=== PATIENT | female | born 1950 | race American Indian/Alaskan Native ===

== ENCOUNTER 2016-12-03 06:35 | Day surgery (SDC) | payer MEDICARE, BC ==
[2016-11-26 07:07] VITALS: BMI 37.4
[2016-12-03] MEDS ORDERED: Propofol 10 mg/ml Inj (20 ML) ONE ×2 (08:26→08:38)
[2016-12-03] MEDS ORDERED: Midazolam 2 MG/2 ML VIAL ONE (08:26)
[2016-12-03 09:32] VITALS: O2SAT 100
[2016-12-03 09:58] VITALS: BP 125/72; PULSE 58; RESP 16; TEMP 97.7
== END 2016-12-03 10:46 | disposition home or self-care (01) ==
LOC: ENDO 06:35
PROVIDERS: ATTEND Specialist
DX: K57.30 Diverticulosis of large intestine without perforation or abscess without bleeding (principal); K64.8 Other hemorrhoids; Z12.11 Encounter for screening for malignant neoplasm of colon; E11.9 Type 2 diabetes mellitus without complications; I10 Essential (primary) hypertension; D64.9 Anemia, unspecified; M19.90 Unspecified osteoarthritis, unspecified site; E78.5 Hyperlipidemia, unspecified; Z90.710 Acquired absence of both cervix and uterus; Z88.0 Allergy status to penicillin
CPT/HCPCS: 45378; 82948; J2250; J2704

== ENCOUNTER 2017-04-14 08:49 | Day surgery (SDC) | payer MEDICARE, BC ==
[2017-04-10 09:08] VITALS: BMI 37.0
[2017-04-14 09:23] LABS: BASO # 0.03 K/mm3 (0.0-2.0); BASO % 0.4 % (0.0-3.0); EOS # 0.2 (0.0-0.7); EOS % 2.7 % (1.5-5.0); GRAN # 4.68 (1.4-6.5); GRAN % 65.7 % (50.0-68.0); HEMATOCRIT 39.8 % (36.0-48.0); LYMPH # 1.8 (1.2-3.4); LYMPH % 25.7 % (22.0-35.0); MEAN CELL VOLUME 87.1 fl (80.0-105.0); MEAN CORPUSCULAR HEMOGLOBIN 27.8 pg (25.0-35.0); MEAN CORPUSCULAR HGB CONC 31.9 g/dl (31.0-37.0); MONO # 0.4 (0.1-0.6); MONO % 5.5 % (1.0-6.0); RED CELL DISTRIBUTION WIDTH 14.2 % (11.5-14.5); WHITE BLOOD COUNT 7.1 10^3/ul (4.5-11.0)
[2017-04-14 09:34] LABS: BLOOD UREA NITROGEN 17 mg/dL (7-21); CALCIUM 9.4 mg/dL (8.4-10.5); CARBON DIOXIDE 32 mmol/L (21-33); CHLORIDE 97 mmol/L (98-107); GFR AFRICAN-AMERICAN > 60; GLUCOSE,RANDOM 135 mg/dL (70-110); INR 1.11 (0.93-1.08); PARTIAL THROMBOPLASTIN TIME 29.2 Seconds (23.7-30.8); POTASSIUM 3.9 mmol/L (3.6-5.0); SODIUM 139 mmol/L (132-148)
[2017-04-14] MEDS ORDERED: Midazolam 2 MG/2 ML VIAL ONE (11:36)
[2017-04-14] MEDS ORDERED: Lidocaine 1% Inj (20ml) ONE (12:06)
[2017-04-14] MEDS ORDERED: Oxycodone/Acetaminophen 5/325 mg Tab PO PRN (12:27)
[2017-04-14] MEDS ORDERED: Sodium Chloride 0.45% 1,000 ML IV SCH (12:30)
[2017-04-14] MEDS ORDERED: Oxycodone/Acetaminophen 5/325 mg Tab ONE (13:42)
[2017-04-14 13:48] VITALS: RESP 18; TEMP 98.4
[2017-04-14 14:14] VITALS: BP 141/76; PULSE 82; O2SAT 94
--- NOTE | 2017-04-14 15:24 | US ---
PROCEDURE: Ultrasound-guided left thyroid fine needle aspiration biopsy. CLINICAL HISTORY: Hypothyroid. 1.8 cm dominant left lower pole nodule. Evaluate for malignancy. PHYSICIAN(S): Roman Fortune M.D. TECHNIQUE: The relative risks and indications for the procedure were explained to the patient and consent obtained. The patient was placed supine on the stretcher with the neck extended and preliminary sonography of the thyroid performed. This reveal heterogeneous gland with a a poorly defined 1.8 cm nodule in the left lower pole. The neck was prepped and draped in the usual sterile fashion. Conscious sedation and monitoring were provided throughout the procedure by a nurse. 1% Xylocaine was used to anesthetize the skin and soft tissues at the access site. Three passes with a 22-gauge needle were performed under ultrasound guidance for fine needle aspiration of the 1.8 cm poorly defined nodule in the left thyroid. The slides were reviewed by pathology and deemed adequate. The patient tolerated the procedure well. IMPRESSION: 1. Ultrasound guided fine needle aspiration of a poorly defined 1.8 cm nodule in the left lower pole.
== END 2017-04-14 14:30 | disposition home or self-care (01) ==
LOC: SDS 08:49
PROVIDERS: ATTEND Radiology Vascular & Interventional Radiology
DX: E04.1 Nontoxic single thyroid nodule (principal); E03.9 Hypothyroidism, unspecified; I10 Essential (primary) hypertension
CPT/HCPCS: 10022; 36415; 80048; 85025; 85610; 85730; 88173; J2250; J2405; J3010; J7030

== ENCOUNTER 2017-07-31 16:18 | Inpatient (IN) | payer MEDICARE, BC ==
[2017-07-31 16:18] VITALS: BMI 37.0
--- NOTE | 2017-07-31 17:15 | ED PDOC ---
Arrival/HPI - General Chief Complaint: Abdominal Pain Time Seen by Provider: 07/31/17 16:27 Historian: Patient - History of Present Illness Narrative History of Present Illness (Text): 07/31/17 17:15 This 67 yo female, pmh of dm, htn/hypercholestremia/hypothyroidism,ventral hernia, arthritis, presents to this ED c/o abdominal pain, nausea, and vomiting x 2 days. Patient stated abdominal hernia is painful. Patient denies sob, cp, rectal bleeding, dizziness, fever, chills, or MOELLER. Time/Duration: Other (see hpi) Quality: Aching Context: Home Past Medical History - Provider Review Nursing Documentation Reviewed: Yes - Infectious Disease Hx of Infectious Diseases: None - Tetanus Immunization Tetanus Immunization: Unknown - Cardiac Hx Cardiac Disorders: No - Pulmonary Hx Respiratory Disorders: No - Neurological Hx Neurological Disorder: No - HEENT Hx HEENT Disorder: No - Renal Hx Renal Disorder: No - Endocrine/Metabolic Hx Endocrine Disorders: Yes (diabetes type 2) Hx Diabetes Mellitus Type 2: Yes Hx Hypothyroidism: Yes - Hematological/Oncological Hx Blood Transfusions: Yes - Integumentary Hx Dermatological Disorder: No - Musculoskeletal/Rheumatological Hx Musculoskeletal Disorders: Yes - Gastrointestinal Hx Gastrointestinal Disorders: No - Genitourinary/Gynecological Hx Reproductive Disorders: Yes (partial hyst about 20 yrs ago) - Psychiatric Hx Psychophysiologic Disorder: No Hx Substance Use: No - Past Surgical History Past Surgical History: No Previous - Anesthesia Hx Anesthesia Reactions: No Hx Malignant Hyperthermia: No - Suicidal Assessment Feels Threatened In Home Enviroment: No Family/Social History - Physician Review Nursing Documentation Reviewed: Yes Family/Social History: Other (noncontributory) Smoking Status: Never Smoked Hx Alcohol Use: No Hx Substance Use: No Hx Substance Use Treatment: No Allergies/Home Meds Allergies/Adverse Reactions: Allergies apricot Allergy (Severe, Verified 07/31/17 16:36) ANAPHYLAXIS Penicillins Allergy (Severe, Verified 07/31/17 16:36) RASH Home Medications: Home Meds Medication Instructions Recorded Confirmed Allopurinol [Zyloprim] 1 tab PO DAILY 07/31/17 07/31/17 Aspirin [Ecotrin] 1 tab PO DAILY 07/31/17 07/31/17 Ergocalciferol [Drisdol 50,000 1 cap PO Q7D 07/31/17 07/31/17 Intl Units Cap] Furosemide [Lasix] 1 tab PO DAILY 07/31/17 07/31/17 Glimepiride [amaRYL] 1 tab PO DAILY 07/31/17 07/31/17 Levothyroxine Sodium [Levoxyl] 1 tab PO DAILY 07/31/17 07/31/17 Magnesium Oxide [Magnesium] 1 tab PO DAILY 07/31/17 07/31/17 MetFORMIN [glucoPHAGE] 1 tab PO ACBD 07/31/17 07/31/17 Nebivolol [Bystolic] 1 tab PO DAILY 07/31/17 07/31/17 Omeprazole [Omeprazole] 1 cap PO DAILY 07/31/17 07/31/17 Oxycodone HCl/Acetaminophen 1 tab PO TID PRN 07/31/17 07/31/17 [Percocet 10-325 mg Tablet] Pravastatin Sodium [Pravachol] 1 tab PO QOTHERDAY 07/31/17 07/31/17 Valsartan/Hydrochlorothiazide 1 tab PO DAILY 07/31/17 07/31/17 [Valsartan-Hctz 320-25 mg Tab] cloNIDine [Catapres] 1 tab PO TID 07/31/17 07/31/17 hydrALAZINE [Apresoline] 1 tab PO QID 07/31/17 07/31/17 metFORMIN [glucOPHAGE] 1 tab PO DAILY 07/31/17 07/31/17 Review of Systems - Review of Systems Constitutional: Normal. absent: Fatigue, Weight Change, Fevers Eyes: Normal ENT: Normal Respiratory: Normal Cardiovascular: Normal Gastrointestinal: Abdominal Pain, Constipation (chronic), Nausea, Vomiting. absent: Diarrhea Genitourinary Female: Normal Musculoskeletal: Normal Skin: Normal Neurological: Normal Endocrine: Normal Hemo/Lymphatic: Normal Psychiatric: Normal Physical Exam Vital Signs Temp Pulse Resp BP Pulse Ox 07/31/17 20:02 57 L 16 134/75 100 07/31/17 16:37 98.1 F 67 16 167/98 H 100 Temperature: Afebrile Blood Pressure: Normal Pulse: Regular Respiratory Rate: Normal Appearance: Positive for: Well-Appearing, Non-Toxic, Comfortable Pain Distress: None Mental Status: Positive for: Alert and Oriented X 3 - Systems Exam Head: Present: Atraumatic, Normocephalic Pupils: Present: PERRL Extroacular Muscles: Present: EOMI Conjunctiva: Present: Normal Mouth: Present: Moist Mucous Membranes Neck: Present: Normal Range of Motion Respiratory/Chest: Present: Clear to Auscultation, Good Air Exchange. No: Respiratory Distress, Accessory Muscle Use Cardiovascular: Present: Regular Rate and Rhythm, Normal S1, S2. No: Murmurs Abdomen: Present: Normal Bowel Sounds. No: Tenderness, Distention, Peritoneal Signs Back: Present: Normal Inspection Upper Extremity: Present: Normal Inspection. No: Cyanosis, Edema Lower Extremity: Present: Normal Inspection. No: Edema Neurological: Present: GCS=15, CN II-XII Intact, Speech Normal Skin: Present: Warm, Dry, Normal Color. No: Rashes Psychiatric: Present: Alert, Oriented x 3, Normal Insight, Normal Concentration Medical Decision Making ED Course and Treatment: 07/31/17 19:[address] Santos regarding labs, CT scan, physical exam, and patient chief complain. He recommended to have patient admitted, and to have Dr. Song called for Surgery consult. He also recommended to have Dr. Resendez examine patient. 07/31/17 20:[address] Song Surgeon. He agrees with plan for admission. He also recommended to call surgical assistant, and to have resident to insert a NG tube. Re-evaluation Time: 19:59 Reassessment Condition: Re-examined, Improving,but remains with symptoms - Lab Interpretations Lab Results: 07/31/17 17:20 07/31/17 17:20 Lab Results 07/31/17 20:08: Blood Type Pending, Antibody Screen Pending, BBK History Checked Patient has bt 07/31/17 18:37: Urine Color Yellow, Urine Appearance Clear, Urine pH 6.5, Ur Specific [place] 1.015, Urine Protein Negative, Urine Glucose (UA) Negative, Urine Ketones Negative, Urine Blood Negative, Urine Nitrate Negative, Urine Bilirubin Negative, Urine Urobilinogen 0.2, Ur Leukocyte Esterase Trace H, Urine RBC 0 - 2, Urine WBC 2 - 5, Ur Epithelial Cells 4 - 5, Urine Bacteria Many 07/31/17 17:32: POC Glucose (mg/dL) 206 H 07/31/17 17:20: Sodium 136, Potassium 3.6, Chloride 94 L, Carbon Dioxide 27, Anion Gap 19, BUN 19, Creatinine 1.0, Est GFR ( Amer) > 60, Est GFR (Non- Af Amer) 55, Random Glucose 182 H, Calcium 9.6, Total Bilirubin 0.4, AST 28, ALT 46, Alkaline Phosphatase 86, Total Protein 6.5, Albumin 3.9, Globulin 2.7, Albumin/Globulin Ratio 1.5, Lipase 20 L 07/31/17 17:20: PT 13.5 H, INR 1.18 H, APTT 28.9 07/31/17 17:20: WBC 11.2 H D, RBC 4.67, Hgb 12.7, Hct 40.0, MCV 85.7, MCH 27.2, MCHC 31.8, RDW 13.9, Plt Count 384, MPV 9.1, Gran % 80.0 H, Lymph % (Auto) 13.3 L, Kings % (Auto) 6.2 H, Eos % (Auto) 0.3 L, Baso % (Auto) 0.2, Gran # 8.98 H, Lymph # (Auto) 1.5, Kings # (Auto) 0.7 H, Eos # (Auto) 0.0, Baso # (Auto) 0.02 I have reviewed the lab results: Yes Interpretation: No sign. chg./baseline - RAD Interpretation Narrative RAD Interpretations (Text): 07/31/17 20:23 IMPRESSION: 1. There is a ventral abdominal hernia containing a short segment of bowel. There is stranding of the herniated fat, with a small amount of fluid within the hernia. An air-fluid level is identified within the herniated segment of bowel, with distention/obstruction of the colon proximal to this finding. These findings are concerning for an incarcerated or strangulated hernia. Surgical consultation is recommended. 2. Colonic diverticula are identified. There is wall thickening of the splenic flexure with a small amount of adjacent fluid, suggestive of colitis or diverticulitis. 3. There is hydronephrosis of the right kidney. Hypodense renal cysts are visualized bilaterally. There is left renal pelviectasis. 4. There is a small amount of free fluid within the right side of the pelvis. 5. There is a large hiatal hernia. 6. Additional CT findings described above. Thank you for allowing us to participate in the care of your patient. Dictated and Authenticated by: Braulio Baez MD 07/31/17 21:04 Chest x-rays: NAD Radiology Orders: 07/31/17 17:25 ABD & PELVIS IV CONTRAST ONLY [CT] Stat 07/31/17 19:56 CHEST PORTABLE [RAD] Stat - EKG Interpretation Interpreted by ED Physician: Yes (Sinus Bradycardia @ [address] changes) Type: 12 lead EKG Comparison: No previous EKG avail. - Medication Orders Current Medication Orders: Sodium Chloride (Sodium Chloride 0.9%) 1,000 mls @ 100 mls/hr IV .Q10H SONNY Last Admin: 07/31/17 20:12 Dose: 100 mls/hr eMAR Start Stop Document 07/31/17 20:12 GMD (Rec: 07/31/17 20:12 GMD [facility] [id number]) Intravenous Solution Start Date 07/31/17 Start Time 20:12 Ciprofloxacin (Cipro 400mg/200ml Dsw) 400 mg in 200 mls @ 133.3 mls/hr IVPB STAT STA PRN Reason: Protocol Stop: 07/31/17 22:02 Metronidazole (Flagyl) 500 mg in 100 mls @ 100 mls/hr IVPB STAT STA PRN Reason: Protocol Stop: 07/31/17 21:32 Pantoprazole Sodium (Protonix Inj) 40 mg IVP BID SONNY Discontinued Medications Famotidine (Pepcid) 20 mg IVP STAT STA Stop: 07/31/17 17:16 Last Admin: 07/31/17 17:35 Dose: 20 mg IVP Administration Document 07/31/17 17:35 GMD (Rec: 07/31/17 17:35 GMD [facility] [id number]) Charges for Administration # of IVP Administrations 1 Hydromorphone HCl (Dilaudid) 1 mg IVP STAT STA Stop: 07/31/17 19:32 Last Admin: 07/31/17 19:45 Dose: 1 mg MAR Pain Assessment Document 07/31/17 19:45 AD (Rec: 07/31/17 19:45 AD [id number]) Pain Reassessment Is this a pain reassessment? Yes Description Intensity of Pain at present 8 Pain Behavior Facial Grimacing IVP Administration Document 07/31/17 19:45 AD (Rec: 07/31/17 19:45 AD [id number]) Charges for Administration # of IVP Administrations 1 Sodium Chloride (Sodium Chloride 0.9%) 1,000 mls @ 1,000 mls/hr IV .Q1H STA Stop: 07/31/17 18:20 Last Admin: 07/31/17 17:35 Dose: 1,000 mls/hr eMAR Start Stop Document 07/31/17 17:35 GMD (Rec: 07/31/17 17:35 GMD [facility] [id number]) Intravenous Solution Start Date 07/31/17 Start Time 17:35 End Date 07/31/17 End time 18:35 Total Infusion Time 60 Morphine Sulfate (Morphine) 4 mg IVP STAT STA Stop: 07/31/17 17:22 Last Admin: 07/31/17 17:35 Dose: 4 mg MAR Pain Assessment Document 07/31/17 17:35 GMD (Rec: 07/31/17 17:35 GMD [facility] [id number]) Pain Reassessment Is this a pain reassessment? No Sleep Is patient sleeping during reassessment? No Presence of Pain Presence of Pain Yes IVP Administration Document 07/31/17 17:35 GMD (Rec: 07/31/17 17:35 GMD [facility] [id number]) Charges for Administration # of IVP Administrations 1 Re-Assess: FRANCY Pain Assessment Document 07/31/17 18:35 GMD (Rec: 07/31/17 19:13 GMD [facility] [id number]) Pain Reassessment Is this a pain reassessment? Yes Sleep Is patient sleeping during reassessment? No Presence of Pain Presence of Pain Yes Ondansetron HCl (Zofran Inj) 4 mg IVP STAT STA Stop: 07/31/17 17:26 Last Admin: 07/31/17 17:34 Dose: 4 mg IVP Administration Document 07/31/17 17:34 GMD (Rec: 07/31/17 17:35 GMD [facility] [id number]) Charges for Administration # of IVP Administrations 1 Disposition/Present on Arrival - Present on Arrival Any Indicators Present on Arrival: No History of DVT/PE: No History of Uncontrolled Diabetes: No Urinary Catheter: No History of Decub. Ulcer: No History Surgical Site Infection Following: None - Disposition Have Diagnosis and Disposition been Completed?: Yes Diagnosis: Incarcerated hernia of abdominal cavity, Intractable abdominal pain Disposition: HOSPITALIZED Disposition Time: 20:29 Patient Plan: Admission Patient Problems: Current Active Problems Problem Status Onset Incarcerated hernia of abdominal cavity Acute Intractable abdominal pain Acute Condition: STABLE Referrals: Adonis Santos MD [Primary Care Provider] - Follow up with primary Forms: Tutum (Cypriot)
[2017-07-31] MEDS ORDERED: Morphine 4 mg/ml ISec IVP STA (17:21)
[2017-07-31] MEDS ORDERED: Sodium Chloride 0.9% 1,000 ML IV STA (17:21)
[2017-07-31 18:04] LABS: ALB/GLOB RATIO 1.5 (1.1-1.8); ALBUMIN 3.9 g/dL (3.0-4.8); ALT/SGPT 46 U/L (7-56); AST/SGOT 28 U/L (14-36); BLOOD UREA NITROGEN 19 mg/dL (7-21); CALCIUM 9.6 mg/dL (8.4-10.5); GFR AFRICAN-AMERICAN > 60; GFR NON-AFRICAN AMERICAN 55; LIPASE 20 U/L (23-300)
[2017-07-31 18:06] LABS: BASO # 0.02 K/mm3 (0.0-2.0); BASO % 0.2 % (0.0-3.0); EOS % 0.3 % (1.5-5.0); GRAN # 8.98 (1.4-6.5); HEMOGLOBIN 12.7 g/dL (12.0-16.0); LYMPH # 1.5 (1.2-3.4); LYMPH % 13.3 % (22.0-35.0); MEAN CELL VOLUME 85.7 fl (80.0-105.0); MEAN CORPUSCULAR HEMOGLOBIN 27.2 pg (25.0-35.0); MEAN CORPUSCULAR HGB CONC 31.8 g/dl (31.0-37.0); MEAN PLATELET VOLUME 9.1 fl (7.0-11.0); MONO # 0.7 (0.1-0.6); MONO % 6.2 % (1.0-6.0); RBC 4.67 10^6/uL (3.5-6.1); RED CELL DISTRIBUTION WIDTH 13.9 % (11.5-14.5); WHITE BLOOD COUNT 11.2 10^3/ul (4.5-11.0)
[2017-07-31 18:11] LABS: INR 1.18 (0.93-1.08); PARTIAL THROMBOPLASTIN TIME 28.9 Seconds (25.1-36.5); PROTHROMBIN TIME 13.5 SECONDS (9.4-12.5)
[2017-07-31] MEDS ORDERED: Iohexol 350 MG/100 ML VIAL ONE (18:41)
[2017-07-31 18:54] LABS: PH,URINE 6.5 (4.7-8.0); URINE BILIRUBIN NEGATIVE (NEGATIVE); URINE BLOOD NEGATIVE (NEGATIVE); URINE GLUCOSE (UA) NEGATIVE (NEGATIVE); URINE LEUKOCYTE ESTERASE TRACE Leu/uL (NEGATIVE); URINE NITRATE NEGATIVE (NEGATIVE); URINE PROTEIN NEGATIVE mg/dL (<30 mg/dL); URINE UROBILINOGEN 0.2 E.U./dL (<1 E.U./dL)
[2017-07-31 18:55] LABS: URINE APPEARANCE CLEAR (CLEAR); URINE COLOR YELLOW (YELLOW)
[2017-07-31 19:15] LABS: URINE BACTERIA MANY (NEG); URINE RBC 0 - 2 /hpf (0-2)
[2017-07-31] MEDS ORDERED: HYDROmorphone 0.5 mg/0.5 ml ISec IVP STA (19:31)
[2017-07-31] MEDS ORDERED: Sodium Chloride 0.9% 1,000 ML IV SCH (20:00)
--- NOTE | 2017-07-31 20:20 | CT ---
EXAM: CT Abdomen and Pelvis With Intravenous Contrast EXAM DATE/TIME: 07/31/2017 5:25 PM CLINICAL HISTORY: The patient age is 67 years old and is female; Pain; Abdominal pain; Acute; Patient HX: Hernia Facility exam id and description: Ct abdpelciv abd pelvis iv contrast only TECHNIQUE: Axial computed tomography images of the abdomen and pelvis with intravenous contrast. All CT scans at this facility use one or more dose reduction techniques, viz.: automated exposure control; ma/kV adjustment per patient size (including targeted exams where dose is matched to indication; i.e. head); or iterative reconstruction technique. Coronal and sagittal reformatted images were created and reviewed. CONTRAST: 100 mL of omni administered intravenously. COMPARISON: US - PELVIS ULTRASOUND 2016-04-07 12:36 FINDINGS: Lower thorax: There is a large hiatal hernia. Atelectatic changes are visualized at the left lung base. ABDOMEN: Liver: No mass. Gallbladder and bile ducts: No calcified stones. No ductal dilation. Pancreas: There is mild atrophy of the neck/proximal body of the pancreas. Spleen: No splenomegaly. Adrenals: No mass. Kidneys and ureters: There is hydronephrosis of the right kidney. Hypodense renal cysts are visualized bilaterally. There is left renal pelviectasis. Stomach and bowel: There is a ventral abdominal hernia containing a short segment of bowel. There is stranding of the herniated fat, with a small amount of fluid within the hernia. An air-fluid level is identified within the herniated segment of bowel, with distention/obstruction of the colon proximal to this finding. These findings are concerning for an incarcerated or strangulated hernia. Colonic diverticula are identified. There is wall thickening of the splenic flexure with a small amount of adjacent fluid, suggestive of colitis or diverticulitis. Appendix: Not visualized. PELVIS: Bladder: No mass. Reproductive: The uterus is absent. ABDOMEN and PELVIS: Intraperitoneal space: There is a small amount of free fluid within the right side of the pelvis. Bones/joints: There is a hypodense collection of fat or lipoma within the right anterior thigh measuring 6.5 x 5.9 cm. There is prominent spurring or exostosis of the adjacent femoral shaft. There is bilateral sclerotic sacroiliac arthropathy. Hypertrophic degenerative changes are noted within the spine. Soft tissues: See above. Vasculature: No abdominal aortic aneurysm. Lymph nodes: Scattered small retroperitoneal lymph nodes are identified, which are predominantly subcentimeter in size. Small inguinal lymph nodes are also visualized. IMPRESSION: 1. There is a ventral abdominal hernia containing a short segment of bowel. There is stranding of the herniated fat, with a small amount of fluid within the hernia. An air-fluid level is identified within the herniated segment of bowel, with distention/obstruction of the colon proximal to this finding. These findings are concerning for an incarcerated or strangulated hernia. Surgical consultation is recommended. 2. Colonic diverticula are identified. There is wall thickening of the splenic flexure with a small amount of adjacent fluid, suggestive of colitis or diverticulitis. 3. There is hydronephrosis of the right kidney. Hypodense renal cysts are visualized bilaterally. There is left renal pelviectasis. 4. There is a small amount of free fluid within the right side of the pelvis. 5. There is a large hiatal hernia. 6. Additional CT findings described above.
[2017-07-31] MEDS ORDERED: Ciprofloxacin 400mg/200ml D5W 400 MG/200 ML BAG IVPB STA (20:32)
[2017-07-31] MEDS ORDERED: metroNIDAZOLE IV 500 mg/100 ml 500 MG/100 ML BAG IVPB STA (20:33)
[2017-07-31] MEDS ORDERED: Morphine 5 MG/ML SYRINGE IVP PRN (21:57)
--- NOTE | 2017-07-31 22:13 | CP.PCM.CON ---
<Erum Kuhn - Last Filed: 08/01/17 01:18> History of Present Illness - History of Present Illness History of Present Illness: GENERAL SURGERY CONSULT NOTE FOR DR. SANCHEZ 67yoF with PMHx of HTN, obesity, DM, hyperlipidemia, bleeding gastric ulcer presents to the ED with abdominal pain and ventral hernia. Per the patient, she has had the ventral hernia for a few years. Sometimes it would get stuck out but eventually go back in. However, a few days ago, the hernia "stayed stuck out " for the first time. She also began having abdominal pain a few days ago. She had some nausea and vomited 5 times 2 days ago. She last passed flatus yesterdya and last BM was 2 days ago. PMHx: HTN, obesity, DM, hyperlipidemia, arthritis, bleeding gastric ulcer Surgeries: partial hysterectomy, thyroid FNA, tubal ligation, left knee arthroscopy x2 Allergies: penicillin, apricot Social history: denies tobacco, etoh, or illicit drug use Review of Systems - Review of Systems All systems: reviewed and no additional remarkable complaints except (as per HPI ) Past Patient History - Infectious Disease Hx of Infectious Diseases: None - Tetanus Immunizations Tetanus Immunization: Unknown - Past Social History Smoking Status: Never Smoked - CARDIAC Hx Cardiac Disorders: No - PULMONARY Hx Respiratory Disorders: No - NEUROLOGICAL Hx Neurological Disorder: No - HEENT Hx HEENT Problems: No - RENAL Hx Chronic Kidney Disease: No - ENDOCRINE/METABOLIC Hx Endocrine Disorders: Yes (diabetes type 2) Hx Diabetes Mellitus Type 2: Yes Hx Hypothyroidism: Yes - HEMATOLOGICAL/ONCOLOGICAL Hx Blood Transfusions: Yes - INTEGUMENTARY Hx Dermatological Problems: No - MUSCULOSKELETAL/RHEUMATOLOGICAL Hx Musculoskeletal Disorders: Yes - GASTROINTESTINAL Hx Gastrointestinal Disorders: No - GENITOURINARY/GYNECOLOGICAL Hx Reproductive Disorders: Yes (partial hyst about 20 yrs ago) - PSYCHIATRIC Hx Psychophysiologic Disorder: No Hx Substance Use: No - SURGICAL HISTORY Hx Surgeries: No - ANESTHESIA Hx Anesthesia Reactions: No Hx Malignant Hyperthermia: No Meds Allergies/Adverse Reactions: Allergies Allergy/AdvReac Type Severity Reaction Status Date / Time apricot Allergy Severe ANAPHYLAXIS Verified 07/31/17 16:36 Penicillins Allergy Severe RASH Verified 07/31/17 16:36 - Medications Medications: Current Medications Sodium Chloride (Sodium Chloride 0.9%) 1,000 mls @ 100 mls/hr IV .Q10H SONNY Last Admin: 07/31/17 20:12 Dose: 100 mls/hr Potassium Chloride/Dextrose/Sod Cl (Potassium Chl 10 Meq In D5-1/2ns) 1,000 mls @ 125 mls/hr IV .Q8H [facility] Morphine Sulfate (Morphine) 5 mg IVP Q4 PRN PRN Reason: Pain, moderate (4-7) Ondansetron HCl (Zofran Inj) 4 mg IVP Q4 PRN PRN Reason: Nausea/Vomiting Pantoprazole Sodium (Protonix Inj) 40 mg IVP BID [facility] Last Admin: 07/31/17 21:19 Dose: 40 mg Physical Exam - Constitutional Appears: Non-toxic, No Acute Distress - Head Exam Head Exam: ATRAUMATIC, NORMAL INSPECTION - Eye Exam Eye Exam: EOMI, Normal appearance - Respiratory Exam Respiratory Exam: NORMAL BREATHING PATTERN. absent: Respiratory Distress - Cardiovascular Exam Cardiovascular Exam: +S1, +S2 - GI/Abdominal Exam GI & Abdominal Exam: Hernia (non-reducible, tender ventral hernia), Soft, Tenderness (over hernia only). absent: Distended, Firm, Guarding, Rebound, Rigid - Neurological Exam Neurological exam: Alert, CN II-XII Intact, Oriented x3 - Psychiatric Exam Psychiatric exam: Normal Affect, Normal Mood - Skin Skin Exam: Dry, Normal Color, Warm Results - Vital Signs Recent Vital Signs: Last Vital Signs Temp 98.1 F 07/31/17 16:37 Pulse 57 L 07/31/17 20:02 Resp 16 07/31/17 20:02 BP 134/75 07/31/17 20:02 Pulse Ox 100 07/31/17 20:02 - Labs Result Diagrams: 07/31/17 17:20 07/31/17 17:20 Labs: Laboratory Results - last 24 hr 07/31/17 07/31/17 07/31/17 17:20 17:20 17:20 WBC 11.2 H D RBC 4.67 Hgb 12.7 Hct 40.0 MCV 85.7 MCH 27.2 MCHC 31.8 RDW 13.9 Plt Count 384 MPV 9.1 Gran % 80.0 H Lymph % (Auto) 13.3 L [place] % (Auto) 6.2 H Eos % (Auto) 0.3 L Baso % (Auto) 0.2 Gran # 8.98 H Lymph # (Auto) 1.5 [place] # (Auto) 0.7 H Eos # (Auto) 0.0 Baso # (Auto) 0.02 PT 13.5 H INR 1.18 H APTT 28.9 Sodium 136 Potassium 3.6 Chloride 94 L Carbon Dioxide 27 Anion Gap 19 BUN 19 Creatinine 1.0 Est GFR ( Amer) > 60 Est GFR (Non-Af Amer) 55 POC Glucose (mg/dL) Random Glucose 182 H Calcium 9.6 Total Bilirubin 0.4 AST 28 ALT 46 Alkaline Phosphatase 86 Total Protein 6.5 Albumin 3.9 Globulin 2.7 Albumin/Globulin Ratio 1.5 Lipase 20 L Urine Color Urine Appearance Urine pH Ur Specific [place] Urine Protein Urine Glucose (UA) Urine Ketones Urine Blood Urine Nitrate Urine Bilirubin Urine Urobilinogen Ur Leukocyte Esterase Urine RBC Urine WBC Ur Epithelial Cells Urine Bacteria Blood Type Antibody Screen BBK History Checked 07/31/17 07/31/17 07/31/17 17:32 18:37 20:08 WBC RBC Hgb Hct MCV MCH MCHC RDW Plt Count MPV Gran % Lymph % (Auto) [place] % (Auto) Eos % (Auto) Baso % (Auto) Gran # Lymph # (Auto) [place] # (Auto) Eos # (Auto) Baso # (Auto) PT INR APTT Sodium Potassium Chloride Carbon Dioxide Anion Gap BUN Creatinine Est GFR ( Amer) Est GFR (Non-Af Amer) POC Glucose (mg/dL) 206 H Random Glucose Calcium Total Bilirubin AST ALT Alkaline Phosphatase Total Protein Albumin Globulin Albumin/Globulin Ratio Lipase Urine Color Yellow Urine Appearance Clear Urine pH 6.5 Ur Specific [place] 1.015 Urine Protein Negative Urine Glucose (UA) Negative Urine Ketones Negative Urine Blood Negative Urine Nitrate Negative Urine Bilirubin Negative Urine Urobilinogen 0.2 Ur Leukocyte Esterase Trace H Urine RBC 0 - 2 Urine WBC 2 - 5 Ur Epithelial Cells 4 - 5 Urine Bacteria Many Blood Type O POSITIVE Antibody Screen Negative BBK History Checked Patient has bt Assessment & Plan - Assessment and Plan (Free Text) Assessment: 67yoF with PMHx of HTN, obesity, DM, hyperlipidemia, bleeding gastric ulcer who presents with incarcerated ventral hernia - Afebrile, VSS - CT: ventral abdominal hernia containing short segment of bowel. stranding of herniated fat w/ small amount fluid within hernia. Air fluid level identified within herniated segment of bowel w/ distention/obstruction of colon proximal to this; colitis/diverticulitis; right hydronephrosis; large hiatal hernia - Attempted to insert NG tube x3 - Ice applied to hernia area - NPO - IV fluids with potassium - Protonix - Pain medicine and Zofran PRN - IV antibiotics - Plan for OR now for ventral hernia repair - Procedure, risks, and alternatives explained to patient in detail, all questions answered, written consent was obtained - Discussed plan with Dr. Duncan Kuhn PGY-3 <Felix Sanchez - Last Filed: 08/03/17 13:58> Meds - Medications Medications: Current Medications Acetylcysteine (Acetylcysteine 20%) 4 ml IH [id number] [facility] Last Admin: 08/03/17 13:11 Dose: Not Given Heparin Sodium (Porcine) (Heparin) 5,000 units SC Q8 SONNY PRN Reason: Protocol Last Admin: 08/03/17 05:07 Dose: 5,000 units Hydromorphone HCl (Dilaudid) 0.5 mg IVP Q4H PRN PRN Reason: Pain, severe (8-10) Last Admin: 08/03/17 11:09 Dose: 0.5 mg Aztreonam 500 mg/ Sodium (Chloride) 100 mls @ 100 mls/hr IVPB Q8 SONNY PRN Reason: Protocol Stop: 08/11/17 22:01 Last Admin: 08/03/17 07:50 Dose: 100 mls/hr Metronidazole (Flagyl) 500 mg in 100 mls @ 100 mls/hr IVPB Q8 SONNY PRN Reason: Protocol Stop: 08/11/17 22:01 Last Admin: 08/03/17 05:03 Dose: 100 mls/hr Acetaminophen (Ofirmev) 1,000 mg in 100 mls @ 400 mls/hr IVPB Q6H SONNY Stop: 08/04/17 22:16 Last Admin: 08/03/17 11:08 Dose: 400 mls/hr Sodium Chloride (Sodium Chloride 0.9%) 1,000 mls @ 75 mls/hr IV .[id number] [facility] Last Admin: 08/03/17 13:24 Dose: 75 mls/hr Insulin Human Lispro (Humalog Med) 0 units SC Q6H SONNY PRN Reason: Protocol Last Admin: 08/03/17 12:19 Dose: Not Given Levalbuterol HCl (Xopenex) 0.63 mg IH [id number] [facility] Last Admin: 08/03/17 13:11 Dose: Not Given Levothyroxine Sodium (Synthroid) 25 mcg IVP DAILY [facility] Last Admin: 08/03/17 10:52 Dose: Not Given Metoprolol Tartrate (Lopressor) 5 mg IVP Q6H [facility] Last Admin: 08/03/17 13:05 Dose: 5 mg Naloxone HCl (Narcan) 0.4 mg IVP ONCE PRN PRN Reason: Opiate reversal Ondansetron HCl (Zofran Inj) 4 mg IVP Q4 PRN PRN Reason: Nausea/Vomiting Last Admin: 08/03/17 12:56 Dose: 4 mg Pantoprazole Sodium (Protonix Inj) 40 mg IVP BID [facility] Last Admin: 08/03/17 11:07 Dose: 40 mg Results - Vital Signs Recent Vital Signs: Last Vital Signs Temp 98.1 F 08/03/17 03:42 Pulse 106 H 08/03/17 13:05 Resp 27 H 08/03/17 10:00 BP 167/110 H 08/03/17 13:05 Pulse Ox 96 08/03/17 12:00 - Labs Result Diagrams: 08/03/17 05:30 08/03/17 05:30 Labs: Laboratory Results - last 24 hr 08/02/17 08/02/17 08/02/17 07:00 08:30 14:22 WBC RBC Hgb Hct MCV MCH MCHC RDW Plt Count MPV Gran % Lymph % (Auto) [place] % (Auto) Eos % (Auto) Baso % (Auto) Gran # Lymph # (Auto) [place] # (Auto) Eos # (Auto) Baso # (Auto) Neutrophils % (Manual) Lymphocytes % (Manual) Monocytes % (Manual) Platelet Evaluation Anisocytosis (manual) PT INR APTT Fibrinogen Fibrin Degrad Products D-Dimer, Quantitative pO2 VBG pH VBG pCO2 VBG HCO3 VBG Total CO2 VBG O2 Sat (Calc) VBG Base Excess VBG Potassium Glucose Lactate FiO2 Sodium Potassium Chloride Carbon Dioxide Anion Gap BUN Creatinine Est GFR ( Amer) Est GFR (Non-Af Amer) POC Glucose (mg/dL) Random Glucose Hemoglobin A1c 6.9 H Fructosamine 186 L Lactic Acid Calcium Phosphorus Magnesium Total Bilirubin Direct Bilirubin AST ALT Alkaline Phosphatase Lactate Dehydrogenase Total Creatine Kinase Troponin I C-React Prot High Sens NT-Pro-B Natriuret Pep Total Protein Albumin Globulin Albumin/Globulin Ratio Procalcitonin 100.67 H Plasma Cortisol PM Venous Blood Potassium Urine Color Urine Appearance Urine pH Ur Specific [place] Urine Protein Urine Glucose (UA) Urine Ketones Urine Blood Urine Nitrate Urine Bilirubin Urine Urobilinogen Ur Leukocyte Esterase Urine RBC Urine WBC Ur Epithelial Cells Amorphous Sediment Urine Bacteria Hyaline Casts Fine Granular Casts Coarse Granular Casts Urine Other 08/02/17 08/02/17 08/02/17 14:22 14:22 14:22 WBC 6.6 RBC 4.93 Hgb 13.6 Hct 42.3 MCV 85.8 MCH 27.6 MCHC 32.2 RDW 14.4 Plt Count 336 MPV 9.4 Gran % 85.2 H Lymph % (Auto) 9.5 L [place] % (Auto) 5.0 Eos % (Auto) 0.0 L Baso % (Auto) 0.3 Gran # 5.63 Lymph # (Auto) 0.6 L [place] # (Auto) 0.3 Eos # (Auto) 0.0 Baso # (Auto) 0.02 Neutrophils % (Manual) Lymphocytes % (Manual) Monocytes % (Manual) Platelet Evaluation Anisocytosis (manual) PT INR APTT Fibrinogen Fibrin Degrad Products D-Dimer, Quantitative pO2 VBG pH VBG pCO2 VBG HCO3 VBG Total CO2 VBG O2 Sat (Calc) VBG Base Excess VBG Potassium Glucose Lactate FiO2 Sodium 137 Potassium 4.5 Chloride 99 Carbon Dioxide 20 L Anion Gap 22 H BUN 35 H Creatinine 2.2 H Est GFR ( Amer) 27 Est GFR (Non-Af Amer) 22 POC Glucose (mg/dL) Random Glucose 205 H Hemoglobin A1c Fructosamine Lactic Acid 5.6 H* Calcium 8.9 Phosphorus Magnesium Total Bilirubin 0.7 Direct Bilirubin AST 31 ALT 31 Alkaline Phosphatase 84 Lactate Dehydrogenase Total Creatine Kinase Troponin I 0.08 D C-React Prot High Sens NT-Pro-B Natriuret Pep 12977 H Total Protein 5.8 Albumin 3.1 Globulin 2.7 Albumin/Globulin Ratio 1.2 Procalcitonin Plasma Cortisol PM Venous Blood Potassium Urine Color Urine Appearance Urine pH Ur Specific [place] Urine Protein Urine Glucose (UA) Urine Ketones Urine Blood Urine Nitrate Urine Bilirubin Urine Urobilinogen Ur Leukocyte Esterase Urine RBC Urine WBC Ur Epithelial Cells Amorphous Sediment Urine Bacteria Hyaline Casts Fine Granular Casts Coarse Granular Casts Urine Other 08/02/17 08/02/17 08/02/17 14:22 14:30 14:30 WBC RBC Hgb Hct MCV MCH MCHC RDW Plt Count MPV Gran % Lymph % (Auto) [place] % (Auto) Eos % (Auto) Baso % (Auto) Gran # Lymph # (Auto) [place] # (Auto) Eos # (Auto) Baso # (Auto) Neutrophils % (Manual) Lymphocytes % (Manual) Monocytes % (Manual) Platelet Evaluation Anisocytosis (manual) PT 22.8 H INR 1.97 H APTT 38.2 H Fibrinogen Fibrin Degrad Products D-Dimer, Quantitative 3431 H pO2 VBG pH VBG pCO2 VBG HCO3 VBG Total CO2 VBG O2 Sat (Calc) VBG Base Excess VBG Potassium Glucose Lactate FiO2 Sodium Potassium Chloride Carbon Dioxide Anion Gap BUN Creatinine Est GFR ( Amer) Est GFR (Non-Af Amer) POC Glucose (mg/dL) Random Glucose Hemoglobin A1c Fructosamine Lactic Acid Calcium Phosphorus Magnesium Total Bilirubin Direct Bilirubin AST ALT Alkaline Phosphatase Lactate Dehydrogenase Total Creatine Kinase Troponin I C-React Prot High Sens > 15.00 H NT-Pro-B Natriuret Pep Total Protein Albumin Globulin Albumin/Globulin Ratio Procalcitonin Plasma Cortisol PM Venous Blood Potassium Urine Color Urine Appearance Urine pH Ur Specific [place] Urine Protein Urine Glucose (UA) Urine Ketones Urine Blood Urine Nitrate Urine Bilirubin Urine Urobilinogen Ur Leukocyte Esterase Urine RBC Urine WBC Ur Epithelial Cells Amorphous Sediment Urine Bacteria Hyaline Casts Fine Granular Casts Coarse Granular Casts Urine Other 08/02/17 08/02/17 08/02/17 18:15 18:15 18:15 WBC RBC Hgb Hct MCV MCH MCHC RDW Plt Count MPV Gran % Lymph % (Auto) [place] % (Auto) Eos % (Auto) Baso % (Auto) Gran # Lymph # (Auto) [place] # (Auto) Eos # (Auto) Baso # (Auto) Neutrophils % (Manual) Lymphocytes % (Manual) Monocytes % (Manual) Platelet Evaluation Anisocytosis (manual) PT INR APTT Fibrinogen Fibrin Degrad Products D-Dimer, Quantitative pO2 30 VBG pH 7.34 VBG pCO2 43.0 VBG HCO3 23.2 VBG Total CO2 24.5 VBG O2 Sat (Calc) 60.9 VBG Base Excess -2.6 L VBG Potassium 4.5 Glucose 181 H Lactate 5.2 H* FiO2 21.0 Sodium 134.0 Potassium Chloride 99.0 Carbon Dioxide Anion Gap BUN Creatinine Est GFR ( Amer) Est GFR (Non-Af Amer) POC Glucose (mg/dL) Random Glucose Hemoglobin A1c Fructosamine Lactic Acid Calcium Phosphorus 4.7 H Magnesium 2.6 H Total Bilirubin Direct Bilirubin AST ALT Alkaline Phosphatase Lactate Dehydrogenase 461 Total Creatine Kinase 43 Troponin I 0.08 C-React Prot High Sens NT-Pro-B Natriuret Pep Total Protein Albumin Globulin Albumin/Globulin Ratio Procalcitonin Plasma Cortisol PM 51.2 H Venous Blood Potassium 4.5 Urine Color Urine Appearance Urine pH Ur Specific [place] Urine Protein Urine Glucose (UA) Urine Ketones Urine Blood Urine Nitrate Urine Bilirubin Urine Urobilinogen Ur Leukocyte Esterase Urine RBC Urine WBC Ur Epithelial Cells Amorphous Sediment Urine Bacteria Hyaline Casts Fine Granular Casts Coarse Granular Casts Urine Other 08/02/17 08/02/17 08/02/17 18:44 18:50 21:45 WBC RBC Hgb Hct MCV MCH MCHC RDW Plt Count MPV Gran % Lymph % (Auto) [place] % (Auto) Eos % (Auto) Baso % (Auto) Gran # Lymph # (Auto) [place] # (Auto) Eos # (Auto) Baso # (Auto) Neutrophils % (Manual) Lymphocytes % (Manual) Monocytes % (Manual) Platelet Evaluation Anisocytosis (manual) PT INR APTT Fibrinogen Fibrin Degrad Products D-Dimer, Quantitative pO2 43 VBG pH 7.41 VBG pCO2 36.0 L VBG HCO3 22.8 VBG Total CO2 23.9 VBG O2 Sat (Calc) 82.9 H VBG Base Excess -1.4 L VBG Potassium 4.2 Glucose 165 H Lactate 3.5 H FiO2 21.0 Sodium 133.0 Potassium Chloride 101.0 Carbon Dioxide Anion Gap BUN Creatinine Est GFR ( Amer) Est GFR (Non-Af Amer) POC Glucose (mg/dL) 165 H Random Glucose Hemoglobin A1c Fructosamine Lactic Acid Calcium Phosphorus Magnesium Total Bilirubin Direct Bilirubin AST ALT Alkaline Phosphatase Lactate Dehydrogenase Total Creatine Kinase Troponin I C-React Prot High Sens NT-Pro-B Natriuret Pep Total Protein Albumin Globulin Albumin/Globulin Ratio Procalcitonin Plasma Cortisol PM Venous Blood Potassium 4.2 Urine Color Dark yellow Urine Appearance Sl cloudy Urine pH 5.0 Ur Specific [place] >= 1.030 Urine Protein 100 H Urine Glucose (UA) Negative Urine Ketones Trace H Urine Blood Trace-intact H Urine Nitrate Positive H Urine Bilirubin Moderate H Urine Urobilinogen 1.0 H Ur Leukocyte Esterase Trace H Urine RBC 5 - 10 Urine WBC 2 - 5 Ur Epithelial Cells 4 - 5 Amorphous Sediment Small Urine Bacteria Large Hyaline Casts 0 - 2 Fine Granular Casts 0 - 2 Coarse Granular Casts Small H Urine Other Uyeast 08/03/17 08/03/17 08/03/17 00:30 01:44 05:30 WBC 7.0 RBC 4.45 Hgb 12.2 Hct 37.5 MCV 84.3 MCH 27.4 MCHC 32.5 RDW 14.2 Plt Count 288 MPV 10.0 Gran % 90.3 H Lymph % (Auto) 5.1 L [place] % (Auto) 4.3 Eos % (Auto) 0.0 L Baso % (Auto) 0.3 Gran # 6.33 Lymph # (Auto) 0.4 L [place] # (Auto) 0.3 Eos # (Auto) 0.0 Baso # (Auto) 0.02 Neutrophils % (Manual) 90 H Lymphocytes % (Manual) 6 L Monocytes % (Manual) 4 Platelet Evaluation Normal Anisocytosis (manual) Slight PT INR APTT Fibrinogen Fibrin Degrad Products D-Dimer, Quantitative pO2 VBG pH VBG pCO2 VBG HCO3 VBG Total CO2 VBG O2 Sat (Calc) VBG Base Excess VBG Potassium Glucose Lactate FiO2 Sodium Potassium Chloride Carbon Dioxide Anion Gap BUN Creatinine Est GFR ( Amer) Est GFR (Non-Af Amer) POC Glucose (mg/dL) 153 H Random Glucose Hemoglobin A1c Fructosamine Lactic Acid Calcium Phosphorus Magnesium Total Bilirubin Direct Bilirubin AST ALT Alkaline Phosphatase Lactate Dehydrogenase 421 Total Creatine Kinase 43 Troponin I 0.06 D C-React Prot High Sens NT-Pro-B Natriuret Pep Total Protein Albumin Globulin Albumin/Globulin Ratio Procalcitonin Plasma Cortisol PM Venous Blood Potassium Urine Color Urine Appearance Urine pH Ur Specific [place] Urine Protein Urine Glucose (UA) Urine Ketones Urine Blood Urine Nitrate Urine Bilirubin Urine Urobilinogen Ur Leukocyte Esterase Urine RBC Urine WBC Ur Epithelial Cells Amorphous Sediment Urine Bacteria Hyaline Casts Fine Granular Casts Coarse Granular Casts Urine Other 08/03/17 08/03/17 08/03/17 05:30 05:30 05:30 WBC RBC Hgb Hct MCV MCH MCHC RDW Plt Count MPV Gran % Lymph % (Auto) [place] % (Auto) Eos % (Auto) Baso % (Auto) Gran # Lymph # (Auto) [place] # (Auto) Eos # (Auto) Baso # (Auto) Neutrophils % (Manual) Lymphocytes % (Manual) Monocytes % (Manual) Platelet Evaluation Anisocytosis (manual) PT 21.4 H INR 1.84 H APTT 32.9 Fibrinogen Fibrin Degrad Products D-Dimer, Quantitative pO2 VBG pH VBG pCO2 VBG HCO3 VBG Total CO2 VBG O2 Sat (Calc) VBG Base Excess VBG Potassium Glucose Lactate FiO2 Sodium 136 Potassium 4.0 Chloride 100 Carbon Dioxide 22 Anion Gap 18 BUN 43 H Creatinine 1.9 H Est GFR ( Amer) 32 Est GFR (Non-Af Amer) 26 POC Glucose (mg/dL) Random Glucose 149 H Hemoglobin A1c Fructosamine Lactic Acid 3.2 H Calcium 8.6 Phosphorus 5.2 H Magnesium 2.8 H Total Bilirubin 0.5 Direct Bilirubin 0.5 H AST 24 ALT 34 Alkaline Phosphatase 91 Lactate Dehydrogenase Total Creatine Kinase 43 Troponin I 0.05 C-React Prot High Sens NT-Pro-B Natriuret Pep 9450 H Total Protein 5.5 L Albumin 2.8 L Globulin 2.7 Albumin/Globulin Ratio 1.0 L Procalcitonin Plasma Cortisol PM Venous Blood Potassium Urine Color Urine Appearance Urine pH Ur Specific [place] Urine Protein Urine Glucose (UA) Urine Ketones Urine Blood Urine Nitrate Urine Bilirubin Urine Urobilinogen Ur Leukocyte Esterase Urine RBC Urine WBC Ur Epithelial Cells Amorphous Sediment Urine Bacteria Hyaline Casts Fine Granular Casts Coarse Granular Casts Urine Other 08/03/17 08/03/17 08/03/17 08:10 08:30 08:30 WBC RBC Hgb Hct MCV MCH MCHC RDW Plt Count MPV Gran % Lymph % (Auto) [place] % (Auto) Eos % (Auto) Baso % (Auto) Gran # Lymph # (Auto) [place] # (Auto) Eos # (Auto) Baso # (Auto) Neutrophils % (Manual) Lymphocytes % (Manual) Monocytes % (Manual) Platelet Evaluation Anisocytosis (manual) PT INR APTT Fibrinogen 1128 H Fibrin Degrad Products >10 <40 ug/ml D-Dimer, Quantitative pO2 VBG pH VBG pCO2 VBG HCO3 VBG Total CO2 VBG O2 Sat (Calc) VBG Base Excess VBG Potassium Glucose Lactate FiO2 Sodium Potassium Chloride Carbon Dioxide Anion Gap BUN Creatinine Est GFR ( Amer) Est GFR (Non-Af Amer) POC Glucose (mg/dL) 146 H Random Glucose Hemoglobin A1c Fructosamine Lactic Acid Calcium Phosphorus Magnesium Total Bilirubin Direct Bilirubin AST ALT Alkaline Phosphatase Lactate Dehydrogenase Total Creatine Kinase Troponin I C-React Prot High Sens NT-Pro-B Natriuret Pep Total Protein Albumin Globulin Albumin/Globulin Ratio Procalcitonin Plasma Cortisol PM Venous Blood Potassium Urine Color Urine Appearance Urine pH Ur Specific [place] Urine Protein Urine Glucose (UA) Urine Ketones Urine Blood Urine Nitrate Urine Bilirubin Urine Urobilinogen Ur Leukocyte Esterase Urine RBC Urine WBC Ur Epithelial Cells Amorphous Sediment Urine Bacteria Hyaline Casts Fine Granular Casts Coarse Granular Casts Urine Other 08/03/17 11:32 WBC RBC Hgb Hct MCV MCH MCHC RDW Plt Count MPV Gran % Lymph % (Auto) [place] % (Auto) Eos % (Auto) Baso % (Auto) Gran # Lymph # (Auto) [place] # (Auto) Eos # (Auto) Baso # (Auto) Neutrophils % (Manual) Lymphocytes % (Manual) Monocytes % (Manual) Platelet Evaluation Anisocytosis (manual) PT INR APTT Fibrinogen Fibrin Degrad Products D-Dimer, Quantitative pO2 VBG pH VBG pCO2 VBG HCO3 VBG Total CO2 VBG O2 Sat (Calc) VBG Base Excess VBG Potassium Glucose Lactate FiO2 Sodium Potassium Chloride Carbon Dioxide Anion Gap BUN Creatinine Est GFR ( Amer) Est GFR (Non-Af Amer) POC Glucose (mg/dL) 129 H Random Glucose Hemoglobin A1c Fructosamine Lactic Acid Calcium Phosphorus Magnesium Total Bilirubin Direct Bilirubin AST ALT Alkaline Phosphatase Lactate Dehydrogenase Total Creatine Kinase Troponin I C-React Prot High Sens NT-Pro-B Natriuret Pep Total Protein Albumin Globulin Albumin/Globulin Ratio Procalcitonin Plasma Cortisol PM Venous Blood Potassium Urine Color Urine Appearance Urine pH Ur Specific [place] Urine Protein Urine Glucose (UA) Urine Ketones Urine Blood Urine Nitrate Urine Bilirubin Urine Urobilinogen Ur Leukocyte Esterase Urine RBC Urine WBC Ur Epithelial Cells Amorphous Sediment Urine Bacteria Hyaline Casts Fine Granular Casts Coarse Granular Casts Urine Other Assessment & Plan - Assessment and Plan (Free Text) Assessment: Dx Incarcerated Ventral Hernia(Bowel Obstruction) HT DM Hypothyriudism Obesity Old VT Guido correct hydration/IV PPI-Ab/NG Decompression Dr Santos calls at 10:30 PM and strebnuiusly encourages Urgent Surgery Now NOT am Scheduled 11:30pm OR This consultation done under my direct supervision Paco Puga MD FACS
[2017-07-31] MEDS: Potassium Chl 10 mEq in D5-1/2 1,000 ML IV SCH (22:33)
[2017-07-31] MEDS ORDERED: Propofol 10 mg/ml Inj (20 ML) ONE (23:30)
[2017-07-31] MEDS ORDERED: Midazolam 2 MG/2 ML VIAL ONE (23:31)
[2017-07-31] MEDS ORDERED: Rocuronium 10 mg/ml (5 ml) ONE (23:31)
[2017-07-31] MEDS ORDERED: Lidocaine 1% Inj (20ml) ONE (23:31)
[2017-07-31] MEDS ORDERED: Glycopyrrolate 0.2 mg/ml (2ml vial) ONE (23:31)
[2017-07-31] MEDS ORDERED: Succinylcholine 200 mg/10 ml Inj IV ONE (23:31)
[2017-07-31] MEDS ORDERED: Neostigmine Methylsulfate 3mg/3ml Syringe IV ONE (23:32)
[2017-07-31] MEDS ORDERED: Bupivacaine 0.5% Inj(30mL) ONE (23:56)
[2017-08-01] MEDS ORDERED: Neostigmine Methylsulfate 3mg/3ml Syringe IV ONE (00:47)
[2017-08-01] MEDS ORDERED: Propofol 10 mg/ml Inj (20 ML) ONE (01:08)
--- NOTE | 2017-08-01 01:21 | PCM.SURG1 ---
Surgeon's Initial Post Op Note - Surgeon's Notes Surgeon: Dr. Song Handy Man: Dr. Kuhn PGY-3 Type of Anesthesia: General Endo, Local Anesthesia Administered By: Dr. Hutton Pre-Operative Diagnosis: Incarcerated ventral hernia Operative Findings: Incarcerated ventral hernia, bowel viable Post-Operative Diagnosis: Incarcerated ventral hernia Operation Performed: Ventral hernia repair with mesh Specimen/Specimens Removed: hernia sac Estimated Blood Loss: EBL {In ML}: 35 Blood Products Given: N/A Drains Used: No Drains (NG tube, [place]o) Post-Op Condition: Fair Date of Surgery/Procedure: 08/01/17 Time of Surgery/Procedure: 01:23
[2017-08-01] MEDS ORDERED: HYDROmorphone 0.5 mg/0.5 ml ISec IVP PRN (01:36)
[2017-08-01] MEDS ORDERED: Lactated Ringer's 1,000 ML IV SCH (01:45)
[2017-08-01] MEDS ORDERED: HYDROmorphone 0.5 mg/0.5 ml ISec ONE (01:56)
[2017-08-01] MEDS ORDERED: HYDROmorphone 0.5 mg/0.5 ml ISec IVP ONE (02:00)
[2017-08-01] MEDS ORDERED: Morphine 5 MG/ML SYRINGE IVP STA (04:11)
[2017-08-01] MEDS ORDERED: Morphine 5 MG/ML SYRINGE IVP PRN (04:12)
[2017-08-01] MEDS: metroNIDAZOLE IV 500 mg/100 ml 500 MG/100 ML BAG IVPB SCH ×3 (05:23→21:46)
[2017-08-01] MEDS: Potassium Chl 10 mEq in D5-1/2 1,000 ML IV SCH (05:27)
--- NOTE | 2017-08-01 08:49 | RAD ---
HISTORY: admission COMPARISON: 12/03/2011 FINDINGS: LUNGS: No active pulmonary disease. PLEURA: No significant pleural effusion identified, no pneumothorax apparent. CARDIOVASCULAR: Normal. OSSEOUS STRUCTURES: No significant abnormalities. VISUALIZED UPPER ABDOMEN: Normal. OTHER FINDINGS: None. IMPRESSION: No active disease.
[2017-08-01] MEDS: Morphine 5 MG/ML SYRINGE IVP PRN ×4 (08:58→21:46)
[2017-08-01] MEDS: Insulin Lispro (humaLOG) MEDIUM Coverage SC SCH ×3 (08:58→18:23)
[2017-08-01 09:20] LABS: GRAN # 1.66 (1.4-6.5); GRAN % 64.3 % (50.0-68.0); HEMOGLOBIN 14.6 g/dL (12.0-16.0); LYMPH # 0.4 (1.2-3.4); LYMPH % 15.9 % (22.0-35.0); MEAN CELL VOLUME 86.9 fl (80.0-105.0); MEAN CORPUSCULAR HEMOGLOBIN 27.8 pg (25.0-35.0); MEAN CORPUSCULAR HGB CONC 31.9 g/dl (31.0-37.0); MEAN PLATELET VOLUME 9.1 fl (7.0-11.0); MONO # 0.5 (0.1-0.6); MONO % 19.8 % (1.0-6.0); RBC 5.26 10^6/uL (3.5-6.1); RED CELL DISTRIBUTION WIDTH 14.2 % (11.5-14.5)
[2017-08-01 09:25] LABS: WHITE BLOOD COUNT 2.6 10^3/ul (4.5-11.0)
[2017-08-01] MEDS: Ciprofloxacin 400mg/200ml D5W 400 MG/200 ML BAG IVPB SCH ×2 (09:58→21:46)
[2017-08-01 12:09] LABS: ALB/GLOB RATIO 1.3 (1.1-1.8); ALBUMIN 3.3 g/dL (3.0-4.8); ALT/SGPT 53 U/L (7-56); AST/SGOT 55 U/L (14-36); BLOOD UREA NITROGEN 19 mg/dL (7-21); GFR AFRICAN-AMERICAN > 60; GFR NON-AFRICAN AMERICAN 55
[2017-08-01] MEDS: Lactated Ringer's 1,000 ML IV SCH ×2 (14:22→20:55)
--- NOTE | 2017-08-01 14:41 | CARD ---
APPROVED REPORT EKG Measurement Heart [id number] <Conclusion> Sinus bradycardia Low voltage QRS Septal infarct, age undetermined Abnormal ECG
[2017-08-01] MEDS: Levothyroxine 100 mcg (0.1 mg) Inj IVP SCH (18:12)
[2017-08-01] MEDS ORDERED: Metoprolol 1 mg/ml Inj IVP ONE (18:50)
[2017-08-01] MEDS ORDERED: Sodium Chloride 0.9% 250 ML IV STA (18:51)
[2017-08-02] MEDS: Lactated Ringer's 1,000 ML IV SCH ×3 (00:52→10:15)
[2017-08-02] MEDS: Morphine 5 MG/ML SYRINGE IVP PRN ×3 (00:52→09:20)
--- NOTE | 2017-08-02 00:53 | PN ---
DATE: 08/01/2017 LOCATION: Patient is now seen in room 368, bed 2. SUBJECTIVE: Patient is lying in the bed. Patient has NG tube connected, draining significant amount of drainage. Patient still complains of abdominal pain. Patient underwent hernia surgery overnight. Patient complained of abdominal pain. Patient rested comfortably overnight. PHYSICAL EXAMINATION: VITAL SIGNS: T-max 98.5; heart rate 61, 67, 60, 77 to 69; blood pressure in the last 24 hours are 134/78, 178/93, 170/89, 148/94, 146/97; respiration 18; O2 sat 95% to 98%. Intake and output not documented. HEENT: Head examination, normocephalic and atraumatic. HEENT examination shows pink conjunctivae. Dry oral mucosa. No neck rigidity. No jugular venous distention. CHEST: Kyphosis. LUNGS: Examination shows occasional rhonchi in upper lung field, positive NG tube noted. Positive drainage noted. CARDIOVASCULAR: Shows S1, S2, regular rhythm. Questionable soft systolic murmur left sternal border, right second intercostal space. ABDOMEN: Abdomen is protuberant. Positive midline surgical dressing. Positive diffuse voluntary guarding. Positive rebound tenderness, inaudible bowel sounds noted. GENITALIA: Female. RECTAL: Examination is deferred. EXTREMITIES: Show no pitting edema, no calf tenderness, no Homans' sign. Positive SCDs. Trace swelling noted. MUSCULOSKELETAL: Shows a body mass index of 38. Cranial nerves II through XII limited. Gait examination is not tested. DIAGNOSTICS: On 08/01, WBC count has gone to 2.6 from 11.2, hemoglobin and hematocrit 14.6 and 45.7, platelet 345. Granulocytes 64. Sodium 136, potassium 3.9, chloride 100, CO2 20, anion gap 20, BUN 19, creatinine 1.0, GFR greater than 60, glucose 237, lactic acid 1.8, AST 55, rest of the LFTs are normal. Fingerstick blood sugar 237, 232, 254, 199. Blood type O positive. Chest x-ray was negative. EKG shows sinus bradycardia. Patient underwent surgery yesterday overnight. IMPRESSION AND PLAN: 1. Strangulated, incarcerated ventral hernia, severely symptomatic with severe symptoms of abdominal pain and nausea and vomiting. 2. Constipation. 3. Status post ventral hernia repair. 4. Status post incarcerated, strangulated ventral hernia repair with mesh. 5. Leukopenia. 6. Hypertension. 7. Granulocytosis. 8. Uac-zdxgniq-rooygcuzk diabetes mellitus with hyperglycemia. 9. Elevated AST. 10. Pyuria and bacteriuria. 11. O positive blood type. 12. Pancreatic body and neck atrophy. 13. Right hydronephrosis. 14. Bilateral renal cyst. 15. Left renal pelviectasis. 16. Incarcerated or strangulated ventral hernia containing short segment of bowel and stranding of the herniated fat with with fluid within the hernia and air-fluid level within the herniated segment of bowel. 17. Colonic diverticulosis. 18. Splenic flexure colonic wall thickening with small amount of adjacent fluid suggestive of colitis versus diverticulitis. 19. Hysterectomy. 20. Right pelvic free fluid. 21. Right anterior thigh hypodense collection of fat or lipoma. 22. Femoral shaft prominent spurring or exostosis. 23. Bilateral sclerotic sacroiliac arthropathy. 24. Lumbar spine hypertrophic degenerative joint disease. 25. Nonspecific retroperitoneal adenopathy and inguinal adenopathy. 26. Morbid obesity with elevated body mass index of 38. 27. Sinus bradycardia. 28. Gait dysfunction. 29. Deconditioning. 30. Hyperlipidemia. 31. Hypothyroidism. 32. History of gastritis. 33. History of dyslipidemia, hyperuricemia, hypovitaminosis D. 34. Pyuria, bacteriuria. 35. Leukopenia. Plan at this time, patient has been ordered repeat labs for the morning. Repeat CBC ordered. Urine cultures pending. CURRENT CONSULTATION: Surgically, patient's case referred for TCU. Procalcitonin level ordered. CURRENT MEDICATIONS: 1. Patient was started on hydralazine 10 mg IV q. 6 p.r.n. 2. Ciprofloxacin 400 mg IV q. 12. 3. Patient is on Flagyl 500 IV q. 8. 4. Heparin 5000 subcu q. 8. 5. Humalog medium dose sliding scale coverage q. 6. 6. Ringer's lactate 150 mL an hour. 7. Patient is on morphine 4 mg IV q. 3 p.r.n. 8. Protonix 40 mg IV twice a day. 9. Patient is started on Synthroid 50 mcg IV daily. 10. Patient is on Zofran 4 mg IV q. 4 hours p.r.n. Patient has been ordered incentive spirometry, oxygen. Patient has been ordered out of bed, SCDs, ASHELY stockings, physical therapy, occupational therapy. Sequential compression devices ordered, in addition. I have requested Gastroenterology evaluation with Dr. Markie Munguia for management of patient's GI issues. Patient will be continued on the above therapeutic intervention. Patient has been encouraged on incentive spirometry. Patient has been ordered out of bed to chair. Patient has been advised to cooperate with physical therapy. Dictated and electronically signed, not read. Adonis Santos MD
[2017-08-02] MEDS: Insulin Lispro (humaLOG) MEDIUM Coverage SC SCH ×4 (01:15→19:34)
[2017-08-02] MEDS: metroNIDAZOLE IV 500 mg/100 ml 500 MG/100 ML BAG IVPB SCH ×3 (05:32→21:56)
[2017-08-02 07:47] LABS: GRAN # 4.68 (1.4-6.5); GRAN % 84.1 % (50.0-68.0); HEMOGLOBIN 14.1 g/dL (12.0-16.0); LYMPH # 0.6 (1.2-3.4); LYMPH % 11.1 % (22.0-35.0); MEAN CELL VOLUME 85.6 fl (80.0-105.0); MEAN CORPUSCULAR HEMOGLOBIN 27.8 pg (25.0-35.0); MEAN CORPUSCULAR HGB CONC 32.4 g/dl (31.0-37.0); MEAN PLATELET VOLUME 9.1 fl (7.0-11.0); MONO # 0.3 (0.1-0.6); MONO % 4.8 % (1.0-6.0); RBC 5.08 10^6/uL (3.5-6.1); RED CELL DISTRIBUTION WIDTH 14.2 % (11.5-14.5); WHITE BLOOD COUNT 5.6 10^3/ul (4.5-11.0)
[2017-08-02 08:05] LABS: ALB/GLOB RATIO 1.1 (1.1-1.8); ALBUMIN 2.9 g/dL (3.0-4.8); ALT/SGPT 39 U/L (7-56); AST/SGOT 22 U/L (14-36); BILIRUBIN,DIRECT 0.7 mg/dL (0.0-0.4); BLOOD UREA NITROGEN 32 mg/dL (7-21); CALCIUM 8.8 mg/dL (8.4-10.5); GFR AFRICAN-AMERICAN 36; GFR NON-AFRICAN AMERICAN 30; HDL CHOLESTEROL 32 mg/dL (29-60); MAGNESIUM 2.5 mg/dL (1.7-2.2)
[2017-08-02 08:18] LABS: FREE T4 2.52 ng/dL (0.78-2.19); T4 9.1 ug/dL (5.5-11.0)
[2017-08-02 08:33] LABS: LDL CHOLESTEROL < 30 mg/dL (0-129)
[2017-08-02] MEDS ORDERED: Lactated Ringer's 1,000 ML IV SCH ×3 (09:15→16:00)
--- NOTE | 2017-08-02 09:18 | CP.PCM.PN ---
Subjective - Date & Time of Evaluation Date of Evaluation: 08/02/17 Time of Evaluation: 07:10 - Subjective Subjective: Patient seen and examined at bedside. Patient reports persistent abdominal pain , nausea, but denies vomiting. Patient has not passed gas or had BM. Tolerating sips/chips. Has not gotten out of bed. Low urine output and tachycardia. Objective - Vital Signs/Intake and Output Vital Signs (last 24 hours): Temp Pulse Resp BP Pulse Ox 97.3 F L 110 H 19 120/78 99 08/02/17 06:53 08/02/17 06:53 08/02/17 06:53 08/02/17 06:53 08/02/17 06:53 Intake and Output: 08/02/17 08/02/17 06:59 18:59 Intake Total 2800 Output Total 100 Balance 2700 - Medications Medications: Current Medications Clonidine HCl (Catapres Tts1 0.1 Mg/24 Hr) 1 patch TD Q7D@1000 [facility] Last Admin: 08/01/17 20:30 Dose: 1 patch Heparin Sodium (Porcine) (Heparin) 5,000 units SC Q8 SONNY PRN Reason: Protocol Last Admin: 08/02/17 05:32 Dose: 5,000 units Ciprofloxacin (Cipro 400mg/200ml Dsw) 400 mg in 200 mls @ 133.3 mls/hr IVPB Q12 SONNY PRN Reason: Protocol Last Admin: 08/01/17 21:46 Dose: 133.3 mls/hr Metronidazole (Flagyl) 500 mg in 100 mls @ 100 mls/hr IVPB Q8 SONNY PRN Reason: Protocol Last Admin: 08/02/17 05:32 Dose: 100 mls/hr Lactated Ringer's (Lactated Ringer's) 1,000 mls @ 150 mls/hr IV .Q6H40M [facility] Last Admin: 08/02/17 03:39 Dose: Not Given Lactated Ringer's (Lactated Ringer's) 1,000 mls @ 1,000 mls/hr IV .Q1H [facility] Insulin Human Lispro (Humalog Med) 0 units SC Q6H SONNY PRN Reason: Protocol Last Admin: 08/02/17 08:11 Dose: Not Given Levothyroxine Sodium (Synthroid) 50 mcg IVP DAILY [facility] Last Admin: 08/01/17 18:12 Dose: 50 mcg Morphine Sulfate (Morphine) 4 mg IVP Q3H PRN PRN Reason: Pain, moderate (4-7) Last Admin: 08/02/17 06:09 Dose: 4 mg Ondansetron HCl (Zofran Inj) 4 mg IVP Q4 PRN PRN Reason: Nausea/Vomiting Last Admin: 08/01/17 11:54 Dose: 4 mg Pantoprazole Sodium (Protonix Inj) 40 mg IVP BID SONNY Last Admin: 08/01/17 18:22 Dose: 40 mg - Labs Labs: 08/02/17 07:00 08/02/17 07:00 PT 13.5 SECONDS (9.4-12.5) H 07/31/17 17:20 INR 1.18 (0.93-1.08) H 07/31/17 17:20 APTT 28.9 Seconds (25.1-36.5) 07/31/17 17:20 - Constitutional Appears: Non-toxic, No Acute Distress - Head Exam Head Exam: ATRAUMATIC, NORMOCEPHALIC - Eye Exam Eye Exam: Normal appearance. absent: Conjunctival injection, Scleral icterus - ENT Exam ENT Exam: Mucous Membranes Moist, Normal Oropharynx - Respiratory Exam Respiratory Exam: NORMAL BREATHING PATTERN. absent: Accessory Muscle Use, Decreased Breath Sounds - Cardiovascular Exam Cardiovascular Exam: Tachycardia, REGULAR RHYTHM - GI/Abdominal Exam GI & Abdominal Exam: Distended, Soft, Tenderness (diffuse moderate/severe tenderness to palpation). absent: Guarding, Rebound Additional comments: Dressing C/D/I - Extremities Exam Extremities Exam: absent: Calf Tenderness, Pedal Edema - Neurological Exam Neurological Exam: Alert, Awake, Oriented x3 - Psychiatric Exam Psychiatric exam: Normal Affect, Normal Mood - Skin Skin Exam: Dry, Normal Color, Warm Assessment and Plan - Assessment and Plan (Free Text) Plan: 67F with incarcerated ventral hernia POD#1 s/p ventral hernia repair with mesh -inadequate urine output -tachycardia, normotensive -WBC and H/H wnl, increase in creatinine Plan: -encourage ambulation -Continue rinaldi for accurate urine monitoring -pain and nausea medication PRN -encourage incentive spirometer use -Strict I/O's -PT -AM labs 2/5 -NPO with ice chips until passing gas -1L bolus of LR Discussed with Dr. Duncan Craven, PGY2
[2017-08-02] MEDS: Ciprofloxacin 400mg/200ml D5W 400 MG/200 ML BAG IVPB SCH (09:19)
[2017-08-02] MEDS: Levothyroxine 100 mcg (0.1 mg) Inj IVP SCH (09:20)
[2017-08-02] MEDS ORDERED: HYDROmorphone 0.5 mg/0.5 ml ISec IVP PRN (11:36)
[2017-08-02] MEDS ORDERED: Acetylcysteine 20% Inhal Soln (4ml) IH STA (13:45)
[2017-08-02] MEDS ORDERED: Albuterol-Ipratrop 3 mg / 0.5 (3 ml) UD IH STA (13:47)
[2017-08-02 14:47] LABS: BASO # 0.02 K/mm3 (0.0-2.0); BASO % 0.3 % (0.0-3.0); GRAN # 5.63 (1.4-6.5); GRAN % 85.2 % (50.0-68.0); HEMOGLOBIN 13.6 g/dL (12.0-16.0); LYMPH # 0.6 (1.2-3.4); LYMPH % 9.5 % (22.0-35.0); MEAN CELL VOLUME 85.8 fl (80.0-105.0); MEAN CORPUSCULAR HEMOGLOBIN 27.6 pg (25.0-35.0); MEAN CORPUSCULAR HGB CONC 32.2 g/dl (31.0-37.0); MEAN PLATELET VOLUME 9.4 fl (7.0-11.0); MONO # 0.3 (0.1-0.6); RBC 4.93 10^6/uL (3.5-6.1); RED CELL DISTRIBUTION WIDTH 14.4 % (11.5-14.5); WHITE BLOOD COUNT 6.6 10^3/ul (4.5-11.0)
[2017-08-02 14:52] LABS: ALB/GLOB RATIO 1.2 (1.1-1.8); ALBUMIN 3.1 g/dL (3.0-4.8); CALCIUM 8.9 mg/dL (8.4-10.5)
[2017-08-02 15:02] LABS: TROPONIN I 0.08 ng/mL
--- NOTE | 2017-08-02 15:13 | RAD ---
HISTORY: SOB COMPARISON: 07/31/2017 FINDINGS: LUNGS: No active pulmonary disease. PLEURA: No significant pleural effusion identified, no pneumothorax apparent. CARDIOVASCULAR: Moderate cardiomegaly. Mild vascular congestion OSSEOUS STRUCTURES: No significant abnormalities. VISUALIZED UPPER ABDOMEN: Normal. OTHER FINDINGS: None. IMPRESSION: Moderate cardiomegaly and mild vascular congestion
[2017-08-02] MEDS ORDERED: Meropenem 1 GM in Sodium Chloride 0.9% 100 ML IVPB ONE (17:30)
[2017-08-02 17:43] LABS: INR 1.97 (0.93-1.08); PROTHROMBIN TIME 22.8 SECONDS (9.4-12.5)
[2017-08-02 17:44] LABS: PARTIAL THROMBOPLASTIN TIME 38.2 Seconds (25.1-36.5)
[2017-08-02] MEDS: Sodium Chloride 0.9% 1,000 ML IV SCH (18:00)
--- NOTE | 2017-08-02 18:06 | CP.PCM.PN ---
Subjective - Date & Time of Evaluation Date of Evaluation: 08/02/17 Time of Evaluation: 17:45 - Subjective Subjective: Patient seen and examined in the ICU. Patient had low UOP with dark urine and developed tachycardia of hanane 120-130's and diaphoresis. Remained afebrile. UOP remained low despite 2 boluses of LR. Patient satting >95% on RA and denies SOB. Patient complained of intermittent mild nausea without vomiting. Abdominal pain unchanged and well controlled on current regimen. Still not passing gas. Surgical and primary attending were notified and came to examine the patient. Repeat CBC showed no leukocytosis but slight left shift, H/H wnl. BMP showed increase BUN/CR to 35/2.2 up from 32/1.7 this AM and 19/1.0 yesterday. Patient' s Lactic acid was 5.6, troponin 0.08, and BNP 42059. EKG showed sinus tachycardia without T wave abnormalities. CXR showed increased vascular congestion. Abdominal XR showed moderate ileus with fluid-air levels. NGT deferred at this time due to aberrent nasal anatomy and difficulty inserting NGT previously, in addition to patient not having vomiting at this time. Patient underwent BL LE US which was negative for DVT's and a VQ scan was ordered by primary, as well as cardiology consult, nephrology consult, and ID consult. Patient was evaluated by ICU attending and transferred to the ICU for further monitoring. Objective - Vital Signs/Intake and Output Vital Signs (last 24 hours): Temp Pulse Resp BP Pulse Ox 97.8 F 119 H 18 125/83 92 L 08/02/17 17:08 08/02/17 17:08 08/02/17 17:08 08/02/17 17:08 08/02/17 17:08 Intake and Output: 08/02/17 08/02/17 06:59 18:59 Intake Total 2800 Output Total 100 Balance 2700 - Medications Medications: Current Medications Acetaminophen (Tylenol 325mg Tab) 650 mg PO Q6H SONNY Last Admin: 08/02/17 12:17 Dose: 650 mg Acetylcysteine (Acetylcysteine 20%) 4 ml IH [id number] SONNY Albuterol/Ipratropium (Duoneb 3 Mg/0.5 Mg (3 Ml) Ud) 3 ml IH [id number] SONNY Heparin Sodium (Porcine) (Heparin) 5,000 units SC Q8 SONNY PRN Reason: Protocol Last Admin: 08/02/17 14:56 Dose: 5,000 units Hydromorphone HCl (Dilaudid) 0.25 mg IVP Q3H PRN PRN Reason: Pain, moderate (4-7) Last Admin: 08/02/17 13:21 Dose: 0.25 mg Metronidazole (Flagyl) 500 mg in 100 mls @ 100 mls/hr IVPB Q8 SONNY PRN Reason: Protocol Last Admin: 08/02/17 14:55 Dose: 100 mls/hr Lactated Ringer's (Lactated Ringer's) 1,000 mls @ 999 mls/hr IV .Q1H1M SONNY Aztreonam 500 mg/ Sodium (Chloride) 100 mls @ 100 mls/hr IVPB Q8 SONNY PRN Reason: Protocol Stop: 08/02/17 22:59 Meropenem 1 gm/ Sodium (Chloride) 100 mls @ 100 mls/hr IVPB ONCE ONE PRN Reason: Protocol Stop: 08/02/17 18:29 Sodium Chloride (Sodium Chloride 0.9%) 1,000 mls @ 150 mls/hr IV .Q6H40M [facility] Insulin Human Lispro (Humalog Med) 0 units SC Q6H SONNY PRN Reason: Protocol Last Admin: 08/02/17 14:55 Dose: 1 units Levothyroxine Sodium (Synthroid) 25 mcg IVP DAILY [facility] Ondansetron HCl (Zofran Inj) 4 mg IVP Q4 PRN PRN Reason: Nausea/Vomiting Last Admin: 08/02/17 10:12 Dose: 4 mg Pantoprazole Sodium (Protonix Inj) 40 mg IVP BID [facility] Last Admin: 08/02/17 09:20 Dose: 40 mg - Labs Labs: 08/02/17 14:22 08/02/17 14:22 PT 22.8 SECONDS (9.4-12.5) H 08/02/17 14:30 INR 1.97 (0.93-1.08) H 08/02/17 14:30 APTT 38.2 Seconds (25.1-36.5) H 08/02/17 14:30 - Constitutional Appears: No Acute Distress - Head Exam Head Exam: ATRAUMATIC, NORMOCEPHALIC - Eye Exam Eye Exam: Normal appearance. absent: Scleral icterus - ENT Exam ENT Exam: Mucous Membranes Moist, Normal Oropharynx - Respiratory Exam Respiratory Exam: Wheezes, NORMAL BREATHING PATTERN. absent: Accessory Muscle Use, Respiratory Distress - Cardiovascular Exam Cardiovascular Exam: Tachycardia, REGULAR RHYTHM - GI/Abdominal Exam GI & Abdominal Exam: Distended, Soft, Tenderness Additional comments: dressing's C/D/I. no rebound tenderness or gaurding - Extremities Exam Extremities Exam: absent: Calf Tenderness, Pedal Edema, Tenderness - Neurological Exam Neurological Exam: Alert, Awake, Oriented x3 - Psychiatric Exam Psychiatric exam: Normal Affect, Normal Mood - Skin Skin Exam: Diaphoretic, Intact (except abdominal incision), Normal Color Assessment and Plan - Assessment and Plan (Free Text) Assessment: 67F with incarcerated ventral hernia POD#1 s/p ventral hernia repair with mesh with KESHAWN and lactic acidosis and tachycardia Moderate risk of Pulmonary Embolism on the WELLS criteria Plan: Transfer to ICU F/U cardiology, nephrology, and ID consults F/U VQ scan--CTA contraindicated with KESHAWN serial abdominal exams serial troponins NS@150cc/h Strict I/O's monitor for bowel function NPO except ice chips Abdominal binder as needed for comfort PRN pain and nausea medication--switched to dilaudid from morphine in light of KESHAWN Seen and examined with Dr. Duncan Craven, PGY2 [id number]
[2017-08-02 18:30] LABS: VENOUS BLOOD GAS BASE EXCESS -2.6 mmol/L (0.0-2.0); VENOUS BLOOD GAS PO2 30 mm/Hg (30-55); VENOUS BLOOD PH 7.34 (7.32-7.43)
[2017-08-02 18:43] LABS: MAGNESIUM 2.6 mg/dL (1.7-2.2)
--- NOTE | 2017-08-02 18:46 | US ---
HISTORY: Leg pain and swelling. Evaluate for DVT PHYSICIAN(S): Roman Fortune MD. TECHNIQUE: Duplex sonography and color-flow Doppler with graded compression were used to evaluate the deep venous systems of both lower extremities. The exam is limited by body habitus and edema. FINDINGS: The visualized deep venous systems of both lower extremities are sonographically normal and compressible. Normal wave forms and augmentation are seen. There is no sonographic evidence for deep venous thrombosis in the visualized segments of both lower extremities. IMPRESSION: No sonographic evidence for deep venous thrombosis in the visualized segments of both lower extremities.
[2017-08-02 18:51] LABS: TROPONIN I 0.08 ng/mL
[2017-08-02 19:06] LABS: URINE BILIRUBIN MODERATE (NEGATIVE); URINE BLOOD TRACE-INTACT (NEGATIVE); URINE GLUCOSE (UA) NEGATIVE (NEGATIVE); URINE LEUKOCYTE ESTERASE TRACE Leu/uL (NEGATIVE); URINE NITRATE POSITIVE (NEGATIVE); URINE PROTEIN 100 mg/dL (<30 mg/dL)
[2017-08-02] MEDS ORDERED: Lidocaine 2% Jelly (Uro-Jet) TOP ONE (19:13)
[2017-08-02 19:15] LABS: URINE APPEARANCE SL CLOUDY (CLEAR); URINE COLOR DARK YELLOW (YELLOW)
[2017-08-02 19:26] LABS: URINE BACTERIA LARGE (NEG); URINE HYALINE CAST 0 - 2 /hpf
[2017-08-02 19:27] LABS: URINE COARSE GRANULAR CAST SMALL /hpf (0-2); URINE FINE GRANULAR CAST 0 - 2 /hpf (0-2)
[2017-08-02 19:28] LABS: URINE AMORPHOUS SEDIMENT SMALL
[2017-08-02] MEDS ORDERED: Vancomycin 1gm in NS 250ml 1 GM/250 ML BAG IVPB STA ×2 (20:41→22:33)
--- NOTE | 2017-08-02 21:17 | PN ---
DATE: 08/02/2017 LOCATION: The patient was seen in room 369, bed 1. SUBJECTIVE: In the last few hours, the patient has became very tachycardic. The patient had a fever of 100.7. The patient was found to be hypotensive, tachycardic, required two IV fluid boluses. The patient was seen in room 369, bed one. The patient is in the process of getting a chest x-ray done. The patient is lying in the bed. Appears to be in pain. The patient was found to be tachycardic and hypotensive. The patient's urine outputs were less than 250 mL. The patient had EKG and chest x-ray in process. The patient was seen lying in the stretcher. PHYSICAL EXAMINATION: VITAL SIGNS: T-max is 100.7; heart rate 118, 110, 112, 120, 119. Blood pressure is 120/78, 102/75, 117/85, 118/85. According to the nurses' notes, the patient's blood pressure was also down to 90/59, heart rate 120-130s. The patient's O2 sat is 99%. HEENT: The patient's head examination normocephalic, atraumatic. HEENT examination shows pink conjunctivae. Dry oral mucosa. No oropharyngeal lesion. CHEST: Symmetrical. LUNGS: Shows no rales, crackles or wheezing. CARDIOVASCULAR: S1, S2. The patient had tachycardic rhythm. Questionable soft systolic murmur left sternal border, right second intercostal space. ABDOMEN: Protuberant. Positive abdominal dressing. Positive voluntary guarding. Positive tenderness. Positive rebound tenderness. Inaudible bowel sound. GENITALIA: Female. Positive Aguayo catheter. EXTREMITIES: Show trace swelling of the lower extremity. MUSCULOSKELETAL: Shows a body mass index of 38. NEUROLOGIC: The patient is alert, awake, responsive. Cranial nerves II through XII limited. Gait examination is not tested. DIAGNOSTICS: On 08/02/2017, WBC 6.6; hemoglobin and hematocrit 13.6, 42.3; platelet 336. Granulocytes 85% segs. D-dimer is greater than 3431. Sodium 137, potassium 4.5, chloride 99, CO2 of 20, anion gap 22, BUN now 35, creatinine 2.2. In the morning, BUN was 32, creatinine 1.7, GFR 27. Glucose 170, 142, 205. Lactic acid is 5.6, calcium 8.9. BNP is 20,800. Musculoskeletal examination shows an elevated body mass index. Gait examination not tested. Blood type O+. Microbiology: Urine cultures negative. Chest x-ray was done on 08/02/2017. Chest x-ray was done which does not show any obvious infiltrate or effusion. EKG shows sinus tachycardia, heart rate 120s, low voltage, T-wave inversion in III, aVF. Previous EKG for 07/31/2016 shows sinus bradycardia. IMPRESSION AND PLAN: 1. Postoperative hypotension and tachycardia and fever. 2. Acute kidney injury. 3. Increased anion gap metabolic acidosis. 4. Granulocytosis. 5. Elevated D-dimer of greater than 3400. 6. Increased anion gap metabolic acidosis. 7. Lactic acidosis. 8. Noninsulin-requiring diabetes mellitus. 9. Elevated BNP secondary to history of possible diastolic congestive heart failure with history of tricuspid regurgitation and pulmonary hypertension. 10. History of hypothyroidism. 11. Hyperprocalcitoninemia with calcitonin level of almost 50 12. Protein malnutrition. 13. Hypoalbuminemia. 14. History of morbid obesity. 15. Status post ventral hernia repair. 16. Acute strangulated, incarcerated ventral hernia and status post incarcerated, strangulated ventral hernia repair with mesh. 17. Systemic inflammatory response syndrome versus sepsis. 18. Leukopenia. 19. Elevated D-dimer, etiology undetermined. 20. Possible acute tubular necrosis. PLAN: At this time, the patient will be transferred to ICU. The patient's management discussed at length with the surgical attending, Dr. Song. Serial labs ordered. Repeat blood cultures, urine cultures ordered. Chest x-ray, abdominal x-rays are just done. We will review the results. CONSULTATION: 1. Gastroenterology. 2. Surgery. 3. Infectious Disease. 4. Nephrology. The patient has been ordered procalcitonin level, but the patient's previous procalcitonin level has already been elevated with greater than 49. The patient's current medications: 1. The patient is on Mucomyst nebulizer every 6 hours. 2. The patient is on ciprofloxacin 400 mg IV q. 12. 3. Dilaudid 2.5 mg IV q. 3 hours p.r.n. 4. DuoNeb nebulizer every 6 hours. 5. Flagyl 500 IV q. 8. 6. The patient is on heparin 5000 subcu q. 8. 7. Humalog medium-dose sliding scale coverage q. 6. 8. The patient has been given Ringer's lactated bolus x2 already started. 9. The patient is on Protonix 40 IV twice a day. 10. The patient was given IV fluid bolus x2. 11. The patient is on Tylenol p.r.n. 12. Zofran 4 IV q. 4 p.r.n. The patient has been ordered V/Q scan. The patient has been ordered venous Doppler. The patient is on n.p.o. diet. The patient has been ordered SCDs, ASHELY stockings. At present, the patient will be evaluated by the surgical attending for an Intensive Care Unit attending for transfer to ICU. Time spent in the entire management more than 35 minutes. Dictated and electronically signed, not read. Signing off, Adonis Santos MD
[2017-08-02] MEDS: Albuterol-Ipratrop 3 mg / 0.5 (3 ml) UD IH SCH (21:50)
[2017-08-02] MEDS: Acetylcysteine 20% Inhal Soln (4ml) IH SCH (21:50)
[2017-08-02 22:11] LABS: VENOUS BLOOD GAS BASE EXCESS -1.4 mmol/L (0.0-2.0); VENOUS BLOOD GAS PO2 43 mm/Hg (30-55); VENOUS BLOOD PH 7.41 (7.32-7.43)
[2017-08-02] MEDS ORDERED: Naloxone 0.4 mg/ml Inj (Adult) IVP PRN (22:13)
--- NOTE | 2017-08-02 23:08 | CON ---
DATE: 08/02/2017 GASTROENTEROLOGY CONSULTATION REQUESTING PHYSICIAN: Dr. Santos. REASON FOR CONSULTATION: I have been asked to see this 67-year-old female with a history of diabetes mellitus, hypothyroidism, ventral hernia, who comes to the hospital with pain at the hernia site associated with 2 days of nausea and vomiting. She denies any fevers or chills. Patient had a colonoscopy in November 2016, which revealed diverticulosis and a redundant colon with internal hemorrhoids. CT scan of the abdomen and pelvis performed in the emergency room revealed a large ventral hernia with stranding around the incarcerated loop of bowel and dilated loops of bowel proximal to the incarcerated hernia consistent with bowel obstruction. Patient was taken to the OR yesterday with repair of ventral hernia and placement of a mesh. There was no evidence of bowel ischemia in the hernia sac. She is currently lying in bed comfortable with some expected postop pain. She denies any fevers or chills. PAST MEDICAL HISTORY: Notable for above. Again, she has a history of type 2 diabetes mellitus, hypothyroidism, hypercholesterolemia, diverticulosis, degenerative joint disease. PAST SURGICAL HISTORY: None. SOCIAL HISTORY: She denies cigarette smoking or alcohol use. FAMILY HISTORY: Noncontributory. REVIEW OF SYSTEMS: 14-point review of systems is notable for abdominal pain, nausea and vomiting. MEDICATIONS AT HOME: Include allopurinol 1 tablet daily, Ecotrin 1 tablet daily, ergocalciferol one cap every 7 days, Lasix 1 tablet daily, Amaryl 1 tablet daily, Levoxyl 1 tablet daily, magnesium oxide one daily, metformin one tablet twice a day, Bystolic 1 tablet daily, omeprazole 1 tablet daily, Percocet 10/ 325 one tablet three times a day as needed for pain, valsartan hydrochlorothiazide 320/25 one daily, clonidine 1 tablet three times a day, hydralazine 1 tablet four times a day and metformin 1 tablet daily PHYSICAL EXAMINATION: GENERAL: Middle-aged female, lying in bed, in mild distress from postop abdominal pain. VITAL SIGNS: Reveal temperature of 97.3, blood pressure 120/78, heart rate of 110. HEENT: Reveal sclerae to be white. Conjunctivae pink. NECK: Supple. CHEST: Lungs are clear. HEART: Reveals regular rate and rhythm. ABDOMEN: Soft. There is a dressing midline without any drainage. Patient has an abdominal binder over her incision site. EXTREMITIES: Show no edema. LABORATORY DATA: Reveal white blood cell count 5.6, hemoglobin 14.1. Chemistries reveal BUN 32, creatinine 1.7. AST, ALT, alk phos were all normal. IMPRESSION: 1. A 67-year-old female with incarcerated ventral hernia status post ventral hernia repair with placement of mesh without any evidence of bowel ischemia in the incarcerated segment of bowel. She is experiencing some expected postop pain. 2. Diabetes mellitus. 3. Prerenal azotemia. RECOMMENDATIONS: 1. Continue postop care including IV fluid replacement. 2. Follow BUN and creatinine. 3. I have recommended to the patient that she uses the incentive spirometer every 2 hours to prevent atelectasis and pneumonia. Markie Munguia MD
[2017-08-03 01:00] LABS: TROPONIN I 0.06 ng/mL
[2017-08-03] MEDS: Albuterol-Ipratrop 3 mg / 0.5 (3 ml) UD IH SCH (01:30)
[2017-08-03] MEDS: Acetylcysteine 20% Inhal Soln (4ml) IH SCH ×4 (01:30→20:18)
[2017-08-03] MEDS: Insulin Lispro (humaLOG) MEDIUM Coverage SC SCH ×4 (01:56→20:24)
--- NOTE | 2017-08-03 04:01 | CON ---
DATE: REQUESTING PHYSICIAN: Adonis Santos MD. CHIEF COMPLAINT: The patient is post surgery for abdominal hernia and developed ileus with congestive heart failure and renal insufficiency. HISTORY OF PRESENT ILLNESS: Ms. Li is a 67-year-old female, who presented to the emergency room initially with abdominal pain from her abdominal hernia. The patient was evaluated by Surgery and taken to surgery for a surgical repair of the hernia. She has a past medical history of diabetes, hypertension, hypercholesterolemia, hypothyroidism and arthritis. The patient had the ventral hernia for quite some time prior to coming to the emergency room. She was evaluated on the medical floor and note that surgery for her hernia was approximately 2 days ago. The patient has complaints of continued abdominal pain. It is shown that she has a postsurgical ileus and patient has no NG tube at this time. She is tachycardic with lactic acidosis and increased troponins as well as BNP noting pulmonary edema. Note that the patient also has an increased D-dimer. Lower extremity Dopplers are negative, but V/Q scan is pending. She is hemodynamically stable, but tachycardic and O2 saturation on 2 liters of nasal cannula is 98%. No nausea or vomiting and no diarrhea. PAST MEDICAL HISTORY: As above. ALLERGIES: SHE HAS ALLERGIES TO APRICOTS AND PENICILLIN. MEDICATIONS: Can be evaluated as per the nurse's intake form. SOCIAL HISTORY: Patient has no history of small of smoking, EtOH abuse or drug abuse. FAMILY HISTORY: Noncontributory. REVIEW OF SYSTEMS CONSTITUTIONAL: All negative. HEENT: All negative. RESPIRATORY: All negative. CARDIOVASCULAR: The patient was having some tachycardia, but no chest pain. GASTROINTESTINAL: The patient has abdominal pain. GENITOURINARY: All negative. MUSCULOSKELETAL: All negative. NEUROLOGIC: All negative. PSYCHIATRIC: All negative. HEMATOLOGIC: All negative. IMMUNOLOGIC: All negative. INTEGRITY: All negative. NEUROPSYCHIATRIC: All negative. PHYSICAL EXAMINATION: VITAL SIGNS: Note that her temperature is 98.6, her pulse is 112, respirations are 18 and BP is 117/85, O2 saturation is 98% on 2 liters of nasal cannula. HEENT: Head is atraumatic, normocephalic. Eyes reactive to light. Ear, nose and throat seem to be within normal limits. NECK: Supple. No JVD. No thyroid enlargement, no lymph nodes. HEART: Has regular rate and rhythm. Normal S1, S2, but tachycardic. LUNGS: Reveal decreased breath sounds at the bases but no significant rhonchi. ABDOMEN: Slightly distended, tender to palpation, little to no bowel sounds. GENITALIA AND RECTAL: Deferred. MUSCULOSKELETAL: No joint deformities. EXTREMITIES: Reveal trace lower extremity edema. NEUROLOGIC: She seemed to be grossly intact. LABORATORY DATA: As far as her laboratories are concern, her white count is 6.6, hemoglobin is 13.6, hematocrit 42.3 with platelets of 336,000. Her PT is 22.8, INR is 1.97 and her PTT is 38.2. Sodium is 137, potassium 4.5, chloride 99, CO2 of 20 with a anion gap of 22, BUN of 35, creatinine of 2.2 and a glucose of 205. Note that her lactic acid is 5.6 and her BNP is 20,800. As far as her chest x-ray, it reveals cardiomegaly and vascular congestion. Lower extremity Dopplers are negative and V/Q scan is pending. IMPRESSION: This patient has moderate ileus and is noted to have renal insufficiency. She has possible sepsis with metabolic acidosis, but note that there is no fever and no increase in white count. The patient has congestive heart failure and cardiomyopathy as well as increased D-dimer. So we want to rule out pulmonary embolus. She has an increased troponin, so we are ruling out myocardial infarction and the patient is anticoagulated with an increased INR. She is post abdominal hernia repair and other past medical history are diabetes, hypertension, hypercholesterolemia, hypothyroidism and arthritis. PLAN: We will continue with IV fluids. We will monitor her chemistries closely and correct as needed. The patient is scheduled for repeat troponins and is also scheduled for V/Q scan. We will continue O2 via nasal cannula and monitor her O2 saturations closely. Patient is on Dilaudid for pain. She is on bronchodilators of DuoNeb and getting metronidazole as well as a dose of meropenem. The patient is scheduled to get Tylenol for fever and is getting Protonix and IV Ringer's lactate. We have called consult for Cardiology, GI, ID, renal, and we will follow closely and treat aggressively with the other consultants and the primary care doctor. Sony Loco MD [facility] # [id number]
[2017-08-03] MEDS: Sodium Chloride 0.9% 1,000 ML IV SCH (04:49)
[2017-08-03] MEDS: metroNIDAZOLE IV 500 mg/100 ml 500 MG/100 ML BAG IVPB SCH ×2 (05:03→17:51)
[2017-08-03 06:26] LABS: BASO # 0.02 K/mm3 (0.0-2.0); BASO % 0.3 % (0.0-3.0); GRAN # 6.33 (1.4-6.5); GRAN % 90.3 % (50.0-68.0); HEMOGLOBIN 12.2 g/dL (12.0-16.0); LYMPH # 0.4 (1.2-3.4); LYMPH % 5.1 % (22.0-35.0); MEAN CELL VOLUME 84.3 fl (80.0-105.0); MEAN CORPUSCULAR HEMOGLOBIN 27.4 pg (25.0-35.0); MEAN CORPUSCULAR HGB CONC 32.5 g/dl (31.0-37.0); MONO # 0.3 (0.1-0.6); MONO % 4.3 % (1.0-6.0); PLATELET COUNT 288 10^3/uL (120.0-450.0); RBC 4.45 10^6/uL (3.5-6.1); RED CELL DISTRIBUTION WIDTH 14.2 % (11.5-14.5)
[2017-08-03 06:47] LABS: INR 1.84 (0.93-1.08); PARTIAL THROMBOPLASTIN TIME 32.9 Seconds (25.1-36.5); PROTHROMBIN TIME 21.4 SECONDS (9.4-12.5)
[2017-08-03 06:51] LABS: TROPONIN I 0.05 ng/mL
[2017-08-03 06:56] LABS: ALBUMIN 2.8 g/dL (3.0-4.8); BILIRUBIN,DIRECT 0.5 mg/dL (0.0-0.4); CALCIUM 8.6 mg/dL (8.4-10.5); MAGNESIUM 2.8 mg/dL (1.7-2.2)
[2017-08-03] MEDS: Levalbuterol 0.63 MG/3 ML Inhal Soln UD IH SCH ×3 (07:39→20:17)
--- NOTE | 2017-08-03 07:43 | CP.CCUPN ---
<Norma Juan - Last Filed: 08/03/17 12:30> CCU Subjective - Physician Review Subjective (Free Text): 08/03/17 11:00 Patient seen and examined at bedside. No acute events overnight as per nursing. Patient has NGT in place output with bilious output ~300cc. Patient complaining of nausea but denies abdominal pain. On ROS denied fever, headaches, chest pain , SOB, cough, bowel/bladder complaints, pain/swelling in legs b/l. Patient's rinaldi in place - dark output ~300cc. Surgical niyah clean/dry/intact. Critical Care Time Spent (in minutes): 45 CCU Objective - Vital Signs / Intake & Output Intake and Output (Last 8hrs): Intake & Output 08/02/17 08/03/17 08/03/17 22:59 06:59 14:59 Intake Total 3600 Output Total 150 Balance 3450 Intake: IV 3600 Right Antecubital 3600 Output: Urine 150 Urethral (Rinaldi) 150 - Physical Exam Head: Positive for: Atraumatic, Normocephalic Pupils: Positive for: PERRL Extroacular Muscles: Positive for: EOMI Conjunctiva: Positive for: Normal Mouth: Positive for: Moist Mucous Membranes Neck: Positive for: Normal Range of Motion Respiratory/Chest: Positive for: Clear to Auscultation, Good Air Exchange. Negative for: Respiratory Distress, Accessory Muscle Use Cardiovascular: Positive for: Regular Rate and Rhythm, Normal S1, S2. Negative for: Murmurs Abdomen: Positive for: Normal Bowel Sounds, Other (niyah c/d/i). Negative for : Tenderness, Distention, Peritoneal Signs Back: Positive for: Normal Inspection Upper Extremity: Positive for: Normal Inspection. Negative for: Cyanosis, Edema Lower Extremity: Positive for: Normal Inspection. Negative for: Edema Neurological: Positive for: GCS=15, CN II-XII Intact Skin: Positive for: Warm, Dry, Normal Color. Negative for: Rashes Psychiatric: Positive for: Alert, Oriented x 3, Normal Insight, Normal Concentration - Medications Active Medications: Active Medications Generic Name Dose Route Start Last Admin Trade Name Freq PRN Reason Stop Dose Admin Acetylcysteine 4 ml 08/03/17 08:00 Acetylcysteine 20% IH [id number] SONNY Heparin Sodium (Porcine) 5,000 units 08/01/17 14:00 08/03/17 05:07 Heparin SC 5,000 units Q8 [facility] Administration Protocol Hydromorphone HCl 0.5 mg 08/03/17 03:42 08/03/17 04:46 Dilaudid IVP 0.5 mg Q4H PRN Administration Pain, severe (8-10) Sodium Chloride 1,000 mls @ 150 mls/hr 08/02/17 17:15 08/03/17 04:49 Sodium Chloride 0.9% IV 150 mls/hr .[id number] SONNY Administration Aztreonam 500 mg/ Sodium 100 mls @ 100 mls/hr 08/02/17 22:00 08/02/17 22:36 Chloride IVPB 08/11/17 22:01 Not Given Q8 [facility] Protocol Metronidazole 500 mg in 100 mls @ 100 mls/hr 08/02/17 22:00 08/03/17 05:03 Flagyl IVPB 08/11/17 22:01 100 mls/hr Q8 [facility] Administration Protocol Acetaminophen 1,000 mg in 100 mls @ 400 mls/hr 08/02/17 22:15 08/03/17 04:57 Ofirmev IVPB 08/04/17 22:16 400 mls/hr Q6H SONNY Administration Insulin Human Lispro 0 units 08/01/17 07:15 08/03/17 01:56 Humalog Med SC Not Given Q6H [facility] Protocol Levalbuterol HCl 0.63 mg 08/03/17 08:00 Xopenex IH [id number] [facility] Levothyroxine Sodium 25 mcg 08/03/17 08:00 Synthroid IVP DAILY [facility] Metoprolol Tartrate 5 mg 08/03/17 07:15 Lopressor IVP Q6H [facility] Naloxone HCl 0.4 mg 08/02/17 22:13 Narcan IVP ONCE PRN Opiate reversal Ondansetron HCl 4 mg 07/31/17 21:56 08/03/17 04:52 Zofran Inj IVP 4 mg Q4 PRN Administration Nausea/Vomiting Pantoprazole Sodium 40 mg 07/31/17 21:00 08/02/17 18:39 Protonix Inj IVP 40 mg BID [facility] Administration - Patient Studies Lab Studies: Microbiology Studies 07/31/17 21:53 Urine Culture - Final Urine,Clean Catch No Growth (<1,000 CFU/ML) Lab Studies 08/03/17 08/03/17 08/03/17 Range/Units 05:30 05:30 05:30 WBC (4.5-11.0) 10^3/ul RBC (3.5-6.1) 10^6/uL Hgb (12.0-16.0) g/dL Hct (36.0-48.0) % MCV (80.0-105.0) fl MCH (25.0-35.0) pg MCHC (31.0-37.0) g/dl RDW (11.5-14.5) % Plt Count (120.0-450.0) 10^3/uL MPV (7.0-11.0) fl Gran % (50.0-68.0) % Lymph % (Auto) (22.0-35.0) % Terry % (Auto) (1.0-6.0) % Eos % (Auto) (1.5-5.0) % Baso % (Auto) (0.0-3.0) % Gran # (1.4-6.5) Lymph # (Auto) (1.2-3.4) Terry # (Auto) (0.1-0.6) Eos # (Auto) (0.0-0.7) Baso # (Auto) (0.0-2.0) K/mm3 PT 21.4 H (9.4-12.5) SECONDS INR 1.84 H (0.93-1.08) APTT 32.9 (25.1-36.5) Seconds D-Dimer, Quantitative (0-243) ng/mL pO2 (30-55) mm/Hg VBG pH (7.32-7.43) VBG pCO2 (40-60) VBG HCO3 (21-28) mmol/l VBG Total CO2 (22-28) mmol.L VBG O2 Sat (Calc) (40-65) % VBG Base Excess (0.0-2.0) mmol/L VBG Potassium (3.6-5.2) mmol/L Glucose (65-105) mg/dl Lactate (0.7-2.1) mmol/L FiO2 % Sodium 136 (132-148) mmol/L Potassium 4.0 (3.6-5.0) mmol/L Chloride 100 (98-107) mmol/L Carbon Dioxide 22 (21-33) mmol/L Anion Gap 18 (10-20) BUN 43 H (7-21) mg/dL Creatinine 1.9 H (0.7-1.2) mg/dl Est GFR ( Amer) 32 Est GFR (Non-Af Amer) 26 POC Glucose (mg/dL) (65-110) mg/dL Random Glucose 149 H (70-110) mg/dL Fructosamine (190-270) umol/L Lactic Acid 3.2 H (0.7-2.1) mmol/L Calcium 8.6 (8.4-10.5) mg/dL Phosphorus 5.2 H (2.5-4.5) mg/dL Magnesium 2.8 H (1.7-2.2) mg/dL Total Bilirubin 0.5 (0.2-1.3) mg/dL Direct Bilirubin 0.5 H (0.0-0.4) mg/dL AST 24 (14-36) U/L ALT 34 (7-56) U/L Alkaline Phosphatase 91 (38-126) U/L Lactate Dehydrogenase (333-699) U/L Total Creatine Kinase 43 (35-230) U/L Troponin I 0.05 ng/mL C-React Prot High Sens (1.00-3.00) mg/L NT-Pro-B Natriuret Pep 9450 H (0-450) pg/mL Total Protein 5.5 L (5.8-8.3) g/dL Albumin 2.8 L (3.0-4.8) g/dL Globulin 2.7 gm/dL Albumin/Globulin Ratio 1.0 L (1.1-1.8) Triglycerides (35-160) mg/dL Cholesterol (130-200) mg/dL LDL Cholesterol Direct (0-129) mg/dL HDL Cholesterol (29-60) mg/dL Procalcitonin (0.19-0.49) NG/ML Free T4 (0.78-2.19) ng/dL Thyroxine (T4) (5.5-11.0) ug/dL TSH 3rd Generation (0.46-4.68) mIU/mL Plasma Cortisol PM (1.7-14.1) ug/dL Venous Blood Potassium (3.6-5.2) mmol/L Urine Color (YELLOW) Urine Appearance (CLEAR) Urine pH (4.7-8.0) Ur Specific [place] (1.005-1.035) Urine Protein (<30 mg/dL) mg/dL Urine Glucose (UA) (NEGATIVE) mg/dL Urine Ketones (NEGATIVE) mg/dL Urine Blood (NEGATIVE) Urine Nitrate (NEGATIVE) Urine Bilirubin (NEGATIVE) Urine Urobilinogen (<1 E.U./dL) E.U./dL Ur Leukocyte Esterase (NEGATIVE) Tom/uL Urine RBC (0-2) /hpf Urine WBC (0-6) /hpf Ur Epithelial Cells (0-5) /hpf Amorphous Sediment Urine Bacteria (NEG) Hyaline Casts /hpf Fine Granular Casts (0-2) /hpf Coarse Granular Casts (0-2) /hpf Urine Other 08/03/17 08/03/17 08/03/17 Range/Units 05:30 01:44 00:30 WBC 7.0 (4.5-11.0) 10^3/ul RBC 4.45 (3.5-6.1) 10^6/uL Hgb 12.2 (12.0-16.0) g/dL Hct 37.5 (36.0-48.0) % MCV 84.3 (80.0-105.0) fl MCH 27.4 (25.0-35.0) pg MCHC 32.5 (31.0-37.0) g/dl RDW 14.2 (11.5-14.5) % Plt Count 288 (120.0-450.0) 10^3/uL MPV 10.0 (7.0-11.0) fl Gran % 90.3 H (50.0-68.0) % Lymph % (Auto) 5.1 L (22.0-35.0) % Terry % (Auto) 4.3 (1.0-6.0) % Eos % (Auto) 0.0 L (1.5-5.0) % Baso % (Auto) 0.3 (0.0-3.0) % Gran # 6.33 (1.4-6.5) Lymph # (Auto) 0.4 L (1.2-3.4) Terry # (Auto) 0.3 (0.1-0.6) Eos # (Auto) 0.0 (0.0-0.7) Baso # (Auto) 0.02 (0.0-2.0) K/mm3 PT (9.4-12.5) SECONDS INR (0.93-1.08) APTT (25.1-36.5) Seconds D-Dimer, Quantitative (0-243) ng/mL pO2 (30-55) mm/Hg VBG pH (7.32-7.43) VBG pCO2 (40-60) VBG HCO3 (21-28) mmol/l VBG Total CO2 (22-28) mmol.L VBG O2 Sat (Calc) (40-65) % VBG Base Excess (0.0-2.0) mmol/L VBG Potassium (3.6-5.2) mmol/L Glucose (65-105) mg/dl Lactate (0.7-2.1) mmol/L FiO2 % Sodium (132-148) mmol/L Potassium (3.6-5.0) mmol/L Chloride (98-107) mmol/L Carbon Dioxide (21-33) mmol/L Anion Gap (10-20) BUN (7-21) mg/dL Creatinine (0.7-1.2) mg/dl Est GFR ( Amer) Est GFR (Non-Af Amer) POC Glucose (mg/dL) 153 H (65-110) mg/dL Random Glucose (70-110) mg/dL Fructosamine (190-270) umol/L Lactic Acid (0.7-2.1) mmol/L Calcium (8.4-10.5) mg/dL Phosphorus (2.5-4.5) mg/dL Magnesium (1.7-2.2) mg/dL Total Bilirubin (0.2-1.3) mg/dL Direct Bilirubin (0.0-0.4) mg/dL AST (14-36) U/L ALT (7-56) U/L Alkaline Phosphatase (38-126) U/L Lactate Dehydrogenase 421 (333-699) U/L Total Creatine Kinase 43 (35-230) U/L Troponin I 0.06 D ng/mL C-React Prot High Sens (1.00-3.00) mg/L NT-Pro-B Natriuret Pep (0-450) pg/mL Total Protein (5.8-8.3) g/dL Albumin (3.0-4.8) g/dL Globulin gm/dL Albumin/Globulin Ratio (1.1-1.8) Triglycerides (35-160) mg/dL Cholesterol (130-200) mg/dL LDL Cholesterol Direct (0-129) mg/dL HDL Cholesterol (29-60) mg/dL Procalcitonin (0.19-0.49) NG/ML Free T4 (0.78-2.19) ng/dL Thyroxine (T4) (5.5-11.0) ug/dL TSH 3rd Generation (0.46-4.68) mIU/mL Plasma Cortisol PM (1.7-14.1) ug/dL Venous Blood Potassium (3.6-5.2) mmol/L Urine Color (YELLOW) Urine Appearance (CLEAR) Urine pH (4.7-8.0) Ur Specific [place] (1.005-1.035) Urine Protein (<30 mg/dL) mg/dL Urine Glucose (UA) (NEGATIVE) mg/dL Urine Ketones (NEGATIVE) mg/dL Urine Blood (NEGATIVE) Urine Nitrate (NEGATIVE) Urine Bilirubin (NEGATIVE) Urine Urobilinogen (<1 E.U./dL) E.U./dL Ur Leukocyte Esterase (NEGATIVE) Tom/uL Urine RBC (0-2) /hpf Urine WBC (0-6) /hpf Ur Epithelial Cells (0-5) /hpf Amorphous Sediment Urine Bacteria (NEG) Hyaline Casts /hpf Fine Granular Casts (0-2) /hpf Coarse Granular Casts (0-2) /hpf Urine Other 08/02/17 08/02/17 08/02/17 Range/Units 21:45 18:50 18:44 WBC (4.5-11.0) 10^3/ul RBC (3.5-6.1) 10^6/uL Hgb (12.0-16.0) g/dL Hct (36.0-48.0) % MCV (80.0-105.0) fl MCH (25.0-35.0) pg MCHC (31.0-37.0) g/dl RDW (11.5-14.5) % Plt Count (120.0-450.0) 10^3/uL MPV (7.0-11.0) fl Gran % (50.0-68.0) % Lymph % (Auto) (22.0-35.0) % Terry % (Auto) (1.0-6.0) % Eos % (Auto) (1.5-5.0) % Baso % (Auto) (0.0-3.0) % Gran # (1.4-6.5) Lymph # (Auto) (1.2-3.4) Terry # (Auto) (0.1-0.6) Eos # (Auto) (0.0-0.7) Baso # (Auto) (0.0-2.0) K/mm3 PT (9.4-12.5) SECONDS INR (0.93-1.08) APTT (25.1-36.5) Seconds D-Dimer, Quantitative (0-243) ng/mL pO2 43 (30-55) mm/Hg VBG pH 7.41 (7.32-7.43) VBG pCO2 36.0 L (40-60) VBG HCO3 22.8 (21-28) mmol/l VBG Total CO2 23.9 (22-28) mmol.L VBG O2 Sat (Calc) 82.9 H (40-65) % VBG Base Excess -1.4 L (0.0-2.0) mmol/L VBG Potassium 4.2 (3.6-5.2) mmol/L Glucose 165 H (65-105) mg/dl Lactate 3.5 H (0.7-2.1) mmol/L FiO2 21.0 % Sodium 133.0 (132-148) mmol/L Potassium (3.6-5.0) mmol/L Chloride 101.0 (98-107) mmol/L Carbon Dioxide (21-33) mmol/L Anion Gap (10-20) BUN (7-21) mg/dL Creatinine (0.7-1.2) mg/dl Est GFR ( Amer) Est GFR (Non-Af Amer) POC Glucose (mg/dL) 165 H (65-110) mg/dL Random Glucose (70-110) mg/dL Fructosamine (190-270) umol/L Lactic Acid (0.7-2.1) mmol/L Calcium (8.4-10.5) mg/dL Phosphorus (2.5-4.5) mg/dL Magnesium (1.7-2.2) mg/dL Total Bilirubin (0.2-1.3) mg/dL Direct Bilirubin (0.0-0.4) mg/dL AST (14-36) U/L ALT (7-56) U/L Alkaline Phosphatase (38-126) U/L Lactate Dehydrogenase (333-699) U/L Total Creatine Kinase (35-230) U/L Troponin I ng/mL C-React Prot High Sens (1.00-3.00) mg/L NT-Pro-B Natriuret Pep (0-450) pg/mL Total Protein (5.8-8.3) g/dL Albumin (3.0-4.8) g/dL Globulin gm/dL Albumin/Globulin Ratio (1.1-1.8) Triglycerides (35-160) mg/dL Cholesterol (130-200) mg/dL LDL Cholesterol Direct (0-129) mg/dL HDL Cholesterol (29-60) mg/dL Procalcitonin (0.19-0.49) NG/ML Free T4 (0.78-2.19) ng/dL Thyroxine (T4) (5.5-11.0) ug/dL TSH 3rd Generation (0.46-4.68) mIU/mL Plasma Cortisol PM (1.7-14.1) ug/dL Venous Blood Potassium 4.2 (3.6-5.2) mmol/L Urine Color Dark yellow (YELLOW) Urine Appearance Sl cloudy (CLEAR) Urine pH 5.0 (4.7-8.0) Ur Specific [place] >= 1.030 (1.005-1.035) Urine Protein 100 H (<30 mg/dL) mg/dL Urine Glucose (UA) Negative (NEGATIVE) mg/dL Urine Ketones Trace H (NEGATIVE) mg/dL Urine Blood Trace-intact H (NEGATIVE) Urine Nitrate Positive H (NEGATIVE) Urine Bilirubin Moderate H (NEGATIVE) Urine Urobilinogen 1.0 H (<1 E.U./dL) E.U./dL Ur Leukocyte Esterase Trace H (NEGATIVE) Tom/uL Urine RBC 5 - 10 (0-2) /hpf Urine WBC 2 - 5 (0-6) /hpf Ur Epithelial Cells 4 - 5 (0-5) /hpf Amorphous Sediment Small Urine Bacteria Large (NEG) Hyaline Casts 0 - 2 /hpf Fine Granular Casts 0 - 2 (0-2) /hpf Coarse Granular Casts Small H (0-2) /hpf Urine Other [place] 08/02/17 08/02/17 08/02/17 Range/Units 18:15 18:15 18:15 WBC (4.5-11.0) 10^3/ul RBC (3.5-6.1) 10^6/uL Hgb (12.0-16.0) g/dL Hct (36.0-48.0) % MCV (80.0-105.0) fl MCH (25.0-35.0) pg MCHC (31.0-37.0) g/dl RDW (11.5-14.5) % Plt Count (120.0-450.0) 10^3/uL MPV (7.0-11.0) fl Gran % (50.0-68.0) % Lymph % (Auto) (22.0-35.0) % Terry % (Auto) (1.0-6.0) % Eos % (Auto) (1.5-5.0) % Baso % (Auto) (0.0-3.0) % Gran # (1.4-6.5) Lymph # (Auto) (1.2-3.4) Terry # (Auto) (0.1-0.6) Eos # (Auto) (0.0-0.7) Baso # (Auto) (0.0-2.0) K/mm3 PT (9.4-12.5) SECONDS INR (0.93-1.08) APTT (25.1-36.5) Seconds D-Dimer, Quantitative (0-243) ng/mL pO2 30 (30-55) mm/Hg VBG pH 7.34 (7.32-7.43) VBG pCO2 43.0 (40-60) VBG HCO3 23.2 (21-28) mmol/l VBG Total CO2 24.5 (22-28) mmol.L VBG O2 Sat (Calc) 60.9 (40-65) % VBG Base Excess -2.6 L (0.0-2.0) mmol/L VBG Potassium 4.5 (3.6-5.2) mmol/L Glucose 181 H (65-105) mg/dl Lactate 5.2 H* (0.7-2.1) mmol/L FiO2 21.0 % Sodium 134.0 (132-148) mmol/L Potassium (3.6-5.0) mmol/L Chloride 99.0 (98-107) mmol/L Carbon Dioxide (21-33) mmol/L Anion Gap (10-20) BUN (7-21) mg/dL Creatinine (0.7-1.2) mg/dl Est GFR ( Amer) Est GFR (Non-Af Amer) POC Glucose (mg/dL) (65-110) mg/dL Random Glucose (70-110) mg/dL Fructosamine (190-270) umol/L Lactic Acid (0.7-2.1) mmol/L Calcium (8.4-10.5) mg/dL Phosphorus 4.7 H (2.5-4.5) mg/dL Magnesium 2.6 H (1.7-2.2) mg/dL Total Bilirubin (0.2-1.3) mg/dL Direct Bilirubin (0.0-0.4) mg/dL AST (14-36) U/L ALT (7-56) U/L Alkaline Phosphatase (38-126) U/L Lactate Dehydrogenase 461 (333-699) U/L Total Creatine Kinase 43 (35-230) U/L Troponin I 0.08 ng/mL C-React Prot High Sens (1.00-3.00) mg/L NT-Pro-B Natriuret Pep (0-450) pg/mL Total Protein (5.8-8.3) g/dL Albumin (3.0-4.8) g/dL Globulin gm/dL Albumin/Globulin Ratio (1.1-1.8) Triglycerides (35-160) mg/dL Cholesterol (130-200) mg/dL LDL Cholesterol Direct (0-129) mg/dL HDL Cholesterol (29-60) mg/dL Procalcitonin (0.19-0.49) NG/ML Free T4 (0.78-2.19) ng/dL Thyroxine (T4) (5.5-11.0) ug/dL TSH 3rd Generation (0.46-4.68) mIU/mL Plasma Cortisol PM 51.2 H (1.7-14.1) ug/dL Venous Blood Potassium 4.5 (3.6-5.2) mmol/L Urine Color (YELLOW) Urine Appearance (CLEAR) Urine pH (4.7-8.0) Ur Specific [place] (1.005-1.035) Urine Protein (<30 mg/dL) mg/dL Urine Glucose (UA) (NEGATIVE) mg/dL Urine Ketones (NEGATIVE) mg/dL Urine Blood (NEGATIVE) Urine Nitrate (NEGATIVE) Urine Bilirubin (NEGATIVE) Urine Urobilinogen (<1 E.U./dL) E.U./dL Ur Leukocyte Esterase (NEGATIVE) Tom/uL Urine RBC (0-2) /hpf Urine WBC (0-6) /hpf Ur Epithelial Cells (0-5) /hpf Amorphous Sediment Urine Bacteria (NEG) Hyaline Casts /hpf Fine Granular Casts (0-2) /hpf Coarse Granular Casts (0-2) /hpf Urine Other 08/02/17 08/02/17 08/02/17 Range/Units 14:30 14:30 14:22 WBC (4.5-11.0) 10^3/ul RBC (3.5-6.1) 10^6/uL Hgb (12.0-16.0) g/dL Hct (36.0-48.0) % MCV (80.0-105.0) fl MCH (25.0-35.0) pg MCHC (31.0-37.0) g/dl RDW (11.5-14.5) % Plt Count (120.0-450.0) 10^3/uL MPV (7.0-11.0) fl Gran % (50.0-68.0) % Lymph % (Auto) (22.0-35.0) % Terry % (Auto) (1.0-6.0) % Eos % (Auto) (1.5-5.0) % Baso % (Auto) (0.0-3.0) % Gran # (1.4-6.5) Lymph # (Auto) (1.2-3.4) Terry # (Auto) (0.1-0.6) Eos # (Auto) (0.0-0.7) Baso # (Auto) (0.0-2.0) K/mm3 PT 22.8 H (9.4-12.5) SECONDS INR 1.97 H (0.93-1.08) APTT 38.2 H (25.1-36.5) Seconds D-Dimer, Quantitative 3431 H (0-243) ng/mL pO2 (30-55) mm/Hg VBG pH (7.32-7.43) VBG pCO2 (40-60) VBG HCO3 (21-28) mmol/l VBG Total CO2 (22-28) mmol.L VBG O2 Sat (Calc) (40-65) % VBG Base Excess (0.0-2.0) mmol/L VBG Potassium (3.6-5.2) mmol/L Glucose (65-105) mg/dl Lactate (0.7-2.1) mmol/L FiO2 % Sodium (132-148) mmol/L Potassium (3.6-5.0) mmol/L Chloride (98-107) mmol/L Carbon Dioxide (21-33) mmol/L Anion Gap (10-20) BUN (7-21) mg/dL Creatinine (0.7-1.2) mg/dl Est GFR ( Amer) Est GFR (Non-Af Amer) POC Glucose (mg/dL) (65-110) mg/dL Random Glucose (70-110) mg/dL Fructosamine (190-270) umol/L Lactic Acid (0.7-2.1) mmol/L Calcium (8.4-10.5) mg/dL Phosphorus (2.5-4.5) mg/dL Magnesium (1.7-2.2) mg/dL Total Bilirubin (0.2-1.3) mg/dL Direct Bilirubin (0.0-0.4) mg/dL AST (14-36) U/L ALT (7-56) U/L Alkaline Phosphatase (38-126) U/L Lactate Dehydrogenase (333-699) U/L Total Creatine Kinase (35-230) U/L Troponin I ng/mL C-React Prot High Sens > 15.00 H (1.00-3.00) mg/L NT-Pro-B Natriuret Pep (0-450) pg/mL Total Protein (5.8-8.3) g/dL Albumin (3.0-4.8) g/dL Globulin gm/dL Albumin/Globulin Ratio (1.1-1.8) Triglycerides (35-160) mg/dL Cholesterol (130-200) mg/dL LDL Cholesterol Direct (0-129) mg/dL HDL Cholesterol (29-60) mg/dL Procalcitonin (0.19-0.49) NG/ML Free T4 (0.78-2.19) ng/dL Thyroxine (T4) (5.5-11.0) ug/dL TSH 3rd Generation (0.46-4.68) mIU/mL Plasma Cortisol PM (1.7-14.1) ug/dL Venous Blood Potassium (3.6-5.2) mmol/L Urine Color (YELLOW) Urine Appearance (CLEAR) Urine pH (4.7-8.0) Ur Specific [place] (1.005-1.035) Urine Protein (<30 mg/dL) mg/dL Urine Glucose (UA) (NEGATIVE) mg/dL Urine Ketones (NEGATIVE) mg/dL Urine Blood (NEGATIVE) Urine Nitrate (NEGATIVE) Urine Bilirubin (NEGATIVE) Urine Urobilinogen (<1 E.U./dL) E.U./dL Ur Leukocyte Esterase (NEGATIVE) Tom/uL Urine RBC (0-2) /hpf Urine WBC (0-6) /hpf Ur Epithelial Cells (0-5) /hpf Amorphous Sediment Urine Bacteria (NEG) Hyaline Casts /hpf Fine Granular Casts (0-2) /hpf Coarse Granular Casts (0-2) /hpf Urine Other 08/02/17 08/02/17 08/02/17 Range/Units 14:22 14:22 14:22 WBC 6.6 (4.5-11.0) 10^3/ul RBC 4.93 (3.5-6.1) 10^6/uL Hgb 13.6 (12.0-16.0) g/dL Hct 42.3 (36.0-48.0) % MCV 85.8 (80.0-105.0) fl MCH 27.6 (25.0-35.0) pg MCHC 32.2 (31.0-37.0) g/dl RDW 14.4 (11.5-14.5) % Plt Count 336 (120.0-450.0) 10^3/uL MPV 9.4 (7.0-11.0) fl Gran % 85.2 H (50.0-68.0) % Lymph % (Auto) 9.5 L (22.0-35.0) % Terry % (Auto) 5.0 (1.0-6.0) % Eos % (Auto) 0.0 L (1.5-5.0) % Baso % (Auto) 0.3 (0.0-3.0) % Gran # 5.63 (1.4-6.5) Lymph # (Auto) 0.6 L (1.2-3.4) Terry # (Auto) 0.3 (0.1-0.6) Eos # (Auto) 0.0 (0.0-0.7) Baso # (Auto) 0.02 (0.0-2.0) K/mm3 PT (9.4-12.5) SECONDS INR (0.93-1.08) APTT (25.1-36.5) Seconds D-Dimer, Quantitative (0-243) ng/mL pO2 (30-55) mm/Hg VBG pH (7.32-7.43) VBG pCO2 (40-60) VBG HCO3 (21-28) mmol/l VBG Total CO2 (22-28) mmol.L VBG O2 Sat (Calc) (40-65) % VBG Base Excess (0.0-2.0) mmol/L VBG Potassium (3.6-5.2) mmol/L Glucose (65-105) mg/dl Lactate (0.7-2.1) mmol/L FiO2 % Sodium 137 (132-148) mmol/L Potassium 4.5 (3.6-5.0) mmol/L Chloride 99 (98-107) mmol/L Carbon Dioxide 20 L (21-33) mmol/L Anion Gap 22 H (10-20) BUN 35 H (7-21) mg/dL Creatinine 2.2 H (0.7-1.2) mg/dl Est GFR ( Amer) 27 Est GFR (Non-Af Amer) 22 POC Glucose (mg/dL) (65-110) mg/dL Random Glucose 205 H (70-110) mg/dL Fructosamine (190-270) umol/L Lactic Acid 5.6 H* (0.7-2.1) mmol/L Calcium 8.9 (8.4-10.5) mg/dL Phosphorus (2.5-4.5) mg/dL Magnesium (1.7-2.2) mg/dL Total Bilirubin 0.7 (0.2-1.3) mg/dL Direct Bilirubin (0.0-0.4) mg/dL AST 31 (14-36) U/L ALT 31 (7-56) U/L Alkaline Phosphatase 84 (38-126) U/L Lactate Dehydrogenase (333-699) U/L Total Creatine Kinase (35-230) U/L Troponin I 0.08 D ng/mL C-React Prot High Sens (1.00-3.00) mg/L NT-Pro-B Natriuret Pep 55717 H (0-450) pg/mL Total Protein 5.8 (5.8-8.3) g/dL Albumin 3.1 (3.0-4.8) g/dL Globulin 2.7 gm/dL Albumin/Globulin Ratio 1.2 (1.1-1.8) Triglycerides (35-160) mg/dL Cholesterol (130-200) mg/dL LDL Cholesterol Direct (0-129) mg/dL HDL Cholesterol (29-60) mg/dL Procalcitonin (0.19-0.49) NG/ML Free T4 (0.78-2.19) ng/dL Thyroxine (T4) (5.5-11.0) ug/dL TSH 3rd Generation (0.46-4.68) mIU/mL Plasma Cortisol PM (1.7-14.1) ug/dL Venous Blood Potassium (3.6-5.2) mmol/L Urine Color (YELLOW) Urine Appearance (CLEAR) Urine pH (4.7-8.0) Ur Specific [place] (1.005-1.035) Urine Protein (<30 mg/dL) mg/dL Urine Glucose (UA) (NEGATIVE) mg/dL Urine Ketones (NEGATIVE) mg/dL Urine Blood (NEGATIVE) Urine Nitrate (NEGATIVE) Urine Bilirubin (NEGATIVE) Urine Urobilinogen (<1 E.U./dL) E.U./dL Ur Leukocyte Esterase (NEGATIVE) Tom/uL Urine RBC (0-2) /hpf Urine WBC (0-6) /hpf Ur Epithelial Cells (0-5) /hpf Amorphous Sediment Urine Bacteria (NEG) Hyaline Casts /hpf Fine Granular Casts (0-2) /hpf Coarse Granular Casts (0-2) /hpf Urine Other 08/02/17 08/02/17 08/02/17 Range/Units 14:22 11:32 08:30 WBC (4.5-11.0) 10^3/ul RBC (3.5-6.1) 10^6/uL Hgb (12.0-16.0) g/dL Hct (36.0-48.0) % MCV (80.0-105.0) fl MCH (25.0-35.0) pg MCHC (31.0-37.0) g/dl RDW (11.5-14.5) % Plt Count (120.0-450.0) 10^3/uL MPV (7.0-11.0) fl Gran % (50.0-68.0) % Lymph % (Auto) (22.0-35.0) % Terry % (Auto) (1.0-6.0) % Eos % (Auto) (1.5-5.0) % Baso % (Auto) (0.0-3.0) % Gran # (1.4-6.5) Lymph # (Auto) (1.2-3.4) Terry # (Auto) (0.1-0.6) Eos # (Auto) (0.0-0.7) Baso # (Auto) (0.0-2.0) K/mm3 PT (9.4-12.5) SECONDS INR (0.93-1.08) APTT (25.1-36.5) Seconds D-Dimer, Quantitative (0-243) ng/mL pO2 (30-55) mm/Hg VBG pH (7.32-7.43) VBG pCO2 (40-60) VBG HCO3 (21-28) mmol/l VBG Total CO2 (22-28) mmol.L VBG O2 Sat (Calc) (40-65) % VBG Base Excess (0.0-2.0) mmol/L VBG Potassium (3.6-5.2) mmol/L Glucose (65-105) mg/dl Lactate (0.7-2.1) mmol/L FiO2 % Sodium (132-148) mmol/L Potassium (3.6-5.0) mmol/L Chloride (98-107) mmol/L Carbon Dioxide (21-33) mmol/L Anion Gap (10-20) BUN (7-21) mg/dL Creatinine (0.7-1.2) mg/dl Est GFR ( Amer) Est GFR (Non-Af Amer) POC Glucose (mg/dL) 170 H (65-110) mg/dL Random Glucose (70-110) mg/dL Fructosamine 186 L (190-270) umol/L Lactic Acid (0.7-2.1) mmol/L Calcium (8.4-10.5) mg/dL Phosphorus (2.5-4.5) mg/dL Magnesium (1.7-2.2) mg/dL Total Bilirubin (0.2-1.3) mg/dL Direct Bilirubin (0.0-0.4) mg/dL AST (14-36) U/L ALT (7-56) U/L Alkaline Phosphatase (38-126) U/L Lactate Dehydrogenase (333-699) U/L Total Creatine Kinase (35-230) U/L Troponin I ng/mL C-React Prot High Sens (1.00-3.00) mg/L NT-Pro-B Natriuret Pep (0-450) pg/mL Total Protein (5.8-8.3) g/dL Albumin (3.0-4.8) g/dL Globulin gm/dL Albumin/Globulin Ratio (1.1-1.8) Triglycerides (35-160) mg/dL Cholesterol (130-200) mg/dL LDL Cholesterol Direct (0-129) mg/dL HDL Cholesterol (29-60) mg/dL Procalcitonin 100.67 H (0.19-0.49) NG/ML Free T4 (0.78-2.19) ng/dL Thyroxine (T4) (5.5-11.0) ug/dL TSH 3rd Generation (0.46-4.68) mIU/mL Plasma Cortisol PM (1.7-14.1) ug/dL Venous Blood Potassium (3.6-5.2) mmol/L Urine Color (YELLOW) Urine Appearance (CLEAR) Urine pH (4.7-8.0) Ur Specific [place] (1.005-1.035) Urine Protein (<30 mg/dL) mg/dL Urine Glucose (UA) (NEGATIVE) mg/dL Urine Ketones (NEGATIVE) mg/dL Urine Blood (NEGATIVE) Urine Nitrate (NEGATIVE) Urine Bilirubin (NEGATIVE) Urine Urobilinogen (<1 E.U./dL) E.U./dL Ur Leukocyte Esterase (NEGATIVE) Tom/uL Urine RBC (0-2) /hpf Urine WBC (0-6) /hpf Ur Epithelial Cells (0-5) /hpf Amorphous Sediment Urine Bacteria (NEG) Hyaline Casts /hpf Fine Granular Casts (0-2) /hpf Coarse Granular Casts (0-2) /hpf Urine Other 08/02/17 08/02/17 08/02/17 Range/Units 08:00 07:00 07:00 WBC (4.5-11.0) 10^3/ul RBC (3.5-6.1) 10^6/uL Hgb (12.0-16.0) g/dL Hct (36.0-48.0) % MCV (80.0-105.0) fl MCH (25.0-35.0) pg MCHC (31.0-37.0) g/dl RDW (11.5-14.5) % Plt Count (120.0-450.0) 10^3/uL MPV (7.0-11.0) fl Gran % (50.0-68.0) % Lymph % (Auto) (22.0-35.0) % Terry % (Auto) (1.0-6.0) % Eos % (Auto) (1.5-5.0) % Baso % (Auto) (0.0-3.0) % Gran # (1.4-6.5) Lymph # (Auto) (1.2-3.4) Terry # (Auto) (0.1-0.6) Eos # (Auto) (0.0-0.7) Baso # (Auto) (0.0-2.0) K/mm3 PT (9.4-12.5) SECONDS INR (0.93-1.08) APTT (25.1-36.5) Seconds D-Dimer, Quantitative (0-243) ng/mL pO2 (30-55) mm/Hg VBG pH (7.32-7.43) VBG pCO2 (40-60) VBG HCO3 (21-28) mmol/l VBG Total CO2 (22-28) mmol.L VBG O2 Sat (Calc) (40-65) % VBG Base Excess (0.0-2.0) mmol/L VBG Potassium (3.6-5.2) mmol/L Glucose (65-105) mg/dl Lactate (0.7-2.1) mmol/L FiO2 % Sodium 135 (132-148) mmol/L Potassium 4.5 (3.6-5.0) mmol/L Chloride 101 (98-107) mmol/L Carbon Dioxide 22 (21-33) mmol/L Anion Gap 18 (10-20) BUN 32 H (7-21) mg/dL Creatinine 1.7 H (0.7-1.2) mg/dl Est GFR ( Amer) 36 Est GFR (Non-Af Amer) 30 POC Glucose (mg/dL) 142 H (65-110) mg/dL Random Glucose 148 H (70-110) mg/dL Fructosamine (190-270) umol/L Lactic Acid (0.7-2.1) mmol/L Calcium 8.8 (8.4-10.5) mg/dL Phosphorus 4.7 H (2.5-4.5) mg/dL Magnesium 2.5 H (1.7-2.2) mg/dL Total Bilirubin 0.8 (0.2-1.3) mg/dL Direct Bilirubin 0.7 H (0.0-0.4) mg/dL AST 22 (14-36) U/L ALT 39 (7-56) U/L Alkaline Phosphatase 75 (38-126) U/L Lactate Dehydrogenase (333-699) U/L Total Creatine Kinase (35-230) U/L Troponin I ng/mL C-React Prot High Sens (1.00-3.00) mg/L NT-Pro-B Natriuret Pep (0-450) pg/mL Total Protein 5.5 L (5.8-8.3) g/dL Albumin 2.9 L (3.0-4.8) g/dL Globulin 2.6 gm/dL Albumin/Globulin Ratio 1.1 (1.1-1.8) Triglycerides 87 (35-160) mg/dL Cholesterol 54 L (130-200) mg/dL LDL Cholesterol Direct < 30 (0-129) mg/dL HDL Cholesterol 32 (29-60) mg/dL Procalcitonin (0.19-0.49) NG/ML Free T4 2.52 H (0.78-2.19) ng/dL Thyroxine (T4) 9.1 (5.5-11.0) ug/dL TSH 3rd Generation 0.74 (0.46-4.68) mIU/mL Plasma Cortisol PM (1.7-14.1) ug/dL Venous Blood Potassium (3.6-5.2) mmol/L Urine Color (YELLOW) Urine Appearance (CLEAR) Urine pH (4.7-8.0) Ur Specific [place] (1.005-1.035) Urine Protein (<30 mg/dL) mg/dL Urine Glucose (UA) (NEGATIVE) mg/dL Urine Ketones (NEGATIVE) mg/dL Urine Blood (NEGATIVE) Urine Nitrate (NEGATIVE) Urine Bilirubin (NEGATIVE) Urine Urobilinogen (<1 E.U./dL) E.U./dL Ur Leukocyte Esterase (NEGATIVE) Tom/uL Urine RBC (0-2) /hpf Urine WBC (0-6) /hpf Ur Epithelial Cells (0-5) /hpf Amorphous Sediment Urine Bacteria (NEG) Hyaline Casts /hpf Fine Granular Casts (0-2) /hpf Coarse Granular Casts (0-2) /hpf Urine Other 08/02/17 Range/Units 07:00 WBC 5.6 D (4.5-11.0) 10^3/ul RBC 5.08 (3.5-6.1) 10^6/uL Hgb 14.1 (12.0-16.0) g/dL Hct 43.5 (36.0-48.0) % MCV 85.6 (80.0-105.0) fl MCH 27.8 (25.0-35.0) pg MCHC 32.4 (31.0-37.0) g/dl RDW 14.2 (11.5-14.5) % Plt Count 280 (120.0-450.0) 10^3/uL MPV 9.1 (7.0-11.0) fl Gran % 84.1 H (50.0-68.0) % Lymph % (Auto) 11.1 L (22.0-35.0) % Terry % (Auto) 4.8 (1.0-6.0) % Eos % (Auto) 0.0 L (1.5-5.0) % Baso % (Auto) 0.0 (0.0-3.0) % Gran # 4.68 (1.4-6.5) Lymph # (Auto) 0.6 L (1.2-3.4) Terry # (Auto) 0.3 (0.1-0.6) Eos # (Auto) 0.0 (0.0-0.7) Baso # (Auto) 0.00 (0.0-2.0) K/mm3 PT (9.4-12.5) SECONDS INR (0.93-1.08) APTT (25.1-36.5) Seconds D-Dimer, Quantitative (0-243) ng/mL pO2 (30-55) mm/Hg VBG pH (7.32-7.43) VBG pCO2 (40-60) VBG HCO3 (21-28) mmol/l VBG Total CO2 (22-28) mmol.L VBG O2 Sat (Calc) (40-65) % VBG Base Excess (0.0-2.0) mmol/L VBG Potassium (3.6-5.2) mmol/L Glucose (65-105) mg/dl Lactate (0.7-2.1) mmol/L FiO2 % Sodium (132-148) mmol/L Potassium (3.6-5.0) mmol/L Chloride (98-107) mmol/L Carbon Dioxide (21-33) mmol/L Anion Gap (10-20) BUN (7-21) mg/dL Creatinine (0.7-1.2) mg/dl Est GFR ( Amer) Est GFR (Non-Af Amer) POC Glucose (mg/dL) (65-110) mg/dL Random Glucose (70-110) mg/dL Fructosamine (190-270) umol/L Lactic Acid (0.7-2.1) mmol/L Calcium (8.4-10.5) mg/dL Phosphorus (2.5-4.5) mg/dL Magnesium (1.7-2.2) mg/dL Total Bilirubin (0.2-1.3) mg/dL Direct Bilirubin (0.0-0.4) mg/dL AST (14-36) U/L ALT (7-56) U/L Alkaline Phosphatase (38-126) U/L Lactate Dehydrogenase (333-699) U/L Total Creatine Kinase (35-230) U/L Troponin I ng/mL C-React Prot High Sens (1.00-3.00) mg/L NT-Pro-B Natriuret Pep (0-450) pg/mL Total Protein (5.8-8.3) g/dL Albumin (3.0-4.8) g/dL Globulin gm/dL Albumin/Globulin Ratio (1.1-1.8) Triglycerides (35-160) mg/dL Cholesterol (130-200) mg/dL LDL Cholesterol Direct (0-129) mg/dL HDL Cholesterol (29-60) mg/dL Procalcitonin (0.19-0.49) NG/ML Free T4 (0.78-2.19) ng/dL Thyroxine (T4) (5.5-11.0) ug/dL TSH 3rd Generation (0.46-4.68) mIU/mL Plasma Cortisol PM (1.7-14.1) ug/dL Venous Blood Potassium (3.6-5.2) mmol/L Urine Color (YELLOW) Urine Appearance (CLEAR) Urine pH (4.7-8.0) Ur Specific [place] (1.005-1.035) Urine Protein (<30 mg/dL) mg/dL Urine Glucose (UA) (NEGATIVE) mg/dL Urine Ketones (NEGATIVE) mg/dL Urine Blood (NEGATIVE) Urine Nitrate (NEGATIVE) Urine Bilirubin (NEGATIVE) Urine Urobilinogen (<1 E.U./dL) E.U./dL Ur Leukocyte Esterase (NEGATIVE) Tom/uL Urine RBC (0-2) /hpf Urine WBC (0-6) /hpf Ur Epithelial Cells (0-5) /hpf Amorphous Sediment Urine Bacteria (NEG) Hyaline Casts /hpf Fine Granular Casts (0-2) /hpf Coarse Granular Casts (0-2) /hpf Urine Other Laboratory Results - last 24 hr 08/02/17 08/02/17 08/02/17 07:00 07:00 07:00 WBC 5.6 D RBC 5.08 Hgb 14.1 Hct 43.5 MCV 85.6 MCH 27.8 MCHC 32.4 RDW 14.2 Plt Count 280 MPV 9.1 Gran % 84.1 H Lymph % (Auto) 11.1 L Terry % (Auto) 4.8 Eos % (Auto) 0.0 L Baso % (Auto) 0.0 Gran # 4.68 Lymph # (Auto) 0.6 L Terry # (Auto) 0.3 Eos # (Auto) 0.0 Baso # (Auto) 0.00 PT INR APTT D-Dimer, Quantitative pO2 VBG pH VBG pCO2 VBG HCO3 VBG Total CO2 VBG O2 Sat (Calc) VBG Base Excess VBG Potassium Glucose Lactate FiO2 Sodium 135 Potassium 4.5 Chloride 101 Carbon Dioxide 22 Anion Gap 18 BUN 32 H Creatinine 1.7 H Est GFR ( Amer) 36 Est GFR (Non-Af Amer) 30 POC Glucose (mg/dL) Random Glucose 148 H Fructosamine Lactic Acid Calcium 8.8 Phosphorus 4.7 H Magnesium 2.5 H Total Bilirubin 0.8 Direct Bilirubin 0.7 H AST 22 ALT 39 Alkaline Phosphatase 75 Lactate Dehydrogenase Total Creatine Kinase Troponin I C-React Prot High Sens NT-Pro-B Natriuret Pep Total Protein 5.5 L Albumin 2.9 L Globulin 2.6 Albumin/Globulin Ratio 1.1 Triglycerides 87 Cholesterol 54 L LDL Cholesterol Direct < 30 HDL Cholesterol 32 Procalcitonin Free T4 2.52 H Thyroxine (T4) 9.1 TSH 3rd Generation 0.74 Plasma Cortisol PM Venous Blood Potassium Urine Color Urine Appearance Urine pH Ur Specific [place] Urine Protein Urine Glucose (UA) Urine Ketones Urine Blood Urine Nitrate Urine Bilirubin Urine Urobilinogen Ur Leukocyte Esterase Urine RBC Urine WBC Ur Epithelial Cells Amorphous Sediment Urine Bacteria Hyaline Casts Fine Granular Casts Coarse Granular Casts Urine Other 08/02/17 08/02/17 08/02/17 08:00 08:30 11:32 WBC RBC Hgb Hct MCV MCH MCHC RDW Plt Count MPV Gran % Lymph % (Auto) Terry % (Auto) Eos % (Auto) Baso % (Auto) Gran # Lymph # (Auto) Terry # (Auto) Eos # (Auto) Baso # (Auto) PT INR APTT D-Dimer, Quantitative pO2 VBG pH VBG pCO2 VBG HCO3 VBG Total CO2 VBG O2 Sat (Calc) VBG Base Excess VBG Potassium Glucose Lactate FiO2 Sodium Potassium Chloride Carbon Dioxide Anion Gap BUN Creatinine Est GFR ( Amer) Est GFR (Non-Af Amer) POC Glucose (mg/dL) 142 H 170 H Random Glucose Fructosamine 186 L Lactic Acid Calcium Phosphorus Magnesium Total Bilirubin Direct Bilirubin AST ALT Alkaline Phosphatase Lactate Dehydrogenase Total Creatine Kinase Troponin I C-React Prot High Sens NT-Pro-B Natriuret Pep Total Protein Albumin Globulin Albumin/Globulin Ratio Triglycerides Cholesterol LDL Cholesterol Direct HDL Cholesterol Procalcitonin Free T4 Thyroxine (T4) TSH 3rd Generation Plasma Cortisol PM Venous Blood Potassium Urine Color Urine Appearance Urine pH Ur Specific [place] Urine Protein Urine Glucose (UA) Urine Ketones Urine Blood Urine Nitrate Urine Bilirubin Urine Urobilinogen Ur Leukocyte Esterase Urine RBC Urine WBC Ur Epithelial Cells Amorphous Sediment Urine Bacteria Hyaline Casts Fine Granular Casts Coarse Granular Casts Urine Other 08/02/17 08/02/17 08/02/17 14:22 14:22 14:22 WBC 6.6 RBC 4.93 Hgb 13.6 Hct 42.3 MCV 85.8 MCH 27.6 MCHC 32.2 RDW 14.4 Plt Count 336 MPV 9.4 Gran % 85.2 H Lymph % (Auto) 9.5 L Terry % (Auto) 5.0 Eos % (Auto) 0.0 L Baso % (Auto) 0.3 Gran # 5.63 Lymph # (Auto) 0.6 L Terry # (Auto) 0.3 Eos # (Auto) 0.0 Baso # (Auto) 0.02 PT INR APTT D-Dimer, Quantitative pO2 VBG pH VBG pCO2 VBG HCO3 VBG Total CO2 VBG O2 Sat (Calc) VBG Base Excess VBG Potassium Glucose Lactate FiO2 Sodium 137 Potassium 4.5 Chloride 99 Carbon Dioxide 20 L Anion Gap 22 H BUN 35 H Creatinine 2.2 H Est GFR ( Amer) 27 Est GFR (Non-Af Amer) 22 POC Glucose (mg/dL) Random Glucose 205 H Fructosamine Lactic Acid Calcium 8.9 Phosphorus Magnesium Total Bilirubin 0.7 Direct Bilirubin AST 31 ALT 31 Alkaline Phosphatase 84 Lactate Dehydrogenase Total Creatine Kinase Troponin I 0.08 D C-React Prot High Sens NT-Pro-B Natriuret Pep 29367 H Total Protein 5.8 Albumin 3.1 Globulin 2.7 Albumin/Globulin Ratio 1.2 Triglycerides Cholesterol LDL Cholesterol Direct HDL Cholesterol Procalcitonin 100.67 H Free T4 Thyroxine (T4) TSH 3rd Generation Plasma Cortisol PM Venous Blood Potassium Urine Color Urine Appearance Urine pH Ur Specific [place] Urine Protein Urine Glucose (UA) Urine Ketones Urine Blood Urine Nitrate Urine Bilirubin Urine Urobilinogen Ur Leukocyte Esterase Urine RBC Urine WBC Ur Epithelial Cells Amorphous Sediment Urine Bacteria Hyaline Casts Fine Granular Casts Coarse Granular Casts Urine Other 08/02/17 08/02/17 08/02/17 14:22 14:22 14:30 WBC RBC Hgb Hct MCV MCH MCHC RDW Plt Count MPV Gran % Lymph % (Auto) Terry % (Auto) Eos % (Auto) Baso % (Auto) Gran # Lymph # (Auto) Terry # (Auto) Eos # (Auto) Baso # (Auto) PT INR APTT D-Dimer, Quantitative 3431 H pO2 VBG pH VBG pCO2 VBG HCO3 VBG Total CO2 VBG O2 Sat (Calc) VBG Base Excess VBG Potassium Glucose Lactate FiO2 Sodium Potassium Chloride Carbon Dioxide Anion Gap BUN Creatinine Est GFR ( Amer) Est GFR (Non-Af Amer) POC Glucose (mg/dL) Random Glucose Fructosamine Lactic Acid 5.6 H* Calcium Phosphorus Magnesium Total Bilirubin Direct Bilirubin AST ALT Alkaline Phosphatase Lactate Dehydrogenase Total Creatine Kinase Troponin I C-React Prot High Sens > 15.00 H NT-Pro-B Natriuret Pep Total Protein Albumin Globulin Albumin/Globulin Ratio Triglycerides Cholesterol LDL Cholesterol Direct HDL Cholesterol Procalcitonin Free T4 Thyroxine (T4) TSH 3rd Generation Plasma Cortisol PM Venous Blood Potassium Urine Color Urine Appearance Urine pH Ur Specific [place] Urine Protein Urine Glucose (UA) Urine Ketones Urine Blood Urine Nitrate Urine Bilirubin Urine Urobilinogen Ur Leukocyte Esterase Urine RBC Urine WBC Ur Epithelial Cells Amorphous Sediment Urine Bacteria Hyaline Casts Fine Granular Casts Coarse Granular Casts Urine Other 08/02/17 08/02/17 08/02/17 14:30 18:15 18:15 WBC RBC Hgb Hct MCV MCH MCHC RDW Plt Count MPV Gran % Lymph % (Auto) Terry % (Auto) Eos % (Auto) Baso % (Auto) Gran # Lymph # (Auto) Terry # (Auto) Eos # (Auto) Baso # (Auto) PT 22.8 H INR 1.97 H APTT 38.2 H D-Dimer, Quantitative pO2 VBG pH VBG pCO2 VBG HCO3 VBG Total CO2 VBG O2 Sat (Calc) VBG Base Excess VBG Potassium Glucose Lactate FiO2 Sodium Potassium Chloride Carbon Dioxide Anion Gap BUN Creatinine Est GFR ( Amer) Est GFR (Non-Af Amer) POC Glucose (mg/dL) Random Glucose Fructosamine Lactic Acid Calcium Phosphorus 4.7 H Magnesium 2.6 H Total Bilirubin Direct Bilirubin AST ALT Alkaline Phosphatase Lactate Dehydrogenase 461 Total Creatine Kinase 43 Troponin I 0.08 C-React Prot High Sens NT-Pro-B Natriuret Pep Total Protein Albumin Globulin Albumin/Globulin Ratio Triglycerides Cholesterol LDL Cholesterol Direct HDL Cholesterol Procalcitonin Free T4 Thyroxine (T4) TSH 3rd Generation Plasma Cortisol PM 51.2 H Venous Blood Potassium Urine Color Urine Appearance Urine pH Ur Specific [place] Urine Protein Urine Glucose (UA) Urine Ketones Urine Blood Urine Nitrate Urine Bilirubin Urine Urobilinogen Ur Leukocyte Esterase Urine RBC Urine WBC Ur Epithelial Cells Amorphous Sediment Urine Bacteria Hyaline Casts Fine Granular Casts Coarse Granular Casts Urine Other 08/02/17 08/02/17 08/02/17 18:15 18:44 18:50 WBC RBC Hgb Hct MCV MCH MCHC RDW Plt Count MPV Gran % Lymph % (Auto) Terry % (Auto) Eos % (Auto) Baso % (Auto) Gran # Lymph # (Auto) Terry # (Auto) Eos # (Auto) Baso # (Auto) PT INR APTT D-Dimer, Quantitative pO2 30 VBG pH 7.34 VBG pCO2 43.0 VBG HCO3 23.2 VBG Total CO2 24.5 VBG O2 Sat (Calc) 60.9 VBG Base Excess -2.6 L VBG Potassium 4.5 Glucose 181 H Lactate 5.2 H* FiO2 21.0 Sodium 134.0 Potassium Chloride 99.0 Carbon Dioxide Anion Gap BUN Creatinine Est GFR ( Amer) Est GFR (Non-Af Amer) POC Glucose (mg/dL) 165 H Random Glucose Fructosamine Lactic Acid Calcium Phosphorus Magnesium Total Bilirubin Direct Bilirubin AST ALT Alkaline Phosphatase Lactate Dehydrogenase Total Creatine Kinase Troponin I C-React Prot High Sens NT-Pro-B Natriuret Pep Total Protein Albumin Globulin Albumin/Globulin Ratio Triglycerides Cholesterol LDL Cholesterol Direct HDL Cholesterol Procalcitonin Free T4 Thyroxine (T4) TSH 3rd Generation Plasma Cortisol PM Venous Blood Potassium 4.5 Urine Color Dark yellow Urine Appearance Sl cloudy Urine pH 5.0 Ur Specific [place] >= 1.030 Urine Protein 100 H Urine Glucose (UA) Negative Urine Ketones Trace H Urine Blood Trace-intact H Urine Nitrate Positive H Urine Bilirubin Moderate H Urine Urobilinogen 1.0 H Ur Leukocyte Esterase Trace H Urine RBC 5 - 10 Urine WBC 2 - 5 Ur Epithelial Cells 4 - 5 Amorphous Sediment Small Urine Bacteria Large Hyaline Casts 0 - 2 Fine Granular Casts 0 - 2 Coarse Granular Casts Small H Urine Other Uyeast 08/02/17 08/03/17 08/03/17 21:45 00:30 01:44 WBC RBC Hgb Hct MCV MCH MCHC RDW Plt Count MPV Gran % Lymph % (Auto) Terry % (Auto) Eos % (Auto) Baso % (Auto) Gran # Lymph # (Auto) Terry # (Auto) Eos # (Auto) Baso # (Auto) PT INR APTT D-Dimer, Quantitative pO2 43 VBG pH 7.41 VBG pCO2 36.0 L VBG HCO3 22.8 VBG Total CO2 23.9 VBG O2 Sat (Calc) 82.9 H VBG Base Excess -1.4 L VBG Potassium 4.2 Glucose 165 H Lactate 3.5 H FiO2 21.0 Sodium 133.0 Potassium Chloride 101.0 Carbon Dioxide Anion Gap BUN Creatinine Est GFR ( Amer) Est GFR (Non-Af Amer) POC Glucose (mg/dL) 153 H Random Glucose Fructosamine Lactic Acid Calcium Phosphorus Magnesium Total Bilirubin Direct Bilirubin AST ALT Alkaline Phosphatase Lactate Dehydrogenase 421 Total Creatine Kinase 43 Troponin I 0.06 D C-React Prot High Sens NT-Pro-B Natriuret Pep Total Protein Albumin Globulin Albumin/Globulin Ratio Triglycerides Cholesterol LDL Cholesterol Direct HDL Cholesterol Procalcitonin Free T4 Thyroxine (T4) TSH 3rd Generation Plasma Cortisol PM Venous Blood Potassium 4.2 Urine Color Urine Appearance Urine pH Ur Specific [place] Urine Protein Urine Glucose (UA) Urine Ketones Urine Blood Urine Nitrate Urine Bilirubin Urine Urobilinogen Ur Leukocyte Esterase Urine RBC Urine WBC Ur Epithelial Cells Amorphous Sediment Urine Bacteria Hyaline Casts Fine Granular Casts Coarse Granular Casts Urine Other 08/03/17 08/03/17 08/03/17 05:30 05:30 05:30 WBC 7.0 RBC 4.45 Hgb 12.2 Hct 37.5 MCV 84.3 MCH 27.4 MCHC 32.5 RDW 14.2 Plt Count 288 MPV 10.0 Gran % 90.3 H Lymph % (Auto) 5.1 L Terry % (Auto) 4.3 Eos % (Auto) 0.0 L Baso % (Auto) 0.3 Gran # 6.33 Lymph # (Auto) 0.4 L Terry # (Auto) 0.3 Eos # (Auto) 0.0 Baso # (Auto) 0.02 PT INR APTT D-Dimer, Quantitative pO2 VBG pH VBG pCO2 VBG HCO3 VBG Total CO2 VBG O2 Sat (Calc) VBG Base Excess VBG Potassium Glucose Lactate FiO2 Sodium 136 Potassium 4.0 Chloride 100 Carbon Dioxide 22 Anion Gap 18 BUN 43 H Creatinine 1.9 H Est GFR ( Amer) 32 Est GFR (Non-Af Amer) 26 POC Glucose (mg/dL) Random Glucose 149 H Fructosamine Lactic Acid 3.2 H Calcium 8.6 Phosphorus 5.2 H Magnesium 2.8 H Total Bilirubin 0.5 Direct Bilirubin 0.5 H AST 24 ALT 34 Alkaline Phosphatase 91 Lactate Dehydrogenase Total Creatine Kinase 43 Troponin I 0.05 C-React Prot High Sens NT-Pro-B Natriuret Pep 9450 H Total Protein 5.5 L Albumin 2.8 L Globulin 2.7 Albumin/Globulin Ratio 1.0 L Triglycerides Cholesterol LDL Cholesterol Direct HDL Cholesterol Procalcitonin Free T4 Thyroxine (T4) TSH 3rd Generation Plasma Cortisol PM Venous Blood Potassium Urine Color Urine Appearance Urine pH Ur Specific [place] Urine Protein Urine Glucose (UA) Urine Ketones Urine Blood Urine Nitrate Urine Bilirubin Urine Urobilinogen Ur Leukocyte Esterase Urine RBC Urine WBC Ur Epithelial Cells Amorphous Sediment Urine Bacteria Hyaline Casts Fine Granular Casts Coarse Granular Casts Urine Other 08/03/17 05:30 WBC RBC Hgb Hct MCV MCH MCHC RDW Plt Count MPV Gran % Lymph % (Auto) Terry % (Auto) Eos % (Auto) Baso % (Auto) Gran # Lymph # (Auto) Terry # (Auto) Eos # (Auto) Baso # (Auto) PT 21.4 H INR 1.84 H APTT 32.9 D-Dimer, Quantitative pO2 VBG pH VBG pCO2 VBG HCO3 VBG Total CO2 VBG O2 Sat (Calc) VBG Base Excess VBG Potassium Glucose Lactate FiO2 Sodium Potassium Chloride Carbon Dioxide Anion Gap BUN Creatinine Est GFR ( Amer) Est GFR (Non-Af Amer) POC Glucose (mg/dL) Random Glucose Fructosamine Lactic Acid Calcium Phosphorus Magnesium Total Bilirubin Direct Bilirubin AST ALT Alkaline Phosphatase Lactate Dehydrogenase Total Creatine Kinase Troponin I C-React Prot High Sens NT-Pro-B Natriuret Pep Total Protein Albumin Globulin Albumin/Globulin Ratio Triglycerides Cholesterol LDL Cholesterol Direct HDL Cholesterol Procalcitonin Free T4 Thyroxine (T4) TSH 3rd Generation Plasma Cortisol PM Venous Blood Potassium Urine Color Urine Appearance Urine pH Ur Specific [place] Urine Protein Urine Glucose (UA) Urine Ketones Urine Blood Urine Nitrate Urine Bilirubin Urine Urobilinogen Ur Leukocyte Esterase Urine RBC Urine WBC Ur Epithelial Cells Amorphous Sediment Urine Bacteria Hyaline Casts Fine Granular Casts Coarse Granular Casts Urine Other EKG/Cardiology Studies: Cardiology / EKG Studies 08/02/17 14:16 EKG [ELECTROCARDIOGRAM] Stat Comment: Reason For Exam: r/o hypovolemia Fingerstick Blood Sugar Results: 153 Review of Systems - Constitutional Constitutional: absent: Fever, Chills - EENT Ears: As Per HPI. absent: Dizziness Nose/Mouth/Throat: As Per HPI. absent: Sore Throat - Cardiovascular Cardiovascular: As Per HPI. absent: Chest Pain, Dyspnea - Respiratory Respiratory: As Per HPI. absent: Cough, Dyspnea - Gastrointestinal Gastrointestinal: As Per HPI, Abdominal Pain (mild ), Nausea. absent: Constipation, Diarrhea - Genitourinary Genitourinary: As Per HPI. absent: Dysuria - Musculoskeletal Musculoskeletal: As Par HPI. absent: Numbness, Tingling - Integumentary Integumentary: As Per HPI. absent: Rash - Neurological Neurological: As Per HPI. absent: Dizziness - Psychiatric Psychiatric: As Per HPI. absent: Anxiety, Depression Critical Care Progress Note - Nutrition Nutrition: Nutrition Category Date Time Status NPO Diet [DIET] Diets 07/31/17 Dinner Ordered Assessment/Plan - Assessment and Plan (Free Text) Assessment: 67yo female PMHx with incarcerated ventral hernia POD#2 s/p ventral hernia repair with mesh with KESHAWN and lactic acidosis and tachycardia Plan: Neuro - no acute issues - AO x 3 - maintain normothermia Cardio - no acute issues - tachycardia likely secondary to pain - Lopressor - keep MAP > 65 - hx of HTN and HLD Pulm - NC at 2L and comfortable on room air - Acetylcysteine and Xopenex GI - NGT in place draining ~200cc bilious output - POD#2 ventral hernia repair with mesh - Protonix 40mg ivp qd - Zofran for nausea - Narcan for opiate reversal - Flagyl and Aztreonam - f/u repeat CT abd/pelvis - pain control - Surgery on board Nephro - KESHAWN likely secondary to dehydration vs third spacing - NS @ 150cc/hr - Strict Is and Os Endo - maintain euglycemia - RISS - Accucheck - home Synthroid Heme/Onc - 2U FFP to be transfused - DVT ppx - H&H stable - elevated D-dimer - LE dopplers negative for DVT - VQ scan pending ID - Afebrile overnight and no leukocytosis - Ofirmev ivpb q6 - lactic acid down 3.2 from 5.6 - hemodynamically stable - Flagyl and Aztreonam Diet: NPO except ice meds GI ppx: Protonix 40mg ivp qd DVT ppx: Heparin 5000u sc q8, SCDs Dispo: likely transfer to floors in AM Discussed with Dr. Reynold Juan PGY2 <Williams Flaherty - Last Filed: 08/03/17 14:21> CCU Objective - Vital Signs / Intake & Output Vital Signs (Last 4 hours): Vital Signs Pulse BP Pulse Ox 08/03/17 13:05 106 H 167/110 H 08/03/17 12:00 98 H 168/111 H 96 08/03/17 11:30 118 H 166/111 H 96 08/03/17 11:00 111 H 163/104 H 99 08/03/17 10:36 103 H 157/104 H 98 08/03/17 10:35 85 97 Intake and Output (Last 8hrs): Intake & Output 08/02/17 08/03/17 08/03/17 22:59 06:59 14:59 Intake Total 3600 1800 Output Total 150 300 Balance 3450 1500 Intake: IV 3600 1800 Right Antecubital 3600 1800 Output: Urine 150 300 Urethral (Rinaldi) 150 300 - Medications Active Medications: Active Medications Generic Name Dose Route Start Last Admin Trade Name Freq PRN Reason Stop Dose Admin Acetylcysteine 4 ml 08/03/17 08:00 08/03/17 13:11 Acetylcysteine 20% IH Not Given [id number] SONNY Heparin Sodium (Porcine) 5,000 units 08/01/17 14:00 08/03/17 05:07 Heparin SC 5,000 units Q8 SONNY Administration Protocol Hydromorphone HCl 0.5 mg 08/03/17 03:42 08/03/17 11:09 Dilaudid IVP 0.5 mg Q4H PRN Administration Pain, severe (8-10) Aztreonam 500 mg/ Sodium 100 mls @ 100 mls/hr 08/02/17 22:00 08/03/17 07:50 Chloride IVPB 08/11/17 22:01 100 mls/hr Q8 SONNY Administration Protocol Metronidazole 500 mg in 100 mls @ 100 mls/hr 08/02/17 22:00 08/03/17 05:03 Flagyl IVPB 08/11/17 22:01 100 mls/hr Q8 SONNY Administration Protocol Acetaminophen 1,000 mg in 100 mls @ 400 mls/hr 08/02/17 22:15 08/03/17 11:08 Ofirmev IVPB 08/04/17 22:16 400 mls/hr Q6H SONNY Administration Sodium Chloride 1,000 mls @ 75 mls/hr 08/03/17 13:10 08/03/17 13:24 Sodium Chloride 0.9% IV 75 mls/hr .[id number] SONNY Administration Insulin Human Lispro 0 units 08/01/17 07:15 08/03/17 12:19 Humalog Med SC Not Given Q6H [facility] Protocol Levalbuterol HCl 0.63 mg 08/03/17 08:00 08/03/17 13:11 Xopenex IH Not Given [id number] [facility] Levothyroxine Sodium 25 mcg 08/03/17 08:00 08/03/17 10:52 Synthroid IVP Not Given DAILY [facility] Metoprolol Tartrate 5 mg 08/03/17 07:15 08/03/17 13:05 Lopressor IVP 5 mg Q6H SONNY Administration Naloxone HCl 0.4 mg 08/02/17 22:13 Narcan IVP ONCE PRN Opiate reversal Ondansetron HCl 4 mg 07/31/17 21:56 08/03/17 12:56 Zofran Inj IVP 4 mg Q4 PRN Administration Nausea/Vomiting Pantoprazole Sodium 40 mg 07/31/17 21:00 08/03/17 11:07 Protonix Inj IVP 40 mg BID SONNY Administration - Patient Studies Lab Studies: Microbiology Studies 07/31/17 21:53 Urine Culture - Final Urine,Clean Catch No Growth (<1,000 CFU/ML) Lab Studies 08/03/17 08/03/17 08/03/17 Range/Units 11:32 08:30 08:30 WBC (4.5-11.0) 10^3/ul RBC (3.5-6.1) 10^6/uL Hgb (12.0-16.0) g/dL Hct (36.0-48.0) % MCV (80.0-105.0) fl MCH (25.0-35.0) pg MCHC (31.0-37.0) g/dl RDW (11.5-14.5) % Plt Count (120.0-450.0) 10^3/uL MPV (7.0-11.0) fl Gran % (50.0-68.0) % Lymph % (Auto) (22.0-35.0) % Terry % (Auto) (1.0-6.0) % Eos % (Auto) (1.5-5.0) % Baso % (Auto) (0.0-3.0) % Gran # (1.4-6.5) Lymph # (Auto) (1.2-3.4) Terry # (Auto) (0.1-0.6) Eos # (Auto) (0.0-0.7) Baso # (Auto) (0.0-2.0) K/mm3 Neutrophils % (Manual) (50.0-70.0) % Lymphocytes % (Manual) (22.0-35.0) % Monocytes % (Manual) (1.0-6.0) % Platelet Evaluation (NORMAL) Anisocytosis (manual) PT (9.4-12.5) SECONDS INR (0.93-1.08) APTT (25.1-36.5) Seconds Fibrinogen 1128 H (200-393) mg/dl Fibrin Degrad Products >10 <40 ug/ml (< 10 ug/mL) D-Dimer, Quantitative (0-243) ng/mL pO2 (30-55) mm/Hg VBG pH (7.32-7.43) VBG pCO2 (40-60) VBG HCO3 (21-28) mmol/l VBG Total CO2 (22-28) mmol.L VBG O2 Sat (Calc) (40-65) % VBG Base Excess (0.0-2.0) mmol/L VBG Potassium (3.6-5.2) mmol/L Glucose (65-105) mg/dl Lactate (0.7-2.1) mmol/L FiO2 % Sodium (132-148) mmol/L Potassium (3.6-5.0) mmol/L Chloride (98-107) mmol/L Carbon Dioxide (21-33) mmol/L Anion Gap (10-20) BUN (7-21) mg/dL Creatinine (0.7-1.2) mg/dl Est GFR ( Amer) Est GFR (Non-Af Amer) POC Glucose (mg/dL) 129 H (65-110) mg/dL Random Glucose (70-110) mg/dL Hemoglobin A1c (4.2-6.5) % Fructosamine (190-270) umol/L Lactic Acid (0.7-2.1) mmol/L Calcium (8.4-10.5) mg/dL Phosphorus (2.5-4.5) mg/dL Magnesium (1.7-2.2) mg/dL Total Bilirubin (0.2-1.3) mg/dL Direct Bilirubin (0.0-0.4) mg/dL AST (14-36) U/L ALT (7-56) U/L Alkaline Phosphatase (38-126) U/L Lactate Dehydrogenase (333-699) U/L Total Creatine Kinase (35-230) U/L Troponin I ng/mL C-React Prot High Sens (1.00-3.00) mg/L NT-Pro-B Natriuret Pep (0-450) pg/mL Total Protein (5.8-8.3) g/dL Albumin (3.0-4.8) g/dL Globulin gm/dL Albumin/Globulin Ratio (1.1-1.8) Procalcitonin (0.19-0.49) NG/ML Plasma Cortisol PM (1.7-14.1) ug/dL Venous Blood Potassium (3.6-5.2) mmol/L Urine Color (YELLOW) Urine Appearance (CLEAR) Urine pH (4.7-8.0) Ur Specific [place] (1.005-1.035) Urine Protein (<30 mg/dL) mg/dL Urine Glucose (UA) (NEGATIVE) mg/dL Urine Ketones (NEGATIVE) mg/dL Urine Blood (NEGATIVE) Urine Nitrate (NEGATIVE) Urine Bilirubin (NEGATIVE) Urine Urobilinogen (<1 E.U./dL) E.U./dL Ur Leukocyte Esterase (NEGATIVE) Tom/uL Urine RBC (0-2) /hpf Urine WBC (0-6) /hpf Ur Epithelial Cells (0-5) /hpf Amorphous Sediment Urine Bacteria (NEG) Hyaline Casts /hpf Fine Granular Casts (0-2) /hpf Coarse Granular Casts (0-2) /hpf Urine Other 08/03/17 08/03/17 08/03/17 Range/Units 08:10 05:30 05:30 WBC (4.5-11.0) 10^3/ul RBC (3.5-6.1) 10^6/uL Hgb (12.0-16.0) g/dL Hct (36.0-48.0) % MCV (80.0-105.0) fl MCH (25.0-35.0) pg MCHC (31.0-37.0) g/dl RDW (11.5-14.5) % Plt Count (120.0-450.0) 10^3/uL MPV (7.0-11.0) fl Gran % (50.0-68.0) % Lymph % (Auto) (22.0-35.0) % Terry % (Auto) (1.0-6.0) % Eos % (Auto) (1.5-5.0) % Baso % (Auto) (0.0-3.0) % Gran # (1.4-6.5) Lymph # (Auto) (1.2-3.4) Terry # (Auto) (0.1-0.6) Eos # (Auto) (0.0-0.7) Baso # (Auto) (0.0-2.0) K/mm3 Neutrophils % (Manual) (50.0-70.0) % Lymphocytes % (Manual) (22.0-35.0) % Monocytes % (Manual) (1.0-6.0) % Platelet Evaluation (NORMAL) Anisocytosis (manual) PT 21.4 H (9.4-12.5) SECONDS INR 1.84 H (0.93-1.08) APTT 32.9 (25.1-36.5) Seconds Fibrinogen (200-393) mg/dl Fibrin Degrad Products (< 10 ug/mL) D-Dimer, Quantitative (0-243) ng/mL pO2 (30-55) mm/Hg VBG pH (7.32-7.43) VBG pCO2 (40-60) VBG HCO3 (21-28) mmol/l VBG Total CO2 (22-28) mmol.L VBG O2 Sat (Calc) (40-65) % VBG Base Excess (0.0-2.0) mmol/L VBG Potassium (3.6-5.2) mmol/L Glucose (65-105) mg/dl Lactate (0.7-2.1) mmol/L FiO2 % Sodium (132-148) mmol/L Potassium (3.6-5.0) mmol/L Chloride (98-107) mmol/L Carbon Dioxide (21-33) mmol/L Anion Gap (10-20) BUN (7-21) mg/dL Creatinine (0.7-1.2) mg/dl Est GFR ( Amer) Est GFR (Non-Af Amer) POC Glucose (mg/dL) 146 H (65-110) mg/dL Random Glucose (70-110) mg/dL Hemoglobin A1c (4.2-6.5) % Fructosamine (190-270) umol/L Lactic Acid 3.2 H (0.7-2.1) mmol/L Calcium (8.4-10.5) mg/dL Phosphorus (2.5-4.5) mg/dL Magnesium (1.7-2.2) mg/dL Total Bilirubin (0.2-1.3) mg/dL Direct Bilirubin (0.0-0.4) mg/dL AST (14-36) U/L ALT (7-56) U/L Alkaline Phosphatase (38-126) U/L Lactate Dehydrogenase (333-699) U/L Total Creatine Kinase (35-230) U/L Troponin I ng/mL C-React Prot High Sens (1.00-3.00) mg/L NT-Pro-B Natriuret Pep (0-450) pg/mL Total Protein (5.8-8.3) g/dL Albumin (3.0-4.8) g/dL Globulin gm/dL Albumin/Globulin Ratio (1.1-1.8) Procalcitonin (0.19-0.49) NG/ML Plasma Cortisol PM (1.7-14.1) ug/dL Venous Blood Potassium (3.6-5.2) mmol/L Urine Color (YELLOW) Urine Appearance (CLEAR) Urine pH (4.7-8.0) Ur Specific [place] (1.005-1.035) Urine Protein (<30 mg/dL) mg/dL Urine Glucose (UA) (NEGATIVE) mg/dL Urine Ketones (NEGATIVE) mg/dL Urine Blood (NEGATIVE) Urine Nitrate (NEGATIVE) Urine Bilirubin (NEGATIVE) Urine Urobilinogen (<1 E.U./dL) E.U./dL Ur Leukocyte Esterase (NEGATIVE) Tom/uL Urine RBC (0-2) /hpf Urine WBC (0-6) /hpf Ur Epithelial Cells (0-5) /hpf Amorphous Sediment Urine Bacteria (NEG) Hyaline Casts /hpf Fine Granular Casts (0-2) /hpf Coarse Granular Casts (0-2) /hpf Urine Other 08/03/17 08/03/17 08/03/17 Range/Units 05:30 05:30 01:44 WBC 7.0 (4.5-11.0) 10^3/ul RBC 4.45 (3.5-6.1) 10^6/uL Hgb 12.2 (12.0-16.0) g/dL Hct 37.5 (36.0-48.0) % MCV 84.3 (80.0-105.0) fl MCH 27.4 (25.0-35.0) pg MCHC 32.5 (31.0-37.0) g/dl RDW 14.2 (11.5-14.5) % Plt Count 288 (120.0-450.0) 10^3/uL MPV 10.0 (7.0-11.0) fl Gran % 90.3 H (50.0-68.0) % Lymph % (Auto) 5.1 L (22.0-35.0) % Terry % (Auto) 4.3 (1.0-6.0) % Eos % (Auto) 0.0 L (1.5-5.0) % Baso % (Auto) 0.3 (0.0-3.0) % Gran # 6.33 (1.4-6.5) Lymph # (Auto) 0.4 L (1.2-3.4) Terry # (Auto) 0.3 (0.1-0.6) Eos # (Auto) 0.0 (0.0-0.7) Baso # (Auto) 0.02 (0.0-2.0) K/mm3 Neutrophils % (Manual) 90 H (50.0-70.0) % Lymphocytes % (Manual) 6 L (22.0-35.0) % Monocytes % (Manual) 4 (1.0-6.0) % Platelet Evaluation Normal (NORMAL) Anisocytosis (manual) Slight PT (9.4-12.5) SECONDS INR (0.93-1.08) APTT (25.1-36.5) Seconds Fibrinogen (200-393) mg/dl Fibrin Degrad Products (< 10 ug/mL) D-Dimer, Quantitative (0-243) ng/mL pO2 (30-55) mm/Hg VBG pH (7.32-7.43) VBG pCO2 (40-60) VBG HCO3 (21-28) mmol/l VBG Total CO2 (22-28) mmol.L VBG O2 Sat (Calc) (40-65) % VBG Base Excess (0.0-2.0) mmol/L VBG Potassium (3.6-5.2) mmol/L Glucose (65-105) mg/dl Lactate (0.7-2.1) mmol/L FiO2 % Sodium 136 (132-148) mmol/L Potassium 4.0 (3.6-5.0) mmol/L Chloride 100 (98-107) mmol/L Carbon Dioxide 22 (21-33) mmol/L Anion Gap 18 (10-20) BUN 43 H (7-21) mg/dL Creatinine 1.9 H (0.7-1.2) mg/dl Est GFR ( Amer) 32 Est GFR (Non-Af Amer) 26 POC Glucose (mg/dL) 153 H (65-110) mg/dL Random Glucose 149 H (70-110) mg/dL Hemoglobin A1c (4.2-6.5) % Fructosamine (190-270) umol/L Lactic Acid (0.7-2.1) mmol/L Calcium 8.6 (8.4-10.5) mg/dL Phosphorus 5.2 H (2.5-4.5) mg/dL Magnesium 2.8 H (1.7-2.2) mg/dL Total Bilirubin 0.5 (0.2-1.3) mg/dL Direct Bilirubin 0.5 H (0.0-0.4) mg/dL AST 24 (14-36) U/L ALT 34 (7-56) U/L Alkaline Phosphatase 91 (38-126) U/L Lactate Dehydrogenase (333-699) U/L Total Creatine Kinase 43 (35-230) U/L Troponin I 0.05 ng/mL C-React Prot High Sens (1.00-3.00) mg/L NT-Pro-B Natriuret Pep 9450 H (0-450) pg/mL Total Protein 5.5 L (5.8-8.3) g/dL Albumin 2.8 L (3.0-4.8) g/dL Globulin 2.7 gm/dL Albumin/Globulin Ratio 1.0 L (1.1-1.8) Procalcitonin (0.19-0.49) NG/ML Plasma Cortisol PM (1.7-14.1) ug/dL Venous Blood Potassium (3.6-5.2) mmol/L Urine Color (YELLOW) Urine Appearance (CLEAR) Urine pH (4.7-8.0) Ur Specific [place] (1.005-1.035) Urine Protein (<30 mg/dL) mg/dL Urine Glucose (UA) (NEGATIVE) mg/dL Urine Ketones (NEGATIVE) mg/dL Urine Blood (NEGATIVE) Urine Nitrate (NEGATIVE) Urine Bilirubin (NEGATIVE) Urine Urobilinogen (<1 E.U./dL) E.U./dL Ur Leukocyte Esterase (NEGATIVE) Tom/uL Urine RBC (0-2) /hpf Urine WBC (0-6) /hpf Ur Epithelial Cells (0-5) /hpf Amorphous Sediment Urine Bacteria (NEG) Hyaline Casts /hpf Fine Granular Casts (0-2) /hpf Coarse Granular Casts (0-2) /hpf Urine Other 08/03/17 08/02/17 08/02/17 Range/Units 00:30 21:45 18:50 WBC (4.5-11.0) 10^3/ul RBC (3.5-6.1) 10^6/uL Hgb (12.0-16.0) g/dL Hct (36.0-48.0) % MCV (80.0-105.0) fl MCH (25.0-35.0) pg MCHC (31.0-37.0) g/dl RDW (11.5-14.5) % Plt Count (120.0-450.0) 10^3/uL MPV (7.0-11.0) fl Gran % (50.0-68.0) % Lymph % (Auto) (22.0-35.0) % Terry % (Auto) (1.0-6.0) % Eos % (Auto) (1.5-5.0) % Baso % (Auto) (0.0-3.0) % Gran # (1.4-6.5) Lymph # (Auto) (1.2-3.4) Terry # (Auto) (0.1-0.6) Eos # (Auto) (0.0-0.7) Baso # (Auto) (0.0-2.0) K/mm3 Neutrophils % (Manual) (50.0-70.0) % Lymphocytes % (Manual) (22.0-35.0) % Monocytes % (Manual) (1.0-6.0) % Platelet Evaluation (NORMAL) Anisocytosis (manual) PT (9.4-12.5) SECONDS INR (0.93-1.08) APTT (25.1-36.5) Seconds Fibrinogen (200-393) mg/dl Fibrin Degrad Products (< 10 ug/mL) D-Dimer, Quantitative (0-243) ng/mL pO2 43 (30-55) mm/Hg VBG pH 7.41 (7.32-7.43) VBG pCO2 36.0 L (40-60) VBG HCO3 22.8 (21-28) mmol/l VBG Total CO2 23.9 (22-28) mmol.L VBG O2 Sat (Calc) 82.9 H (40-65) % VBG Base Excess -1.4 L (0.0-2.0) mmol/L VBG Potassium 4.2 (3.6-5.2) mmol/L Glucose 165 H (65-105) mg/dl Lactate 3.5 H (0.7-2.1) mmol/L FiO2 21.0 % Sodium 133.0 (132-148) mmol/L Potassium (3.6-5.0) mmol/L Chloride 101.0 (98-107) mmol/L Carbon Dioxide (21-33) mmol/L Anion Gap (10-20) BUN (7-21) mg/dL Creatinine (0.7-1.2) mg/dl Est GFR ( Amer) Est GFR (Non-Af Amer) POC Glucose (mg/dL) (65-110) mg/dL Random Glucose (70-110) mg/dL Hemoglobin A1c (4.2-6.5) % Fructosamine (190-270) umol/L Lactic Acid (0.7-2.1) mmol/L Calcium (8.4-10.5) mg/dL Phosphorus (2.5-4.5) mg/dL Magnesium (1.7-2.2) mg/dL Total Bilirubin (0.2-1.3) mg/dL Direct Bilirubin (0.0-0.4) mg/dL AST (14-36) U/L ALT (7-56) U/L Alkaline Phosphatase (38-126) U/L Lactate Dehydrogenase 421 (333-699) U/L Total Creatine Kinase 43 (35-230) U/L Troponin I 0.06 D ng/mL C-React Prot High Sens (1.00-3.00) mg/L NT-Pro-B Natriuret Pep (0-450) pg/mL Total Protein (5.8-8.3) g/dL Albumin (3.0-4.8) g/dL Globulin gm/dL Albumin/Globulin Ratio (1.1-1.8) Procalcitonin (0.19-0.49) NG/ML Plasma Cortisol PM (1.7-14.1) ug/dL Venous Blood Potassium 4.2 (3.6-5.2) mmol/L Urine Color Dark yellow (YELLOW) Urine Appearance Sl cloudy (CLEAR) Urine pH 5.0 (4.7-8.0) Ur Specific [place] >= 1.030 (1.005-1.035) Urine Protein 100 H (<30 mg/dL) mg/dL Urine Glucose (UA) Negative (NEGATIVE) mg/dL Urine Ketones Trace H (NEGATIVE) mg/dL Urine Blood Trace-intact H (NEGATIVE) Urine Nitrate Positive H (NEGATIVE) Urine Bilirubin Moderate H (NEGATIVE) Urine Urobilinogen 1.0 H (<1 E.U./dL) E.U./dL Ur Leukocyte Esterase Trace H (NEGATIVE) Tom/uL Urine RBC 5 - 10 (0-2) /hpf Urine WBC 2 - 5 (0-6) /hpf Ur Epithelial Cells 4 - 5 (0-5) /hpf Amorphous Sediment Small Urine Bacteria Large (NEG) Hyaline Casts 0 - 2 /hpf Fine Granular Casts 0 - 2 (0-2) /hpf Coarse Granular Casts Small H (0-2) /hpf Urine Other [place] 08/02/17 08/02/17 08/02/17 Range/Units 18:44 18:15 18:15 WBC (4.5-11.0) 10^3/ul RBC (3.5-6.1) 10^6/uL Hgb (12.0-16.0) g/dL Hct (36.0-48.0) % MCV (80.0-105.0) fl MCH (25.0-35.0) pg MCHC (31.0-37.0) g/dl RDW (11.5-14.5) % Plt Count (120.0-450.0) 10^3/uL MPV (7.0-11.0) fl Gran % (50.0-68.0) % Lymph % (Auto) (22.0-35.0) % Terry % (Auto) (1.0-6.0) % Eos % (Auto) (1.5-5.0) % Baso % (Auto) (0.0-3.0) % Gran # (1.4-6.5) Lymph # (Auto) (1.2-3.4) Terry # (Auto) (0.1-0.6) Eos # (Auto) (0.0-0.7) Baso # (Auto) (0.0-2.0) K/mm3 Neutrophils % (Manual) (50.0-70.0) % Lymphocytes % (Manual) (22.0-35.0) % Monocytes % (Manual) (1.0-6.0) % Platelet Evaluation (NORMAL) Anisocytosis (manual) PT (9.4-12.5) SECONDS INR (0.93-1.08) APTT (25.1-36.5) Seconds Fibrinogen (200-393) mg/dl Fibrin Degrad Products (< 10 ug/mL) D-Dimer, Quantitative (0-243) ng/mL pO2 30 (30-55) mm/Hg VBG pH 7.34 (7.32-7.43) VBG pCO2 43.0 (40-60) VBG HCO3 23.2 (21-28) mmol/l VBG Total CO2 24.5 (22-28) mmol.L VBG O2 Sat (Calc) 60.9 (40-65) % VBG Base Excess -2.6 L (0.0-2.0) mmol/L VBG Potassium 4.5 (3.6-5.2) mmol/L Glucose 181 H (65-105) mg/dl Lactate 5.2 H* (0.7-2.1) mmol/L FiO2 21.0 % Sodium 134.0 (132-148) mmol/L Potassium (3.6-5.0) mmol/L Chloride 99.0 (98-107) mmol/L Carbon Dioxide (21-33) mmol/L Anion Gap (10-20) BUN (7-21) mg/dL Creatinine (0.7-1.2) mg/dl Est GFR ( Amer) Est GFR (Non-Af Amer) POC Glucose (mg/dL) 165 H (65-110) mg/dL Random Glucose (70-110) mg/dL Hemoglobin A1c (4.2-6.5) % Fructosamine (190-270) umol/L Lactic Acid (0.7-2.1) mmol/L Calcium (8.4-10.5) mg/dL Phosphorus (2.5-4.5) mg/dL Magnesium (1.7-2.2) mg/dL Total Bilirubin (0.2-1.3) mg/dL Direct Bilirubin (0.0-0.4) mg/dL AST (14-36) U/L ALT (7-56) U/L Alkaline Phosphatase (38-126) U/L Lactate Dehydrogenase (333-699) U/L Total Creatine Kinase (35-230) U/L Troponin I ng/mL C-React Prot High Sens (1.00-3.00) mg/L NT-Pro-B Natriuret Pep (0-450) pg/mL Total Protein (5.8-8.3) g/dL Albumin (3.0-4.8) g/dL Globulin gm/dL Albumin/Globulin Ratio (1.1-1.8) Procalcitonin (0.19-0.49) NG/ML Plasma Cortisol PM 51.2 H (1.7-14.1) ug/dL Venous Blood Potassium 4.5 (3.6-5.2) mmol/L Urine Color (YELLOW) Urine Appearance (CLEAR) Urine pH (4.7-8.0) Ur Specific [place] (1.005-1.035) Urine Protein (<30 mg/dL) mg/dL Urine Glucose (UA) (NEGATIVE) mg/dL Urine Ketones (NEGATIVE) mg/dL Urine Blood (NEGATIVE) Urine Nitrate (NEGATIVE) Urine Bilirubin (NEGATIVE) Urine Urobilinogen (<1 E.U./dL) E.U./dL Ur Leukocyte Esterase (NEGATIVE) Tom/uL Urine RBC (0-2) /hpf Urine WBC (0-6) /hpf Ur Epithelial Cells (0-5) /hpf Amorphous Sediment Urine Bacteria (NEG) Hyaline Casts /hpf Fine Granular Casts (0-2) /hpf Coarse Granular Casts (0-2) /hpf Urine Other 08/02/17 08/02/17 08/02/17 Range/Units 18:15 14:30 14:30 WBC (4.5-11.0) 10^3/ul RBC (3.5-6.1) 10^6/uL Hgb (12.0-16.0) g/dL Hct (36.0-48.0) % MCV (80.0-105.0) fl MCH (25.0-35.0) pg MCHC (31.0-37.0) g/dl RDW (11.5-14.5) % Plt Count (120.0-450.0) 10^3/uL MPV (7.0-11.0) fl Gran % (50.0-68.0) % Lymph % (Auto) (22.0-35.0) % Terry % (Auto) (1.0-6.0) % Eos % (Auto) (1.5-5.0) % Baso % (Auto) (0.0-3.0) % Gran # (1.4-6.5) Lymph # (Auto) (1.2-3.4) Terry # (Auto) (0.1-0.6) Eos # (Auto) (0.0-0.7) Baso # (Auto) (0.0-2.0) K/mm3 Neutrophils % (Manual) (50.0-70.0) % Lymphocytes % (Manual) (22.0-35.0) % Monocytes % (Manual) (1.0-6.0) % Platelet Evaluation (NORMAL) Anisocytosis (manual) PT 22.8 H (9.4-12.5) SECONDS INR 1.97 H (0.93-1.08) APTT 38.2 H (25.1-36.5) Seconds Fibrinogen (200-393) mg/dl Fibrin Degrad Products (< 10 ug/mL) D-Dimer, Quantitative (0-243) ng/mL pO2 (30-55) mm/Hg VBG pH (7.32-7.43) VBG pCO2 (40-60) VBG HCO3 (21-28) mmol/l VBG Total CO2 (22-28) mmol.L VBG O2 Sat (Calc) (40-65) % VBG Base Excess (0.0-2.0) mmol/L VBG Potassium (3.6-5.2) mmol/L Glucose (65-105) mg/dl Lactate (0.7-2.1) mmol/L FiO2 % Sodium (132-148) mmol/L Potassium (3.6-5.0) mmol/L Chloride (98-107) mmol/L Carbon Dioxide (21-33) mmol/L Anion Gap (10-20) BUN (7-21) mg/dL Creatinine (0.7-1.2) mg/dl Est GFR ( Amer) Est GFR (Non-Af Amer) POC Glucose (mg/dL) (65-110) mg/dL Random Glucose (70-110) mg/dL Hemoglobin A1c (4.2-6.5) % Fructosamine (190-270) umol/L Lactic Acid (0.7-2.1) mmol/L Calcium (8.4-10.5) mg/dL Phosphorus 4.7 H (2.5-4.5) mg/dL Magnesium 2.6 H (1.7-2.2) mg/dL Total Bilirubin (0.2-1.3) mg/dL Direct Bilirubin (0.0-0.4) mg/dL AST (14-36) U/L ALT (7-56) U/L Alkaline Phosphatase (38-126) U/L Lactate Dehydrogenase 461 (333-699) U/L Total Creatine Kinase 43 (35-230) U/L Troponin I 0.08 ng/mL C-React Prot High Sens > 15.00 H (1.00-3.00) mg/L NT-Pro-B Natriuret Pep (0-450) pg/mL Total Protein (5.8-8.3) g/dL Albumin (3.0-4.8) g/dL Globulin gm/dL Albumin/Globulin Ratio (1.1-1.8) Procalcitonin (0.19-0.49) NG/ML Plasma Cortisol PM (1.7-14.1) ug/dL Venous Blood Potassium (3.6-5.2) mmol/L Urine Color (YELLOW) Urine Appearance (CLEAR) Urine pH (4.7-8.0) Ur Specific [place] (1.005-1.035) Urine Protein (<30 mg/dL) mg/dL Urine Glucose (UA) (NEGATIVE) mg/dL Urine Ketones (NEGATIVE) mg/dL Urine Blood (NEGATIVE) Urine Nitrate (NEGATIVE) Urine Bilirubin (NEGATIVE) Urine Urobilinogen (<1 E.U./dL) E.U./dL Ur Leukocyte Esterase (NEGATIVE) Tom/uL Urine RBC (0-2) /hpf Urine WBC (0-6) /hpf Ur Epithelial Cells (0-5) /hpf Amorphous Sediment Urine Bacteria (NEG) Hyaline Casts /hpf Fine Granular Casts (0-2) /hpf Coarse Granular Casts (0-2) /hpf Urine Other 08/02/17 08/02/17 08/02/17 Range/Units 14:22 14:22 14:22 WBC (4.5-11.0) 10^3/ul RBC (3.5-6.1) 10^6/uL Hgb (12.0-16.0) g/dL Hct (36.0-48.0) % MCV (80.0-105.0) fl MCH (25.0-35.0) pg MCHC (31.0-37.0) g/dl RDW (11.5-14.5) % Plt Count (120.0-450.0) 10^3/uL MPV (7.0-11.0) fl Gran % (50.0-68.0) % Lymph % (Auto) (22.0-35.0) % Terry % (Auto) (1.0-6.0) % Eos % (Auto) (1.5-5.0) % Baso % (Auto) (0.0-3.0) % Gran # (1.4-6.5) Lymph # (Auto) (1.2-3.4) Terry # (Auto) (0.1-0.6) Eos # (Auto) (0.0-0.7) Baso # (Auto) (0.0-2.0) K/mm3 Neutrophils % (Manual) (50.0-70.0) % Lymphocytes % (Manual) (22.0-35.0) % Monocytes % (Manual) (1.0-6.0) % Platelet Evaluation (NORMAL) Anisocytosis (manual) PT (9.4-12.5) SECONDS INR (0.93-1.08) APTT (25.1-36.5) Seconds Fibrinogen (200-393) mg/dl Fibrin Degrad Products (< 10 ug/mL) D-Dimer, Quantitative 3431 H (0-243) ng/mL pO2 (30-55) mm/Hg VBG pH (7.32-7.43) VBG pCO2 (40-60) VBG HCO3 (21-28) mmol/l VBG Total CO2 (22-28) mmol.L VBG O2 Sat (Calc) (40-65) % VBG Base Excess (0.0-2.0) mmol/L VBG Potassium (3.6-5.2) mmol/L Glucose (65-105) mg/dl Lactate (0.7-2.1) mmol/L FiO2 % Sodium 137 (132-148) mmol/L Potassium 4.5 (3.6-5.0) mmol/L Chloride 99 (98-107) mmol/L Carbon Dioxide 20 L (21-33) mmol/L Anion Gap 22 H (10-20) BUN 35 H (7-21) mg/dL Creatinine 2.2 H (0.7-1.2) mg/dl Est GFR ( Amer) 27 Est GFR (Non-Af Amer) 22 POC Glucose (mg/dL) (65-110) mg/dL Random Glucose 205 H (70-110) mg/dL Hemoglobin A1c (4.2-6.5) % Fructosamine (190-270) umol/L Lactic Acid 5.6 H* (0.7-2.1) mmol/L Calcium 8.9 (8.4-10.5) mg/dL Phosphorus (2.5-4.5) mg/dL Magnesium (1.7-2.2) mg/dL Total Bilirubin 0.7 (0.2-1.3) mg/dL Direct Bilirubin (0.0-0.4) mg/dL AST 31 (14-36) U/L ALT 31 (7-56) U/L Alkaline Phosphatase 84 (38-126) U/L Lactate Dehydrogenase (333-699) U/L Total Creatine Kinase (35-230) U/L Troponin I 0.08 D ng/mL C-React Prot High Sens (1.00-3.00) mg/L NT-Pro-B Natriuret Pep 61224 H (0-450) pg/mL Total Protein 5.8 (5.8-8.3) g/dL Albumin 3.1 (3.0-4.8) g/dL Globulin 2.7 gm/dL Albumin/Globulin Ratio 1.2 (1.1-1.8) Procalcitonin (0.19-0.49) NG/ML Plasma Cortisol PM (1.7-14.1) ug/dL Venous Blood Potassium (3.6-5.2) mmol/L Urine Color (YELLOW) Urine Appearance (CLEAR) Urine pH (4.7-8.0) Ur Specific [place] (1.005-1.035) Urine Protein (<30 mg/dL) mg/dL Urine Glucose (UA) (NEGATIVE) mg/dL Urine Ketones (NEGATIVE) mg/dL Urine Blood (NEGATIVE) Urine Nitrate (NEGATIVE) Urine Bilirubin (NEGATIVE) Urine Urobilinogen (<1 E.U./dL) E.U./dL Ur Leukocyte Esterase (NEGATIVE) Tom/uL Urine RBC (0-2) /hpf Urine WBC (0-6) /hpf Ur Epithelial Cells (0-5) /hpf Amorphous Sediment Urine Bacteria (NEG) Hyaline Casts /hpf Fine Granular Casts (0-2) /hpf Coarse Granular Casts (0-2) /hpf Urine Other 08/02/17 08/02/17 08/02/17 Range/Units 14:22 14:22 08:30 WBC 6.6 (4.5-11.0) 10^3/ul RBC 4.93 (3.5-6.1) 10^6/uL Hgb 13.6 (12.0-16.0) g/dL Hct 42.3 (36.0-48.0) % MCV 85.8 (80.0-105.0) fl MCH 27.6 (25.0-35.0) pg MCHC 32.2 (31.0-37.0) g/dl RDW 14.4 (11.5-14.5) % Plt Count 336 (120.0-450.0) 10^3/uL MPV 9.4 (7.0-11.0) fl Gran % 85.2 H (50.0-68.0) % Lymph % (Auto) 9.5 L (22.0-35.0) % Terry % (Auto) 5.0 (1.0-6.0) % Eos % (Auto) 0.0 L (1.5-5.0) % Baso % (Auto) 0.3 (0.0-3.0) % Gran # 5.63 (1.4-6.5) Lymph # (Auto) 0.6 L (1.2-3.4) Terry # (Auto) 0.3 (0.1-0.6) Eos # (Auto) 0.0 (0.0-0.7) Baso # (Auto) 0.02 (0.0-2.0) K/mm3 Neutrophils % (Manual) (50.0-70.0) % Lymphocytes % (Manual) (22.0-35.0) % Monocytes % (Manual) (1.0-6.0) % Platelet Evaluation (NORMAL) Anisocytosis (manual) PT (9.4-12.5) SECONDS INR (0.93-1.08) APTT (25.1-36.5) Seconds Fibrinogen (200-393) mg/dl Fibrin Degrad Products (< 10 ug/mL) D-Dimer, Quantitative (0-243) ng/mL pO2 (30-55) mm/Hg VBG pH (7.32-7.43) VBG pCO2 (40-60) VBG HCO3 (21-28) mmol/l VBG Total CO2 (22-28) mmol.L VBG O2 Sat (Calc) (40-65) % VBG Base Excess (0.0-2.0) mmol/L VBG Potassium (3.6-5.2) mmol/L Glucose (65-105) mg/dl Lactate (0.7-2.1) mmol/L FiO2 % Sodium (132-148) mmol/L Potassium (3.6-5.0) mmol/L Chloride (98-107) mmol/L Carbon Dioxide (21-33) mmol/L Anion Gap (10-20) BUN (7-21) mg/dL Creatinine (0.7-1.2) mg/dl Est GFR ( Amer) Est GFR (Non-Af Amer) POC Glucose (mg/dL) (65-110) mg/dL Random Glucose (70-110) mg/dL Hemoglobin A1c (4.2-6.5) % Fructosamine 186 L (190-270) umol/L Lactic Acid (0.7-2.1) mmol/L Calcium (8.4-10.5) mg/dL Phosphorus (2.5-4.5) mg/dL Magnesium (1.7-2.2) mg/dL Total Bilirubin (0.2-1.3) mg/dL Direct Bilirubin (0.0-0.4) mg/dL AST (14-36) U/L ALT (7-56) U/L Alkaline Phosphatase (38-126) U/L Lactate Dehydrogenase (333-699) U/L Total Creatine Kinase (35-230) U/L Troponin I ng/mL C-React Prot High Sens (1.00-3.00) mg/L NT-Pro-B Natriuret Pep (0-450) pg/mL Total Protein (5.8-8.3) g/dL Albumin (3.0-4.8) g/dL Globulin gm/dL Albumin/Globulin Ratio (1.1-1.8) Procalcitonin 100.67 H (0.19-0.49) NG/ML Plasma Cortisol PM (1.7-14.1) ug/dL Venous Blood Potassium (3.6-5.2) mmol/L Urine Color (YELLOW) Urine Appearance (CLEAR) Urine pH (4.7-8.0) Ur Specific [place] (1.005-1.035) Urine Protein (<30 mg/dL) mg/dL Urine Glucose (UA) (NEGATIVE) mg/dL Urine Ketones (NEGATIVE) mg/dL Urine Blood (NEGATIVE) Urine Nitrate (NEGATIVE) Urine Bilirubin (NEGATIVE) Urine Urobilinogen (<1 E.U./dL) E.U./dL Ur Leukocyte Esterase (NEGATIVE) Tom/uL Urine RBC (0-2) /hpf Urine WBC (0-6) /hpf Ur Epithelial Cells (0-5) /hpf Amorphous Sediment Urine Bacteria (NEG) Hyaline Casts /hpf Fine Granular Casts (0-2) /hpf Coarse Granular Casts (0-2) /hpf Urine Other 08/02/17 Range/Units 07:00 WBC (4.5-11.0) 10^3/ul RBC (3.5-6.1) 10^6/uL Hgb (12.0-16.0) g/dL Hct (36.0-48.0) % MCV (80.0-105.0) fl MCH (25.0-35.0) pg MCHC (31.0-37.0) g/dl RDW (11.5-14.5) % Plt Count (120.0-450.0) 10^3/uL MPV (7.0-11.0) fl Gran % (50.0-68.0) % Lymph % (Auto) (22.0-35.0) % Terry % (Auto) (1.0-6.0) % Eos % (Auto) (1.5-5.0) % Baso % (Auto) (0.0-3.0) % Gran # (1.4-6.5) Lymph # (Auto) (1.2-3.4) Terry # (Auto) (0.1-0.6) Eos # (Auto) (0.0-0.7) Baso # (Auto) (0.0-2.0) K/mm3 Neutrophils % (Manual) (50.0-70.0) % Lymphocytes % (Manual) (22.0-35.0) % Monocytes % (Manual) (1.0-6.0) % Platelet Evaluation (NORMAL) Anisocytosis (manual) PT (9.4-12.5) SECONDS INR (0.93-1.08) APTT (25.1-36.5) Seconds Fibrinogen (200-393) mg/dl Fibrin Degrad Products (< 10 ug/mL) D-Dimer, Quantitative (0-243) ng/mL pO2 (30-55) mm/Hg VBG pH (7.32-7.43) VBG pCO2 (40-60) VBG HCO3 (21-28) mmol/l VBG Total CO2 (22-28) mmol.L VBG O2 Sat (Calc) (40-65) % VBG Base Excess (0.0-2.0) mmol/L VBG Potassium (3.6-5.2) mmol/L Glucose (65-105) mg/dl Lactate (0.7-2.1) mmol/L FiO2 % Sodium (132-148) mmol/L Potassium (3.6-5.0) mmol/L Chloride (98-107) mmol/L Carbon Dioxide (21-33) mmol/L Anion Gap (10-20) BUN (7-21) mg/dL Creatinine (0.7-1.2) mg/dl Est GFR ( Amer) Est GFR (Non-Af Amer) POC Glucose (mg/dL) (65-110) mg/dL Random Glucose (70-110) mg/dL Hemoglobin A1c 6.9 H (4.2-6.5) % Fructosamine (190-270) umol/L Lactic Acid (0.7-2.1) mmol/L Calcium (8.4-10.5) mg/dL Phosphorus (2.5-4.5) mg/dL Magnesium (1.7-2.2) mg/dL Total Bilirubin (0.2-1.3) mg/dL Direct Bilirubin (0.0-0.4) mg/dL AST (14-36) U/L ALT (7-56) U/L Alkaline Phosphatase (38-126) U/L Lactate Dehydrogenase (333-699) U/L Total Creatine Kinase (35-230) U/L Troponin I ng/mL C-React Prot High Sens (1.00-3.00) mg/L NT-Pro-B Natriuret Pep (0-450) pg/mL Total Protein (5.8-8.3) g/dL Albumin (3.0-4.8) g/dL Globulin gm/dL Albumin/Globulin Ratio (1.1-1.8) Procalcitonin (0.19-0.49) NG/ML Plasma Cortisol PM (1.7-14.1) ug/dL Venous Blood Potassium (3.6-5.2) mmol/L Urine Color (YELLOW) Urine Appearance (CLEAR) Urine pH (4.7-8.0) Ur Specific [place] (1.005-1.035) Urine Protein (<30 mg/dL) mg/dL Urine Glucose (UA) (NEGATIVE) mg/dL Urine Ketones (NEGATIVE) mg/dL Urine Blood (NEGATIVE) Urine Nitrate (NEGATIVE) Urine Bilirubin (NEGATIVE) Urine Urobilinogen (<1 E.U./dL) E.U./dL Ur Leukocyte Esterase (NEGATIVE) Tom/uL Urine RBC (0-2) /hpf Urine WBC (0-6) /hpf Ur Epithelial Cells (0-5) /hpf Amorphous Sediment Urine Bacteria (NEG) Hyaline Casts /hpf Fine Granular Casts (0-2) /hpf Coarse Granular Casts (0-2) /hpf Urine Other Laboratory Results - last 24 hr 08/02/17 08/02/17 08/02/17 07:00 08:30 14:22 WBC RBC Hgb Hct MCV MCH MCHC RDW Plt Count MPV Gran % Lymph % (Auto) Terry % (Auto) Eos % (Auto) Baso % (Auto) Gran # Lymph # (Auto) Terry # (Auto) Eos # (Auto) Baso # (Auto) Neutrophils % (Manual) Lymphocytes % (Manual) Monocytes % (Manual) Platelet Evaluation Anisocytosis (manual) PT INR APTT Fibrinogen Fibrin Degrad Products D-Dimer, Quantitative pO2 VBG pH VBG pCO2 VBG HCO3 VBG Total CO2 VBG O2 Sat (Calc) VBG Base Excess VBG Potassium Glucose Lactate FiO2 Sodium Potassium Chloride Carbon Dioxide Anion Gap BUN Creatinine Est GFR ( Amer) Est GFR (Non-Af Amer) POC Glucose (mg/dL) Random Glucose Hemoglobin A1c 6.9 H Fructosamine 186 L Lactic Acid Calcium Phosphorus Magnesium Total Bilirubin Direct Bilirubin AST ALT Alkaline Phosphatase Lactate Dehydrogenase Total Creatine Kinase Troponin I C-React Prot High Sens NT-Pro-B Natriuret Pep Total Protein Albumin Globulin Albumin/Globulin Ratio Procalcitonin 100.67 H Plasma Cortisol PM Venous Blood Potassium Urine Color Urine Appearance Urine pH Ur Specific [place] Urine Protein Urine Glucose (UA) Urine Ketones Urine Blood Urine Nitrate Urine Bilirubin Urine Urobilinogen Ur Leukocyte Esterase Urine RBC Urine WBC Ur Epithelial Cells Amorphous Sediment Urine Bacteria Hyaline Casts Fine Granular Casts Coarse Granular Casts Urine Other 08/02/17 08/02/17 08/02/17 14:22 14:22 14:22 WBC 6.6 RBC 4.93 Hgb 13.6 Hct 42.3 MCV 85.8 MCH 27.6 MCHC 32.2 RDW 14.4 Plt Count 336 MPV 9.4 Gran % 85.2 H Lymph % (Auto) 9.5 L Terry % (Auto) 5.0 Eos % (Auto) 0.0 L Baso % (Auto) 0.3 Gran # 5.63 Lymph # (Auto) 0.6 L Terry # (Auto) 0.3 Eos # (Auto) 0.0 Baso # (Auto) 0.02 Neutrophils % (Manual) Lymphocytes % (Manual) Monocytes % (Manual) Platelet Evaluation Anisocytosis (manual) PT INR APTT Fibrinogen Fibrin Degrad Products D-Dimer, Quantitative pO2 VBG pH VBG pCO2 VBG HCO3 VBG Total CO2 VBG O2 Sat (Calc) VBG Base Excess VBG Potassium Glucose Lactate FiO2 Sodium 137 Potassium 4.5 Chloride 99 Carbon Dioxide 20 L Anion Gap 22 H BUN 35 H Creatinine 2.2 H Est GFR ( Amer) 27 Est GFR (Non-Af Amer) 22 POC Glucose (mg/dL) Random Glucose 205 H Hemoglobin A1c Fructosamine Lactic Acid 5.6 H* Calcium 8.9 Phosphorus Magnesium Total Bilirubin 0.7 Direct Bilirubin AST 31 ALT 31 Alkaline Phosphatase 84 Lactate Dehydrogenase Total Creatine Kinase Troponin I 0.08 D C-React Prot High Sens NT-Pro-B Natriuret Pep 48589 H Total Protein 5.8 Albumin 3.1 Globulin 2.7 Albumin/Globulin Ratio 1.2 Procalcitonin Plasma Cortisol PM Venous Blood Potassium Urine Color Urine Appearance Urine pH Ur Specific [place] Urine Protein Urine Glucose (UA) Urine Ketones Urine Blood Urine Nitrate Urine Bilirubin Urine Urobilinogen Ur Leukocyte Esterase Urine RBC Urine WBC Ur Epithelial Cells Amorphous Sediment Urine Bacteria Hyaline Casts Fine Granular Casts Coarse Granular Casts Urine Other 08/02/17 08/02/17 08/02/17 14:22 14:30 14:30 WBC RBC Hgb Hct MCV MCH MCHC RDW Plt Count MPV Gran % Lymph % (Auto) Terry % (Auto) Eos % (Auto) Baso % (Auto) Gran # Lymph # (Auto) Terry # (Auto) Eos # (Auto) Baso # (Auto) Neutrophils % (Manual) Lymphocytes % (Manual) Monocytes % (Manual) Platelet Evaluation Anisocytosis (manual) PT 22.8 H INR 1.97 H APTT 38.2 H Fibrinogen Fibrin Degrad Products D-Dimer, Quantitative 3431 H pO2 VBG pH VBG pCO2 VBG HCO3 VBG Total CO2 VBG O2 Sat (Calc) VBG Base Excess VBG Potassium Glucose Lactate FiO2 Sodium Potassium Chloride Carbon Dioxide Anion Gap BUN Creatinine Est GFR ( Amer) Est GFR (Non-Af Amer) POC Glucose (mg/dL) Random Glucose Hemoglobin A1c Fructosamine Lactic Acid Calcium Phosphorus Magnesium Total Bilirubin Direct Bilirubin AST ALT Alkaline Phosphatase Lactate Dehydrogenase Total Creatine Kinase Troponin I C-React Prot High Sens > 15.00 H NT-Pro-B Natriuret Pep Total Protein Albumin Globulin Albumin/Globulin Ratio Procalcitonin Plasma Cortisol PM Venous Blood Potassium Urine Color Urine Appearance Urine pH Ur Specific [place] Urine Protein Urine Glucose (UA) Urine Ketones Urine Blood Urine Nitrate Urine Bilirubin Urine Urobilinogen Ur Leukocyte Esterase Urine RBC Urine WBC Ur Epithelial Cells Amorphous Sediment Urine Bacteria Hyaline Casts Fine Granular Casts Coarse Granular Casts Urine Other 08/02/17 08/02/17 08/02/17 18:15 18:15 18:15 WBC RBC Hgb Hct MCV MCH MCHC RDW Plt Count MPV Gran % Lymph % (Auto) Terry % (Auto) Eos % (Auto) Baso % (Auto) Gran # Lymph # (Auto) Terry # (Auto) Eos # (Auto) Baso # (Auto) Neutrophils % (Manual) Lymphocytes % (Manual) Monocytes % (Manual) Platelet Evaluation Anisocytosis (manual) PT INR APTT Fibrinogen Fibrin Degrad Products D-Dimer, Quantitative pO2 30 VBG pH 7.34 VBG pCO2 43.0 VBG HCO3 23.2 VBG Total CO2 24.5 VBG O2 Sat (Calc) 60.9 VBG Base Excess -2.6 L VBG Potassium 4.5 Glucose 181 H Lactate 5.2 H* FiO2 21.0 Sodium 134.0 Potassium Chloride 99.0 Carbon Dioxide Anion Gap BUN Creatinine Est GFR ( Amer) Est GFR (Non-Af Amer) POC Glucose (mg/dL) Random Glucose Hemoglobin A1c Fructosamine Lactic Acid Calcium Phosphorus 4.7 H Magnesium 2.6 H Total Bilirubin Direct Bilirubin AST ALT Alkaline Phosphatase Lactate Dehydrogenase 461 Total Creatine Kinase 43 Troponin I 0.08 C-React Prot High Sens NT-Pro-B Natriuret Pep Total Protein Albumin Globulin Albumin/Globulin Ratio Procalcitonin Plasma Cortisol PM 51.2 H Venous Blood Potassium 4.5 Urine Color Urine Appearance Urine pH Ur Specific [place] Urine Protein Urine Glucose (UA) Urine Ketones Urine Blood Urine Nitrate Urine Bilirubin Urine Urobilinogen Ur Leukocyte Esterase Urine RBC Urine WBC Ur Epithelial Cells Amorphous Sediment Urine Bacteria Hyaline Casts Fine Granular Casts Coarse Granular Casts Urine Other 08/02/17 08/02/17 08/02/17 18:44 18:50 21:45 WBC RBC Hgb Hct MCV MCH MCHC RDW Plt Count MPV Gran % Lymph % (Auto) Terry % (Auto) Eos % (Auto) Baso % (Auto) Gran # Lymph # (Auto) Terry # (Auto) Eos # (Auto) Baso # (Auto) Neutrophils % (Manual) Lymphocytes % (Manual) Monocytes % (Manual) Platelet Evaluation Anisocytosis (manual) PT INR APTT Fibrinogen Fibrin Degrad Products D-Dimer, Quantitative pO2 43 VBG pH 7.41 VBG pCO2 36.0 L VBG HCO3 22.8 VBG Total CO2 23.9 VBG O2 Sat (Calc) 82.9 H VBG Base Excess -1.4 L VBG Potassium 4.2 Glucose 165 H Lactate 3.5 H FiO2 21.0 Sodium 133.0 Potassium Chloride 101.0 Carbon Dioxide Anion Gap BUN Creatinine Est GFR ( Amer) Est GFR (Non-Af Amer) POC Glucose (mg/dL) 165 H Random Glucose Hemoglobin A1c Fructosamine Lactic Acid Calcium Phosphorus Magnesium Total Bilirubin Direct Bilirubin AST ALT Alkaline Phosphatase Lactate Dehydrogenase Total Creatine Kinase Troponin I C-React Prot High Sens NT-Pro-B Natriuret Pep Total Protein Albumin Globulin Albumin/Globulin Ratio Procalcitonin Plasma Cortisol PM Venous Blood Potassium 4.2 Urine Color Dark yellow Urine Appearance Sl cloudy Urine pH 5.0 Ur Specific [place] >= 1.030 Urine Protein 100 H Urine Glucose (UA) Negative Urine Ketones Trace H Urine Blood Trace-intact H Urine Nitrate Positive H Urine Bilirubin Moderate H Urine Urobilinogen 1.0 H Ur Leukocyte Esterase Trace H Urine RBC 5 - 10 Urine WBC 2 - 5 Ur Epithelial Cells 4 - 5 Amorphous Sediment Small Urine Bacteria Large Hyaline Casts 0 - 2 Fine Granular Casts 0 - 2 Coarse Granular Casts Small H Urine Other Uyeast 08/03/17 08/03/17 08/03/17 00:30 01:44 05:30 WBC 7.0 RBC 4.45 Hgb 12.2 Hct 37.5 MCV 84.3 MCH 27.4 MCHC 32.5 RDW 14.2 Plt Count 288 MPV 10.0 Gran % 90.3 H Lymph % (Auto) 5.1 L Terry % (Auto) 4.3 Eos % (Auto) 0.0 L Baso % (Auto) 0.3 Gran # 6.33 Lymph # (Auto) 0.4 L Terry # (Auto) 0.3 Eos # (Auto) 0.0 Baso # (Auto) 0.02 Neutrophils % (Manual) 90 H Lymphocytes % (Manual) 6 L Monocytes % (Manual) 4 Platelet Evaluation Normal Anisocytosis (manual) Slight PT INR APTT Fibrinogen Fibrin Degrad Products D-Dimer, Quantitative pO2 VBG pH VBG pCO2 VBG HCO3 VBG Total CO2 VBG O2 Sat (Calc) VBG Base Excess VBG Potassium Glucose Lactate FiO2 Sodium Potassium Chloride Carbon Dioxide Anion Gap BUN Creatinine Est GFR ( Amer) Est GFR (Non-Af Amer) POC Glucose (mg/dL) 153 H Random Glucose Hemoglobin A1c Fructosamine Lactic Acid Calcium Phosphorus Magnesium Total Bilirubin Direct Bilirubin AST ALT Alkaline Phosphatase Lactate Dehydrogenase 421 Total Creatine Kinase 43 Troponin I 0.06 D C-React Prot High Sens NT-Pro-B Natriuret Pep Total Protein Albumin Globulin Albumin/Globulin Ratio Procalcitonin Plasma Cortisol PM Venous Blood Potassium Urine Color Urine Appearance Urine pH Ur Specific [place] Urine Protein Urine Glucose (UA) Urine Ketones Urine Blood Urine Nitrate Urine Bilirubin Urine Urobilinogen Ur Leukocyte Esterase Urine RBC Urine WBC Ur Epithelial Cells Amorphous Sediment Urine Bacteria Hyaline Casts Fine Granular Casts Coarse Granular Casts Urine Other 08/03/17 08/03/17 08/03/17 05:30 05:30 05:30 WBC RBC Hgb Hct MCV MCH MCHC RDW Plt Count MPV Gran % Lymph % (Auto) Terry % (Auto) Eos % (Auto) Baso % (Auto) Gran # Lymph # (Auto) Terry # (Auto) Eos # (Auto) Baso # (Auto) Neutrophils % (Manual) Lymphocytes % (Manual) Monocytes % (Manual) Platelet Evaluation Anisocytosis (manual) PT 21.4 H INR 1.84 H APTT 32.9 Fibrinogen Fibrin Degrad Products D-Dimer, Quantitative pO2 VBG pH VBG pCO2 VBG HCO3 VBG Total CO2 VBG O2 Sat (Calc) VBG Base Excess VBG Potassium Glucose Lactate FiO2 Sodium 136 Potassium 4.0 Chloride 100 Carbon Dioxide 22 Anion Gap 18 BUN 43 H Creatinine 1.9 H Est GFR ( Amer) 32 Est GFR (Non-Af Amer) 26 POC Glucose (mg/dL) Random Glucose 149 H Hemoglobin A1c Fructosamine Lactic Acid 3.2 H Calcium 8.6 Phosphorus 5.2 H Magnesium 2.8 H Total Bilirubin 0.5 Direct Bilirubin 0.5 H AST 24 ALT 34 Alkaline Phosphatase 91 Lactate Dehydrogenase Total Creatine Kinase 43 Troponin I 0.05 C-React Prot High Sens NT-Pro-B Natriuret Pep 9450 H Total Protein 5.5 L Albumin 2.8 L Globulin 2.7 Albumin/Globulin Ratio 1.0 L Procalcitonin Plasma Cortisol PM Venous Blood Potassium Urine Color Urine Appearance Urine pH Ur Specific [place] Urine Protein Urine Glucose (UA) Urine Ketones Urine Blood Urine Nitrate Urine Bilirubin Urine Urobilinogen Ur Leukocyte Esterase Urine RBC Urine WBC Ur Epithelial Cells Amorphous Sediment Urine Bacteria Hyaline Casts Fine Granular Casts Coarse Granular Casts Urine Other 08/03/17 08/03/17 08/03/17 08:10 08:30 08:30 WBC RBC Hgb Hct MCV MCH MCHC RDW Plt Count MPV Gran % Lymph % (Auto) Terry % (Auto) Eos % (Auto) Baso % (Auto) Gran # Lymph # (Auto) Terry # (Auto) Eos # (Auto) Baso # (Auto) Neutrophils % (Manual) Lymphocytes % (Manual) Monocytes % (Manual) Platelet Evaluation Anisocytosis (manual) PT INR APTT Fibrinogen 1128 H Fibrin Degrad Products >10 <40 ug/ml D-Dimer, Quantitative pO2 VBG pH VBG pCO2 VBG HCO3 VBG Total CO2 VBG O2 Sat (Calc) VBG Base Excess VBG Potassium Glucose Lactate FiO2 Sodium Potassium Chloride Carbon Dioxide Anion Gap BUN Creatinine Est GFR ( Amer) Est GFR (Non-Af Amer) POC Glucose (mg/dL) 146 H Random Glucose Hemoglobin A1c Fructosamine Lactic Acid Calcium Phosphorus Magnesium Total Bilirubin Direct Bilirubin AST ALT Alkaline Phosphatase Lactate Dehydrogenase Total Creatine Kinase Troponin I C-React Prot High Sens NT-Pro-B Natriuret Pep Total Protein Albumin Globulin Albumin/Globulin Ratio Procalcitonin Plasma Cortisol PM Venous Blood Potassium Urine Color Urine Appearance Urine pH Ur Specific [place] Urine Protein Urine Glucose (UA) Urine Ketones Urine Blood Urine Nitrate Urine Bilirubin Urine Urobilinogen Ur Leukocyte Esterase Urine RBC Urine WBC Ur Epithelial Cells Amorphous Sediment Urine Bacteria Hyaline Casts Fine Granular Casts Coarse Granular Casts Urine Other 08/03/17 11:32 WBC RBC Hgb Hct MCV MCH MCHC RDW Plt Count MPV Gran % Lymph % (Auto) Terry % (Auto) Eos % (Auto) Baso % (Auto) Gran # Lymph # (Auto) Terry # (Auto) Eos # (Auto) Baso # (Auto) Neutrophils % (Manual) Lymphocytes % (Manual) Monocytes % (Manual) Platelet Evaluation Anisocytosis (manual) PT INR APTT Fibrinogen Fibrin Degrad Products D-Dimer, Quantitative pO2 VBG pH VBG pCO2 VBG HCO3 VBG Total CO2 VBG O2 Sat (Calc) VBG Base Excess VBG Potassium Glucose Lactate FiO2 Sodium Potassium Chloride Carbon Dioxide Anion Gap BUN Creatinine Est GFR ( Amer) Est GFR (Non-Af Amer) POC Glucose (mg/dL) 129 H Random Glucose Hemoglobin A1c Fructosamine Lactic Acid Calcium Phosphorus Magnesium Total Bilirubin Direct Bilirubin AST ALT Alkaline Phosphatase Lactate Dehydrogenase Total Creatine Kinase Troponin I C-React Prot High Sens NT-Pro-B Natriuret Pep Total Protein Albumin Globulin Albumin/Globulin Ratio Procalcitonin Plasma Cortisol PM Venous Blood Potassium Urine Color Urine Appearance Urine pH Ur Specific [place] Urine Protein Urine Glucose (UA) Urine Ketones Urine Blood Urine Nitrate Urine Bilirubin Urine Urobilinogen Ur Leukocyte Esterase Urine RBC Urine WBC Ur Epithelial Cells Amorphous Sediment Urine Bacteria Hyaline Casts Fine Granular Casts Coarse Granular Casts Urine Other EKG/Cardiology Studies: Cardiology / EKG Studies 08/02/17 14:16 EKG [ELECTROCARDIOGRAM] Stat Comment: Reason For Exam: r/o hypovolemia Critical Care Progress Note - Nutrition Nutrition: Nutrition Category Date Time Status NPO Diet [DIET] Diets 07/31/17 Dinner Ordered Assessment/Plan - Assessment and Plan (Free Text) Plan: Patient seen and examined, with resident, agree with note with following additions/exceptions: 67yo female a/w s/p hernia repair. Currently afebrile, HD stable, comfortable in NAD, CT A/P with small amount of post operative blood, patient to receive FFP. VQ scan pending, Duplex negative. Cont with supp o2 as needed, follow up cultures, cont with Azactam, Flagyl, transfuse 2u FFP, follow up surgery, follow up VQ scan, GI ppx, DVT ppx.
--- NOTE | 2017-08-03 07:57 | CP.PCM.PN ---
Subjective - Date & Time of Evaluation Date of Evaluation: 08/03/17 Time of Evaluation: 07:25 - Subjective Subjective: General Surgery Progress Note for Dr. Song Patient seen and examined at bedside. In the past 24 hours UOP has been 150 ml, urine remains dark colored. Patient was limited in her ability to speak but did not offer any complaints. Patient is pending for V/Q scan. Nurse reports no events overnight. Objective - Vital Signs/Intake and Output Vital Signs (last 24 hours): Temp Pulse Resp BP Pulse Ox 99.4 F 123 H 24 137/90 94 L 08/02/17 20:32 08/03/17 00:20 08/03/17 00:20 08/03/17 00:00 08/03/17 00:20 - Medications Medications: Current Medications Acetylcysteine (Acetylcysteine 20%) 4 ml IH [id number] [facility] Last Admin: 08/03/17 07:49 Dose: Not Given Heparin Sodium (Porcine) (Heparin) 5,000 units SC Q8 SONNY PRN Reason: Protocol Last Admin: 08/03/17 05:07 Dose: 5,000 units Hydromorphone HCl (Dilaudid) 0.5 mg IVP Q4H PRN PRN Reason: Pain, severe (8-10) Last Admin: 08/03/17 04:46 Dose: 0.5 mg Sodium Chloride (Sodium Chloride 0.9%) 1,000 mls @ 150 mls/hr IV .[id number] SONNY Last Admin: 08/03/17 04:49 Dose: 150 mls/hr Aztreonam 500 mg/ Sodium (Chloride) 100 mls @ 100 mls/hr IVPB Q8 SONNY PRN Reason: Protocol Stop: 08/11/17 22:01 Last Admin: 08/03/17 07:50 Dose: 100 mls/hr Metronidazole (Flagyl) 500 mg in 100 mls @ 100 mls/hr IVPB Q8 SONNY PRN Reason: Protocol Stop: 08/11/17 22:01 Last Admin: 08/03/17 05:03 Dose: 100 mls/hr Acetaminophen (Ofirmev) 1,000 mg in 100 mls @ 400 mls/hr IVPB Q6H SONNY Stop: 08/04/17 22:16 Last Admin: 08/03/17 04:57 Dose: 400 mls/hr Insulin Human Lispro (Humalog Med) 0 units SC Q6H [facility] PRN Reason: Protocol Last Admin: 08/03/17 01:56 Dose: Not Given Levalbuterol HCl (Xopenex) 0.63 mg IH [id number] [facility] Last Admin: 08/03/17 07:39 Dose: Not Given Levothyroxine Sodium (Synthroid) 25 mcg IVP DAILY [facility] Metoprolol Tartrate (Lopressor) 5 mg IVP Q6H [facility] Naloxone HCl (Narcan) 0.4 mg IVP ONCE PRN PRN Reason: Opiate reversal Ondansetron HCl (Zofran Inj) 4 mg IVP Q4 PRN PRN Reason: Nausea/Vomiting Last Admin: 08/03/17 04:52 Dose: 4 mg Pantoprazole Sodium (Protonix Inj) 40 mg IVP BID [facility] Last Admin: 08/02/17 18:39 Dose: 40 mg - Labs Labs: 08/03/17 05:30 08/03/17 05:30 PT 21.4 SECONDS (9.4-12.5) H 08/03/17 05:30 INR 1.84 (0.93-1.08) H 08/03/17 05:30 APTT 32.9 Seconds (25.1-36.5) 08/03/17 05:30 - Constitutional Appears: Non-toxic, No Acute Distress - Head Exam Head Exam: ATRAUMATIC, NORMOCEPHALIC - Eye Exam Eye Exam: EOMI, Normal appearance - Neck Exam Additional comments: No JVD - Respiratory Exam Additional comments: tachypneic - Cardiovascular Exam Cardiovascular Exam: Tachycardia - GI/Abdominal Exam GI & Abdominal Exam: Tenderness (around incision site, incision site appears healthy without erythema or swelling). absent: Guarding, Rigid, Rebound - Extremities Exam Extremities Exam: Normal Inspection. absent: Normal Capillary Refill, Pedal Edema - Neurological Exam Neurological Exam: Alert, Awake - Psychiatric Exam Psychiatric exam: Normal Affect, Normal Mood - Skin Skin Exam: Dry, Intact, Normal Color, Warm Assessment and Plan - Assessment and Plan (Free Text) Assessment: 67 F with incarcerated ventral hernia POD#2 s/p ventral hernia repair with mesh with KESHAWN, lactic acidosis and tachycardia. NGT tube placed. Patient did have right hydronephrosis pre-operatively. Moderate risk of Pulmonary Embolism on the WELLS criteria. Plan: Transfer to ICU F/U cardiology, nephrology, and ID consults Continue with Aztreonam and Metronidazole F/U VQ scan--CTA contraindicated with KESHAWN Cr 1.9 serial abdominal exams serial troponins NS@150cc/h Strict I/O's monitor for bowel function Abdominal binder as needed for comfort PRN pain and nausea medication--switched to dilaudid from morphine in light of KESHAWN Any further recommendations to come from attending physician, Dr. Song.
[2017-08-03] MEDS: Levothyroxine 100 mcg (0.1 mg) Inj IVP SCH ×2 (08:14→10:52)
[2017-08-03] MEDS: Metoprolol 1 mg/ml Inj IVP SCH ×3 (08:14→20:06)
--- NOTE | 2017-08-03 09:39 | HP ---
HISTORY OF PRESENT ILLNESS: The patient is a 67-year-old morbidly obese female presented to the emergency room complaining of lower abdominal pain for last 2 days associated with vomiting. The patient's pain scale was described 9/10. The patient reported these complaints to the triage nurse. According to the ER physician evaluation, the patient complained of abdominal pain, nausea, vomiting for 2 days and the patient noted a bulge in the abdomen which was painful. The patient has been advised on multiple previous office visits about the patient's ventral hernia and was advised to seek surgical opinion but did not seek so far. REVIEW OF SYSTEMS: The patient's 13 system review was positive for abdominal pain, history of abdominal bulging, history of nausea, vomiting for the last 2 days. The patient also reports constipation for the last 2 days. CODE STATUS: Full code. LIVING WILL ADVANCE DIRECTIVE: None. HEIGHT: 5 feet 4 inches. WEIGHT: 220 pounds as per the EMcube summary. BMI: 38. ALLERGIES: APRICOTS AND PENICILLIN. HOME MEDICATIONS: 1. Metformin 500 mg with lunch, metformin 1000 mg with breakfast and dinner. 2. Synthroid 137 mcg daily. 3. Magnesium 400 mg. 4. Diovan HCTZ 320/25 daily. 5. Percocet 10/325 t.i.d. p.r.n. 6. Amaryl 2 mg once or twice a day. 7. Prilosec 40 mg. 8. Bystolic 5 mg daily. 9. Lasix 40 mg p.r.n. 10. Pravachol 40 mg daily. 11. Allopurinol 100 mg daily. 12. Drisdol 50,000 units weekly. 13. Hydralazine 25 mg q.i.d. 14. Pravachol 40 mg every other day. 15. Clonidine 0.3 mg three times a day. 16. Aspirin 81 mg daily. SOCIAL HISTORY: The patient denies substance abuse. Denies alcohol use. Denies smoking. Denies drug use. Denies communicable or transmissible disease. FAMILY HISTORY: Positive for diabetes. Positive for hypertension. PAST MEDICAL HISTORY AND PAST SURGICAL HISTORY: History of non-insulin requiring diabetes mellitus, history of morbid obesity, history of degenerative joint disease of the knees and spine, history of narcotic dependent chronic pain syndrome, hypothyroidism, pzp-igfsopq-pjuesjxds diabetes mellitus, gastroesophageal reflux, bilateral lower extremity venous stasis, hypercholesteremia, hyperuricemia, hypovitaminosis D, history of iron-deficiency anemia, history of morbid obesity. Past medical history is also significant for type 2 diabetes, hypothyroidism, history of degenerative joint disease of the knees and the lumbar spine, history of partial hysterectomy, history of intravenous iron treatment. The patient's past medical history is significant for anemia, history of severe anemia in 2012, history of packed red blood cell transfusion, history of hypercholesteremia, history of hypothyroidism, history of gastrointestinal bleeding. The patient's past medical history is significant for history of fine-needle aspiration of the thyroid nodule biopsy, history of morbid obesity, history of left lobe thyroid dominant nodule 1.4 cm, history of multinodular thyroid, history of poor compliance, history of morbid obesity, history of degenerative joint disease of the spine, history of hysterectomy, history of multilevel lumbar spine degenerative disc disease, history of osteoarthritis of the knees with medial meniscus and anterior cruciate ligament tear, history of moderate to severe osteoarthritis of the knees, history of morbid obesity, history of degenerative joint disease of the thoracic and lumbar spine, history of thoracic and lumbar spine degenerative disc disease and degenerative joint disease, history of gastrointestinal bleeding, history of a large hiatal hernia, history of colonoscopy, endoscopy in 2011, history of left thyroid nodule biopsy suggestive of follicular nodule [place] II, history of colonoscopy with hyperplastic sigmoid polyp, history of EGD showing gastritis, history of hypertensive cardiovascular disease with ejection fraction of greater than 60%, history of pulmonary arterial hypertension, with elevated right ventricular systolic pressure of 41 mmHg, history of concentric left ventricular hypertrophy, history of grade 3 reversible, restrictive diastolic dysfunction, history of moderately dilated left atrium, history of thickened aortic valve, history of calcified mitral valve, history of moderately thickened mitral valve, history of mild mitral annular calcification, history of moderate mitral regurgitation, history of moderate tricuspid regurgitation, history of diastolic dysfunction, history of morbid obesity, history of severe symptomatic anemia, acute blood loss anemia secondary to gastrointestinal bleeding, history of multiple superficial ulceration, history of right large hiatal hernia, history of nonsteroidal anti-inflammatory and Naprosyn use, history of gastrointestinal bleeding, history of non-insulin requiring diabetes mellitus, history of large hiatal hernia, history of hypertriglyceridemia, history of obesity, history of partial hysterectomy, history of left knee arthroscopic surgery, history of severe symptomatic anemia secondary to gastrointestinal bleed and acute blood loss anemia, history of colonoscopy done in November 2016, history of sigmoid and descending colon diverticulosis, history of internal hemorrhoids, the patient was recommended repeat colonoscopy in 3 years. PHYSICAL EXAMINATION: GENERAL: The patient is seen lying in the stretcher. The patient is in significant amount of pain. VITAL SIGNS: T-max 98.1. Heart rate 67-57 beats per minute, blood pressure 167/98 and 134/75, respiration is 16-18, O2 sat is 100%-98%. HEENT: Head examination normocephalic, atraumatic. HEENT examination shows pink conjunctivae. Dry oral mucosa. No facial asymmetry. NECK: No neck rigidity. Soft carotid bruit. CHEST: Examination, has kyphosis. LUNG: Examination shows no rales, crackles or wheezing. CARDIOVASCULAR: Examination shows S1, S2, regular rhythm. Questionable systolic murmur left second intercostal space, right second intercostal space. ABDOMEN: Is protuberant, distended. Positive midline ventral hernia which is very tender to touch and not reducible by the attempts of the ER staff and the surgical manager. Despite use of ice pack, the patient has voluntary guarding with diffuse abdominal wall tenderness. Positive rebound tenderness. GENITALIA: Female. RECTAL: Examination is deferred. EXTREMITY: Shows trace swelling of the lower extremity. MUSCULOSKELETAL: Examination shows a body mass index of 38. NEUROLOGICALLY: The patient is alert, awake, oriented x3. Cranial nerves II through XII intact. Gait examination tested. VASCULAR: Examination, palpable pulses. PSYCHIATRIC EXAMINATION: Negative for anxiety, depression, or suicidal or homicidal ideation. DIAGNOSTICS: WBC 11.2, hemoglobin/hematocrit is 12.7 and 40.0, platelet 384, granulocytes 80% segs. PT/PTT 13.5/ 28.9. Sodium 136, potassium 3.6, chloride 94, CO2 of 27, anion gap 19, BUN 19, creatinine 1.0, GFR greater than 60, glucose 182, calcium 9.6. LFTs are normal. Lipase 20. Urine pH 6.5, specific gravity 1.015, trace leukocyte, many bacteria. Blood type A+. IMAGING: The patient had a CAT scan of the abdomen and pelvis done. CAT scan of the abdomen and pelvis was done which shows large hiatal hernia, basilar atelectasis, pancreatic body and neck atrophy noted, right hydronephrosis, bilateral renal cysts noted, with left renal pelviectasis noted, ventral abdominal hernia containing a segment of bowel with stranding of the herniated fat with small amount of fluid within the hernia, with air-fluid level, within the herniated segment of the bowel with distention and obstruction of the colon, proximal to this finding concerning for strangulated, incarcerated hernia, colonic diverticulosis noted. Positive fluid noted in the right side of the pelvis. The patient's chest x-ray was done, which was negative for any active disease. EKG done, results were reviewed. The patient was seen and evaluated in the emergency room by the ER physician and the PA. The patient was seen by the surgical manager. Attempts to reduce the hernia were not successful. IMPRESSION AND PLAN: 1. Incarcerated, strangulated ventral hernia containing short segment of bowel with stranding of the herniated fat and fluid within the hernia with air-fluid level within the herniated segment of the bowel with distention and obstruction of the colon proximal to this finding. 2. Colonic diverticulosis. 3. Splenic flexure thickening suggestive of colitis or diverticulitis. 4. Right hydronephrosis. 5. Bilateral renal cyst. 6. Left renal pelviectasis. 7. Right-sided pelvic free fluid. 8. Large hiatal hernia. 9. Morbid obesity. 10. History of dietary noncompliance. 11. Left lower lobe atelectasis. 12. Pancreatic body and neck atrophy. 13. Right anterior thigh lipoma. 14. Bilateral sclerotic sacroiliac arthropathy. 15. Hypertrophic degenerative joint disease of the spine. 16. Hypertension. 17. Morbid obesity. 18. Leukocytosis with granulocytosis. 19. Hyperglycemia. 20. O positive blood type. 21. Asymptomatic sinus bradycardia. 22. Abdominal pain secondary to strangulated, incarcerated ventral hernia, at the present, the patient has been seen by the surgical manager. I have discussed the patient's case with the surgery attending, Dr. Song. The patient will be taken for the OR tonight to prevent and eliminate the risk of bowel ischemia secondary to strangulation and incarcerated hernia with severe symptomatic pain. 23. Stf-dxrtzfl-iuzxnbqhf diabetes mellitus. 24. History of hypothyroidism. 25. History of hypomagnesemia. 26. Hypertension. 27. Narcotic dependent pain syndrome. 28. History of dyslipidemia. 29. History of hypovitaminosis D. 30. History of hypertension. PLAN: At this time, the patient was seen and admitted. The patient has been ordered repeat labs. The patient had consultation with Dr. Song from Surgery. Next procalcitonin level ordered. The patient is started in the emergency room with Cipro 400 IV q.12. The patient was given Dilaudid 1 mg IV stat, Flagyl 500 IV q.8, heparin 5000 SubQ q.8, the patient started on insulin sliding scale coverage. The patient is on morphine 4 mg IV q.3 h. p.r.n. The patient is on Protonix 40 mg IV twice a day. The patient was given Toradol 30 mg IV and the patient was given IV fluid bolus 1000 mL. The patient is on Zofran 4 mg IV q.4. The patient will be kept n.p.o. The patient will be given DVT, GI prophylaxis. At present, the patient was seen in the emergency room. The patient was seen and will be admitted to the Med-Surg floor. The patient is most likely going to the operating room today and tonight. The patient understands the risks and consequences of her medical condition, need for surgical intervention. It was explained to the patient at length and all questions concerned answered, which she acknowledged understanding. Dictated and electronically signed, not read. Adonis Santos MD
[2017-08-03 09:44] LABS: LYMPHOCYTE 6 % (22.0-35.0); NEUTROPHIL 90 % (50.0-70.0)
--- NOTE | 2017-08-03 09:44 | RAD ---
HISTORY: NGT insertion COMPARISON: No prior. FINDINGS: LUNGS: No active pulmonary disease. PLEURA: No significant pleural effusion identified, no pneumothorax apparent. CARDIOVASCULAR: Normal. OSSEOUS STRUCTURES: No significant abnormalities. VISUALIZED UPPER ABDOMEN: The nasogastric tube is folded distally and the tip is directed upward in the distal esophagus. Advancing the tube several cm will probably correct this position OTHER FINDINGS: None. IMPRESSION: The nasogastric tube is folded distally and the tip is directed upward in the distal esophagus. Advancing the tube several cm will probably correct this position
[2017-08-03 09:45] LABS: ANISOCYTOSIS SLIGHT; MONOCYTE 4 % (1.0-6.0); PLATELET ESTIMATE NORMAL (NORMAL)
--- NOTE | 2017-08-03 09:48 | RAD ---
PROCEDURE: Portable chest HISTORY: NGT COMPARISON: TECHNIQUE: Multiple images were obtained for tube placement FINDINGS: Initial images show the nasogastric tube folded in the distal esophagus. Subsequent films show the tube advanced into the hiatal hernia. The tube does not extend below the diaphragm. IMPRESSION: As above
--- NOTE | 2017-08-03 11:13 | CT ---
PROCEDURE: CT Abdomen and Pelvis without intravenous contrast HISTORY: s/p VENTRAL HERNIA SX/ NO PO NO IV CONTRAST COMPARISON: 07/31/2017 CT TECHNIQUE: Without contrast. Contrast Dose: Radiation dose: Total exam DLP = 1033 mGy-cm. This CT exam was performed using one or more of the following dose reduction techniques: Automated exposure control, adjustment of the mA and/or kV according to patient size, and/or use of iterative reconstruction technique. FINDINGS: LOWER THORAX: A nasogastric tube is coiled in the hiatal hernia above the diaphragm LIVER: Unremarkable. No gross lesion or ductal dilatation. GALLBLADDER AND BILE DUCTS: Unremarkable. PANCREAS: Unremarkable. No gross lesion or ductal dilatation. SPLEEN: Unremarkable. ADRENALS: Unremarkable. No mass. KIDNEYS AND URETERS: Unremarkable. No hydronephrosis. No solid mass. VASCULATURE: Unremarkable. No aortic aneurysm. BOWEL: Unremarkable. No obstruction. No gross mural thickening. APPENDIX: Unremarkable. Normal appendix. PERITONEUM: The previous study showed a large ventral hernia with obstruction of the colon. Previously the hernia measured 4.6 x 8.1 by 7.5 cm in size. The patient has since undergone surgery. Clips are seen in this area. There is a small residual fluid collection measuring 1.2 x 5.1 cm. The colon is no longer distended. There is a small amount of free air. There is a small amount of intraperitoneal blood gathered in the pelvis. LYMPH NODES: Unremarkable. No enlarged lymph nodes. BLADDER: Unremarkable. REPRODUCTIVE: Unremarkable. BONES: No acute fracture. OTHER FINDINGS: None. IMPRESSION: Small amount of postoperative blood in the pelvis. Small residual fluid and air collection at the site of recent surgery. No evidence of obstruction. No evidence of bowel ischemia
--- NOTE | 2017-08-03 12:01 | CP.PCM.CON ---
History of Present Illness - History of Present Illness History of Present Illness: renal consult note please call us at [phone] if any qs or concerns 67yoF with PMHx of HTN, obesity, DM, hyperlipidemia, bleeding gastric ulcer presents to the ED with abdominal pain and ventral hernia. Per the patient, she has had the ventral herniafor some years, now post op from incarcerated ventral hernia repair. we are being consulted for KESHAWN post op. no nsaid use no prior hx of ckd Review of Systems - Review of Systems All systems: reviewed and no additional remarkable complaints except Past Patient History - Infectious Disease Hx of Infectious Diseases: None - Tetanus Immunizations Tetanus Immunization: Unknown - Past Social History Smoking Status: Never Smoked - CARDIAC Hx Cardiac Disorders: No - PULMONARY Hx Respiratory Disorders: No - NEUROLOGICAL Hx Neurological Disorder: No - HEENT Hx HEENT Problems: No - RENAL Hx Chronic Kidney Disease: No - ENDOCRINE/METABOLIC Hx Diabetes Mellitus Type 2: Yes Hx Hypothyroidism: Yes - HEMATOLOGICAL/ONCOLOGICAL Hx Blood Transfusions: Yes - INTEGUMENTARY Hx Dermatological Problems: No - MUSCULOSKELETAL/RHEUMATOLOGICAL Hx Falls: No - GASTROINTESTINAL Hx Gastrointestinal Disorders: No - GENITOURINARY/GYNECOLOGICAL Hx Reproductive Disorders: Yes (partial hyst about 20 yrs ago) - PSYCHIATRIC Hx Psychophysiologic Disorder: No - SURGICAL HISTORY Hx Surgeries: No - ANESTHESIA Hx Anesthesia Reactions: No Hx Malignant Hyperthermia: No Meds Allergies/Adverse Reactions: Allergies Allergy/AdvReac Type Severity Reaction Status Date / Time apricot Allergy Severe ANAPHYLAXIS Verified 07/31/17 16:36 Penicillins Allergy Severe RASH Verified 07/31/17 16:36 - Medications Medications: Current Medications Acetylcysteine (Acetylcysteine 20%) 4 ml IH [id number] [facility] Last Admin: 08/03/17 07:49 Dose: Not Given Heparin Sodium (Porcine) (Heparin) 5,000 units SC Q8 SONNY PRN Reason: Protocol Last Admin: 08/03/17 05:07 Dose: 5,000 units Hydromorphone HCl (Dilaudid) 0.5 mg IVP Q4H PRN PRN Reason: Pain, severe (8-10) Last Admin: 08/03/17 11:09 Dose: 0.5 mg Sodium Chloride (Sodium Chloride 0.9%) 1,000 mls @ 150 mls/hr IV .Q6H40M [facility] Last Admin: 08/03/17 04:49 Dose: 150 mls/hr Aztreonam 500 mg/ Sodium (Chloride) 100 mls @ 100 mls/hr IVPB Q8 [facility] PRN Reason: Protocol Stop: 08/11/17 22:01 Last Admin: 08/03/17 07:50 Dose: 100 mls/hr Metronidazole (Flagyl) 500 mg in 100 mls @ 100 mls/hr IVPB Q8 SONNY PRN Reason: Protocol Stop: 08/11/17 22:01 Last Admin: 08/03/17 05:03 Dose: 100 mls/hr Acetaminophen (Ofirmev) 1,000 mg in 100 mls @ 400 mls/hr IVPB Q6H [facility] Stop: 08/04/17 22:16 Last Admin: 08/03/17 11:08 Dose: 400 mls/hr Insulin Human Lispro (Humalog Med) 0 units SC Q6H [facility] PRN Reason: Protocol Last Admin: 08/03/17 09:09 Dose: Not Given Levalbuterol HCl (Xopenex) 0.63 mg IH [id number] Last Admin: 08/03/17 07:39 Dose: Not Given Levothyroxine Sodium (Synthroid) 25 mcg IVP DAILY [facility] Last Admin: 08/03/17 10:52 Dose: Not Given Metoprolol Tartrate (Lopressor) 5 mg IVP Q6H [facility] Last Admin: 08/03/17 08:14 Dose: 5 mg Naloxone HCl (Narcan) 0.4 mg IVP ONCE PRN PRN Reason: Opiate reversal Ondansetron HCl (Zofran Inj) 4 mg IVP Q4 PRN PRN Reason: Nausea/Vomiting Last Admin: 08/03/17 07:59 Dose: 4 mg Pantoprazole Sodium (Protonix Inj) 40 mg IVP BID [facility] Last Admin: 08/03/17 11:07 Dose: 40 mg Physical Exam - Constitutional Appears: Non-toxic Additional comments: obese, NG tube +, mild distress sec to pain - Head Exam Head Exam: NORMAL INSPECTION - Eye Exam Eye Exam: Normal appearance - Respiratory Exam Respiratory Exam: NORMAL BREATHING PATTERN - Cardiovascular Exam Cardiovascular Exam: Tachycardia, +S1, +S2 - GI/Abdominal Exam GI & Abdominal Exam: Diminished Bowel Sounds, Distended, Soft - Neurological Exam Neurological exam: Alert, Oriented x3 - Psychiatric Exam Psychiatric exam: Normal Affect - Skin Skin Exam: Dry, Intact Results - Vital Signs Recent Vital Signs: Last Vital Signs Temp 98.1 F 08/03/17 03:42 Pulse 100 H 08/03/17 09:30 Resp 27 H 08/03/17 09:30 BP 163/95 H 08/03/17 09:10 Pulse Ox 97 08/03/17 09:30 - Labs Result Diagrams: 08/03/17 05:30 08/03/17 05:30 Labs: Laboratory Results - last 24 hr 08/02/17 08/02/17 08/02/17 07:00 08:30 14:22 WBC RBC Hgb Hct MCV MCH MCHC RDW Plt Count MPV Gran % Lymph % (Auto) Woods % (Auto) Eos % (Auto) Baso % (Auto) Gran # Lymph # (Auto) Woods # (Auto) Eos # (Auto) Baso # (Auto) Neutrophils % (Manual) Lymphocytes % (Manual) Monocytes % (Manual) Platelet Evaluation Anisocytosis (manual) PT INR APTT Fibrinogen Fibrin Degrad Products D-Dimer, Quantitative pO2 VBG pH VBG pCO2 VBG HCO3 VBG Total CO2 VBG O2 Sat (Calc) VBG Base Excess VBG Potassium Glucose Lactate FiO2 Sodium Potassium Chloride Carbon Dioxide Anion Gap BUN Creatinine Est GFR ( Amer) Est GFR (Non-Af Amer) POC Glucose (mg/dL) Random Glucose Hemoglobin A1c 6.9 H Fructosamine 186 L Lactic Acid Calcium Phosphorus Magnesium Total Bilirubin Direct Bilirubin AST ALT Alkaline Phosphatase Lactate Dehydrogenase Total Creatine Kinase Troponin I C-React Prot High Sens NT-Pro-B Natriuret Pep Total Protein Albumin Globulin Albumin/Globulin Ratio Procalcitonin 100.67 H Plasma Cortisol PM Venous Blood Potassium Urine Color Urine Appearance Urine pH Ur Specific [place] Urine Protein Urine Glucose (UA) Urine Ketones Urine Blood Urine Nitrate Urine Bilirubin Urine Urobilinogen Ur Leukocyte Esterase Urine RBC Urine WBC Ur Epithelial Cells Amorphous Sediment Urine Bacteria Hyaline Casts Fine Granular Casts Coarse Granular Casts Urine Other 08/02/17 08/02/17 08/02/17 14:22 14:22 14:22 WBC 6.6 RBC 4.93 Hgb 13.6 Hct 42.3 MCV 85.8 MCH 27.6 MCHC 32.2 RDW 14.4 Plt Count 336 MPV 9.4 Gran % 85.2 H Lymph % (Auto) 9.5 L Woods % (Auto) 5.0 Eos % (Auto) 0.0 L Baso % (Auto) 0.3 Gran # 5.63 Lymph # (Auto) 0.6 L Woods # (Auto) 0.3 Eos # (Auto) 0.0 Baso # (Auto) 0.02 Neutrophils % (Manual) Lymphocytes % (Manual) Monocytes % (Manual) Platelet Evaluation Anisocytosis (manual) PT INR APTT Fibrinogen Fibrin Degrad Products D-Dimer, Quantitative pO2 VBG pH VBG pCO2 VBG HCO3 VBG Total CO2 VBG O2 Sat (Calc) VBG Base Excess VBG Potassium Glucose Lactate FiO2 Sodium 137 Potassium 4.5 Chloride 99 Carbon Dioxide 20 L Anion Gap 22 H BUN 35 H Creatinine 2.2 H Est GFR ( Amer) 27 Est GFR (Non-Af Amer) 22 POC Glucose (mg/dL) Random Glucose 205 H Hemoglobin A1c Fructosamine Lactic Acid 5.6 H* Calcium 8.9 Phosphorus Magnesium Total Bilirubin 0.7 Direct Bilirubin AST 31 ALT 31 Alkaline Phosphatase 84 Lactate Dehydrogenase Total Creatine Kinase Troponin I 0.08 D C-React Prot High Sens NT-Pro-B Natriuret Pep 86562 H Total Protein 5.8 Albumin 3.1 Globulin 2.7 Albumin/Globulin Ratio 1.2 Procalcitonin Plasma Cortisol PM Venous Blood Potassium Urine Color Urine Appearance Urine pH Ur Specific [place] Urine Protein Urine Glucose (UA) Urine Ketones Urine Blood Urine Nitrate Urine Bilirubin Urine Urobilinogen Ur Leukocyte Esterase Urine RBC Urine WBC Ur Epithelial Cells Amorphous Sediment Urine Bacteria Hyaline Casts Fine Granular Casts Coarse Granular Casts Urine Other 08/02/17 08/02/17 08/02/17 14:22 14:30 14:30 WBC RBC Hgb Hct MCV MCH MCHC RDW Plt Count MPV Gran % Lymph % (Auto) Woods % (Auto) Eos % (Auto) Baso % (Auto) Gran # Lymph # (Auto) [place] # (Auto) Eos # (Auto) Baso # (Auto) Neutrophils % (Manual) Lymphocytes % (Manual) Monocytes % (Manual) Platelet Evaluation Anisocytosis (manual) PT 22.8 H INR 1.97 H APTT 38.2 H Fibrinogen Fibrin Degrad Products D-Dimer, Quantitative 3431 H pO2 VBG pH VBG pCO2 VBG HCO3 VBG Total CO2 VBG O2 Sat (Calc) VBG Base Excess VBG Potassium Glucose Lactate FiO2 Sodium Potassium Chloride Carbon Dioxide Anion Gap BUN Creatinine Est GFR ( Amer) Est GFR (Non-Af Amer) POC Glucose (mg/dL) Random Glucose Hemoglobin A1c Fructosamine Lactic Acid Calcium Phosphorus Magnesium Total Bilirubin Direct Bilirubin AST ALT Alkaline Phosphatase Lactate Dehydrogenase Total Creatine Kinase Troponin I C-React Prot High Sens > 15.00 H NT-Pro-B Natriuret Pep Total Protein Albumin Globulin Albumin/Globulin Ratio Procalcitonin Plasma Cortisol PM Venous Blood Potassium Urine Color Urine Appearance Urine pH Ur Specific [place] Urine Protein Urine Glucose (UA) Urine Ketones Urine Blood Urine Nitrate Urine Bilirubin Urine Urobilinogen Ur Leukocyte Esterase Urine RBC Urine WBC Ur Epithelial Cells Amorphous Sediment Urine Bacteria Hyaline Casts Fine Granular Casts Coarse Granular Casts Urine Other 08/02/17 08/02/17 08/02/17 18:15 18:15 18:15 WBC RBC Hgb Hct MCV MCH MCHC RDW Plt Count MPV Gran % Lymph % (Auto) Woods % (Auto) Eos % (Auto) Baso % (Auto) Gran # Lymph # (Auto) Woods # (Auto) Eos # (Auto) Baso # (Auto) Neutrophils % (Manual) Lymphocytes % (Manual) Monocytes % (Manual) Platelet Evaluation Anisocytosis (manual) PT INR APTT Fibrinogen Fibrin Degrad Products D-Dimer, Quantitative pO2 30 VBG pH 7.34 VBG pCO2 43.0 VBG HCO3 23.2 VBG Total CO2 24.5 VBG O2 Sat (Calc) 60.9 VBG Base Excess -2.6 L VBG Potassium 4.5 Glucose 181 H Lactate 5.2 H* FiO2 21.0 Sodium 134.0 Potassium Chloride 99.0 Carbon Dioxide Anion Gap BUN Creatinine Est GFR ( Amer) Est GFR (Non-Af Amer) POC Glucose (mg/dL) Random Glucose Hemoglobin A1c Fructosamine Lactic Acid Calcium Phosphorus 4.7 H Magnesium 2.6 H Total Bilirubin Direct Bilirubin AST ALT Alkaline Phosphatase Lactate Dehydrogenase 461 Total Creatine Kinase 43 Troponin I 0.08 C-React Prot High Sens NT-Pro-B Natriuret Pep Total Protein Albumin Globulin Albumin/Globulin Ratio Procalcitonin Plasma Cortisol PM 51.2 H Venous Blood Potassium 4.5 Urine Color Urine Appearance Urine pH Ur Specific [place] Urine Protein Urine Glucose (UA) Urine Ketones Urine Blood Urine Nitrate Urine Bilirubin Urine Urobilinogen Ur Leukocyte Esterase Urine RBC Urine WBC Ur Epithelial Cells Amorphous Sediment Urine Bacteria Hyaline Casts Fine Granular Casts Coarse Granular Casts Urine Other 08/02/17 08/02/17 08/02/17 18:44 18:50 21:45 WBC RBC Hgb Hct MCV MCH MCHC RDW Plt Count MPV Gran % Lymph % (Auto) Woods % (Auto) Eos % (Auto) Baso % (Auto) Gran # Lymph # (Auto) Woods # (Auto) Eos # (Auto) Baso # (Auto) Neutrophils % (Manual) Lymphocytes % (Manual) Monocytes % (Manual) Platelet Evaluation Anisocytosis (manual) PT INR APTT Fibrinogen Fibrin Degrad Products D-Dimer, Quantitative pO2 43 VBG pH 7.41 VBG pCO2 36.0 L VBG HCO3 22.8 VBG Total CO2 23.9 VBG O2 Sat (Calc) 82.9 H VBG Base Excess -1.4 L VBG Potassium 4.2 Glucose 165 H Lactate 3.5 H FiO2 21.0 Sodium 133.0 Potassium Chloride 101.0 Carbon Dioxide Anion Gap BUN Creatinine Est GFR ( Amer) Est GFR (Non-Af Amer) POC Glucose (mg/dL) 165 H Random Glucose Hemoglobin A1c Fructosamine Lactic Acid Calcium Phosphorus Magnesium Total Bilirubin Direct Bilirubin AST ALT Alkaline Phosphatase Lactate Dehydrogenase Total Creatine Kinase Troponin I C-React Prot High Sens NT-Pro-B Natriuret Pep Total Protein Albumin Globulin Albumin/Globulin Ratio Procalcitonin Plasma Cortisol PM Venous Blood Potassium 4.2 Urine Color Dark yellow Urine Appearance Sl cloudy Urine pH 5.0 Ur Specific [place] >= 1.030 Urine Protein 100 H Urine Glucose (UA) Negative Urine Ketones Trace H Urine Blood Trace-intact H Urine Nitrate Positive H Urine Bilirubin Moderate H Urine Urobilinogen 1.0 H Ur Leukocyte Esterase Trace H Urine RBC 5 - 10 Urine WBC 2 - 5 Ur Epithelial Cells 4 - 5 Amorphous Sediment Small Urine Bacteria Large Hyaline Casts 0 - 2 Fine Granular Casts 0 - 2 Coarse Granular Casts Small H Urine Other Uyeast 08/03/17 08/03/17 08/03/17 00:30 01:44 05:30 WBC 7.0 RBC 4.45 Hgb 12.2 Hct 37.5 MCV 84.3 MCH 27.4 MCHC 32.5 RDW 14.2 Plt Count 288 MPV 10.0 Gran % 90.3 H Lymph % (Auto) 5.1 L Woods % (Auto) 4.3 Eos % (Auto) 0.0 L Baso % (Auto) 0.3 Gran # 6.33 Lymph # (Auto) 0.4 L Woods # (Auto) 0.3 Eos # (Auto) 0.0 Baso # (Auto) 0.02 Neutrophils % (Manual) 90 H Lymphocytes % (Manual) 6 L Monocytes % (Manual) 4 Platelet Evaluation Normal Anisocytosis (manual) Slight PT INR APTT Fibrinogen Fibrin Degrad Products D-Dimer, Quantitative pO2 VBG pH VBG pCO2 VBG HCO3 VBG Total CO2 VBG O2 Sat (Calc) VBG Base Excess VBG Potassium Glucose Lactate FiO2 Sodium Potassium Chloride Carbon Dioxide Anion Gap BUN Creatinine Est GFR ( Amer) Est GFR (Non-Af Amer) POC Glucose (mg/dL) 153 H Random Glucose Hemoglobin A1c Fructosamine Lactic Acid Calcium Phosphorus Magnesium Total Bilirubin Direct Bilirubin AST ALT Alkaline Phosphatase Lactate Dehydrogenase 421 Total Creatine Kinase 43 Troponin I 0.06 D C-React Prot High Sens NT-Pro-B Natriuret Pep Total Protein Albumin Globulin Albumin/Globulin Ratio Procalcitonin Plasma Cortisol PM Venous Blood Potassium Urine Color Urine Appearance Urine pH Ur Specific [place] Urine Protein Urine Glucose (UA) Urine Ketones Urine Blood Urine Nitrate Urine Bilirubin Urine Urobilinogen Ur Leukocyte Esterase Urine RBC Urine WBC Ur Epithelial Cells Amorphous Sediment Urine Bacteria Hyaline Casts Fine Granular Casts Coarse Granular Casts Urine Other 08/03/17 08/03/17 08/03/17 05:30 05:30 05:30 WBC RBC Hgb Hct MCV MCH MCHC RDW Plt Count MPV Gran % Lymph % (Auto) Woods % (Auto) Eos % (Auto) Baso % (Auto) Gran # Lymph # (Auto) [place] # (Auto) Eos # (Auto) Baso # (Auto) Neutrophils % (Manual) Lymphocytes % (Manual) Monocytes % (Manual) Platelet Evaluation Anisocytosis (manual) PT 21.4 H INR 1.84 H APTT 32.9 Fibrinogen Fibrin Degrad Products D-Dimer, Quantitative pO2 VBG pH VBG pCO2 VBG HCO3 VBG Total CO2 VBG O2 Sat (Calc) VBG Base Excess VBG Potassium Glucose Lactate FiO2 Sodium 136 Potassium 4.0 Chloride 100 Carbon Dioxide 22 Anion Gap 18 BUN 43 H Creatinine 1.9 H Est GFR ( Amer) 32 Est GFR (Non-Af Amer) 26 POC Glucose (mg/dL) Random Glucose 149 H Hemoglobin A1c Fructosamine Lactic Acid 3.2 H Calcium 8.6 Phosphorus 5.2 H Magnesium 2.8 H Total Bilirubin 0.5 Direct Bilirubin 0.5 H AST 24 ALT 34 Alkaline Phosphatase 91 Lactate Dehydrogenase Total Creatine Kinase 43 Troponin I 0.05 C-React Prot High Sens NT-Pro-B Natriuret Pep 9450 H Total Protein 5.5 L Albumin 2.8 L Globulin 2.7 Albumin/Globulin Ratio 1.0 L Procalcitonin Plasma Cortisol PM Venous Blood Potassium Urine Color Urine Appearance Urine pH Ur Specific [place] Urine Protein Urine Glucose (UA) Urine Ketones Urine Blood Urine Nitrate Urine Bilirubin Urine Urobilinogen Ur Leukocyte Esterase Urine RBC Urine WBC Ur Epithelial Cells Amorphous Sediment Urine Bacteria Hyaline Casts Fine Granular Casts Coarse Granular Casts Urine Other 08/03/17 08/03/17 08/03/17 08:10 08:30 08:30 WBC RBC Hgb Hct MCV MCH MCHC RDW Plt Count MPV Gran % Lymph % (Auto) Woods % (Auto) Eos % (Auto) Baso % (Auto) Gran # Lymph # (Auto) [place] # (Auto) Eos # (Auto) Baso # (Auto) Neutrophils % (Manual) Lymphocytes % (Manual) Monocytes % (Manual) Platelet Evaluation Anisocytosis (manual) PT INR APTT Fibrinogen 1128 H Fibrin Degrad Products >10 <40 ug/ml D-Dimer, Quantitative pO2 VBG pH VBG pCO2 VBG HCO3 VBG Total CO2 VBG O2 Sat (Calc) VBG Base Excess VBG Potassium Glucose Lactate FiO2 Sodium Potassium Chloride Carbon Dioxide Anion Gap BUN Creatinine Est GFR ( Amer) Est GFR (Non-Af Amer) POC Glucose (mg/dL) 146 H Random Glucose Hemoglobin A1c Fructosamine Lactic Acid Calcium Phosphorus Magnesium Total Bilirubin Direct Bilirubin AST ALT Alkaline Phosphatase Lactate Dehydrogenase Total Creatine Kinase Troponin I C-React Prot High Sens NT-Pro-B Natriuret Pep Total Protein Albumin Globulin Albumin/Globulin Ratio Procalcitonin Plasma Cortisol PM Venous Blood Potassium Urine Color Urine Appearance Urine pH Ur Specific [place] Urine Protein Urine Glucose (UA) Urine Ketones Urine Blood Urine Nitrate Urine Bilirubin Urine Urobilinogen Ur Leukocyte Esterase Urine RBC Urine WBC Ur Epithelial Cells Amorphous Sediment Urine Bacteria Hyaline Casts Fine Granular Casts Coarse Granular Casts Urine Other 08/03/17 11:32 WBC RBC Hgb Hct MCV MCH MCHC RDW Plt Count MPV Gran % Lymph % (Auto) Woods % (Auto) Eos % (Auto) Baso % (Auto) Gran # Lymph # (Auto) [place] # (Auto) Eos # (Auto) Baso # (Auto) Neutrophils % (Manual) Lymphocytes % (Manual) Monocytes % (Manual) Platelet Evaluation Anisocytosis (manual) PT INR APTT Fibrinogen Fibrin Degrad Products D-Dimer, Quantitative pO2 VBG pH VBG pCO2 VBG HCO3 VBG Total CO2 VBG O2 Sat (Calc) VBG Base Excess VBG Potassium Glucose Lactate FiO2 Sodium Potassium Chloride Carbon Dioxide Anion Gap BUN Creatinine Est GFR ( Amer) Est GFR (Non-Af Amer) POC Glucose (mg/dL) 129 H Random Glucose Hemoglobin A1c Fructosamine Lactic Acid Calcium Phosphorus Magnesium Total Bilirubin Direct Bilirubin AST ALT Alkaline Phosphatase Lactate Dehydrogenase Total Creatine Kinase Troponin I C-React Prot High Sens NT-Pro-B Natriuret Pep Total Protein Albumin Globulin Albumin/Globulin Ratio Procalcitonin Plasma Cortisol PM Venous Blood Potassium Urine Color Urine Appearance Urine pH Ur Specific [place] Urine Protein Urine Glucose (UA) Urine Ketones Urine Blood Urine Nitrate Urine Bilirubin Urine Urobilinogen Ur Leukocyte Esterase Urine RBC Urine WBC Ur Epithelial Cells Amorphous Sediment Urine Bacteria Hyaline Casts Fine Granular Casts Coarse Granular Casts Urine Other Assessment & Plan - Assessment and Plan (Free Text) Plan: keshawn/atn/ventral hernia/htn/obesity keshawn sec to atn from volume depletion/post op normotensive ischemic atn, oliguric monitor I&Os lytes reviewed can decrease fluids as she is >3 L positive fluid balance. recommend renall usg and bladder USG continue bp meds, titrate as needed d/w primary team
--- NOTE | 2017-08-03 12:14 | CP.PCM.CON ---
History of Present Illness - History of Present Illness History of Present Illness: 67 year old with PMH of DM, HTN, dyslipidemia, history of gastric ulcer, obesity with BMI 38 [place] [facility] [place] of pain in the abdomen. Patient is noted to have a ventral hernia which usually reduces easily. However, it was not getting reduced and the abdominal pain continued. She then underwent surgery with mesh repair of the hernia 2 days ago. She continues to have nausea nad abdominal pain and still feels weak. She also developed fever yesterday and Infectious Diseases consult is requested to further evaluate and manage. She does not have vomiting, no chills currently, no headache, no diarrhea, no dysuria, no rhinorrhea, no sore throat. Review of Systems - Review of Systems All systems: reviewed and no additional remarkable complaints except (as per HPI ) Past Patient History - Infectious Disease Hx of Infectious Diseases: None - Tetanus Immunizations Tetanus Immunization: Unknown - Past Social History Smoking Status: Never Smoked - CARDIAC Hx Cardiac Disorders: No - PULMONARY Hx Respiratory Disorders: No - NEUROLOGICAL Hx Neurological Disorder: No - HEENT Hx HEENT Problems: No - RENAL Hx Chronic Kidney Disease: No - ENDOCRINE/METABOLIC Hx Diabetes Mellitus Type 2: Yes Hx Hypothyroidism: Yes - HEMATOLOGICAL/ONCOLOGICAL Hx Blood Transfusions: Yes - INTEGUMENTARY Hx Dermatological Problems: No - MUSCULOSKELETAL/RHEUMATOLOGICAL Hx Falls: No - GASTROINTESTINAL Hx Gastrointestinal Disorders: No - GENITOURINARY/GYNECOLOGICAL Hx Reproductive Disorders: Yes (partial hyst about 20 yrs ago) - PSYCHIATRIC Hx Psychophysiologic Disorder: No - SURGICAL HISTORY Hx Surgeries: No - ANESTHESIA Hx Anesthesia Reactions: No Hx Malignant Hyperthermia: No Meds Allergies/Adverse Reactions: Allergies Allergy/AdvReac Type Severity Reaction Status Date / Time apricot Allergy Severe ANAPHYLAXIS Verified 07/31/17 16:36 Penicillins Allergy Severe RASH Verified 07/31/17 16:36 - Medications Medications: Current Medications Acetylcysteine (Acetylcysteine 20%) 4 ml IH [id number] [facility] Last Admin: 08/03/17 01:30 Dose: 4 ml Albuterol/Ipratropium (Duoneb 3 Mg/0.5 Mg (3 Ml) Ud) 3 ml IH [id number] [facility] Last Admin: 08/03/17 01:30 Dose: 3 ml Heparin Sodium (Porcine) (Heparin) 5,000 units SC Q8 [facility] PRN Reason: Protocol Last Admin: 08/03/17 05:07 Dose: 5,000 units Hydromorphone HCl (Dilaudid) 0.5 mg IVP Q4H PRN PRN Reason: Pain, severe (8-10) Last Admin: 08/03/17 04:46 Dose: 0.5 mg Sodium Chloride (Sodium Chloride 0.9%) 1,000 mls @ 150 mls/hr IV .Q6H40M [facility] Last Admin: 08/03/17 04:49 Dose: 150 mls/hr Aztreonam 500 mg/ Sodium (Chloride) 100 mls @ 100 mls/hr IVPB Q8 [facility] PRN Reason: Protocol Stop: 08/11/17 22:01 Last Admin: 08/02/17 22:36 Dose: Not Given Metronidazole (Flagyl) 500 mg in 100 mls @ 100 mls/hr IVPB Q8 [facility] PRN Reason: Protocol Stop: 08/11/17 22:01 Last Admin: 08/03/17 05:03 Dose: 100 mls/hr Acetaminophen (Ofirmev) 1,000 mg in 100 mls @ 400 mls/hr IVPB Q6H [facility] Stop: 08/04/17 22:16 Last Admin: 08/03/17 04:57 Dose: 400 mls/hr Insulin Human Lispro (Humalog Med) 0 units SC Q6H [facility] PRN Reason: Protocol Last Admin: 08/03/17 01:56 Dose: Not Given Levothyroxine Sodium (Synthroid) 25 mcg IVP DAILY [facility] Naloxone HCl (Narcan) 0.4 mg IVP ONCE PRN PRN Reason: Opiate reversal Ondansetron HCl (Zofran Inj) 4 mg IVP Q4 PRN PRN Reason: Nausea/Vomiting Last Admin: 08/03/17 04:52 Dose: 4 mg Pantoprazole Sodium (Protonix Inj) 40 mg IVP BID [facility] Last Admin: 08/02/17 18:39 Dose: 40 mg Physical Exam - Constitutional Appears: Other (feels weak and some nausea) - Head Exam Head Exam: NORMAL INSPECTION - ENT Exam Additional comments: NGT in place - Neck Exam Neck exam: Negative for: Meningismus - Respiratory Exam Respiratory Exam: Decreased Breath Sounds - Cardiovascular Exam Cardiovascular Exam: +S1, +S2 - GI/Abdominal Exam GI & Abdominal Exam: Soft, Tenderness (diffuse). absent: Distended, Guarding Additional comments: surgical site clean with niyah intact, no discharge, no erythema, no bleeding , surgical site non-tender Results - Vital Signs Recent Vital Signs: Last Vital Signs Temp 99.4 F 08/02/17 20:32 Pulse 123 H 08/03/17 00:20 Resp 24 08/03/17 00:20 BP 137/90 08/03/17 00:00 Pulse Ox 94 L 08/03/17 00:20 - Labs Result Diagrams: 08/03/17 05:30 08/03/17 05:30 Labs: Laboratory Results - last 24 hr 08/02/17 08/02/17 08/02/17 07:00 07:00 07:00 WBC 5.6 D RBC 5.08 Hgb 14.1 Hct 43.5 MCV 85.6 MCH 27.8 MCHC 32.4 RDW 14.2 Plt Count 280 MPV 9.1 Gran % 84.1 H Lymph % (Auto) 11.1 L [place] % (Auto) 4.8 Eos % (Auto) 0.0 L Baso % (Auto) 0.0 Gran # 4.68 Lymph # (Auto) 0.6 L [place] # (Auto) 0.3 Eos # (Auto) 0.0 Baso # (Auto) 0.00 PT INR APTT D-Dimer, Quantitative pO2 VBG pH VBG pCO2 VBG HCO3 VBG Total CO2 VBG O2 Sat (Calc) VBG Base Excess VBG Potassium Glucose Lactate FiO2 Sodium 135 Potassium 4.5 Chloride 101 Carbon Dioxide 22 Anion Gap 18 BUN 32 H Creatinine 1.7 H Est GFR ( Amer) 36 Est GFR (Non-Af Amer) 30 POC Glucose (mg/dL) Random Glucose 148 H Lactic Acid Calcium 8.8 Phosphorus 4.7 H Magnesium 2.5 H Total Bilirubin 0.8 Direct Bilirubin 0.7 H AST 22 ALT 39 Alkaline Phosphatase 75 Lactate Dehydrogenase Total Creatine Kinase Troponin I C-React Prot High Sens NT-Pro-B Natriuret Pep Total Protein 5.5 L Albumin 2.9 L Globulin 2.6 Albumin/Globulin Ratio 1.1 Triglycerides 87 Cholesterol 54 L LDL Cholesterol Direct < 30 HDL Cholesterol 32 Procalcitonin Free T4 2.52 H Thyroxine (T4) 9.1 TSH 3rd Generation 0.74 Plasma Cortisol PM Venous Blood Potassium Urine Color Urine Appearance Urine pH Ur Specific [place] Urine Protein Urine Glucose (UA) Urine Ketones Urine Blood Urine Nitrate Urine Bilirubin Urine Urobilinogen Ur Leukocyte Esterase Urine RBC Urine WBC Ur Epithelial Cells Amorphous Sediment Urine Bacteria Hyaline Casts Fine Granular Casts Coarse Granular Casts Urine Other 08/02/17 08/02/17 08/02/17 08:00 11:32 14:22 WBC RBC Hgb Hct MCV MCH MCHC RDW Plt Count MPV Gran % Lymph % (Auto) [place] % (Auto) Eos % (Auto) Baso % (Auto) Gran # Lymph # (Auto) [place] # (Auto) Eos # (Auto) Baso # (Auto) PT INR APTT D-Dimer, Quantitative pO2 VBG pH VBG pCO2 VBG HCO3 VBG Total CO2 VBG O2 Sat (Calc) VBG Base Excess VBG Potassium Glucose Lactate FiO2 Sodium Potassium Chloride Carbon Dioxide Anion Gap BUN Creatinine Est GFR ( Amer) Est GFR (Non-Af Amer) POC Glucose (mg/dL) 142 H 170 H Random Glucose Lactic Acid Calcium Phosphorus Magnesium Total Bilirubin Direct Bilirubin AST ALT Alkaline Phosphatase Lactate Dehydrogenase Total Creatine Kinase Troponin I C-React Prot High Sens NT-Pro-B Natriuret Pep Total Protein Albumin Globulin Albumin/Globulin Ratio Triglycerides Cholesterol LDL Cholesterol Direct HDL Cholesterol Procalcitonin 100.67 H Free T4 Thyroxine (T4) TSH 3rd Generation Plasma Cortisol PM Venous Blood Potassium Urine Color Urine Appearance Urine pH Ur Specific [place] Urine Protein Urine Glucose (UA) Urine Ketones Urine Blood Urine Nitrate Urine Bilirubin Urine Urobilinogen Ur Leukocyte Esterase Urine RBC Urine WBC Ur Epithelial Cells Amorphous Sediment Urine Bacteria Hyaline Casts Fine Granular Casts Coarse Granular Casts Urine Other 08/02/17 08/02/17 08/02/17 14:22 14:22 14:22 WBC 6.6 RBC 4.93 Hgb 13.6 Hct 42.3 MCV 85.8 MCH 27.6 MCHC 32.2 RDW 14.4 Plt Count 336 MPV 9.4 Gran % 85.2 H Lymph % (Auto) 9.5 L [place] % (Auto) 5.0 Eos % (Auto) 0.0 L Baso % (Auto) 0.3 Gran # 5.63 Lymph # (Auto) 0.6 L [place] # (Auto) 0.3 Eos # (Auto) 0.0 Baso # (Auto) 0.02 PT INR APTT D-Dimer, Quantitative pO2 VBG pH VBG pCO2 VBG HCO3 VBG Total CO2 VBG O2 Sat (Calc) VBG Base Excess VBG Potassium Glucose Lactate FiO2 Sodium 137 Potassium 4.5 Chloride 99 Carbon Dioxide 20 L Anion Gap 22 H BUN 35 H Creatinine 2.2 H Est GFR ( Amer) 27 Est GFR (Non-Af Amer) 22 POC Glucose (mg/dL) Random Glucose 205 H Lactic Acid 5.6 H* Calcium 8.9 Phosphorus Magnesium Total Bilirubin 0.7 Direct Bilirubin AST 31 ALT 31 Alkaline Phosphatase 84 Lactate Dehydrogenase Total Creatine Kinase Troponin I 0.08 D C-React Prot High Sens NT-Pro-B Natriuret Pep 59468 H Total Protein 5.8 Albumin 3.1 Globulin 2.7 Albumin/Globulin Ratio 1.2 Triglycerides Cholesterol LDL Cholesterol Direct HDL Cholesterol Procalcitonin Free T4 Thyroxine (T4) TSH 3rd Generation Plasma Cortisol PM Venous Blood Potassium Urine Color Urine Appearance Urine pH Ur Specific [place] Urine Protein Urine Glucose (UA) Urine Ketones Urine Blood Urine Nitrate Urine Bilirubin Urine Urobilinogen Ur Leukocyte Esterase Urine RBC Urine WBC Ur Epithelial Cells Amorphous Sediment Urine Bacteria Hyaline Casts Fine Granular Casts Coarse Granular Casts Urine Other 08/02/17 08/02/17 08/02/17 14:22 14:30 14:30 WBC RBC Hgb Hct MCV MCH MCHC RDW Plt Count MPV Gran % Lymph % (Auto) [place] % (Auto) Eos % (Auto) Baso % (Auto) Gran # Lymph # (Auto) [place] # (Auto) Eos # (Auto) Baso # (Auto) PT 22.8 H INR 1.97 H APTT 38.2 H D-Dimer, Quantitative 3431 H pO2 VBG pH VBG pCO2 VBG HCO3 VBG Total CO2 VBG O2 Sat (Calc) VBG Base Excess VBG Potassium Glucose Lactate FiO2 Sodium Potassium Chloride Carbon Dioxide Anion Gap BUN Creatinine Est GFR ( Amer) Est GFR (Non-Af Amer) POC Glucose (mg/dL) Random Glucose Lactic Acid Calcium Phosphorus Magnesium Total Bilirubin Direct Bilirubin AST ALT Alkaline Phosphatase Lactate Dehydrogenase Total Creatine Kinase Troponin I C-React Prot High Sens > 15.00 H NT-Pro-B Natriuret Pep Total Protein Albumin Globulin Albumin/Globulin Ratio Triglycerides Cholesterol LDL Cholesterol Direct HDL Cholesterol Procalcitonin Free T4 Thyroxine (T4) TSH 3rd Generation Plasma Cortisol PM Venous Blood Potassium Urine Color Urine Appearance Urine pH Ur Specific [place] Urine Protein Urine Glucose (UA) Urine Ketones Urine Blood Urine Nitrate Urine Bilirubin Urine Urobilinogen Ur Leukocyte Esterase Urine RBC Urine WBC Ur Epithelial Cells Amorphous Sediment Urine Bacteria Hyaline Casts Fine Granular Casts Coarse Granular Casts Urine Other 08/02/17 08/02/17 08/02/17 18:15 18:15 18:15 WBC RBC Hgb Hct MCV MCH MCHC RDW Plt Count MPV Gran % Lymph % (Auto) [place] % (Auto) Eos % (Auto) Baso % (Auto) Gran # Lymph # (Auto) [place] # (Auto) Eos # (Auto) Baso # (Auto) PT INR APTT D-Dimer, Quantitative pO2 30 VBG pH 7.34 VBG pCO2 43.0 VBG HCO3 23.2 VBG Total CO2 24.5 VBG O2 Sat (Calc) 60.9 VBG Base Excess -2.6 L VBG Potassium 4.5 Glucose 181 H Lactate 5.2 H* FiO2 21.0 Sodium 134.0 Potassium Chloride 99.0 Carbon Dioxide Anion Gap BUN Creatinine Est GFR ( Amer) Est GFR (Non-Af Amer) POC Glucose (mg/dL) Random Glucose Lactic Acid Calcium Phosphorus 4.7 H Magnesium 2.6 H Total Bilirubin Direct Bilirubin AST ALT Alkaline Phosphatase Lactate Dehydrogenase 461 Total Creatine Kinase 43 Troponin I 0.08 C-React Prot High Sens NT-Pro-B Natriuret Pep Total Protein Albumin Globulin Albumin/Globulin Ratio Triglycerides Cholesterol LDL Cholesterol Direct HDL Cholesterol Procalcitonin Free T4 Thyroxine (T4) TSH 3rd Generation Plasma Cortisol PM 51.2 H Venous Blood Potassium 4.5 Urine Color Urine Appearance Urine pH Ur Specific [place] Urine Protein Urine Glucose (UA) Urine Ketones Urine Blood Urine Nitrate Urine Bilirubin Urine Urobilinogen Ur Leukocyte Esterase Urine RBC Urine WBC Ur Epithelial Cells Amorphous Sediment Urine Bacteria Hyaline Casts Fine Granular Casts Coarse Granular Casts Urine Other 08/02/17 08/02/17 08/02/17 18:44 18:50 21:45 WBC RBC Hgb Hct MCV MCH MCHC RDW Plt Count MPV Gran % Lymph % (Auto) [place] % (Auto) Eos % (Auto) Baso % (Auto) Gran # Lymph # (Auto) [place] # (Auto) Eos # (Auto) Baso # (Auto) PT INR APTT D-Dimer, Quantitative pO2 43 VBG pH 7.41 VBG pCO2 36.0 L VBG HCO3 22.8 VBG Total CO2 23.9 VBG O2 Sat (Calc) 82.9 H VBG Base Excess -1.4 L VBG Potassium 4.2 Glucose 165 H Lactate 3.5 H FiO2 21.0 Sodium 133.0 Potassium Chloride 101.0 Carbon Dioxide Anion Gap BUN Creatinine Est GFR ( Amer) Est GFR (Non-Af Amer) POC Glucose (mg/dL) 165 H Random Glucose Lactic Acid Calcium Phosphorus Magnesium Total Bilirubin Direct Bilirubin AST ALT Alkaline Phosphatase Lactate Dehydrogenase Total Creatine Kinase Troponin I C-React Prot High Sens NT-Pro-B Natriuret Pep Total Protein Albumin Globulin Albumin/Globulin Ratio Triglycerides Cholesterol LDL Cholesterol Direct HDL Cholesterol Procalcitonin Free T4 Thyroxine (T4) TSH 3rd Generation Plasma Cortisol PM Venous Blood Potassium 4.2 Urine Color Dark yellow Urine Appearance Sl cloudy Urine pH 5.0 Ur Specific [place] >= 1.030 Urine Protein 100 H Urine Glucose (UA) Negative Urine Ketones Trace H Urine Blood Trace-intact H Urine Nitrate Positive H Urine Bilirubin Moderate H Urine Urobilinogen 1.0 H Ur Leukocyte Esterase Trace H Urine RBC 5 - 10 Urine WBC 2 - 5 Ur Epithelial Cells 4 - 5 Amorphous Sediment Small Urine Bacteria Large Hyaline Casts 0 - 2 Fine Granular Casts 0 - 2 Coarse Granular Casts Small H Urine Other Uyeast 08/03/17 08/03/17 08/03/17 00:30 01:44 05:30 WBC 7.0 RBC 4.45 Hgb 12.2 Hct 37.5 MCV 84.3 MCH 27.4 MCHC 32.5 RDW 14.2 Plt Count 288 MPV 10.0 Gran % 90.3 H Lymph % (Auto) 5.1 L [place] % (Auto) 4.3 Eos % (Auto) 0.0 L Baso % (Auto) 0.3 Gran # 6.33 Lymph # (Auto) 0.4 L [place] # (Auto) 0.3 Eos # (Auto) 0.0 Baso # (Auto) 0.02 PT INR APTT D-Dimer, Quantitative pO2 VBG pH VBG pCO2 VBG HCO3 VBG Total CO2 VBG O2 Sat (Calc) VBG Base Excess VBG Potassium Glucose Lactate FiO2 Sodium Potassium Chloride Carbon Dioxide Anion Gap BUN Creatinine Est GFR ( Amer) Est GFR (Non-Af Amer) POC Glucose (mg/dL) 153 H Random Glucose Lactic Acid Calcium Phosphorus Magnesium Total Bilirubin Direct Bilirubin AST ALT Alkaline Phosphatase Lactate Dehydrogenase 421 Total Creatine Kinase 43 Troponin I 0.06 D C-React Prot High Sens NT-Pro-B Natriuret Pep Total Protein Albumin Globulin Albumin/Globulin Ratio Triglycerides Cholesterol LDL Cholesterol Direct HDL Cholesterol Procalcitonin Free T4 Thyroxine (T4) TSH 3rd Generation Plasma Cortisol PM Venous Blood Potassium Urine Color Urine Appearance Urine pH Ur Specific [place] Urine Protein Urine Glucose (UA) Urine Ketones Urine Blood Urine Nitrate Urine Bilirubin Urine Urobilinogen Ur Leukocyte Esterase Urine RBC Urine WBC Ur Epithelial Cells Amorphous Sediment Urine Bacteria Hyaline Casts Fine Granular Casts Coarse Granular Casts Urine Other 08/03/17 05:30 WBC RBC Hgb Hct MCV MCH MCHC RDW Plt Count MPV Gran % Lymph % (Auto) [place] % (Auto) Eos % (Auto) Baso % (Auto) Gran # Lymph # (Auto) [place] # (Auto) Eos # (Auto) Baso # (Auto) PT INR APTT D-Dimer, Quantitative pO2 VBG pH VBG pCO2 VBG HCO3 VBG Total CO2 VBG O2 Sat (Calc) VBG Base Excess VBG Potassium Glucose Lactate FiO2 Sodium Potassium Chloride Carbon Dioxide Anion Gap BUN Creatinine Est GFR ( Amer) Est GFR (Non-Af Amer) POC Glucose (mg/dL) Random Glucose Lactic Acid 3.2 H Calcium Phosphorus Magnesium Total Bilirubin Direct Bilirubin AST ALT Alkaline Phosphatase Lactate Dehydrogenase Total Creatine Kinase Troponin I C-React Prot High Sens NT-Pro-B Natriuret Pep Total Protein Albumin Globulin Albumin/Globulin Ratio Triglycerides Cholesterol LDL Cholesterol Direct HDL Cholesterol Procalcitonin Free T4 Thyroxine (T4) TSH 3rd Generation Plasma Cortisol PM Venous Blood Potassium Urine Color Urine Appearance Urine pH Ur Specific [place] Urine Protein Urine Glucose (UA) Urine Ketones Urine Blood Urine Nitrate Urine Bilirubin Urine Urobilinogen Ur Leukocyte Esterase Urine RBC Urine WBC Ur Epithelial Cells Amorphous Sediment Urine Bacteria Hyaline Casts Fine Granular Casts Coarse Granular Casts Urine Other Assessment & Plan - Assessment and Plan (Free Text) Plan: Assessment systemic inflammatory response syndrome, R/O sepsis from intra-abdominal infection in this patient with ventral hernia S/P repair POD #2 DM HTN dyslipidemia history of gastric ulcer obesity with BMI 38 Plan Patient given a dose of IV Vanco and started on Azactam and Flagyl pending blood cx, urine cx, PCT will monitor clinically
[2017-08-03] MEDS ORDERED: Sodium Chloride 0.9% 1,000 ML IV SCH (13:10)
--- NOTE | 2017-08-03 13:22 | CP.PCM.PCO ---
Physician Communication Note - Physician Communication Note Physician Communication Note: CT No Obstruction/FFP&Fluid rehydration
--- NOTE | 2017-08-03 14:06 | PN ---
DATE: SUBJECTIVE: The patient was transferred to Intensive Care Unit overnight secondary to increasing shortness of breath, decreased urine output, tachycardia, and lactic acidosis. Chest x-ray revealed increasing vascular congestion. The patient was also noted to have an ileus with dilated loops of small bowel on an x-ray. She is postop day #2. The patient continues to complain of some abdominal pain. This has improved from yesterday. She has an NG tube in place, draining bilious fluid. MEDICATIONS: Currently include acetylcysteine 20% inhaled q.6h., aztreonam 500 mg IV q.8h., hydromorphone 0.5 mg IV q.4h., Flagyl 500 mg IV q.8h., metoprolol 5 mg IV q.6h., pantoprazole 40 mg IV q.12h., Levoxyl 25 mcg IV once a day, Xopenex inhaler q.6h., and Zofran 4 mg IV q.4h. as needed. PHYSICAL EXAMINATION: VITAL SIGNS: Reveal temperature of 98, blood pressure 163/95, heart rate of 100. GENERAL: The patient appears comfortable. She has an NG tube in place, draining bilious fluid. HEENT: Reveals sclerae to be white, conjunctivae pink. NECK: Supple. CHEST: Reveals lungs to be clear. HEART: Reveals regular rate. ABDOMEN: Soft. She has a clean fresh surgical incision, midline. There is no drainage. EXTREMITIES: Show no edema. LABORATORY DATA: Reveals white blood cell count of 7, hemoglobin 12.2, platelet count of 288,000. Chemistries reveal BUN 43, creatinine 1.9. Lactic acid is 3.2. AST, ALT, and alk phos were all normal. BNP is elevated at 9450. C-reactive protein is elevated at 15. IMPRESSION: 1. Congestive heart failure. 2. Acute kidney injury. 3. Status post ventral hernia repair with mesh placement, postop day #2. 4. Rule out sepsis with elevated lactic acid level. 6. Postoperative ileus. RECOMMENDATIONS: 1. The patient had a repeat CAT scan. I will review this with Radiology. 2. Continue NG tube to low continuous suction. 3. Continue broad-spectrum IV antibiotics. 4. Follow BUN and creatinine. 5. Continue IV fluid hydration. Markie Munguia MD [facility] # [id number]
--- NOTE | 2017-08-03 14:43 | CARD ---
APPROVED REPORT EKG Measurement Heart [id number] <Conclusion> Sinus tachycardia Otherwise normal ECG
--- NOTE | 2017-08-03 18:22 | NM ---
COMPARISON: 2017. TECHNIQUE: 30.0 mCi technetium 99-m DTPA aerosol. 5.2 mCI technetium 99-m MAA administered intravenously. FINDINGS: VENTILATION COMPONENT: Unremarkable. Retention of radionuclide in the tracheobronchial tree and ingestion of radionuclide in the stomach, incidental findings PERFUSION COMPONENT: Normal. IMPRESSION: Negative ventilation perfusion scan for pulmonary embolism.
--- NOTE | 2017-08-03 18:23 | CP.PCM.PCO ---
Physician Communication Note - Physician Communication Note Physician Communication Note: Clinically improving/Doubt Abd sepsis-await OR c/s :Relaxing more now
--- NOTE | 2017-08-03 19:19 | CON ---
DATE: 08/03/2017 HISTORY OF PRESENT ILLNESS: The patient is a 67-year-old woman, who had a ventral hernia repair 2 days ago. She presents with acute respiratory distress. The patient's past medical history includes hypertension, diabetes mellitus, hypercholesterolemia. There is no previous cardiac history noted. In review of her chart, her creatinine was elevated immediately after surgery and remained at 1.9 today. The patient denies chest pain. SOCIAL HISTORY AND REVIEW OF SYSTEMS: Unavailable. PHYSICAL EXAMINATION: GENERAL: The patient is with an NG tube with mild respiratory distress at rest. VITAL SIGNS: Blood pressure 166/94, the heart rate is in the 90s, normal sinus rhythm. NECK: Negative JVD. LUNGS: No rales noted. HEART: Reveal S1, S2. EXTREMITIES: Without edema. EKG shows sinus tachycardia with no acute changes. LABORATORY DATA: Creatinine is up to 1.9, glucose is 149. Troponin is 0.06 with a ProBNP of 9450. The hemoglobin is 12.2. IMPRESSION: 1. Acute respiratory distress with metabolic acidosis. 2. Need to rule out a pulmonary embolism. 3. Mild congestive heart failure. 4. Renal insufficiency. 5. Diabetes mellitus. 6. Hypertension. 7. Hypercholesterolemia. 8. Status post ventral hernia repair. PLAN: Given these findings, the patient will need stat echocardiogram to evaluate LV function. A V/Q scan is necessary. The patient will likely need to be anticoagulated. A trial of Lasix 40 IV now. Roman Torres MD
[2017-08-03 20:03] LABS: INR 1.44 (0.93-1.08); PROTHROMBIN TIME 16.5 SECONDS (9.4-12.5)
[2017-08-03] MEDS: HYDROmorphone 0.5 mg/0.5 ml ISec IVP PRN (20:21)
[2017-08-03] MEDS: Dextrose 5%/0.9% NS 1,000 ML IV SCH ×2 (20:50→21:58)
[2017-08-04] MEDS: metroNIDAZOLE IV 500 mg/100 ml 500 MG/100 ML BAG IVPB SCH ×4 (00:03→21:15)
[2017-08-04] MEDS: Metoprolol 1 mg/ml Inj IVP SCH ×4 (00:54→20:15)
[2017-08-04] MEDS: Insulin Lispro (humaLOG) MEDIUM Coverage SC SCH ×4 (01:05→19:20)
--- NOTE | 2017-08-04 01:31 | PN ---
DATE: 08/03/2017 SUBJECTIVE: The patient was seen between the hours of 10:00 a.m. and 11:00 a.m. The patient was seen in ICU bed 3. The patient was seen lying in the bed. The patient's overnight nurse's notes were reviewed. PHYSICAL EXAMINATION: VITAL SIGNS: T-max is 98.3. Telemetry shows sinus tachycardia, heart rate in low 100s to 110, 120s. Blood pressure is in the last 24 hours 153/82, 141/81, 166/94, 163/95, 163/104. Respiration 18. O2 sat is 96%, 99%, 97%. Intake/output: Yesterday's intake 3600, output 150 only. HEENT: The patient's head examination normocephalic, atraumatic. HEENT examination shows pink conjunctivae. Anicteric sclerae. Dry oral mucosa. No neck rigidity. No jugular venous tension. CHEST: Kyphosis. LUNGS: Shows no rales, crackles or wheezing. At present, there are no audible rales, crackles or wheezing. Occasional rhonchi noted, upper lung inman. CARDIOVASCULAR: S1, S2. Tachycardic rhythm. ABDOMEN: Slightly protuberant. Positive midline dressing. Positive diffuse tenderness. Positive guarding. Positive rebound tenderness. GENITALIA: Female. Positive Aguayo catheter. EXTREMITY: Shows trace swelling of the lower extremity. VASCULAR: Palpable pulses. MUSCULOSKELETAL: Shows a body mass index of 38. Cranial nerves II through XII limited. Gait examination could not be tested. VASCULAR: Palpable pulses. DIAGNOSTICS: On 08/03/2017, WBC 7.0; hemoglobin and hematocrit 12.2, 37.5; platelet 288. Granulocytes 90% segs. PT/PTT over the last 24 hours has been ranging from 21.4, 22.8, INR between 1.84 and 1.97. The fibrinogen is 1128, which is elevated. Fibrin split degradation product greater than 10, less than 40. The patient's sodium 136, potassium 4.0, chloride 100, CO2 of 22, anion gap 18, BUN 43, creatinine 1.9. Creatinine went up to 2.2 yesterday, now down to 1.9. Glucose 149, hemoglobin A1c 6.9, lactic acid coming down from 5.6 to 3.2 today. Calcium 8.6, phosphorus 5.2, magnesium 2.8. Peak troponin 0.08, down to 0.05. BNP is 9450 from 20,800. Total protein 5.5, albumin 2.8. Procalcitonin level is 54.10, peak procalcitonin 100.67. TSH is 0.74, which is low normal; T4 is 9.1. Blood cultures negative. Anaerobic cultures, urine cultures negative. The patient received 1 unit of FFP. The patient underwent a V/Q scan, chest x-ray, CT abdomen and pelvis was repeated without contrast, which was reviewed. The patient had an echocardiogram done, which shows ejection fraction of 45% and elevated right ventricular systolic pressure. EKG not done today. The patient was seen by Surgery, Infectious Disease, Nephrology, Gastroenterology, Cardiology. IMPRESSION: 1. Systemic inflammatory response syndrome versus questionable sepsis from possible intra-abdominal infection. 2. Status post ventral hernia repair, postoperative day 2. 3. Sinus tachycardia. 4. Hypovolemia with dehydration. 5. Leukopenia, leukocytosis. 6. Granulocytosis. 7. Questionable coagulopathy with elevated PT/INR, etiology undetermined. 8. Elevated fibrinogen and elevated fibrin degradation products. 9. Lactic acidosis. 10. Acute kidney injury (resolving). 11. Hyperglycemia with non-insulin requiring diabetes mellitus and hemoglobin A1c of 6.9. 12. Hyperphosphatemia. 13. Indeterminate troponin. 14. Possible right-sided diastolic congestive heart failure. 15. Pulmonary arterial hypertension. 16. Protein malnutrition. 17. Hypoalbuminemia. 18. Hyperprocalcitoninemia with procalcitonin level greater than 50 and greater than 100. 19. History of hypothyroidism. 20. Elevated plasma cortisol level. 21. Elevated C-reactive protein of greater than 15. 22. Lactic acidosis. 23. Increased anion gap metabolic acidosis. 24. Proteinuria. 25. Ketonuria 26. Hematuria. 27. Pyuria. 28. Funguria. 29. Questionable urinary tract infection. 30. Status post fresh frozen plasma transfusion x1. 31. Questionable intra-abdominal ascites. 32. Right renal cyst. 33. Hiatal hernia. 34. Status post large ventral hernia repair. 35. Status post strangulated, incarcerated ventral hernia, status post ventral herniorrhaphy. 36. Postoperative intraperitoneal bleed and free air. 37. Postoperative pelvic bleeding. 38. Morbid obesity. 39. Deconditioning. 40. Elevated D-dimer, etiology undetermined. 41. Sinus tachycardia. 42. Acute kidney injury from acute tubular necrosis. 43. Status post ventral herniorrhaphy with mesh placement, postoperative day 2. 44. Questionable possible right-sided diastolic congestive heart failure with elevated BNP. 45. Status post hypotension. 46. Right hydronephrosis. 47. History of poor compliance. 48. Incarcerated, strangulated ventral hernia, status post ventral hernia repair with mesh placement. PLAN: At this time, the patient has been ordered serial labs, daily CPK, serial CMP, CPK, lactic acid, LFT, magnesium, phosphorus, troponin. The patient has been ordered HIV. Repeat CBC, PT, PTT ordered. Blood, urine cultures ordered. The patient's current consultations; 1. Surgery. 2. Cardiology. 3. Gastroenterology. 4. Infectious Disease. 5. Nephrology. The patient was given FFP by Dr. Song. The patient has been ordered serial procalcitonin. The patient is on IV acetaminophen. The patient is on Mucomyst nebulizer 20% 4 mL with Xopenex nebulizer every 6 hours. The patient is on hydralazine 10 mg IV q. 6 hours p.r.n., Azactam 500 mg IV q. 8. The patient is on D5 normal saline at 75 mL an hour, Dilaudid 0.5 mg IV q. 4 p.r.n. The patient is on Flagyl 500 IV q. 8, heparin 5000 subcu q. 8, Humalog medium-dose sliding scale coverage q. 6. The patient was given Lasix 40 mg x1 dose by Dr. Roman Torres. The patient is on Lopressor 5 mg IV q. 6, meropenem was given one dose yesterday. The patient is on Protonix 40 mg IV q. 12, Synthroid decreased to 25 mcg IV push daily. The patient was given 1 g x1 dose. The patient is on Zofran 4 mg IV q. 4 p.r.n. Renal/bladder ultrasound ordered by Nephrology. Repeat EKG ordered. The patient is still n.p.o. The patient has been on SCDs, ASHELY stockings. The patient has been ordered a PICC line insertion. I would rather have Interventional Radiology place a PICC line by interventional radiology. At present, the patient's prognosis is guarded. Condition is critical. The patient will be continued in ICU until further stabilization. The patient's case and management discussed extensively with Surgery, Cardiology, Gastroenterology, Infectious Disease and Nephrology. Time spent in the entire management more than 35 minutes. Dictated and electronically signed, not read. Signing off, Adonis Satnos MD
--- NOTE | 2017-08-04 03:34 | US ---
EXAM: US Retroperitoneal Limited, Renal CLINICAL HISTORY: 67 years old, female; Abnormal findings; Abnormal lab test; Abnormal kidney function lab tests; Additional info: Anirudh- renal and bladder u/s TECHNIQUE: Real-time ultrasound of the retroperitoneum (limited) with image documentation. COMPARISON: US - RENAL 2016-04-07 12:38 FINDINGS: Right kidney: Normal echogenicity. No calculi. 1.7 cm cyst. No hydronephrosis. Left kidney: Normal echogenicity. No calculi. No mass. No hydronephrosis. IMPRESSION: 1.No acute findings. 2.Non-acute findings are described above.
--- NOTE | 2017-08-04 03:37 | US ---
EXAM: US Retroperitoneal Limited, bladder CLINICAL HISTORY: 67 years old, female; Abnormal findings; Abnormal lab test; Abnormal kidney function test; Additional info: Anirudh TECHNIQUE: Real-time ultrasound of the bladder (limited) with image documentation. COMPARISON: US - PELVIS ULTRASOUND 2016-04-07 12:36 FINDINGS: Limitations: Body habitus. Bladder: Not visualized due to to suboptimal penetration. Free fluid: Free fluid within lower abdomen and pelvis. IMPRESSION: 1. Nonvisualization of bladder. 2. Ascites.
[2017-08-04] MEDS: Acetylcysteine 20% Inhal Soln (4ml) IH SCH ×4 (04:04→19:53)
[2017-08-04] MEDS: HYDROmorphone 0.5 mg/0.5 ml ISec IVP PRN ×2 (06:27→11:56)
[2017-08-04 06:56] LABS: BASO # 0.01 K/mm3 (0.0-2.0); BASO % 0.1 % (0.0-3.0); EOS % 0.3 % (1.5-5.0); GRAN # 6.91 (1.4-6.5); GRAN % 88.3 % (50.0-68.0); HEMOGLOBIN 11.6 g/dL (12.0-16.0); LYMPH # 0.5 (1.2-3.4); LYMPH % 6.8 % (22.0-35.0); MEAN CELL VOLUME 83.5 fl (80.0-105.0); MEAN CORPUSCULAR HEMOGLOBIN 27.3 pg (25.0-35.0); MEAN CORPUSCULAR HGB CONC 32.7 g/dl (31.0-37.0); MEAN PLATELET VOLUME 9.8 fl (7.0-11.0); MONO # 0.4 (0.1-0.6); MONO % 4.5 % (1.0-6.0); RBC 4.25 10^6/uL (3.5-6.1); RED CELL DISTRIBUTION WIDTH 14.4 % (11.5-14.5); WHITE BLOOD COUNT 7.8 10^3/ul (4.5-11.0)
[2017-08-04 07:29] LABS: TROPONIN I 0.03 ng/mL
[2017-08-04 07:33] LABS: INR 1.4 (0.93-1.08); PARTIAL THROMBOPLASTIN TIME 26.7 Seconds (25.1-36.5); PROTHROMBIN TIME 16.2 SECONDS (9.4-12.5)
[2017-08-04 07:48] LABS: BILIRUBIN,DIRECT 0.4 mg/dL (0.0-0.4); CALCIUM 8.6 mg/dL (8.4-10.5); MAGNESIUM 3.2 mg/dL (1.7-2.2)
--- NOTE | 2017-08-04 07:49 | CP.PCM.PN ---
Subjective - Date & Time of Evaluation Date of Evaluation: 08/04/17 Time of Evaluation: 07:00 - Subjective Subjective: Patient seen and examined in the ICU. Patient states she has abdominal pain but no nausea or vomiting. Patient still has low UOP. Only 10cc's of dark green gastric fluid in the NGT/12 hours. Patient is hypertensive this AM but HR has improved to 80-90's. Objective - Vital Signs/Intake and Output Vital Signs (last 24 hours): Temp Pulse Resp BP Pulse Ox 97.8 F 96 H 22 170/114 H 99 08/04/17 06:50 08/04/17 06:50 08/04/17 06:50 08/04/17 06:50 08/04/17 06:50 Intake and Output: 08/04/17 08/04/17 06:59 18:59 Intake Total 993 Output Total 410 Balance 583 - Medications Medications: Current Medications Acetylcysteine (Acetylcysteine 20%) 4 ml IH [id number] SONNY Last Admin: 08/04/17 04:04 Dose: Not Given Heparin Sodium (Porcine) (Heparin) 5,000 units SC Q8 SONNY PRN Reason: Protocol Last Admin: 08/04/17 06:28 Dose: 5,000 units Hydralazine HCl (Apresoline) 10 mg IVP Q6 PRN PRN Reason: Systolic Blood Pressure Last Admin: 08/04/17 06:43 Dose: 10 mg Hydromorphone HCl (Dilaudid) 0.5 mg IVP Q4H PRN PRN Reason: Pain, severe (8-10) Last Admin: 08/04/17 06:27 Dose: 0.5 mg Aztreonam 500 mg/ Sodium (Chloride) 100 mls @ 100 mls/hr IVPB Q8 SONYN PRN Reason: Protocol Stop: 08/11/17 22:01 Last Admin: 08/04/17 05:18 Dose: 100 mls/hr Metronidazole (Flagyl) 500 mg in 100 mls @ 100 mls/hr IVPB Q8 SONNY PRN Reason: Protocol Stop: 08/11/17 22:01 Last Admin: 08/04/17 06:28 Dose: 100 mls/hr Acetaminophen (Ofirmev) 1,000 mg in 100 mls @ 400 mls/hr IVPB Q6H SONNY Stop: 08/04/17 22:16 Last Admin: 08/04/17 04:16 Dose: 400 mls/hr Dextrose/Sodium Chloride (Dextrose 5%/0.9% Ns 1000 Ml) 1,000 mls @ 75 mls/hr IV .[id number] [facility] Last Admin: 08/03/17 20:50 Dose: 75 mls/hr Insulin Human Lispro (Humalog Med) 0 units SC Q6H [facility] PRN Reason: Protocol Last Admin: 08/04/17 01:05 Dose: Not Given Levalbuterol HCl (Xopenex) 0.63 mg IH [id number] [facility] Last Admin: 08/03/17 20:17 Dose: Not Given Levothyroxine Sodium (Synthroid) 25 mcg IVP DAILY [facility] Last Admin: 08/03/17 10:52 Dose: Not Given Metoprolol Tartrate (Lopressor) 5 mg IVP Q6H [facility] Last Admin: 08/04/17 00:54 Dose: 5 mg Naloxone HCl (Narcan) 0.4 mg IVP ONCE PRN PRN Reason: Opiate reversal Ondansetron HCl (Zofran Inj) 4 mg IVP Q4 PRN PRN Reason: Nausea/Vomiting Last Admin: 08/04/17 04:24 Dose: 4 mg Pantoprazole Sodium (Protonix Inj) 40 mg IVP BID [facility] Last Admin: 08/03/17 18:31 Dose: 40 mg - Labs Labs: 08/04/17 05:30 PT 16.2 SECONDS (9.4-12.5) H 08/04/17 05:30 INR 1.40 (0.93-1.08) H 08/04/17 05:30 APTT 26.7 Seconds (25.1-36.5) 08/04/17 05:30 - Constitutional Appears: Non-toxic, No Acute Distress - Eye Exam Eye Exam: Normal appearance - ENT Exam ENT Exam: Mucous Membranes Dry, Normal Oropharynx - Respiratory Exam Respiratory Exam: NORMAL BREATHING PATTERN. absent: Accessory Muscle Use, Respiratory Distress - Cardiovascular Exam Cardiovascular Exam: Tachycardia, REGULAR RHYTHM - GI/Abdominal Exam GI & Abdominal Exam: Distended, Soft, Tenderness (BL UQ). absent: Rebound Additional comments: surgical incision well approximated with niyah, no erythema or discharge - Extremities Exam Extremities Exam: absent: Calf Tenderness, Pedal Edema, Tenderness - Neurological Exam Neurological Exam: Alert, Awake, Oriented x3 - Psychiatric Exam Psychiatric exam: Normal Affect, Normal Mood - Skin Skin Exam: Dry, Normal Color, Warm Assessment and Plan - Assessment and Plan (Free Text) Assessment: 67F with incarcerated ventral hernia POD#3 s/p ventral hernia repair with mesh Plan: -encourage ambulation -Continue rinaldi for accurate urine monitoring -pain and nausea medication PRN -encourage incentive spirometer use -Strict I/O's--Q4 urine output measurements -BP control -physical therapy -Continue to trend labs--lactic acid wnl today -NPO with ice chips until passing gas -May consider D/C the NGT -continue IVF--Cr improving, BUN still elevated Discussed with Dr. Duncan Craven, PGY2
[2017-08-04] MEDS: Levalbuterol 0.63 MG/3 ML Inhal Soln UD IH SCH ×3 (07:56→19:52)
--- NOTE | 2017-08-04 10:04 | CP.PCM.PN ---
Subjective - Date & Time of Evaluation Date of Evaluation: 08/04/17 Time of Evaluation: 09:20 - Subjective Subjective: Less pain in the abdomen, no fevers overnight, not in distress. Objective - Vital Signs/Intake and Output Vital Signs (last 24 hours): Temp Pulse Resp BP Pulse Ox 97.2 F L 87 18 159/92 H 99 08/03/17 21:03 08/04/17 03:00 08/04/17 03:00 08/04/17 03:00 08/04/17 03:00 Intake and Output: 08/03/17 08/04/17 18:59 06:59 Intake Total 1800 Output Total 300 Balance 1500 - Medications Medications: Current Medications Acetylcysteine (Acetylcysteine 20%) 4 ml IH [id number] [facility] Last Admin: 08/04/17 04:04 Dose: Not Given Heparin Sodium (Porcine) (Heparin) 5,000 units SC Q8 SONNY PRN Reason: Protocol Last Admin: 08/04/17 06:28 Dose: 5,000 units Hydralazine HCl (Apresoline) 10 mg IVP Q6 PRN PRN Reason: Systolic Blood Pressure Hydromorphone HCl (Dilaudid) 0.5 mg IVP Q4H PRN PRN Reason: Pain, severe (8-10) Last Admin: 08/04/17 06:27 Dose: 0.5 mg Aztreonam 500 mg/ Sodium (Chloride) 100 mls @ 100 mls/hr IVPB Q8 SONNY PRN Reason: Protocol Stop: 08/11/17 22:01 Last Admin: 08/04/17 05:18 Dose: 100 mls/hr Metronidazole (Flagyl) 500 mg in 100 mls @ 100 mls/hr IVPB Q8 SONNY PRN Reason: Protocol Stop: 08/11/17 22:01 Last Admin: 08/04/17 06:28 Dose: 100 mls/hr Acetaminophen (Ofirmev) 1,000 mg in 100 mls @ 400 mls/hr IVPB Q6H [facility] Stop: 08/04/17 22:16 Last Admin: 08/04/17 04:16 Dose: 400 mls/hr Dextrose/Sodium Chloride (Dextrose 5%/0.9% Ns 1000 Ml) 1,000 mls @ 75 mls/hr IV .[id number] [facility] Last Admin: 08/03/17 20:50 Dose: 75 mls/hr Insulin Human Lispro (Humalog Med) 0 units SC Q6H SONNY PRN Reason: Protocol Last Admin: 08/04/17 01:05 Dose: Not Given Levalbuterol HCl (Xopenex) 0.63 mg IH [id number] [facility] Last Admin: 08/03/17 20:17 Dose: Not Given Levothyroxine Sodium (Synthroid) 25 mcg IVP DAILY [facility] Last Admin: 08/03/17 10:52 Dose: Not Given Metoprolol Tartrate (Lopressor) 5 mg IVP Q6H [facility] Last Admin: 08/04/17 00:54 Dose: 5 mg Naloxone HCl (Narcan) 0.4 mg IVP ONCE PRN PRN Reason: Opiate reversal Ondansetron HCl (Zofran Inj) 4 mg IVP Q4 PRN PRN Reason: Nausea/Vomiting Last Admin: 08/04/17 04:24 Dose: 4 mg Pantoprazole Sodium (Protonix Inj) 40 mg IVP BID [facility] Last Admin: 08/03/17 18:31 Dose: 40 mg - Labs Labs: 08/03/17 05:30 08/03/17 05:30 PT 16.5 SECONDS (9.4-12.5) H 08/03/17 19:27 INR 1.44 (0.93-1.08) H 08/03/17 19:27 APTT 32.9 Seconds (25.1-36.5) 08/03/17 05:30 - Constitutional Appears: Chronically Ill - Head Exam Head Exam: NORMAL INSPECTION - ENT Exam ENT Exam: Mucous Membranes Moist - Neck Exam Neck Exam: absent: Meningismus - Respiratory Exam Respiratory Exam: Decreased Breath Sounds - Cardiovascular Exam Cardiovascular Exam: +S1, +S2 - GI/Abdominal Exam GI & Abdominal Exam: Soft. absent: Tenderness Additional comments: surgical site clean and intact, niyah in place Assessment and Plan - Assessment and Plan (Free Text) Plan: Assessment systemic inflammatory response syndrome, R/O sepsis from intra-abdominal infection in this patient with ventral hernia S/P repair POD #3 DM HTN dyslipidemia history of gastric ulcer obesity with BMI 38 Plan Patient given a dose of IV Vanco and continue on Azactam and Flagyl day 2; follow up final culture results will continue to monitor clinically
--- NOTE | 2017-08-04 10:44 | RAD ---
HISTORY: CHF/?PNEUMONIA COMPARISON: 08/02/2017 FINDINGS: LUNGS: No active pulmonary disease. PLEURA: No significant pleural effusion identified, no pneumothorax apparent. CARDIOVASCULAR: Moderate retrocardiac hiatal hernia OSSEOUS STRUCTURES: No significant abnormalities. VISUALIZED UPPER ABDOMEN: Normal. OTHER FINDINGS: None. IMPRESSION: Hiatal hernia. No pulmonary infiltrate.
--- NOTE | 2017-08-04 11:04 | CP.PCM.PN ---
Subjective - Date & Time of Evaluation Date of Evaluation: 08/04/17 Time of Evaluation: 07:30 - Subjective Subjective: Pt seen and examined, complaining of nausea, and NBNB vomiting, surgery following. VQ scan done yesterday Neg. Objective - Vital Signs/Intake and Output Vital Signs (last 24 hours): Temp Pulse Resp BP Pulse Ox 97.8 F 94 H 22 170/96 H 99 08/04/17 06:50 08/04/17 08:33 08/04/17 06:50 08/04/17 08:33 08/04/17 06:50 Intake and Output: 08/04/17 08/04/17 06:59 18:59 Intake Total 993 Output Total 410 Balance 583 - Medications Medications: Current Medications Acetylcysteine (Acetylcysteine 20%) 4 ml IH [id number] [facility] Last Admin: 08/04/17 04:04 Dose: Not Given Heparin Sodium (Porcine) (Heparin) 5,000 units SC Q8 SONNY PRN Reason: Protocol Last Admin: 08/04/17 06:28 Dose: 5,000 units Hydralazine HCl (Apresoline) 10 mg IVP Q6 PRN PRN Reason: Systolic Blood Pressure Last Admin: 08/04/17 06:43 Dose: 10 mg Hydromorphone HCl (Dilaudid) 0.5 mg IVP Q4H PRN PRN Reason: Pain, severe (8-10) Last Admin: 08/04/17 06:27 Dose: 0.5 mg Aztreonam 500 mg/ Sodium (Chloride) 100 mls @ 100 mls/hr IVPB Q8 SONNY PRN Reason: Protocol Stop: 08/11/17 22:01 Last Admin: 08/04/17 05:18 Dose: 100 mls/hr Metronidazole (Flagyl) 500 mg in 100 mls @ 100 mls/hr IVPB Q8 SONNY PRN Reason: Protocol Stop: 08/11/17 22:01 Last Admin: 08/04/17 06:28 Dose: 100 mls/hr Dextrose/Sodium Chloride (Dextrose 5%/0.9% Ns 1000 Ml) 1,000 mls @ 75 mls/hr IV .[id number] [facility] Last Admin: 08/03/17 20:50 Dose: 75 mls/hr Insulin Human Lispro (Humalog Med) 0 units SC Q6H SONNY PRN Reason: Protocol Last Admin: 08/04/17 08:07 Dose: Not Given Levalbuterol HCl (Xopenex) 0.63 mg IH [id number] [facility] Last Admin: 08/04/17 07:56 Dose: 0.63 mg Levothyroxine Sodium (Synthroid) 25 mcg IVP DAILY [facility] Last Admin: 08/03/17 10:52 Dose: Not Given Metoprolol Tartrate (Lopressor) 5 mg IVP Q6H [facility] Last Admin: 08/04/17 08:33 Dose: 5 mg Naloxone HCl (Narcan) 0.4 mg IVP ONCE PRN PRN Reason: Opiate reversal Ondansetron HCl (Zofran Inj) 4 mg IVP Q4 PRN PRN Reason: Nausea/Vomiting Last Admin: 08/04/17 08:31 Dose: 4 mg Pantoprazole Sodium (Protonix Inj) 40 mg IVP BID [facility] Last Admin: 08/03/17 18:31 Dose: 40 mg - Labs Labs: 08/04/17 05:30 08/04/17 05:30 PT 16.2 SECONDS (9.4-12.5) H 08/04/17 05:30 INR 1.40 (0.93-1.08) H 08/04/17 05:30 APTT 26.7 Seconds (25.1-36.5) 08/04/17 05:30 - Constitutional Appears: Non-toxic, In Acute Distress - Eye Exam Eye Exam: Normal appearance - ENT Exam ENT Exam: Mucous Membranes Moist - Respiratory Exam Respiratory Exam: Clear to Ausculation Bilateral, NORMAL BREATHING PATTERN - Cardiovascular Exam Cardiovascular Exam: REGULAR RHYTHM, +S1, +S2 - GI/Abdominal Exam GI & Abdominal Exam: Soft, Tenderness, Normal Bowel Sounds - Extremities Exam Extremities Exam: Full ROM, Normal Inspection - Neurological Exam Neurological Exam: Awake, Oriented x3 Assessment and Plan - Assessment and Plan (Free Text) Assessment: 67yo female a/w s/p incarcerated hernia repair, acute renal failure, nausea with vomiting. Currently afebrile, HD stable, repeat CT A/P noted. Given FFP yesterday with adaquate reversal of INR. VQ scan negative for PE, DVT Duplex negative. Complaining of vomiting, NGT removed as per surgery as it was malfunctioning. Renal failure improving. Renal Failure, improving s/p Hernia Repair Sepsis Nausea, Vomiting Recommend: - supp o2 as needed - cont with Antibiotics as per ID - follow up cultures, procal - BP control - IVF hydration - monitor BUN/Cr - Pain control - Anti-emetics - Follow up surgery - Follow up ID - GI ppx - DVT ppx - Stable, transfer to tele
--- NOTE | 2017-08-04 11:09 | CP.PCM.PN ---
Subjective - Date & Time of Evaluation Date of Evaluation: 08/04/17 Time of Evaluation: 11:05 - Subjective Subjective: Medicine Progress Note: Patient seen and assessed at bedside in ICU. No acute events overnight reported by patient or nursing staff. Patient received one unit of FFP overnight with no complications reported. Patient endorses continued abdominal pain without nausea or vomiting but reports moderate relief with PRN medications. Patient denies any fever, chills, headache, chest pain, SOB, diarrhea, or any urinary symptoms. Objective - Vital Signs/Intake and Output Vital Signs (last 24 hours): Temp Pulse Resp BP Pulse Ox 97.8 F 94 H 22 170/96 H 99 08/04/17 06:50 08/04/17 08:33 08/04/17 06:50 08/04/17 08:33 08/04/17 06:50 Intake and Output: 08/04/17 08/04/17 06:59 18:59 Intake Total 993 Output Total 410 Balance 583 - Medications Medications: Current Medications Acetylcysteine (Acetylcysteine 20%) 4 ml IH [id number] SONNY Last Admin: 08/04/17 04:04 Dose: Not Given Heparin Sodium (Porcine) (Heparin) 5,000 units SC Q8 SONNY PRN Reason: Protocol Last Admin: 08/04/17 06:28 Dose: 5,000 units Hydralazine HCl (Apresoline) 10 mg IVP Q6 PRN PRN Reason: Systolic Blood Pressure Last Admin: 08/04/17 06:43 Dose: 10 mg Hydromorphone HCl (Dilaudid) 0.5 mg IVP Q4H PRN PRN Reason: Pain, severe (8-10) Last Admin: 08/04/17 06:27 Dose: 0.5 mg Aztreonam 500 mg/ Sodium (Chloride) 100 mls @ 100 mls/hr IVPB Q8 SONNY PRN Reason: Protocol Stop: 08/11/17 22:01 Last Admin: 08/04/17 05:18 Dose: 100 mls/hr Metronidazole (Flagyl) 500 mg in 100 mls @ 100 mls/hr IVPB Q8 SONNY PRN Reason: Protocol Stop: 08/11/17 22:01 Last Admin: 08/04/17 06:28 Dose: 100 mls/hr Dextrose/Sodium Chloride (Dextrose 5%/0.9% Ns 1000 Ml) 1,000 mls @ 75 mls/hr IV .[id number] [facility] Last Admin: 08/03/17 20:50 Dose: 75 mls/hr Insulin Human Lispro (Humalog Med) 0 units SC Q6H [facility] PRN Reason: Protocol Last Admin: 08/04/17 08:07 Dose: Not Given Levalbuterol HCl (Xopenex) 0.63 mg IH [id number] [facility] Last Admin: 08/04/17 07:56 Dose: 0.63 mg Levothyroxine Sodium (Synthroid) 25 mcg IVP DAILY [facility] Last Admin: 08/03/17 10:52 Dose: Not Given Metoprolol Tartrate (Lopressor) 5 mg IVP Q6H [facility] Last Admin: 08/04/17 08:33 Dose: 5 mg Naloxone HCl (Narcan) 0.4 mg IVP ONCE PRN PRN Reason: Opiate reversal Ondansetron HCl (Zofran Inj) 4 mg IVP Q4 PRN PRN Reason: Nausea/Vomiting Last Admin: 08/04/17 08:31 Dose: 4 mg Pantoprazole Sodium (Protonix Inj) 40 mg IVP BID [facility] Last Admin: 08/03/17 18:31 Dose: 40 mg - Labs Labs: 08/04/17 05:30 08/04/17 05:30 PT 16.2 SECONDS (9.4-12.5) H 08/04/17 05:30 INR 1.40 (0.93-1.08) H 08/04/17 05:30 APTT 26.7 Seconds (25.1-36.5) 08/04/17 05:30 - Constitutional Appears: Non-toxic, No Acute Distress - Head Exam Head Exam: ATRAUMATIC, NORMAL INSPECTION, NORMOCEPHALIC - Eye Exam Eye Exam: Normal appearance - ENT Exam ENT Exam: Mucous Membranes Moist, Normal Oropharynx - Respiratory Exam Respiratory Exam: NORMAL BREATHING PATTERN. absent: Accessory Muscle Use, Respiratory Distress - Cardiovascular Exam Cardiovascular Exam: Tachycardia, REGULAR RHYTHM - GI/Abdominal Exam GI & Abdominal Exam: Distended, Soft, Tenderness (b/l UQ and epigastric) Additional comments: surgical incision well approximated with niyah and no clinical signs of infection - Extremities Exam Extremities Exam: Full ROM, Normal Capillary Refill, Normal Inspection. absent : Calf Tenderness, Pedal Edema, Tenderness - Neurological Exam Neurological Exam: Alert, Awake, Oriented x3 - Psychiatric Exam Psychiatric exam: Normal Affect, Normal Mood - Skin Skin Exam: Dry, Intact, Normal Color, Warm Assessment and Plan - Assessment and Plan (Free Text) Assessment: 67 year old AAF with a past medical history significant for DM2, HTN, HLD, and gastric ulcer who is POD#3 after ventral hernia repair. Patient remains in ICU after experiencing post-operative SIRS and continued abdominal pain.
[2017-08-04] MEDS: Levothyroxine 100 mcg (0.1 mg) Inj IVP SCH (11:56)
--- NOTE | 2017-08-04 12:24 | CARD ---
APPROVED REPORT EKG Measurement Heart [id number] <Conclusion> Sinus rhythm with premature supraventricular complexes Abnormal QRS-T angle, consider primary T wave abnormality Abnormal ECG
[2017-08-04] MEDS ORDERED: HEPARIN SODIUM/NS 1,000 ML IV ONE (12:53)
[2017-08-04] MEDS ORDERED: Lidocaine 2% Inj (20ml) ONE (12:53)
--- NOTE | 2017-08-04 13:51 | PN ---
DATE: 08/04/2017 LOCATION: The patient is seen in room ICU bed 3. SUBJECTIVE: The patient is seen lying in the bed. The patient is still having nausea and vomiting. Overnight nurse's notes were reviewed. The patient have blood pressure, it was variable. The patient's blood pressure and heart rate has been up and down. OBJECTIVE: VITAL SIGNS: T-max 98.1. Telemetry shows sinus rhythm, sinus tachycardia. Heart rate in low 100s, high 90s. Blood pressure 170/96, 170/114, 159/92, 161/104, 167/110, 166/111, 163/104, 166/94. Respirations 18. O2 sat 99%. INTAKE AND OUTPUT: Intake 1800, output 300 yesterday. Today's intake 993, output 410. HEENT: Head examination normocephalic, atraumatic. HEENT examination shows positive NG tube. Positive NG tube drainage of 400. No urine output documented. HEENT examination shows pinkish conjunctiva. Dry oral mucosa. No neck rigidity. No jugular venous distention. CHEST: Kyphosis. LUNGS: Examination shows positive rhonchi bilaterally. CARDIOVASCULAR: S1, S2, regular rhythm. Questionable soft systolic murmur. Positive systolic murmur left sternal border, right second intercostal space. ABDOMEN: Protuberant. Positive dressing. Decreased bowel sounds. Positive voluntary guarding. Positive diffuse tenderness. No rebound tenderness. GENITALIA: Female. Positive Aguayo catheter. EXTREMITIES: Shows positive SCDs. Trace swelling of the lower extremities. NEUROLOGIC: The patient is alert, awake, responsive. MUSCULOSKELETAL: Shows a body mass index of 38. Gait examination is not tested. DIAGNOSTICS: On 08/04/2017; WBC 7.8, hemoglobin/hematocrit 11.6/35.5, platelets 281. Granulocytes 88% segs. PT/PTT 16.2/26.7. Sodium 140, potassium 3.8, chloride 103, CO2 of 25, anion gap 16, BUN 43, creatinine down to 1.4 from 2.2, GFR 46, glucose 89, 97, 80, lactic acid down to 1.1, hemoglobin A1c 6.9, fructosamine 186. Calcium 8.6, phosphorus 4.9, magnesium 3.2. LFTs are normal. Troponin peak is 0.08. HIV negative. HIV fourth generation was negative. The patient received 2 units of FFP. EKG shows sinus rhythm with PACs. Nonspecific ST changes. Echocardiogram results pending. IMPRESSION: 1. Systemic inflammatory response syndrome. 2. Possible sepsis probably from intra-abdominal infection. 3. Tachycardia. 4. Uncontrolled hypertension. 5. Leukocytosis, granulocytosis and leukopenia. 6. Coagulopathy, etiology undetermined. 7. Elevated fibrinogen and fibrin degradation product. 8. Lactic acidosis. 9. Acute kidney injury (resolving). 10. [id number] diabetes mellitus with hemoglobin A1c of 6.9. 11. Lactic acidosis (resolved). 12. Hyperphosphatemia, hypermagnesemia. 13. Indeterminate troponin. 14. Hyperprocalcitoninemia with procalcitonin level greater than 50 and greater than 100. 15. History of hypothyroidism. 16. Proteinuria, hematuria, ketonuria, bilirubinuria, pyuria, bacteriuria, and funguria. 17. Status post FFP transfusion x2. 18. Status post nasogastric tube and Aguayo catheter placement. 19. Deconditioning. 20. Morbid obesity. 21. Gait dysfunction. 22. Incarcerated, strangulated ventral hernia status post ventral herniorrhaphy, postop day #3. 23. Hypertension. 24. Sinus tachycardia. 25. Hypothyroidism. PLAN: At this time, the patient is awaiting surgical evaluation regarding possible transfer the patient out of ICU. Serial labs have been ordered. Repeat daily labs ordered. Blood cultures, MRSA cultures, wound cultures are done. Chest x-ray, EKG was reviewed. CONSULTATION: The patient's current consultation; 1. Surgery. 2. Cardiology. 3. Gastroenterology. 4. Infectious Disease. 5. Nephrology. 6. Dr. Roman Fortune for PICC line placement. CURRENT MEDICATIONS: Mucomyst nebulizer every 6 hours with Xopenex nebulizer every 6 hours, hydralazine 10 mg IV q.6 hours p.r.n., Azactam 500 mg IV q.8 hours, D5 normal saline at 75 mL an hour, Dilaudid 0.5 mg IV q.4 hours p.r.n., Flagyl 500 IV q.8 hours, heparin 5000 subcu q.8 hours, Humalog medium-dose sliding scale coverage q.6 hours, Lopressor 5 mg IV q.6 hours, Protonix 40 IV twice a day, Synthroid 25 mcg IV daily, Zofran 4 mg IV q.4 hours p.r.n. Chest x-ray portable ordered daily, incentive spirometer, repeat EKG ordered. The patient is on n.p.o. diet. At present, the patient has been out of bed, ASHELY umana, SCDs. The patient will be continued in the ICU till the patient cleared by Surgery for transfer out of the ICU. Case discussed with medical residents and Surgery. Dictated and electronically signed, not read. Adonis Santos MD
[2017-08-04] MEDS: oxyCODONE 10 mg Immediate Release Tab PO PRN ×2 (14:46→21:07)
[2017-08-04 16:07] VITALS: O2SAT 97
--- NOTE | 2017-08-04 18:26 | PN ---
DATE: 08/04/2017 SUBJECTIVE: The patient is seen sitting in a chair in ICU. Her abdominal pain is less. She denies any nausea, vomiting. She is making good urine. MEDICATIONS: Currently include; acetylcysteine 20% inhaled q. 6 hours, Apresoline 10 mg IV q. 6 p.r.n. elevated blood pressure, aztreonam 500 mg IV q. 8 hours, Flagyl 500 mg IV q. 8 hours, Lopressor 5 mg IV q. 6 hours p.r.n., oxycodone IR 10 mg p.o. q. 6 hours p.r.n. pain, Protonix 40 mg IV q. 12 hours, Levoxyl 25 mcg IV daily, Xopenex 0.63 mg inhaled q. 6 hours, and Zofran 4 mg IV q. 4 hours p.r.n. nausea. PHYSICAL EXAMINATION: VITAL SIGNS: Reveal temperature of 97.8, blood pressure 160/89, heart rate of 120. HEENT: Reveals sclerae to be white. Conjunctivae pink. NECK: Supple. CHEST: Reveals lungs to be clear. HEART: Reveals regular rate and rhythm. ABDOMEN: Soft, distended. There is a fresh midline incision that is without drainage and appears clean. EXTREMITIES: Show no edema. LABORATORY DATA: Reveals white blood cell count 7.8, hemoglobin 11.6, and platelet count of 281,000. Chemistries reveal BUN down to 43, creatinine 1.4. Magnesium 3.2, phosphorus of 4.9. AST, ALT, and alk phos were all normal. Coags reveal PT 16.2, INR 1.4. CT scan of the abdomen and pelvis from 08/03/2017 reveals improvement in colonic dilatation. There is some blood in the pelvis. There is small residual fluid in the area of surgery measuring 1.2 x 5.1 cm. There is no evidence of abscess, bowel edema, or other findings to suggest bowel ischemia. Pathology of the ventral hernia sac shows mild chronic inflammation and reactive fibrosis. IMPRESSION: 1. Status post colonic obstruction from a large incarcerated ventral hernia. 2. Acute kidney injury. 3. Postoperative abdominal pain. 4. Status post postoperative ileus. RECOMMENDATIONS: 1. Continue postop care. 2. Advance to clear liquid diet as per Surgery. 3. Continue physical therapy for conditioning and ambulation 4. Continue PPI. Markie Munguia MD [facility] # [id number]
--- NOTE | 2017-08-04 18:42 | PN ---
DATE: 08/04/2017 CARDIOLOGY FOLLOWUP SUBJECTIVE: The patient is in bed, resting comfortably. OBJECTIVE: VITAL SIGNS: Blood pressure 160/90, heart rate in the 90s. NECK: Negative JVD. LUNGS: Without rales. HEART: S1, S2. EXTREMITIES: Without edema. LABORATORY DATA: Hemoglobin is 11.6. Chemistries: BUN and creatinine have improved to 43 and 1.4. Troponin is 0.03. V/Q scan is negative for pulmonary embolism. Echocardiogram reveals an ejection fraction of 45%. There is moderate pulmonary hypertension. IMPRESSION: 1. Status post hernia repair. 2. Renal insufficiency. 3. Weakness. 4. No evidence for pulmonary embolism. 5. Mild cardiomyopathy. 6. Moderate pulmonary hypertension. Given these findings, we will continue to monitor electrolytes. The patient is on antibiotics. Roman Torres MD
--- NOTE | 2017-08-04 20:14 | VASCULAR ---
PROCEDURE: Ultrasound and fluoroscopically placed left upper extremity PICC line. HISTORY: Postoperative infection. Long-term IV antibiotics. Needs PICC line. PHYSICIAN(S): Roman Fortune MD. TECHNIQUE: The relative risks and indications of the procedure were explained to the patient and consent obtained. The patient was placed supine on the arteriogram table and the left arm prepped and draped in the usual sterile fashion. A tourniquet was applied to the left axilla. 1% Xylocaine was used to anesthetize the skin and soft tissues at the puncture site above the elbow. The left brachial vein was punctured under direct ultrasound guidance with a micropuncture set. A 0.018 guidewire was advanced centrally and used to measure the length to the SVC/RA junction. A 5 [place] single-lumen PICC line 44 cm long was advanced to the SVC/RA junction. The catheter was flushed and secured. The patient tolerated the procedure well. IMPRESSION: 1. Ultrasound and fluoroscopically placed left upper extremity PICC line. A 5 [place] single-lumen PICC line 44 cm long was advanced to the SVC/RA junction.
[2017-08-04] MEDS: Dextrose 5%/0.9% NS 1,000 ML IV SCH (21:16)
--- NOTE | 2017-08-04 21:30 | RAD ---
HISTORY: Abdominal pain and distention status post ventral hernia repair COMPARISON: No prior. FINDINGS: BOWEL: Multiple dilated loops of large and small bowel are seen with air-fluid levels. Findings most likely represent postoperative ileus BONES: Normal. OTHER FINDINGS: None. IMPRESSION: Multiple dilated loops of large and small bowel are seen with air-fluid levels. Findings most likely represent postoperative ileus
[2017-08-05] MEDS: Acetylcysteine 20% Inhal Soln (4ml) IH SCH ×4 (02:10→20:18)
[2017-08-05] MEDS: Levalbuterol 0.63 MG/3 ML Inhal Soln UD IH SCH ×4 (02:10→20:21)
[2017-08-05] MEDS: Metoprolol 1 mg/ml Inj IVP SCH ×2 (02:15→13:10)
[2017-08-05] MEDS: Insulin Lispro (humaLOG) MEDIUM Coverage SC SCH ×3 (02:15→14:45)
[2017-08-05] MEDS: oxyCODONE 10 mg Immediate Release Tab PO PRN ×3 (04:10→21:05)
[2017-08-05] MEDS: metroNIDAZOLE IV 500 mg/100 ml 500 MG/100 ML BAG IVPB SCH ×3 (05:46→22:30)
[2017-08-05 06:20] LABS: EOS % 0.4 % (1.5-5.0); GRAN # 6.8 (1.4-6.5); GRAN % 83.6 % (50.0-68.0); HEMOGLOBIN 11.1 g/dL (12.0-16.0); LYMPH # 0.7 (1.2-3.4); LYMPH % 8.1 % (22.0-35.0); MEAN CELL VOLUME 85.5 fl (80.0-105.0); MEAN CORPUSCULAR HEMOGLOBIN 26.8 pg (25.0-35.0); MEAN CORPUSCULAR HGB CONC 31.4 g/dl (31.0-37.0); MEAN PLATELET VOLUME 9.5 fl (7.0-11.0); MONO # 0.6 (0.1-0.6); MONO % 7.9 % (1.0-6.0); RBC 4.14 10^6/uL (3.5-6.1); RED CELL DISTRIBUTION WIDTH 14.5 % (11.5-14.5); WHITE BLOOD COUNT 8.1 10^3/ul (4.5-11.0)
[2017-08-05 06:30] LABS: INR 1.24 (0.93-1.08); PARTIAL THROMBOPLASTIN TIME 24.6 Seconds (25.1-36.5); PROTHROMBIN TIME 14.3 SECONDS (9.4-12.5)
[2017-08-05 06:51] LABS: TROPONIN I < 0.01 ng/mL
--- NOTE | 2017-08-05 07:25 | CP.CCUPN ---
<Norma Juan - Last Filed: 08/05/17 11:34> CCU Subjective - Physician Review Subjective (Free Text): 08/05/17 09:16 Patient seen and examined oob to chair. No acute events overnight as per nursing. NGT was removed yesterday. Patient had no acute events overnight. She complained of some nausea and an episode of nonbloody nonbilious emesis this AM. Requesting ice chips and hot tea. Patient reported abdominal pain is controlled but she is complaining of some low back pain. She denied any BM and states she is not passing gas but as per nursing every time she is turned she is belching. [place] output 475cc. On complete ROS denied fever, chills, headache , dizziness, chest pain, palpitations, SOB, cough, bowel/bladder complaints, pain/swelling in legs bilaterally. Critical Care Time Spent (in minutes): 45 CCU Objective - Vital Signs / Intake & Output Vital Signs (Last 4 hours): Vital Signs Pulse Resp BP Pulse Ox 08/05/17 06:30 92 H 17 97 08/05/17 06:29 154/99 H 08/05/17 06:28 95 H 29 H 98 08/05/17 06:00 85 18 168/122 H 96 08/05/17 05:30 102 H 18 166/119 H 95 08/05/17 05:00 100 H 16 183/119 H 96 08/05/17 04:30 101 H 20 189/120 H 95 08/05/17 04:00 110 H 31 H 178/113 H 92 L 08/05/17 03:31 97 H 22 159/93 H 95 08/05/17 03:30 96 H 21 Intake and Output (Last 8hrs): Intake & Output 08/04/17 08/05/17 08/05/17 22:59 06:59 14:59 Intake Total 900 1450 Output Total 575 450 Balance 325 1000 Weight 100.244 kg Intake: IV 800 1300 Left Antecubital 800 1300 Oral 100 150 Output: Urine 575 450 Urethral ([place]) 575 450 Other: # Bowel Movements 0 0 - Physical Exam Head: Positive for: Atraumatic, Normocephalic Pupils: Positive for: PERRL Extroacular Muscles: Positive for: EOMI Conjunctiva: Positive for: Normal Mouth: Positive for: Moist Mucous Membranes Neck: Positive for: Normal Range of Motion Respiratory/Chest: Positive for: Clear to Auscultation, Good Air Exchange. Negative for: Respiratory Distress, Accessory Muscle Use Cardiovascular: Positive for: Regular Rate and Rhythm, Normal S1, S2. Negative for: Murmurs Abdomen: Positive for: Normal Bowel Sounds, Other (niyah c/d/i). Negative for : Tenderness, Distention, Peritoneal Signs Back: Positive for: Normal Inspection Upper Extremity: Positive for: Normal Inspection. Negative for: Cyanosis, Edema Lower Extremity: Positive for: Normal Inspection. Negative for: Edema Neurological: Positive for: GCS=15, CN II-XII Intact Skin: Positive for: Warm, Dry, Normal Color. Negative for: Rashes Psychiatric: Positive for: Alert, Oriented x 3, Normal Insight, Normal Concentration - Medications Active Medications: Active Medications Generic Name Dose Route Start Last Admin Trade Name Freq PRN Reason Stop Dose Admin Acetylcysteine 4 ml 08/03/17 08:00 08/04/17 19:53 Acetylcysteine 20% IH Not Given [id number] SONNY Heparin Sodium (Porcine) 5,000 units 08/01/17 14:00 08/05/17 05:45 Heparin SC 5,000 units Q8 SONNY Administration Protocol Hydralazine HCl 10 mg 08/03/17 19:44 08/04/17 06:43 Apresoline IVP 10 mg Q6 PRN Administration Systolic Blood Pressure Aztreonam 500 mg/ Sodium 100 mls @ 100 mls/hr 08/02/17 22:00 08/05/17 05:46 Chloride IVPB 08/11/17 22:01 100 mls/hr Q8 SONNY Administration Protocol Metronidazole 500 mg in 100 mls @ 100 mls/hr 08/02/17 22:00 08/05/17 05:46 Flagyl IVPB 08/11/17 22:01 100 mls/hr Q8 SONNY Administration Protocol Dextrose/Sodium Chloride 1,000 mls @ 75 mls/hr 08/03/17 20:45 08/04/17 21:16 Dextrose 5%/0.9% Ns 1000 Ml IV 75 mls/hr .[id number] SONNY Administration Insulin Human Lispro 0 units 08/01/17 07:15 08/05/17 02:15 Humalog Med SC Not Given Q6H SONNY Protocol Levalbuterol HCl 0.63 mg 08/03/17 08:00 08/04/17 19:52 Xopenex IH Not Given [id number] SONNY Levothyroxine Sodium 25 mcg 08/03/17 08:00 08/04/17 11:56 Synthroid IVP 25 mcg DAILY SONNY Administration Metoprolol Tartrate 5 mg 08/03/17 07:15 08/05/17 02:15 Lopressor IVP 5 mg Q6H SONNY Administration Naloxone HCl 0.4 mg 08/02/17 22:13 Narcan IVP ONCE PRN Opiate reversal Ondansetron HCl 4 mg 07/31/17 21:56 08/05/17 04:09 Zofran Inj IVP 4 mg Q4 PRN Administration Nausea/Vomiting Oxycodone HCl 5 mg 08/04/17 12:15 Oxycodone Immediate Release Tab PO Q6H PRN Pain, moderate (4-7) Oxycodone HCl 10 mg 08/04/17 12:15 08/05/17 04:10 Oxycodone Immediate Release Tab PO 10 mg Q6H PRN Administration Pain, severe (8-10) Pantoprazole Sodium 40 mg 07/31/17 21:00 08/04/17 19:00 Protonix Inj IVP 40 mg BID SONNY Administration - Patient Studies Lab Studies: Microbiology Studies 08/02/17 18:15 Blood Culture - Preliminary Blood NO GROWTH AFTER 48 HOURS 08/02/17 18:00 Blood Culture - Preliminary Blood NO GROWTH AFTER 48 HOURS 08/01/17 00:15 Gram Stain - Final Other: Please Indicate Wound Culture - Preliminary NO GROWTH AFTER 24 HOURS 08/02/17 18:50 Urine Culture - Final Urine,[place] No Growth (<1,000 CFU/ML) Lab Studies 08/05/17 08/05/17 08/05/17 Range/Units 06:05 06:05 06:05 WBC (4.5-11.0) 10^3/ul RBC (3.5-6.1) 10^6/uL Hgb (12.0-16.0) g/dL Hct (36.0-48.0) % MCV (80.0-105.0) fl MCH (25.0-35.0) pg MCHC (31.0-37.0) g/dl RDW (11.5-14.5) % Plt Count (120.0-450.0) 10^3/uL MPV (7.0-11.0) fl Gran % (50.0-68.0) % Lymph % (Auto) (22.0-35.0) % [place] % (Auto) (1.0-6.0) % Eos % (Auto) (1.5-5.0) % Baso % (Auto) (0.0-3.0) % Gran # (1.4-6.5) Lymph # (Auto) (1.2-3.4) [place] # (Auto) (0.1-0.6) Eos # (Auto) (0.0-0.7) Baso # (Auto) (0.0-2.0) K/mm3 PT 14.3 H (9.4-12.5) SECONDS INR 1.24 H (0.93-1.08) APTT 24.6 L (25.1-36.5) Seconds Sodium (132-148) mmol/L Potassium (3.6-5.0) mmol/L Chloride (98-107) mmol/L Carbon Dioxide (21-33) mmol/L Anion Gap (10-20) BUN (7-21) mg/dL Creatinine (0.7-1.2) mg/dl Est GFR ( Amer) Est GFR (Non-Af Amer) POC Glucose (mg/dL) (65-110) mg/dL Random Glucose (70-110) mg/dL Lactic Acid 0.9 (0.7-2.1) mmol/L Calcium (8.4-10.5) mg/dL Phosphorus (2.5-4.5) mg/dL Magnesium (1.7-2.2) mg/dL Total Bilirubin (0.2-1.3) mg/dL Direct Bilirubin (0.0-0.4) mg/dL AST (14-36) U/L ALT (7-56) U/L Alkaline Phosphatase (38-126) U/L Total Creatine Kinase (35-230) U/L Troponin I < 0.01 D ng/mL Total Protein (5.8-8.3) g/dL Albumin (3.0-4.8) g/dL Globulin gm/dL Albumin/Globulin Ratio (1.1-1.8) Procalcitonin (0.19-0.49) NG/ML 08/05/17 08/05/17 08/05/17 Range/Units 06:05 05:56 00:02 WBC 8.1 (4.5-11.0) 10^3/ul RBC 4.14 (3.5-6.1) 10^6/uL Hgb 11.1 L (12.0-16.0) g/dL Hct 35.4 L (36.0-48.0) % MCV 85.5 (80.0-105.0) fl MCH 26.8 (25.0-35.0) pg MCHC 31.4 (31.0-37.0) g/dl RDW 14.5 (11.5-14.5) % Plt Count 265 (120.0-450.0) 10^3/uL MPV 9.5 (7.0-11.0) fl Gran % 83.6 H (50.0-68.0) % Lymph % (Auto) 8.1 L (22.0-35.0) % [place] % (Auto) 7.9 H (1.0-6.0) % Eos % (Auto) 0.4 L (1.5-5.0) % Baso % (Auto) 0.0 (0.0-3.0) % Gran # 6.80 H (1.4-6.5) Lymph # (Auto) 0.7 L (1.2-3.4) [place] # (Auto) 0.6 (0.1-0.6) Eos # (Auto) 0.0 (0.0-0.7) Baso # (Auto) 0.00 (0.0-2.0) K/mm3 PT (9.4-12.5) SECONDS INR (0.93-1.08) APTT (25.1-36.5) Seconds Sodium (132-148) mmol/L Potassium (3.6-5.0) mmol/L Chloride (98-107) mmol/L Carbon Dioxide (21-33) mmol/L Anion Gap (10-20) BUN (7-21) mg/dL Creatinine (0.7-1.2) mg/dl Est GFR ( Amer) Est GFR (Non-Af Amer) POC Glucose (mg/dL) 142 H 113 H (65-110) mg/dL Random Glucose (70-110) mg/dL Lactic Acid (0.7-2.1) mmol/L Calcium (8.4-10.5) mg/dL Phosphorus (2.5-4.5) mg/dL Magnesium (1.7-2.2) mg/dL Total Bilirubin (0.2-1.3) mg/dL Direct Bilirubin (0.0-0.4) mg/dL AST (14-36) U/L ALT (7-56) U/L Alkaline Phosphatase (38-126) U/L Total Creatine Kinase (35-230) U/L Troponin I ng/mL Total Protein (5.8-8.3) g/dL Albumin (3.0-4.8) g/dL Globulin gm/dL Albumin/Globulin Ratio (1.1-1.8) Procalcitonin (0.19-0.49) NG/ML 08/04/17 08/04/17 08/04/17 Range/Units 18:13 11:15 05:30 WBC (4.5-11.0) 10^3/ul RBC (3.5-6.1) 10^6/uL Hgb (12.0-16.0) g/dL Hct (36.0-48.0) % MCV (80.0-105.0) fl MCH (25.0-35.0) pg MCHC (31.0-37.0) g/dl RDW (11.5-14.5) % Plt Count (120.0-450.0) 10^3/uL MPV (7.0-11.0) fl Gran % (50.0-68.0) % Lymph % (Auto) (22.0-35.0) % [place] % (Auto) (1.0-6.0) % Eos % (Auto) (1.5-5.0) % Baso % (Auto) (0.0-3.0) % Gran # (1.4-6.5) Lymph # (Auto) (1.2-3.4) [place] # (Auto) (0.1-0.6) Eos # (Auto) (0.0-0.7) Baso # (Auto) (0.0-2.0) K/mm3 PT 16.2 H (9.4-12.5) SECONDS INR 1.40 H (0.93-1.08) APTT 26.7 (25.1-36.5) Seconds Sodium (132-148) mmol/L Potassium (3.6-5.0) mmol/L Chloride (98-107) mmol/L Carbon Dioxide (21-33) mmol/L Anion Gap (10-20) BUN (7-21) mg/dL Creatinine (0.7-1.2) mg/dl Est GFR ( Amer) Est GFR (Non-Af Amer) POC Glucose (mg/dL) 107 100 (65-110) mg/dL Random Glucose (70-110) mg/dL Lactic Acid (0.7-2.1) mmol/L Calcium (8.4-10.5) mg/dL Phosphorus (2.5-4.5) mg/dL Magnesium (1.7-2.2) mg/dL Total Bilirubin (0.2-1.3) mg/dL Direct Bilirubin (0.0-0.4) mg/dL AST (14-36) U/L ALT (7-56) U/L Alkaline Phosphatase (38-126) U/L Total Creatine Kinase (35-230) U/L Troponin I ng/mL Total Protein (5.8-8.3) g/dL Albumin (3.0-4.8) g/dL Globulin gm/dL Albumin/Globulin Ratio (1.1-1.8) Procalcitonin (0.19-0.49) NG/ML 08/04/17 08/04/17 08/04/17 Range/Units 05:30 05:30 05:30 WBC 7.8 (4.5-11.0) 10^3/ul RBC 4.25 (3.5-6.1) 10^6/uL Hgb 11.6 L (12.0-16.0) g/dL Hct 35.5 L (36.0-48.0) % MCV 83.5 (80.0-105.0) fl MCH 27.3 (25.0-35.0) pg MCHC 32.7 (31.0-37.0) g/dl RDW 14.4 (11.5-14.5) % Plt Count 281 (120.0-450.0) 10^3/uL MPV 9.8 (7.0-11.0) fl Gran % 88.3 H (50.0-68.0) % Lymph % (Auto) 6.8 L (22.0-35.0) % [place] % (Auto) 4.5 (1.0-6.0) % Eos % (Auto) 0.3 L (1.5-5.0) % Baso % (Auto) 0.1 (0.0-3.0) % Gran # 6.91 H (1.4-6.5) Lymph # (Auto) 0.5 L (1.2-3.4) [place] # (Auto) 0.4 (0.1-0.6) Eos # (Auto) 0.0 (0.0-0.7) Baso # (Auto) 0.01 (0.0-2.0) K/mm3 PT (9.4-12.5) SECONDS INR (0.93-1.08) APTT (25.1-36.5) Seconds Sodium 140 (132-148) mmol/L Potassium 3.8 (3.6-5.0) mmol/L Chloride 103 (98-107) mmol/L Carbon Dioxide 25 (21-33) mmol/L Anion Gap 16 (10-20) BUN 43 H (7-21) mg/dL Creatinine 1.4 H (0.7-1.2) mg/dl Est GFR ( Amer) 46 Est GFR (Non-Af Amer) 38 POC Glucose (mg/dL) (65-110) mg/dL Random Glucose 97 (70-110) mg/dL Lactic Acid (0.7-2.1) mmol/L Calcium 8.6 (8.4-10.5) mg/dL Phosphorus 4.9 H (2.5-4.5) mg/dL Magnesium 3.2 H (1.7-2.2) mg/dL Total Bilirubin 0.4 (0.2-1.3) mg/dL Direct Bilirubin 0.4 (0.0-0.4) mg/dL AST 28 (14-36) U/L ALT 24 (7-56) U/L Alkaline Phosphatase 101 (38-126) U/L Total Creatine Kinase 56 (35-230) U/L Troponin I 0.03 D ng/mL Total Protein 6.1 (5.8-8.3) g/dL Albumin 3.0 (3.0-4.8) g/dL Globulin 3.1 gm/dL Albumin/Globulin Ratio 1.0 L (1.1-1.8) Procalcitonin 33.36 H (0.19-0.49) NG/ML Laboratory Results - last 24 hr 08/04/17 08/04/17 08/04/17 05:30 05:30 05:30 WBC 7.8 RBC 4.25 Hgb 11.6 L Hct 35.5 L MCV 83.5 MCH 27.3 MCHC 32.7 RDW 14.4 Plt Count 281 MPV 9.8 Gran % 88.3 H Lymph % (Auto) 6.8 L [place] % (Auto) 4.5 Eos % (Auto) 0.3 L Baso % (Auto) 0.1 Gran # 6.91 H Lymph # (Auto) 0.5 L [place] # (Auto) 0.4 Eos # (Auto) 0.0 Baso # (Auto) 0.01 PT INR APTT Sodium 140 Potassium 3.8 Chloride 103 Carbon Dioxide 25 Anion Gap 16 BUN 43 H Creatinine 1.4 H Est GFR ( Amer) 46 Est GFR (Non-Af Amer) 38 POC Glucose (mg/dL) Random Glucose 97 Lactic Acid Calcium 8.6 Phosphorus 4.9 H Magnesium 3.2 H Total Bilirubin 0.4 Direct Bilirubin 0.4 AST 28 ALT 24 Alkaline Phosphatase 101 Total Creatine Kinase 56 Troponin I 0.03 D Total Protein 6.1 Albumin 3.0 Globulin 3.1 Albumin/Globulin Ratio 1.0 L Procalcitonin 33.36 H 08/04/17 08/04/17 08/04/17 05:30 11:15 18:13 WBC RBC Hgb Hct MCV MCH MCHC RDW Plt Count MPV Gran % Lymph % (Auto) [place] % (Auto) Eos % (Auto) Baso % (Auto) Gran # Lymph # (Auto) [place] # (Auto) Eos # (Auto) Baso # (Auto) PT 16.2 H INR 1.40 H APTT 26.7 Sodium Potassium Chloride Carbon Dioxide Anion Gap BUN Creatinine Est GFR ( Amer) Est GFR (Non-Af Amer) POC Glucose (mg/dL) 100 107 Random Glucose Lactic Acid Calcium Phosphorus Magnesium Total Bilirubin Direct Bilirubin AST ALT Alkaline Phosphatase Total Creatine Kinase Troponin I Total Protein Albumin Globulin Albumin/Globulin Ratio Procalcitonin 08/05/17 08/05/17 08/05/17 00:02 05:56 06:05 WBC 8.1 RBC 4.14 Hgb 11.1 L Hct 35.4 L MCV 85.5 MCH 26.8 MCHC 31.4 RDW 14.5 Plt Count 265 MPV 9.5 Gran % 83.6 H Lymph % (Auto) 8.1 L [place] % (Auto) 7.9 H Eos % (Auto) 0.4 L Baso % (Auto) 0.0 Gran # 6.80 H Lymph # (Auto) 0.7 L [place] # (Auto) 0.6 Eos # (Auto) 0.0 Baso # (Auto) 0.00 PT INR APTT Sodium Potassium Chloride Carbon Dioxide Anion Gap BUN Creatinine Est GFR ( Amer) Est GFR (Non-Af Amer) POC Glucose (mg/dL) 113 H 142 H Random Glucose Lactic Acid Calcium Phosphorus Magnesium Total Bilirubin Direct Bilirubin AST ALT Alkaline Phosphatase Total Creatine Kinase Troponin I Total Protein Albumin Globulin Albumin/Globulin Ratio Procalcitonin 08/05/17 08/05/17 08/05/17 06:05 06:05 06:05 WBC RBC Hgb Hct MCV MCH MCHC RDW Plt Count MPV Gran % Lymph % (Auto) [place] % (Auto) Eos % (Auto) Baso % (Auto) Gran # Lymph # (Auto) [place] # (Auto) Eos # (Auto) Baso # (Auto) PT 14.3 H INR 1.24 H APTT 24.6 L Sodium Potassium Chloride Carbon Dioxide Anion Gap BUN Creatinine Est GFR ( Amer) Est GFR (Non-Af Amer) POC Glucose (mg/dL) Random Glucose Lactic Acid 0.9 Calcium Phosphorus Magnesium Total Bilirubin Direct Bilirubin AST ALT Alkaline Phosphatase Total Creatine Kinase Troponin I < 0.01 D Total Protein Albumin Globulin Albumin/Globulin Ratio Procalcitonin EKG/Cardiology Studies: Cardiology / EKG Studies 08/05/17 06:00 EKG [ELECTROCARDIOGRAM] DAILY Comment: Reason For Exam: TACHYCARDI 08/06/17 06:00 EKG [ELECTROCARDIOGRAM] DAILY Comment: Reason For Exam: TACHYCARDI Fingerstick Blood Sugar Results: 100 Review of Systems - Constitutional Constitutional: absent: Fever, Chills - EENT Eyes: As Per HPI. absent: Blurred Vision Ears: As Per HPI. absent: Dizziness Nose/Mouth/Throat: As Per HPI. absent: Sore Throat - Cardiovascular Cardiovascular: As Per HPI. absent: Chest Pain, Dyspnea, Edema - Respiratory Respiratory: As Per HPI. absent: Cough, Dyspnea, Chest Congestion - Gastrointestinal Gastrointestinal: As Per HPI, Belching, Nausea, Vomiting. absent: Abdominal Pain, Constipation, Diarrhea - Genitourinary Genitourinary: As Per HPI. absent: Dysuria, Hematuria - Musculoskeletal Musculoskeletal: As Par HPI. absent: Numbness, Tingling - Integumentary Integumentary: As Per HPI. absent: Dry Skin, Rash - Neurological Neurological: As Per HPI. absent: Dizziness, Headaches - Hematologic/Lymphatic Hematologic: As Per HPI. absent: Easy Bleeding, Easy Bruising Critical Care Progress Note - Nutrition Nutrition: Nutrition Category Date Time Status NPO Diet [DIET] Diets 18 Dinner Ordered Assessment/Plan - Assessment and Plan (Free Text) Assessment: 67yo female PMHx with incarcerated ventral hernia POD#4 s/p ventral hernia repair with mesh with KESHAWN and lactic acidosis and tachycardia Plan: Neuro - no acute issues - AO x 3 - maintain normothermia Cardio - no acute issues - tachycardia likely secondary to pain - Lopressor - Clonidine 0.1mg po q8. Hydralazine 10mg ivp q6 prn, Norvasc 2.5mg po qd - keep MAP > 65 - hx of HTN and HLD Pulm - NC at 2L and comfortable on room air - Acetylcysteine and Xopenex GI - POD#4 ventral hernia repair with mesh - NPO except ice and meds - Protonix 40mg ivp bid - Zofran for nausea - Narcan for opiate reversal - Flagyl and Aztreonam - repeat CT abd/pelvis: no obstruction or bowel ischemia - pain control - Surgery on board Nephro - KESHAWN likely secondary to dehydration vs third spacing - D51/2NS @ 75cc/hr - Strict Is and Os Endo - maintain euglycemia - RISS - Accucheck - home Synthroid Heme/Onc - 2U FFP to be transfused - DVT ppx - H&H stable - elevated D-dimer - LE dopplers negative for DVT - VQ scan pending ID - Afebrile overnight and no leukocytosis - Urine cx negative x 2 - Blood cx prelim neg x 2 - wound cx prelim neg x 1 - Ofirmev ivpb q6 - Aztreonam and Flagyl - lactic acid down 0.9 this AM Diet: NPO except ice&meds as per surgery GI ppx: Protonix 40mg ivp qd DVT ppx: Heparin 5000u sc q8, SCDs Fluids: D5NS @ 75cc/hr Dispo: Transfer to med/surg Discussed with Dr. Bill Juan PGY2 <Cesar Khan - Last Filed: 08/05/17 17:09> CCU Objective - Vital Signs / Intake & Output Vital Signs (Last 4 hours): Vital Signs Pulse BP 08/05/17 16:51 106 H 178/98 H 08/05/17 13:10 98 H 164/98 H Intake and Output (Last 8hrs): Intake & Output 08/05/17 08/05/17 08/05/17 06:59 14:59 22:59 Intake Total 1450 Output Total 450 Balance 1000 Weight 221 lb Intake: IV 1300 Left Antecubital 1300 Oral 150 Output: Urine 450 Urethral ([place]) 450 Other: # Bowel Movements 0 - Medications Active Medications: Active Medications Generic Name Dose Route Start Last Admin Trade Name Freq PRN Reason Stop Dose Admin Acetylcysteine 4 ml 08/03/17 08:00 08/05/17 14:04 Acetylcysteine 20% IH 4 ml [id number] SONNY Administration Clonidine HCl 0.1 mg 08/05/17 08:15 08/05/17 16:51 Catapres PO 0.1 mg Q8H SONNY Administration Heparin Sodium (Porcine) 5,000 units 08/01/17 14:00 08/05/17 14:16 Heparin SC 5,000 units Q8 SONNY Administration Protocol Hydralazine HCl 10 mg 08/03/17 19:44 08/05/17 07:37 Apresoline IVP 10 mg Q6 PRN Administration Systolic Blood Pressure Aztreonam 500 mg/ Sodium 100 mls @ 100 mls/hr 08/02/17 22:00 08/05/17 14:17 Chloride IVPB 08/11/17 22:01 100 mls/hr Q8 SONNY Administration Protocol Metronidazole 500 mg in 100 mls @ 100 mls/hr 08/02/17 22:00 08/05/17 14:16 Flagyl IVPB 08/11/17 22:01 100 mls/hr Q8 SONNY Administration Protocol Dextrose/Sodium Chloride 1,000 mls @ 75 mls/hr 08/03/17 20:45 08/05/17 14:27 Dextrose 5%/0.9% Ns 1000 Ml IV 75 mls/hr .[id number] SONNY Administration Insulin Human Lispro 0 units 08/01/17 07:15 08/05/17 14:45 Humalog Med SC 1 units Q6H SONNY Administration Protocol Levalbuterol HCl 0.63 mg 08/03/17 08:00 08/05/17 14:04 Xopenex IH 0.63 mg [id number] SONNY Administration Levothyroxine Sodium 25 mcg 08/03/17 08:00 08/05/17 11:48 Synthroid IVP 25 mcg DAILY SONNY Administration Methylnaltrexone [place] 12 mg 08/05/17 10:45 08/05/17 12:00 Relistor SC 12 mg DAILY SONNY Administration Metoclopramide HCl 10 mg 08/05/17 11:15 08/05/17 12:08 Reglan IVP 10 mg Q6H SONNY Administration Metoprolol Tartrate 5 mg 08/03/17 07:15 08/05/17 13:10 Lopressor IVP 5 mg Q6H SONNY Administration Ondansetron HCl 4 mg 07/31/17 21:56 08/05/17 04:09 Zofran Inj IVP 4 mg Q4 PRN Administration Nausea/Vomiting Oxycodone HCl 5 mg 08/04/17 12:15 08/05/17 17:02 Oxycodone Immediate Release Tab PO 5 mg Q6H PRN Administration Pain, moderate (4-7) Oxycodone HCl 10 mg 08/04/17 12:15 08/05/17 14:42 Oxycodone Immediate Release Tab PO 10 mg Q6H PRN Administration Pain, severe (8-10) Pantoprazole Sodium 40 mg 07/31/17 21:00 08/05/17 10:40 Protonix Inj IVP 40 mg BID SONNY Administration - Patient Studies Lab Studies: Microbiology Studies 08/02/17 21:00 MRSA Culture (Admit) - Final Nose MRSA NOT DETECTED 08/01/17 00:15 Gram Stain - Final Other: Please Indicate Anaerobic Culture - Final NO ANAEROBES ISOLATED. Wound Culture - Preliminary No growth. 08/02/17 18:15 Blood Culture - Preliminary Blood NO GROWTH AFTER 48 HOURS 08/02/17 18:00 Blood Culture - Preliminary Blood NO GROWTH AFTER 48 HOURS Lab Studies 08/05/17 08/05/17 08/05/17 Range/Units 12:50 07:37 06:05 WBC (4.5-11.0) 10^3/ul RBC (3.5-6.1) 10^6/uL Hgb (12.0-16.0) g/dL Hct (36.0-48.0) % MCV (80.0-105.0) fl MCH (25.0-35.0) pg MCHC (31.0-37.0) g/dl RDW (11.5-14.5) % Plt Count (120.0-450.0) 10^3/uL MPV (7.0-11.0) fl Gran % (50.0-68.0) % Lymph % (Auto) (22.0-35.0) % [place] % (Auto) (1.0-6.0) % Eos % (Auto) (1.5-5.0) % Baso % (Auto) (0.0-3.0) % Gran # (1.4-6.5) Lymph # (Auto) (1.2-3.4) [place] # (Auto) (0.1-0.6) Eos # (Auto) (0.0-0.7) Baso # (Auto) (0.0-2.0) K/mm3 PT 14.3 H (9.4-12.5) SECONDS INR 1.24 H (0.93-1.08) APTT 24.6 L (25.1-36.5) Seconds Sodium (132-148) mmol/L Potassium (3.6-5.0) mmol/L Chloride (98-107) mmol/L Carbon Dioxide (21-33) mmol/L Anion Gap (10-20) BUN (7-21) mg/dL Creatinine (0.7-1.2) mg/dl Est GFR ( Amer) Est GFR (Non-Af Amer) POC Glucose (mg/dL) 162 H 128 H (65-110) mg/dL Random Glucose (70-110) mg/dL Lactic Acid (0.7-2.1) mmol/L Calcium (8.4-10.5) mg/dL Phosphorus (2.5-4.5) mg/dL Magnesium (1.7-2.2) mg/dL Total Bilirubin (0.2-1.3) mg/dL Direct Bilirubin (0.0-0.4) mg/dL AST (14-36) U/L ALT (7-56) U/L Alkaline Phosphatase (38-126) U/L Total Creatine Kinase (35-230) U/L Troponin I ng/mL Total Protein (5.8-8.3) g/dL Albumin (3.0-4.8) g/dL Globulin gm/dL Albumin/Globulin Ratio (1.1-1.8) Procalcitonin (0.19-0.49) NG/ML 08/05/17 08/05/17 08/05/17 Range/Units 06:05 06:05 06:05 WBC (4.5-11.0) 10^3/ul RBC (3.5-6.1) 10^6/uL Hgb (12.0-16.0) g/dL Hct (36.0-48.0) % MCV (80.0-105.0) fl MCH (25.0-35.0) pg MCHC (31.0-37.0) g/dl RDW (11.5-14.5) % Plt Count (120.0-450.0) 10^3/uL MPV (7.0-11.0) fl Gran % (50.0-68.0) % Lymph % (Auto) (22.0-35.0) % [place] % (Auto) (1.0-6.0) % Eos % (Auto) (1.5-5.0) % Baso % (Auto) (0.0-3.0) % Gran # (1.4-6.5) Lymph # (Auto) (1.2-3.4) [place]on # (Auto) (0.1-0.6) Eos # (Auto) (0.0-0.7) Baso # (Auto) (0.0-2.0) K/mm3 PT (9.4-12.5) SECONDS INR (0.93-1.08) APTT (25.1-36.5) Seconds Sodium 143 (132-148) mmol/L Potassium 3.9 (3.6-5.0) mmol/L Chloride 105 (98-107) mmol/L Carbon Dioxide 26 (21-33) mmol/L Anion Gap 16 (10-20) BUN 35 H (7-21) mg/dL Creatinine 0.9 (0.7-1.2) mg/dl Est GFR ( Amer) > 60 Est GFR (Non-Af Amer) > 60 POC Glucose (mg/dL) (65-110) mg/dL Random Glucose 165 H (70-110) mg/dL Lactic Acid 0.9 (0.7-2.1) mmol/L Calcium 8.4 (8.4-10.5) mg/dL Phosphorus 3.7 (2.5-4.5) mg/dL Magnesium 3.1 H (1.7-2.2) mg/dL Total Bilirubin 0.4 (0.2-1.3) mg/dL Direct Bilirubin 0.4 (0.0-0.4) mg/dL AST 30 (14-36) U/L ALT 25 (7-56) U/L Alkaline Phosphatase 104 (38-126) U/L Total Creatine Kinase 36 (35-230) U/L Troponin I < 0.01 D ng/mL Total Protein 6.1 (5.8-8.3) g/dL Albumin 3.0 (3.0-4.8) g/dL Globulin 3.0 gm/dL Albumin/Globulin Ratio 1.0 L (1.1-1.8) Procalcitonin 14.62 H (0.19-0.49) NG/ML 08/05/17 08/05/17 08/05/17 Range/Units 06:05 05:56 00:02 WBC 8.1 (4.5-11.0) 10^3/ul RBC 4.14 (3.5-6.1) 10^6/uL Hgb 11.1 L (12.0-16.0) g/dL Hct 35.4 L (36.0-48.0) % MCV 85.5 (80.0-105.0) fl MCH 26.8 (25.0-35.0) pg MCHC 31.4 (31.0-37.0) g/dl RDW 14.5 (11.5-14.5) % Plt Count 265 (120.0-450.0) 10^3/uL MPV 9.5 (7.0-11.0) fl Gran % 83.6 H (50.0-68.0) % Lymph % (Auto) 8.1 L (22.0-35.0) % [place] % (Auto) 7.9 H (1.0-6.0) % Eos % (Auto) 0.4 L (1.5-5.0) % Baso % (Auto) 0.0 (0.0-3.0) % Gran # 6.80 H (1.4-6.5) Lymph # (Auto) 0.7 L (1.2-3.4) [place] # (Auto) 0.6 (0.1-0.6) Eos # (Auto) 0.0 (0.0-0.7) Baso # (Auto) 0.00 (0.0-2.0) K/mm3 PT (9.4-12.5) SECONDS INR (0.93-1.08) APTT (25.1-36.5) Seconds Sodium (132-148) mmol/L Potassium (3.6-5.0) mmol/L Chloride (98-107) mmol/L Carbon Dioxide (21-33) mmol/L Anion Gap (10-20) BUN (7-21) mg/dL Creatinine (0.7-1.2) mg/dl Est GFR ( Amer) Est GFR (Non-Af Amer) POC Glucose (mg/dL) 142 H 113 H (65-110) mg/dL Random Glucose (70-110) mg/dL Lactic Acid (0.7-2.1) mmol/L Calcium (8.4-10.5) mg/dL Phosphorus (2.5-4.5) mg/dL Magnesium (1.7-2.2) mg/dL Total Bilirubin (0.2-1.3) mg/dL Direct Bilirubin (0.0-0.4) mg/dL AST (14-36) U/L ALT (7-56) U/L Alkaline Phosphatase (38-126) U/L Total Creatine Kinase (35-230) U/L Troponin I ng/mL Total Protein (5.8-8.3) g/dL Albumin (3.0-4.8) g/dL Globulin gm/dL Albumin/Globulin Ratio (1.1-1.8) Procalcitonin (0.19-0.49) NG/ML 08/04/17 Range/Units 18:13 WBC (4.5-11.0) 10^3/ul RBC (3.5-6.1) 10^6/uL Hgb (12.0-16.0) g/dL Hct (36.0-48.0) % MCV (80.0-105.0) fl MCH (25.0-35.0) pg MCHC (31.0-37.0) g/dl RDW (11.5-14.5) % Plt Count (120.0-450.0) 10^3/uL MPV (7.0-11.0) fl Gran % (50.0-68.0) % Lymph % (Auto) (22.0-35.0) % [place] % (Auto) (1.0-6.0) % Eos % (Auto) (1.5-5.0) % Baso % (Auto) (0.0-3.0) % Gran # (1.4-6.5) Lymph # (Auto) (1.2-3.4) [place] # (Auto) (0.1-0.6) Eos # (Auto) (0.0-0.7) Baso # (Auto) (0.0-2.0) K/mm3 PT (9.4-12.5) SECONDS INR (0.93-1.08) APTT (25.1-36.5) Seconds Sodium (132-148) mmol/L Potassium (3.6-5.0) mmol/L Chloride (98-107) mmol/L Carbon Dioxide (21-33) mmol/L Anion Gap (10-20) BUN (7-21) mg/dL Creatinine (0.7-1.2) mg/dl Est GFR ( Amer) Est GFR (Non-Af Amer) POC Glucose (mg/dL) 107 (65-110) mg/dL Random Glucose (70-110) mg/dL Lactic Acid (0.7-2.1) mmol/L Calcium (8.4-10.5) mg/dL Phosphorus (2.5-4.5) mg/dL Magnesium (1.7-2.2) mg/dL Total Bilirubin (0.2-1.3) mg/dL Direct Bilirubin (0.0-0.4) mg/dL AST (14-36) U/L ALT (7-56) U/L Alkaline Phosphatase (38-126) U/L Total Creatine Kinase (35-230) U/L Troponin I ng/mL Total Protein (5.8-8.3) g/dL Albumin (3.0-4.8) g/dL Globulin gm/dL Albumin/Globulin Ratio (1.1-1.8) Procalcitonin (0.19-0.49) NG/ML Laboratory Results - last 24 hr 08/04/17 08/05/17 08/05/17 18:13 00:02 05:56 WBC RBC Hgb Hct MCV MCH MCHC RDW Plt Count MPV Gran % Lymph % (Auto) [place] % (Auto) Eos % (Auto) Baso % (Auto) Gran # Lymph # (Auto) [place] # (Auto) Eos # (Auto) Baso # (Auto) PT INR APTT Sodium Potassium Chloride Carbon Dioxide Anion Gap BUN Creatinine Est GFR ( Amer) Est GFR (Non-Af Amer) POC Glucose (mg/dL) 107 113 H 142 H Random Glucose Lactic Acid Calcium Phosphorus Magnesium Total Bilirubin Direct Bilirubin AST ALT Alkaline Phosphatase Total Creatine Kinase Troponin I Total Protein Albumin Globulin Albumin/Globulin Ratio Procalcitonin 08/05/17 08/05/17 08/05/17 06:05 06:05 06:05 WBC 8.1 RBC 4.14 Hgb 11.1 L Hct 35.4 L MCV 85.5 MCH 26.8 MCHC 31.4 RDW 14.5 Plt Count 265 MPV 9.5 Gran % 83.6 H Lymph % (Auto) 8.1 L [place] % (Auto) 7.9 H Eos % (Auto) 0.4 L Baso % (Auto) 0.0 Gran # 6.80 H Lymph # (Auto) 0.7 L [place] # (Auto) 0.6 Eos # (Auto) 0.0 Baso # (Auto) 0.00 PT INR APTT Sodium 143 Potassium 3.9 Chloride 105 Carbon Dioxide 26 Anion Gap 16 BUN 35 H Creatinine 0.9 Est GFR ( Amer) > 60 Est GFR (Non-Af Amer) > 60 POC Glucose (mg/dL) Random Glucose 165 H Lactic Acid Calcium 8.4 Phosphorus 3.7 Magnesium 3.1 H Total Bilirubin 0.4 Direct Bilirubin 0.4 AST 30 ALT 25 Alkaline Phosphatase 104 Total Creatine Kinase 36 Troponin I < 0.01 D Total Protein 6.1 Albumin 3.0 Globulin 3.0 Albumin/Globulin Ratio 1.0 L Procalcitonin 14.62 H 08/05/17 08/05/17 08/05/17 06:05 06:05 07:37 WBC RBC Hgb Hct MCV MCH MCHC RDW Plt Count MPV Gran % Lymph % (Auto) [place] % (Auto) Eos % (Auto) Baso % (Auto) Gran # Lymph # (Auto) [place] # (Auto) Eos # (Auto) Baso # (Auto) PT 14.3 H INR 1.24 H APTT 24.6 L Sodium Potassium Chloride Carbon Dioxide Anion Gap BUN Creatinine Est GFR ( Amer) Est GFR (Non-Af Amer) POC Glucose (mg/dL) 128 H Random Glucose Lactic Acid 0.9 Calcium Phosphorus Magnesium Total Bilirubin Direct Bilirubin AST ALT Alkaline Phosphatase Total Creatine Kinase Troponin I Total Protein Albumin Globulin Albumin/Globulin Ratio Procalcitonin 08/05/17 12:50 WBC RBC Hgb Hct MCV MCH MCHC RDW Plt Count MPV Gran % Lymph % (Auto) [place] % (Auto) Eos % (Auto) Baso % (Auto) Gran # Lymph # (Auto) [place] # (Auto) Eos # (Auto) Baso # (Auto) PT INR APTT Sodium Potassium Chloride Carbon Dioxide Anion Gap BUN Creatinine Est GFR ( Amer) Est GFR (Non-Af Amer) POC Glucose (mg/dL) 162 H Random Glucose Lactic Acid Calcium Phosphorus Magnesium Total Bilirubin Direct Bilirubin AST ALT Alkaline Phosphatase Total Creatine Kinase Troponin I Total Protein Albumin Globulin Albumin/Globulin Ratio Procalcitonin EKG/Cardiology Studies: Cardiology / EKG Studies 08/05/17 06:00 EKG [ELECTROCARDIOGRAM] DAILY Comment: Reason For Exam: TACHYCARDI 08/06/17 06:00 EKG [ELECTROCARDIOGRAM] DAILY Comment: Reason For Exam: TACHYCARDI Critical Care Progress Note - Nutrition Nutrition: Nutrition Category Date Time Status NPO Diet [DIET] Diets 07/31/17 Dinner Ordered Attending/Attestation - Attestation I have personally seen and examined this patient.: Yes I have fully participated in the care of the patient.: Yes I have reviewed all pertinent clinical information: Yes Notes (Text): 08/05/17 17:07 67 yo female recovering from hernia repair, complicated by possible sepsis. OOB to chair, IS, pulm toilet, chest PT, PT, DVT/GI prophylaxis, advance diet, pain is well controlled but BP is elevated-->will proceed with anti-hypertensive ccm time 40 min
[2017-08-05] MEDS: oxyCODONE 5 mg Immediate Release Tab PO PRN ×3 (07:48→23:17)
[2017-08-05 07:56] LABS: ALT/SGPT 25 U/L (7-56); AST/SGOT 30 U/L (14-36); BILIRUBIN,DIRECT 0.4 mg/dL (0.0-0.4); BLOOD UREA NITROGEN 35 mg/dL (7-21); CALCIUM 8.4 mg/dL (8.4-10.5); GFR AFRICAN-AMERICAN > 60; GFR NON-AFRICAN AMERICAN > 60; MAGNESIUM 3.1 mg/dL (1.7-2.2)
--- NOTE | 2017-08-05 09:24 | CP.PCM.PN ---
Subjective - Date & Time of Evaluation Date of Evaluation: 08/05/17 Time of Evaluation: 07:20 - Subjective Subjective: Patient seen and examined in the ICU this AM. Patient had an episode of nausea and vomiting non-bilious emesis which has since resolved. Patient denies any fevers, chills, chest pain, or SOB. Abdominal pain is persistent but improved, currently controlled by PO pain medication. Objective - Vital Signs/Intake and Output Vital Signs (last 24 hours): Temp Pulse Resp BP Pulse Ox 97.8 F 99 H 17 170/112 H 97 08/04/17 06:50 08/05/17 07:37 08/05/17 06:30 08/05/17 07:37 08/05/17 06:30 Intake and Output: 08/05/17 08/05/17 06:59 18:59 Intake Total 1450 Output Total 450 Balance 1000 - Medications Medications: Current Medications Acetylcysteine (Acetylcysteine 20%) 4 ml IH [id number] SONNY Last Admin: 08/05/17 07:37 Dose: 4 ml Clonidine HCl (Catapres) 0.1 mg PO Q8H SONNY Heparin Sodium (Porcine) (Heparin) 5,000 units SC Q8 SONNY PRN Reason: Protocol Last Admin: 08/05/17 05:45 Dose: 5,000 units Hydralazine HCl (Apresoline) 10 mg IVP Q6 PRN PRN Reason: Systolic Blood Pressure Last Admin: 08/05/17 07:37 Dose: 10 mg Aztreonam 500 mg/ Sodium (Chloride) 100 mls @ 100 mls/hr IVPB Q8 SONNY PRN Reason: Protocol Stop: 08/11/17 22:01 Last Admin: 08/05/17 05:46 Dose: 100 mls/hr Metronidazole (Flagyl) 500 mg in 100 mls @ 100 mls/hr IVPB Q8 SONNY PRN Reason: Protocol Stop: 08/11/17 22:01 Last Admin: 08/05/17 05:46 Dose: 100 mls/hr Dextrose/Sodium Chloride (Dextrose 5%/0.9% Ns 1000 Ml) 1,000 mls @ 75 mls/hr IV .[id number] SONNY Last Admin: 08/04/17 21:16 Dose: 75 mls/hr Insulin Human Lispro (Humalog Med) 0 units SC Q6H SONNY PRN Reason: Protocol Last Admin: 08/05/17 07:52 Dose: Not Given Levalbuterol HCl (Xopenex) 0.63 mg IH [id number] [facility] Last Admin: 08/05/17 07:37 Dose: 0.63 mg Levothyroxine Sodium (Synthroid) 25 mcg IVP DAILY [facility] Last Admin: 08/04/17 11:56 Dose: 25 mcg Metoprolol Tartrate (Lopressor) 5 mg IVP Q6H [facility] Last Admin: 08/05/17 02:15 Dose: 5 mg Naloxone HCl (Narcan) 0.4 mg IVP ONCE PRN PRN Reason: Opiate reversal Ondansetron HCl (Zofran Inj) 4 mg IVP Q4 PRN PRN Reason: Nausea/Vomiting Last Admin: 08/05/17 04:09 Dose: 4 mg Oxycodone HCl (Oxycodone Immediate Release Tab) 5 mg PO Q6H PRN PRN Reason: Pain, moderate (4-7) Last Admin: 08/05/17 07:48 Dose: 5 mg Oxycodone HCl (Oxycodone Immediate Release Tab) 10 mg PO Q6H PRN PRN Reason: Pain, severe (8-10) Last Admin: 08/05/17 04:10 Dose: 10 mg Pantoprazole Sodium (Protonix Inj) 40 mg IVP BID [facility] Last Admin: 08/04/17 19:00 Dose: 40 mg - Labs Labs: 08/05/17 06:05 08/05/17 06:05 PT 14.3 SECONDS (9.4-12.5) H 08/05/17 06:05 INR 1.24 (0.93-1.08) H 08/05/17 06:05 APTT 24.6 Seconds (25.1-36.5) L 08/05/17 06:05 - Constitutional Appears: Non-toxic, No Acute Distress - Head Exam Head Exam: ATRAUMATIC, NORMOCEPHALIC - Eye Exam Eye Exam: Conjunctival injection, Normal appearance. absent: Scleral icterus - ENT Exam ENT Exam: Mucous Membranes Moist, Normal Oropharynx - Respiratory Exam Respiratory Exam: NORMAL BREATHING PATTERN. absent: Accessory Muscle Use, Respiratory Distress - Cardiovascular Exam Cardiovascular Exam: RRR - GI/Abdominal Exam GI & Abdominal Exam: Distended, Soft, Tenderness (domonique-incisional worse in the upper quadrants) Additional comments: midline incision well approximated with niyah, no bleed, no drainage - Extremities Exam Extremities Exam: absent: Calf Tenderness, Pedal Edema, Tenderness - Neurological Exam Neurological Exam: Alert, Awake, Oriented x3 - Psychiatric Exam Psychiatric exam: Normal Affect, Normal Mood - Skin Skin Exam: Dry, Normal Color, Warm Assessment and Plan - Assessment and Plan (Free Text) Assessment: 67F with incarcerated ventral hernia POD#4 s/p ventral hernia repair with mesh Plan: -encourage ambulation -D/C rinaldi -pain and nausea medication PRN -encourage incentive spirometer use -Strict I/O's--Q4 urine output measurements -BP control--Patient remains very hypertensive -physical therapy -Continue to trend labs -NPO with ice chips until passing gas -continue IVF -Add relistor for opioid use with ileus Discussed with Dr. Duncan Craven, PGY2
--- NOTE | 2017-08-05 10:04 | RAD ---
HISTORY: CHF/??PNEUMONIA COMPARISON: 08/04/2017 FINDINGS: LUNGS: No active pulmonary disease. PLEURA: No significant pleural effusion identified, no pneumothorax apparent. CARDIOVASCULAR: Normal. OSSEOUS STRUCTURES: No significant abnormalities. VISUALIZED UPPER ABDOMEN: Moderate size hiatal hernia OTHER FINDINGS: There is a left-sided PICC line terminating near the caval atrial junction IMPRESSION: No active disease.
--- NOTE | 2017-08-05 10:09 | CP.PCM.PN ---
Subjective - Date & Time of Evaluation Date of Evaluation: 08/05/17 Time of Evaluation: 09:30 - Subjective Subjective: Comfortable on a chair, not in distress, afebrile. Still with high BP. Abdominal pain is better. Objective - Vital Signs/Intake and Output Vital Signs (last 24 hours): Temp Pulse Resp BP Pulse Ox 97.8 F 99 H 17 170/112 H 97 08/04/17 06:50 08/05/17 07:37 08/05/17 06:30 08/05/17 07:37 08/05/17 06:30 Intake and Output: 08/05/17 08/05/17 06:59 18:59 Intake Total 1450 Output Total 450 Balance 1000 - Medications Medications: Current Medications Acetylcysteine (Acetylcysteine 20%) 4 ml IH [id number] SONNY Last Admin: 08/05/17 07:37 Dose: 4 ml Clonidine HCl (Catapres) 0.1 mg PO Q8H SONNY Heparin Sodium (Porcine) (Heparin) 5,000 units SC Q8 SONNY PRN Reason: Protocol Last Admin: 08/05/17 05:45 Dose: 5,000 units Hydralazine HCl (Apresoline) 10 mg IVP Q6 PRN PRN Reason: Systolic Blood Pressure Last Admin: 08/05/17 07:37 Dose: 10 mg Aztreonam 500 mg/ Sodium (Chloride) 100 mls @ 100 mls/hr IVPB Q8 SONNY PRN Reason: Protocol Stop: 08/11/17 22:01 Last Admin: 08/05/17 05:46 Dose: 100 mls/hr Metronidazole (Flagyl) 500 mg in 100 mls @ 100 mls/hr IVPB Q8 SONNY PRN Reason: Protocol Stop: 08/11/17 22:01 Last Admin: 08/05/17 05:46 Dose: 100 mls/hr Dextrose/Sodium Chloride (Dextrose 5%/0.9% Ns 1000 Ml) 1,000 mls @ 75 mls/hr IV .[id number] [facility] Last Admin: 08/04/17 21:16 Dose: 75 mls/hr Insulin Human Lispro (Humalog Med) 0 units SC Q6H SONNY PRN Reason: Protocol Last Admin: 08/05/17 07:52 Dose: Not Given Levalbuterol HCl (Xopenex) 0.63 mg IH [id number] [facility] Last Admin: 08/05/17 07:37 Dose: 0.63 mg Levothyroxine Sodium (Synthroid) 25 mcg IVP DAILY [facility] Last Admin: 08/04/17 11:56 Dose: 25 mcg Metoprolol Tartrate (Lopressor) 5 mg IVP Q6H [facility] Last Admin: 08/05/17 02:15 Dose: 5 mg Naloxone HCl (Narcan) 0.4 mg IVP ONCE PRN PRN Reason: Opiate reversal Ondansetron HCl (Zofran Inj) 4 mg IVP Q4 PRN PRN Reason: Nausea/Vomiting Last Admin: 08/05/17 04:09 Dose: 4 mg Oxycodone HCl (Oxycodone Immediate Release Tab) 5 mg PO Q6H PRN PRN Reason: Pain, moderate (4-7) Last Admin: 08/05/17 07:48 Dose: 5 mg Oxycodone HCl (Oxycodone Immediate Release Tab) 10 mg PO Q6H PRN PRN Reason: Pain, severe (8-10) Last Admin: 08/05/17 04:10 Dose: 10 mg Pantoprazole Sodium (Protonix Inj) 40 mg IVP BID [facility] Last Admin: 08/04/17 19:00 Dose: 40 mg - Labs Labs: 08/05/17 06:05 08/05/17 06:05 PT 14.3 SECONDS (9.4-12.5) H 08/05/17 06:05 INR 1.24 (0.93-1.08) H 08/05/17 06:05 APTT 24.6 Seconds (25.1-36.5) L 08/05/17 06:05 - Constitutional Appears: Chronically Ill - Head Exam Head Exam: NORMAL INSPECTION - Neck Exam Neck Exam: absent: Meningismus - Respiratory Exam Respiratory Exam: Decreased Breath Sounds - Cardiovascular Exam Cardiovascular Exam: +S1, +S2 - GI/Abdominal Exam GI & Abdominal Exam: Soft. absent: Tenderness Assessment and Plan - Assessment and Plan (Free Text) Plan: Assessment systemic inflammatory response syndrome probably acute stress reaction from strangulated ventral hernia and colon, less likely sepsis from intra-abdominal infection in this patient with ventral hernia S/P repair POD #4 DM HTN dyslipidemia history of gastric ulcer obesity with BMI 38 Plan on Azactam and Flagyl day 3; cultures have been negative - may d/c antibiotics and observe will continue to monitor clinically
--- NOTE | 2017-08-05 10:24 | CP.PCM.PN ---
Subjective - Date & Time of Evaluation Date of Evaluation: 08/05/17 Time of Evaluation: 10:22 - Subjective Subjective: Renal Follow up note S: seen and examined, requesting hot tea, she is not sure if passing any gas O: vs reviewed gen: nad sclera: anicteric op: clear neck: supple cv: +S1+s2 lungs cta abd: distended, reduced bs ext: trace edema neuro: a +Ox3 psych: nml affect skin: No rash IMP: keshawn/atn/ventral hernia/hypertension/obesity Plan: KESHAWN is resolving bp is elevated can start 2.5 mg of norvasc lytes otherwise stable Objective - Vital Signs/Intake and Output Vital Signs (last 24 hours): Temp Pulse Resp BP Pulse Ox 97.8 F 104 H 17 163/99 H 97 08/04/17 06:50 08/05/17 09:50 08/05/17 06:30 08/05/17 10:10 08/05/17 06:30 Intake and Output: 08/05/17 08/05/17 06:59 18:59 Intake Total 1450 Output Total 450 Balance 1000 - Medications Medications: Current Medications Acetylcysteine (Acetylcysteine 20%) 4 ml IH [id number] SONNY Last Admin: 08/05/17 07:37 Dose: 4 ml Amlodipine Besylate (Norvasc) 2.5 mg PO DAILY [facility]ONNY Last Admin: 08/05/17 10:10 Dose: 2.5 mg Clonidine HCl (Catapres) 0.1 mg PO Q8H SONNY Last Admin: 08/05/17 09:50 Dose: 0.1 mg Heparin Sodium (Porcine) (Heparin) 5,000 units SC Q8 SONNY PRN Reason: Protocol Last Admin: 08/05/17 05:45 Dose: 5,000 units Hydralazine HCl (Apresoline) 10 mg IVP Q6 PRN PRN Reason: Systolic Blood Pressure Last Admin: 08/05/17 07:37 Dose: 10 mg Aztreonam 500 mg/ Sodium (Chloride) 100 mls @ 100 mls/hr IVPB Q8 SONNY PRN Reason: Protocol Stop: 08/11/17 22:01 Last Admin: 08/05/17 05:46 Dose: 100 mls/hr Metronidazole (Flagyl) 500 mg in 100 mls @ 100 mls/hr IVPB Q8 SONNY PRN Reason: Protocol Stop: 08/11/17 22:01 Last Admin: 08/05/17 05:46 Dose: 100 mls/hr Dextrose/Sodium Chloride (Dextrose 5%/0.9% Ns 1000 Ml) 1,000 mls @ 75 mls/hr IV .[id number] REPLACED BY [facility] Last Admin: 08/04/17 21:16 Dose: 75 mls/hr Insulin Human Lispro (Humalog Med) 0 units SC Q6H [facility]PLAC[facility] PRN Reason: Protocol Last Admin: 08/05/17 07:52 Dose: Not Given Levalbuterol HCl (Xopenex) 0.63 mg IH [id number] REPLACED BY [facility] Last Admin: 08/05/17 07:37 Dose: 0.63 mg Levothyroxine Sodium (Synthroid) 25 mcg IVP DAILY [facility] Last Admin: 08/04/17 11:56 Dose: 25 mcg Metoprolol Tartrate (Lopressor) 5 mg IVP Q6H REPLACED BY [facility] Last Admin: 08/05/17 02:15 Dose: 5 mg Naloxone HCl (Narcan) 0.4 mg IVP ONCE PRN PRN Reason: Opiate reversal Ondansetron HCl (Zofran Inj) 4 mg IVP Q4 PRN PRN Reason: Nausea/Vomiting Last Admin: 08/05/17 04:09 Dose: 4 mg Oxycodone HCl (Oxycodone Immediate Release Tab) 5 mg PO Q6H PRN PRN Reason: Pain, moderate (4-7) Last Admin: 08/05/17 07:48 Dose: 5 mg Oxycodone HCl (Oxycodone Immediate Release Tab) 10 mg PO Q6H PRN PRN Reason: Pain, severe (8-10) Last Admin: 08/05/17 04:10 Dose: 10 mg Pantoprazole Sodium (Protonix Inj) 40 mg IVP BID [facility]PL[facility] Last Admin: 08/04/17 19:00 Dose: 40 mg - Labs Labs: 08/05/17 06:05 08/05/17 06:05 PT 14.3 SECONDS (9.4-12.5) H 08/05/17 06:05 INR 1.24 (0.93-1.08) H 08/05/17 06:05 APTT 24.6 Seconds (25.1-36.5) L 08/05/17 06:05
--- NOTE | 2017-08-05 10:31 | PN ---
DATE: 08/05/2017 CARDIOLOGY FOLLOWUP SUBJECTIVE: The patient is in bed, complaining of back pain. PHYSICAL EXAMINATION VITAL SIGNS: Blood pressure is 154/90, the heart rates in the 90s. NECK: Negative JVD. LUNGS: Without rales. HEART: S1, S2. EXTREMITIES: Without edema. LABORATORY DATA: Pending today. Troponin is negative. IMPRESSION AND PLAN: 1. Status post hernia repair. 2. Renal insufficiency. 3. Mild cardiomyopathy. 4. Moderate pulmonary hypertension. The patient is on continued antibiotics. Hemodynamically, the patient remains stable. We will need to get the patient out of bed and mobilize her. Awaiting to advance her diet by GI or Surgery. Roman Torres MD
[2017-08-05] MEDS: Levothyroxine 100 mcg (0.1 mg) Inj IVP SCH (11:48)
[2017-08-05 12:05] LABS: GLYCOMARK(R) 8.6 mcg/mL (7.5-28.4)
--- NOTE | 2017-08-05 13:51 | PN ---
DATE: 08/05/2017 LOCATION: Patient is seen in ICU, bed 3. SUBJECTIVE: Patient is out of bed to recliner. Patient is complaining of nausea. Overnight nurse's notes were reviewed. PHYSICAL EXAMINATION: VITAL SIGNS: In the last 24 hours, T-max is 98.3. Telemetry shows sinus rhythm, sinus tachycardia, heart rate lower 100s, 90s. Blood pressure 166/99, 170/112, 154/99, 168/122, 183/119, 159/93, 163/89, 160/96, 159/102; respirations 17, O2 sat 97%. HEENT: Head examination, normocephalic, atraumatic. HEENT examination shows pink conjunctivae. Anicteric sclerae. No oropharyngeal lesion. No neck rigidity. CHEST: Kyphosis. LUNGS: Shows positive rhonchi upper lung inman bilaterally. CARDIOVASCULAR: Shows S1, S2. Positive systolic murmur left sternal border, right second intercostal space, left second intercostal space. ABDOMEN: Protuberant. Positive decreased bowel sound. Positive diffuse voluntary guarding. Positive midline surgical scar and dressing. Positive diffuse tenderness. GENITALIA: Female. Aguayo catheter removed. MUSCULOSKELETAL: Shows a body mass index of 38. NEUROLOGIC: Patient is alert, awake, oriented x3. Cranial nerves II through XII limited. Gait examination is not tested. VASCULAR: Palpable pulses. Lower extremity shows positive swelling of the lower extremity. DIAGNOSTICS: On 08/05, WBC 8.1, hemoglobin and hematocrit 11.1 and 35.4, platelet 265. Granulocytes, 84% segs. PT/PTT 14.3, 24.6. Sodium 143; potassium 3.9; chloride 105; CO2 26; anion gap 16; BUN 35; creatinine 0.9; GFR greater than 60; glucose 128, 165, 142, 113; lactic acid is 0.9, calcium 8.4, phosphorus 3.7, magnesium 3.1. LFTs are normal. Peak troponin was 0.08 down to 0.01. Procalcitonin level yesterday was 33.6 from peak procalcitonin of 100.6. HIV is nonreactive. Blood urine cultures, all urine cultures negative. Patient received 3 units of FFP. Chest x-ray shows no pulmonary disease, but left upper extremity PICC line. EKG done today shows sinus rhythm, heart rate in 89, 94. IMPRESSION AND PLAN: 1. Strangulated, incarcerated ventral hernia. 2. Status post ventral herniorrhaphy with mesh placement. 3. Possible diabetic gastroparesis with symptoms of nausea and symptomatic diabetic gastroparesis. 4. Tachycardia. 5. Uncontrolled accelerated hypertension. 6. Morbid obesity with elevated body mass index of 38. 7. Leukopenia. 8. Normocytic anemia. 9. Granulocytosis. 10. Mild coagulopathy, etiology undetermined. 11. Lactic acidosis. 12. Increased anion gap metabolic acidosis. 13. Hyperprocalcitoninemia. 14. Type 2 [id number] diabetes mellitus with hemoglobin A1c of 6.9. 15. History of hypothyroidism. 16. Pulmonary arterial hypertension with right-sided diastolic congestive heart failure with elevated brain natriuretic peptide. 17. Proteinuria, ketonuria, hematuria, pyuria, bilirubinuria, bacteriuria and funguria. 18. Status post 3 units of fresh frozen plasma transfusion. 19. Ventral hernia with reactive fibrosis. 20. Status post left upper extremity peripherally inserted central catheter line placement. 21. Acute kidney injury secondary to acute tubular necrosis. 22. Systemic inflammatory response syndrome. 23. Status post incarcerated, strangulated ventral hernia repair with mesh, postop day 4. 24. Mild cardiomyopathy. 25. Left ventricular ejection fraction of 45%. 26. Pulmonary arterial hypertension with right ventricular systolic pressure of 59 mmHg. 27. Gait dysfunction. 28. Deconditioning. 29. Postoperative surgical site pain. Plan at this time, patient will be considered for transfer out of the ICU to telemetry, if patient stays stable and cleared by surgery and all subspecialties involved in the care of the patient. Patient has been ordered repeat labs in the morning. CURRENT CONSULTATIONS: 1. Surgery. 2. Cardiology. 3. Gastroenterology. 4. Infectious Disease. 5. Nephrology. 6. Interventional Radiology. Patient's case is referred to TCU. CURRENT MEDICATIONS: 1. Mucomyst nebulizer 20% 4 mL q. 6 hours. 2. Hydralazine 10 mg IV q. 6 p.r.n. 3. Azactam 500 mg IV q. 8. 4. Patient is started on clonidine 0.1 mg q. 8 hours. 5. Patient is on D5 normal saline at 75 mL an hour. 6. Flagyl 500 IV q. 8. 7. Heparin 5000 subcu q. 8. 8. Humalog medium dose sliding scale coverage q. 6. 9. Lopressor 5 mg IV q. 6. 10. Patient is on oxycodone q. 6 hours p.r.n. 11. Protonix 40 mg IV twice a day. 12. Reglan 10 mg IV q. 6. 13. Patient is ordered Relistor 12 mg subcu daily. 14. Synthroid 25 mcg IV push daily. 15. Xopenex nebulizer 0.63 mg every 6 hours. 16. Zofran 4 mg IV q. 4 hours. p.r.n. Patient has been ordered repeat chest x-ray, incentive spirometry, daily EKG. The patient is on n.p.o. diet. Patient has been ordered out of bed to chair, SCDs, ASHELY stockings, physical therapy, occupational therapy Dictated and electronically signed, not read. Adonis Santos MD [facility]
[2017-08-05] MEDS: Dextrose 5%/0.9% NS 1,000 ML IV SCH (14:27)
--- NOTE | 2017-08-05 16:04 | CARD ---
APPROVED REPORT EKG Measurement Heart [id number] <Conclusion> Normal sinus rhythm Low voltage QRS Prolonged QT Abnormal ECG
--- NOTE | 2017-08-05 17:49 | PN ---
DATE: 08/05/2017 SUBJECTIVE: The patient is sitting up in chair in Intensive Care Unit. Her abdominal pain is less. She had one episode of vomiting this morning, but is currently tolerating clear liquids. She denies any chest pain or shortness of breath. She remains weak. PHYSICAL EXAMINATION: VITAL SIGNS: Reveal temperature of 97.8, blood pressure 163/99, heart rate of 104. HEENT: Reveals sclerae to be white. Conjunctivae pink. NECK: Supple. CHEST: Reveals lungs to be clear. HEART: Reveals regular rate and rhythm. ABDOMEN: Soft, mild diffuse tenderness to deep palpation. There is a fresh midline surgical incision without any drainage. EXTREMITIES: Show no edema. LABORATORY DATA: Reveals white blood cell count 8.1, hemoglobin 11.1. BUN 35, creatinine 0.9. PT 14.3, INR 1.24. MEDICATIONS: Currently include acetylcysteine 20% 4 mL inhaled q. 6 hours, aztreonam 500 mg IV q. 8 hours, Catapres 0.1 mg p.o. q. 8 hours, Flagyl 500 mg IV q. 8 hours, Lopressor 5 mg IV q. 6 hours, oxycodone IR 10 mg q. 6 hours p.r.n. pain, Protonix 40 mg IV q. 12 hours, Reglan 10 mg IV q. 6 hours, Levoxyl 25 mcg IV daily, Xopenex 0.63 mg inhaled q. 6 hours, and Zofran 4 mg IV q. 4 hours. IMPRESSION: 1. Status post repair of incarcerated ventral hernia with small bowel obstruction. 2. Postoperative ileus. 3. Acute kidney injury. RECOMMENDATIONS: 1. Trial of clear liquid diets as per Surgery. 2. Continue postop care. 3. Continue IV antibiotics. NOTE: The patient has not had any flatus or BMs postop. This is postoperative day 3. Markie Munguia MD
--- NOTE | 2017-08-05 19:58 | CP.PCM.PCO ---
Physician Communication Note - Physician Communication Note Physician Communication Note: -Flatus/Diastolic BP 100-112/Sips tea/Ice OK
[2017-08-06] MEDS: Levalbuterol 0.63 MG/3 ML Inhal Soln UD IH SCH ×2 (01:25→07:48)
[2017-08-06] MEDS: Acetylcysteine 20% Inhal Soln (4ml) IH SCH ×2 (01:25→07:47)
[2017-08-06] MEDS: Insulin Lispro (humaLOG) MEDIUM Coverage SC SCH ×2 (01:33→08:34)
[2017-08-06] MEDS: Metoprolol 1 mg/ml Inj IVP SCH (01:35)
[2017-08-06] MEDS: Dextrose 5%/0.9% NS 1,000 ML IV SCH ×2 (02:05→05:47)
[2017-08-06] MEDS: oxyCODONE 10 mg Immediate Release Tab PO PRN (02:47)
[2017-08-06] MEDS: oxyCODONE 5 mg Immediate Release Tab PO PRN (05:45)
[2017-08-06] MEDS: metroNIDAZOLE IV 500 mg/100 ml 500 MG/100 ML BAG IVPB SCH (05:46)
[2017-08-06 08:26] VITALS: BP 126/67; PULSE 133; RESP 20; TEMP 98.6
--- NOTE | 2017-08-06 08:52 | RAD ---
HISTORY: abdominal distention COMPARISON: 08/02/2017 gas seen within multiple loops of small bowel, several of which are mildly dilated. Paucity of gas in large bowel. Midline surgical niyah. Likely postoperative ileus. No masses or abnormal calcifications. FINDINGS: BOWEL: Normal. No obstruction. No free air. BONES: Normal. OTHER FINDINGS: None. IMPRESSION: Probable adynamic ileus. Clinically correlate.
[2017-08-06] MEDS: Levothyroxine 100 mcg (0.1 mg) Inj IVP SCH (09:41)
[2017-08-06 09:50] LABS: BASO # 0.03 K/mm3 (0.0-2.0); BASO % 0.3 % (0.0-3.0); GRAN # 8.82 (1.4-6.5); GRAN % 83.8 % (50.0-68.0); HEMOGLOBIN 13.1 g/dL (12.0-16.0); LYMPH # 0.9 (1.2-3.4); LYMPH % 8.9 % (22.0-35.0); MEAN CELL VOLUME 85.7 fl (80.0-105.0); MEAN CORPUSCULAR HEMOGLOBIN 27.6 pg (25.0-35.0); MEAN CORPUSCULAR HGB CONC 32.3 g/dl (31.0-37.0); MEAN PLATELET VOLUME 10.1 fl (7.0-11.0); MONO # 0.7 (0.1-0.6); RBC 4.74 10^6/uL (3.5-6.1); RED CELL DISTRIBUTION WIDTH 14.7 % (11.5-14.5); WHITE BLOOD COUNT 10.5 10^3/ul (4.5-11.0)
[2017-08-06 09:52] LABS: ALBUMIN 2.6 g/dL (3.0-4.8); ALT/SGPT 32 U/L (7-56); AST/SGOT 25 U/L (14-36); BILIRUBIN,DIRECT 0.4 mg/dL (0.0-0.4); BLOOD UREA NITROGEN 35 mg/dL (7-21); GFR AFRICAN-AMERICAN 50; GFR NON-AFRICAN AMERICAN 41; MAGNESIUM 2.9 mg/dL (1.7-2.2)
[2017-08-06] MEDS ORDERED: Mineral Oil Enema 135 ml RC SCH (10:00)
[2017-08-06 10:02] LABS: TROPONIN I < 0.01 ng/mL
[2017-08-06 10:08] LABS: INR 1.39 (0.93-1.08); PARTIAL THROMBOPLASTIN TIME 24.6 Seconds (25.1-36.5); PROTHROMBIN TIME 16.1 SECONDS (9.4-12.5)
[2017-08-06 10:12] LABS: % IRON SATURATION 5 % (20-55); IRON 10 ug/dL (45-180); TOTAL IRON BINDING CAPACITY 189 ug/dL (265-497)
[2017-08-06 11:12] LABS: ARTERIAL BLOOD GAS HCO3 19.1 mmol/L (21-28); ARTERIAL BLOOD GAS O2 SAT 17.3 % (95-98); ARTERIAL BLOOD GAS PCO2 102 mm/Hg (35-45); ARTERIAL BLOOD GAS TCO2 22.2 mmol.L (22-28)
[2017-08-06 11:14] LABS: ARTERIAL BLOOD GAS PH 6.88 (7.35-7.45)
--- NOTE | 2017-08-06 12:38 | CP.PCM.PN ---
Subjective - Date & Time of Evaluation Date of Evaluation: 08/06/17 Time of Evaluation: 10:15 - Subjective Subjective: CODE BLUE NOTE CODE ESTEVAN CALLED AT 10:15AM I arrived to the code blue at 10:15AM, CPR in progress, initial rhythm PEA. Patient had 350cc of billious material suctioned out from mouth/lung, prior to intubation, patient intubated without complication. Chest compressions was done as per ACLS protocol. Pulses were checked every 2 minutes, Epinephrine 1mg given every 3-5 minutes, a total of 17mg epinephrine. Bicarb 1ampule was given x 5, Calcium chloride 1gm, Insulin 10u, D50 x 1 given. Pt had ROSC at 10:40AM, initial rhythm ST 150s, then lost pulse at 10:41AM, CPR resumed. CPR continued, epinephrine given every 3-5 minutes, and pulses checked every 2 minutes. Rhythm was PEA throughout the CPR, not shockable. Patient was pronounced at 11:25AM, after 70 minutes of CPR. Family notified. Objective - Vital Signs/Intake and Output Vital Signs (last 24 hours): Temp Pulse Resp BP Pulse Ox 98.6 F 133 H 20 126/67 97 08/06/17 08:25 08/06/17 09:40 08/06/17 08:25 08/06/17 09:40 08/06/17 08:25 Intake and Output: 08/06/17 08/06/17 06:59 18:59 Intake Total 0 Output Total 0 Balance 0 - Medications Medications: Current Medications Acetylcysteine (Acetylcysteine 20%) 4 ml IH [id number] [facility] Last Admin: 08/06/17 07:47 Dose: 4 ml Clonidine HCl (Catapres) 0.2 mg PO Q8H [facility] Last Admin: 08/06/17 08:26 Dose: 0.2 mg Heparin Sodium (Porcine) (Heparin) 5,000 units SC Q8 [facility]ON[facility] PRN Reason: Protocol Last Admin: 08/06/17 05:46 Dose: 5,000 units Hydralazine HCl (Apresoline) 10 mg IVP Q6 PRN PRN Reason: Systolic Blood Pressure Last Admin: 08/06/17 03:34 Dose: 10 mg Aztreonam 500 mg/ Sodium (Chloride) 100 mls @ 100 mls/hr IVPB Q8 [facility]ONNY PRN Reason: Protocol Stop: 08/11/17 22:01 Last Admin: 08/06/17 05:40 Dose: 100 mls/hr Metronidazole (Flagyl) 500 mg in 100 mls @ 100 mls/hr IVPB Q8 [facility]ONNY PRN Reason: Protocol Stop: 08/11/17 22:01 Last Admin: 08/06/17 05:46 Dose: 100 mls/hr Dextrose/Sodium Chloride (Dextrose 5%/0.9% Ns 1000 Ml) 1,000 mls @ 75 mls/hr IV .[id number] [facility] Last Admin: 08/06/17 05:47 Dose: 75 mls/hr Insulin Human Lispro (Humalog Med) 0 units SC Q6H [facility] PRN Reason: Protocol Last Admin: 08/06/17 08:34 Dose: 3 units Levalbuterol HCl (Xopenex) 0.63 mg IH [id number] [facility] Last Admin: 08/06/17 07:48 Dose: 0.63 mg Levothyroxine Sodium (Synthroid) 25 mcg IVP DAILY [facility] Last Admin: 08/06/17 09:41 Dose: 25 mcg Methylnaltrexone [place] (Relistor) 12 mg SC DAILY [facility] Last Admin: 08/05/17 12:00 Dose: 12 mg Metoclopramide HCl (Reglan) 10 mg IVP Q6H [facility] Last Admin: 08/06/17 05:46 Dose: 10 mg Metoprolol Tartrate (Lopressor) 25 mg PO BID [facility] Last Admin: 08/06/17 09:40 Dose: 25 mg Mineral Oil (Fleet Mineral Oil Enema) 135 ml RC TID [facility] Ondansetron HCl (Zofran Inj) 4 mg IVP Q4 PRN PRN Reason: Nausea/Vomiting Last Admin: 08/06/17 03:09 Dose: 4 mg Oxycodone HCl (Oxycodone Immediate Release Tab) 5 mg PO Q6H PRN PRN Reason: Pain, moderate (4-7) Last Admin: 08/06/17 05:45 Dose: 5 mg Oxycodone HCl (Oxycodone Immediate Release Tab) 10 mg PO Q6H PRN PRN Reason: Pain, severe (8-10) Last Admin: 08/06/17 02:47 Dose: 10 mg Pantoprazole Sodium (Protonix Inj) 40 mg IVP BID [facility] Last Admin: 08/06/17 09:41 Dose: 40 mg - Labs Labs: 08/06/17 09:30 08/06/17 09:30 PT 16.1 SECONDS (9.4-12.5) H 08/06/17 09:30 INR 1.39 (0.93-1.08) H 08/06/17 09:30 APTT 24.6 Seconds (25.1-36.5) L 08/06/17 09:30
--- NOTE | 2017-08-06 14:38 | CP.PCM.PN ---
Subjective - Date & Time of Evaluation Date of Evaluation: 08/06/17 Time of Evaluation: 06:50 - Subjective Subjective: Patient seen and examined on telemetry floor. Patient was transferred to med/ surgery yesterday instead of telemetry floor and then was transferred to telemetry with tachycardia in the 120-130's and hypertension. Patient had an episode of nausea and vomiting green emesis early this AM per nursing . Patient is short of breath this AM but denies nausea at this time and wants hot tea. Also complains of persistent back and abdominal pain. Objective - Vital Signs/Intake and Output Vital Signs (last 24 hours): Temp Pulse Resp BP Pulse Ox 98.6 F 133 H 20 126/67 97 08/06/17 08:25 08/06/17 09:40 08/06/17 08:25 08/06/17 09:40 08/06/17 08:25 Intake and Output: 08/06/17 08/06/17 06:59 18:59 Intake Total 0 Output Total 0 Balance 0 - Medications Medications: Current Medications Acetylcysteine (Acetylcysteine 20%) 4 ml IH [id number] [facility] Last Admin: 08/06/17 07:47 Dose: 4 ml Clonidine HCl (Catapres) 0.2 mg PO Q8H [facility] Last Admin: 08/06/17 08:26 Dose: 0.2 mg Heparin Sodium (Porcine) (Heparin) 5,000 units SC Q8 [facility] PRN Reason: Protocol Last Admin: 08/06/17 05:46 Dose: 5,000 units Hydralazine HCl (Apresoline) 10 mg IVP Q6 PRN PRN Reason: Systolic Blood Pressure Last Admin: 08/06/17 03:34 Dose: 10 mg Aztreonam 500 mg/ Sodium (Chloride) 100 mls @ 100 mls/hr IVPB Q8 [facility] PRN Reason: Protocol Stop: 08/11/17 22:01 Last Admin: 08/06/17 05:40 Dose: 100 mls/hr Metronidazole (Flagyl) 500 mg in 100 mls @ 100 mls/hr IVPB Q8 [facility] PRN Reason: Protocol Stop: 08/11/17 22:01 Last Admin: 08/06/17 05:46 Dose: 100 mls/hr Dextrose/Sodium Chloride (Dextrose 5%/0.9% Ns 1000 Ml) 1,000 mls @ 75 mls/hr IV .[id number] [facility] Last Admin: 08/06/17 05:47 Dose: 75 mls/hr Insulin Human Lispro (Humalog Med) 0 units SC Q6H [facility] PRN Reason: Protocol Last Admin: 08/06/17 08:34 Dose: 3 units Levalbuterol HCl (Xopenex) 0.63 mg IH [id number] [facility] Last Admin: 08/06/17 07:48 Dose: 0.63 mg Levothyroxine Sodium (Synthroid) 25 mcg IVP DAILY [facility] Last Admin: 08/06/17 09:41 Dose: 25 mcg Methylnaltrexone [place] (Relistor) 12 mg SC DAILY [facility] Last Admin: 08/05/17 12:00 Dose: 12 mg Metoclopramide HCl (Reglan) 10 mg IVP Q6H [facility] Last Admin: 08/06/17 05:46 Dose: 10 mg Metoprolol Tartrate (Lopressor) 25 mg PO BID [facility] Last Admin: 08/06/17 09:40 Dose: 25 mg Mineral Oil (Fleet Mineral Oil Enema) 135 ml RC TID [facility] Ondansetron HCl (Zofran Inj) 4 mg IVP Q4 PRN PRN Reason: Nausea/Vomiting Last Admin: 08/06/17 03:09 Dose: 4 mg Oxycodone HCl (Oxycodone Immediate Release Tab) 5 mg PO Q6H PRN PRN Reason: Pain, moderate (4-7) Last Admin: 08/06/17 05:45 Dose: 5 mg Oxycodone HCl (Oxycodone Immediate Release Tab) 10 mg PO Q6H PRN PRN Reason: Pain, severe (8-10) Last Admin: 08/06/17 02:47 Dose: 10 mg Pantoprazole Sodium (Protonix Inj) 40 mg IVP BID [facility] Last Admin: 08/06/17 09:41 Dose: 40 mg - Labs Labs: 08/06/17 09:30 08/06/17 09:30 PT 16.1 SECONDS (9.4-12.5) H 08/06/17 09:30 INR 1.39 (0.93-1.08) H 08/06/17 09:30 APTT 24.6 Seconds (25.1-36.5) L 02/08/18 09:30 - Constitutional Appears: Non-toxic - Head Exam Head Exam: ATRAUMATIC, NORMOCEPHALIC - Eye Exam Eye Exam: Normal appearance. absent: Conjunctival injection, Scleral icterus - ENT Exam ENT Exam: Mucous Membranes Moist, Normal Oropharynx - Respiratory Exam Respiratory Exam: absent: NORMAL BREATHING PATTERN Additional comments: tachypneic, dyspneic - Cardiovascular Exam Cardiovascular Exam: Tachycardia, REGULAR RHYTHM - GI/Abdominal Exam GI & Abdominal Exam: Distended, Soft, Tenderness Additional comments: midline incision well approximated with niyah - Extremities Exam Extremities Exam: absent: Calf Tenderness, Pedal Edema, Tenderness - Neurological Exam Neurological Exam: Alert, Awake, Oriented x3 - Psychiatric Exam Psychiatric exam: Normal Affect, Normal Mood Assessment and Plan - Assessment and Plan (Free Text) Assessment: 67F with incarcerated ventral hernia POD#5 s/p ventral hernia repair with mesh Abdominal Xray: diffuse moderate ileus, constipation CXR: Hiatal hernia Plan: -F/U EKG -encourage ambulation and incentive spirometer use -F/U strict urine output -pain and nausea medication PRN -Stricter BP control--Patient remains very hypertensive -physical therapy -Continue to trend labs -Continue DVT/GI ppx -Patient may drink hot tea and have ice chips -continue IVF -Continue reglan and relistor Discussed with Dr. Duncan Craven, PGY2
--- NOTE | 2017-08-06 14:42 | RAD ---
HISTORY: CHF/??PNEUMONIA COMPARISON: 08/05/2017 FINDINGS: LUNGS: No active pulmonary disease. PLEURA: No significant pleural effusion identified, no pneumothorax apparent. CARDIOVASCULAR: Mild cardiomegaly OSSEOUS STRUCTURES: No significant abnormalities. VISUALIZED UPPER ABDOMEN: Normal. OTHER FINDINGS: The left-sided PICC line terminates in the right atrium IMPRESSION: Moderate to large hiatal hernia. No evidence of pneumonia
--- NOTE | 2017-08-06 15:45 | PN ---
DATE: 08/06/2017 SUBJECTIVE: The patient is postop day 4 from an incarcerated colon hernia (ventral) and has been slow recovering and is just starting ice chips and sips of tea this morning. She had a postoperative renal insufficiency and has been recovering slowly and her electrolytes and laboratory data are all normal on this morning and she had one episode of some hiccuping and vomiting at 4.00 a.m. and was better by 7:00 in the morning. She was taking sips of rice, was just starting p.o. medications and her nurse noted that she was becoming diaphoretic and suddenly short of breath and within the next few minutes, a code was called at the request of machine presser (Dr. Markie Munguia) who came the room and found the patient was pulseless. The code team responded and the patient has been resuscitated and pulse was returned and then lost once again and the code is still continuing at this time. The patient's family has been notified that she had a sudden deterioration at 10:30 this morning and the [id number] is coming on her way now. Prognosis looks poor at this point and the etiology is unclear and the patient's event is either vascular or ischemic event at this point. Felix Song MD
[2017-08-06 17:38] LABS: FOLATE 13.8 ng/mL
--- NOTE | 2017-08-06 17:58 | CP.PCM.PN ---
Subjective - Date & Time of Evaluation Date of Evaluation: 08/06/17 Time of Evaluation: 11:50 - Subjective Subjective: Code Blue Note: Code Blue called at 1015 on 08/06/17 when patient was found to be unresponsive and without a pulse. ACLS was initiated and chest compressions were started. Initial rhythm was PEA. Bilious fluid was noted in oropharynx and 350cc was suctioned. Patient was then intubated without complications. A total of 17mg of epinephrine was administered at a rate of every 3-5 minutes and five ampules of bicarb were administered as indicated by ACLS guidelines. Patient was found to have hyperkalemia during the code blue and was administered 1g of calcium chloride, 10 units of insulin and one ampule of D5W. Patient did have ROSC at 1040 with initial rhythm of sinus tachycardia at 150bpm but then lost pulse at 1041, at which point CPR resumed. Pulses were checked every two minutes as indicated by ACLS protocol. Of note, rhythm was PEA throughout code and was unshockable. ACLS continued for a total of 70 minutes before patient was pronounced at 1125, at which point family was notified. Objective - Vital Signs/Intake and Output Vital Signs (last 24 hours): Temp Pulse Resp BP Pulse Ox 98.6 F 133 H 20 126/67 97 08/06/17 08:25 08/06/17 09:40 08/06/17 08:25 08/06/17 09:40 08/06/17 08:25 Intake and Output: 08/06/17 08/06/17 06:59 18:59 Intake Total 0 Output Total 0 Balance 0 - Medications Medications: Current Medications Acetylcysteine (Acetylcysteine 20%) 4 ml IH [id number] [facility] Last Admin: 08/06/17 07:47 Dose: 4 ml Clonidine HCl (Catapres) 0.2 mg PO Q8H [facility] Last Admin: 08/06/17 08:26 Dose: 0.2 mg Heparin Sodium (Porcine) (Heparin) 5,000 units SC Q8 [facility] PRN Reason: Protocol Last Admin: 08/06/17 05:46 Dose: 5,000 units Hydralazine HCl (Apresoline) 10 mg IVP Q6 PRN PRN Reason: Systolic Blood Pressure Last Admin: 08/06/17 03:34 Dose: 10 mg Aztreonam 500 mg/ Sodium (Chloride) 100 mls @ 100 mls/hr IVPB Q8 [facility] PRN Reason: Protocol Stop: 08/11/17 22:01 Last Admin: 08/06/17 05:40 Dose: 100 mls/hr Metronidazole (Flagyl) 500 mg in 100 mls @ 100 mls/hr IVPB Q8 [facility] PRN Reason: Protocol Stop: 08/11/17 22:01 Last Admin: 08/06/17 05:46 Dose: 100 mls/hr Dextrose/Sodium Chloride (Dextrose 5%/0.9% Ns 1000 Ml) 1,000 mls @ 75 mls/hr IV .[id number] [facility] Last Admin: 08/06/17 05:47 Dose: 75 mls/hr Insulin Human Lispro (Humalog Med) 0 units SC Q6H [facility] PRN Reason: Protocol Last Admin: 08/06/17 08:34 Dose: 3 units Levalbuterol HCl (Xopenex) 0.63 mg IH [id number] Last Admin: 08/06/17 07:48 Dose: 0.63 mg Levothyroxine Sodium (Synthroid) 25 mcg IVP DAILY [facility] Last Admin: 08/06/17 09:41 Dose: 25 mcg Methylnaltrexone [place] (Relistor) 12 mg SC DAILY [facility] Last Admin: 08/05/17 12:00 Dose: 12 mg Metoclopramide HCl (Reglan) 10 mg IVP Q6H [facility] Last Admin: 08/06/17 05:46 Dose: 10 mg Metoprolol Tartrate (Lopressor) 25 mg PO BID [facility] Last Admin: 08/06/17 09:40 Dose: 25 mg Mineral Oil (Fleet Mineral Oil Enema) 135 ml RC TID [facility] Ondansetron HCl (Zofran Inj) 4 mg IVP Q4 PRN PRN Reason: Nausea/Vomiting Last Admin: 08/06/17 03:09 Dose: 4 mg Oxycodone HCl (Oxycodone Immediate Release Tab) 5 mg PO Q6H PRN PRN Reason: Pain, moderate (4-7) Last Admin: 08/06/17 05:45 Dose: 5 mg Oxycodone HCl (Oxycodone Immediate Release Tab) 10 mg PO Q6H PRN PRN Reason: Pain, severe (8-10) Last Admin: 08/06/17 02:47 Dose: 10 mg Pantoprazole Sodium (Protonix Inj) 40 mg IVP BID [facility] Last Admin: 08/06/17 09:41 Dose: 40 mg - Labs Labs: 08/06/17 09:30 08/06/17 09:30 PT 16.1 SECONDS (9.4-12.5) H 08/06/17 09:30 INR 1.39 (0.93-1.08) H 08/06/17 09:30 APTT 24.6 Seconds (25.1-36.5) L 08/06/17 09:30
--- NOTE | 2017-08-06 18:01 | CP.PCM.PRO ---
Pronouncement of Note - Clinical Findings Physical Exam: No Response Verbal/Painful Stimuli, Absent Peripheral Pulses{ Carotid & Femoral}, Absent Heart & Breath Sounds, No Pupillary Light Reflex, No Corneal Reflex, Pupils Fixed & Dilated, Absence of Vital Signs - Pronouncement Time Time of Pronouncement of : 11:25 - Notifications Pronouncement Notifications: Family Notified, Atending Notified Wildlife Conservation Officer Notified: Yes - Autopsy Autopsy Requested: Yes - [place] [id number]
--- NOTE | 2017-08-06 18:06 | CARD ---
APPROVED REPORT EKG Measurement Heart [id number] CT 128P19 [id number] <Conclusion> Sinus tachycardia Possible Left atrial enlargement Abnormal QRS-T angle, consider primary T wave abnormality Abnormal ECG
--- NOTE | 2017-08-06 22:59 | OP ---
PROCEDURE DATE: 08/01/2017 SURGEON: Felix Song MD. RING ATTACHER: Erum Kuhn DO, PGY-2. ANESTHESIA ADMINISTERED BY: Robert Hutton MD. TYPE OF ANESTHESIA: General endotracheal -- Marcaine 0.5-18 mL. PREOPERATIVE DIAGNOSES: 1. Incarcerated ventral hernia, colon obstruction. 2. Obesity. 3. Diabetes mellitus. 4. Hypertensive coronary artery disease. POSTOPERATIVE DIAGNOSES: 1. Incarcerated ventral hernia, colon obstruction. 2. Obesity. 3. Diabetes mellitus. 4. Hypertensive coronary artery disease. PROCEDURE: An emergency laparotomy with repair of ventral hernia with mesh and reduction of the colon incarceration. OPERATIVE INDICATIONS: Patient is a 67-year-old, morbidly obese, 5-feet 4-inches, 221-pound female who has had a chronic more than 2 year history of an incarcerated ventral hernia. At sometimes, the patient thought the hernia had reduced, but according to her physician, this has remained there recently and has become extremely symptomatic over the last 2 days prompting her visit to the emergency room and subsequent consultation with the surgeon and admission by the attending physician (Dr. Adonis Santos). Laboratory data was taken. The patient underwent a CAT scan without contrast, demonstrating at least a 4- to 5-cm intestinal incarceration in the supraumbilical region with mild stranding surrounding same. The white count is normal and the laboratory data is also within normal limits; however, the patient is clinically volume depleted and complains of significant thirst and several fluid challenges were given to the patient. The attending physician at this point has recommended urgent operation and the patient is loaded with antibiotics, prepared for surgery, adequately discussed with him. and signs the informed consent with the family concurrence. OPERATIVE NOTE: The patient was brought to the operating room, identified by her wristband, underwent timeout procedure and was brought to the procedure room, placed on the table in the supine manner and underwent the induction of general anesthesia. Aguayo catheter was inserted and a nasogastric tube, which had been previously attempted and could not pass the diane, it is now able to pass by the siphoner and was connected to suction. The abdomen was prepped with Hibiclens and Chlorhexidine preparation and the patient was then aseptically draped. Gentle palpation of the hernia failed to reduce it at this point and midline incision was made with electrocoagulating cauteries and hemostasis and the hernia was dissected completely circumferentially. The incision was extended above the hernia in the cephalad direction with cautery scalpel and the hernia was then brought up into the incision and adhesions freely removed and the hernia sac dissected off with cautery scalpel. A small hematoma was noted on the surface of the colon and this was ligated with 0 chromic catgut ligature and the hernia was able to be reduced and the bowel return was the same. Cultures of the peritoneal fluid were taken at this point and sent for aerobic and anaerobic sensitivities and further evaluation demonstrated absence of any bleeding. At this point, it is elected to place an 8-cm Ventralex mesh into the incision and closed the incision with 0 Prolene figure-of-8 interrupted sutures. The fascia and skin and subcutaneous tissues are now infiltrated with bupivacaine for postoperative analgesia and the subcutaneous tissues were lavaged with saline, aspirated, and hemostasis confirmed. The subcutaneous tissues were approximated with 3-0 Polysorb suture and the skin with the AutoSuture skin stapler and Steri-Strips. A dry dressing was placed. The patient was awakened, extubated, and transported to the recovery room in satisfactory condition. Sponge, instrument, and suture count were verified as correct at the end of the procedure. Estimated blood loss during this procedure was less than 20 mL of blood. Felix Song MD
--- NOTE | 2017-08-07 20:36 | PN ---
DATE: 08/06/2017 ADDENDUM: This is an addendum and update to the last note written by medical record transcriber, Cyril Stephens. He describes a code blue called at 10:15 in the morning where the patient was unresponsive and without a pulse and that is correct. The patient was talking to her nurse and asking for hot tea thinking this would calm her abdominal distress. The patient!s main pains were in her back and these have been chronically taken care of in the past with 10 mg doses of oxycodone. The nurse, whose name is Alejandra, described the findings as the patient suddenly became diaphoretic and described that she was having trouble breathing. Within moments, the patient slumped to the side and at that moment, Dr. Munguia had come in, felt no pulse, and called the code and chest compressions were initiated and when the code team came in, they intubated the patient and at that time found bilious material coming from the endotracheal tube. The purpose of this communication is to clarify the document on the chart that the patient was diaphoretic and short of breath before any aspiration occurred. This patient has a large hiatal hernia that resisted nasogastric decompression since admission and had a distended gastric bubble, but was comfortable and asking for warm tea to comfort her stomach. Despite all measures, the resuscitation resulted in the patient!s pronouncement and extensive discussion was held at this point with the patient!s son and his . The description of these findings were given to them and they are offered sedation if needed during this extreme time of grief. I have her that the medical record transcriber spoke with the family and the family now is asking for postmortem examination which they were not considering at the time of my discussion. I spoke with the chief of pathology and recommended that this note be described to the pathologist who will be doing the postmortem examination. This dictation will be signed without being read. Felix Song MD
== END 2017-08-06 13:00 | DRG 353 ==
LOC: ED 16:18 → ERH 20:30 → 3RNO 08-01 03:06 → ICU 08-02 17:46 → 5RNO 08-05 20:38 → 3RSO 08-06 04:22
PROVIDERS: ADMIT Internal Medicine; ATTEND Internal Medicine
PROC: 30233K1 Transfusion of Nonautologous Frozen Plasma into Peripheral Vein, Percutaneous Approach (ICD-10-PCS; 2017-08-03)
PROC: 02H633Z Insertion of Infusion Device into Right Atrium, Percutaneous Approach (ICD-10-PCS; 2017-08-04)
PROC: B244ZZZ Ultrasonography of Right Heart (ICD-10-PCS; 2017-08-04)
PROC: 0WUF0JZ Supplement Abdominal Wall with Synthetic Substitute, Open Approach (ICD-10-PCS; principal; 2017-08-06)
PROC: 5A12012 Performance of Cardiac Output, Single, Manual (ICD-10-PCS; 2017-08-06)
PROC: 0BH17EZ Insertion of Endotracheal Airway into Trachea, Via Natural or Artificial Opening (ICD-10-PCS; 2017-08-06)
DX: K43.6 Other and unspecified ventral hernia with obstruction, without gangrene (principal); A41.9 Sepsis, unspecified organism; N17.0 Acute kidney failure with tubular necrosis; E46 Unspecified protein-calorie malnutrition; E87.2 Acidosis; D68.9 Coagulation defect, unspecified; E11.65 Type 2 diabetes mellitus with hyperglycemia; I50.30 Unspecified diastolic (congestive) heart failure; E66.01 Morbid (severe) obesity due to excess calories; I11.0 Hypertensive heart disease with heart failure; E83.39 Other disorders of phosphorus metabolism; F11.20 Opioid dependence, uncomplicated; I42.9 Cardiomyopathy, unspecified; J98.11 Atelectasis; K56.7 Ileus, unspecified; K57.32 Diverticulitis of large intestine without perforation or abscess without bleeding; K91.89 Other postprocedural complications and disorders of digestive system; N13.30 Unspecified hydronephrosis; N39.0 Urinary tract infection, site not specified; Q43.8 Other specified congenital malformations of intestine; I46.9 Cardiac arrest, cause unspecified; D17.9 Benign lipomatous neoplasm, unspecified; D64.9 Anemia, unspecified; D72.819 Decreased white blood cell count, unspecified; E03.9 Hypothyroidism, unspecified; E78.00 Pure hypercholesterolemia, unspecified; E78.1 Pure hyperglyceridemia; E78.5 Hyperlipidemia, unspecified; E83.41 Hypermagnesemia; E86.0 Dehydration; E86.1 Hypovolemia; E87.5 Hyperkalemia; F43.0 Acute stress reaction; G89.18 Other acute postprocedural pain; G89.4 Chronic pain syndrome; I08.1 Rheumatic disorders of both mitral and tricuspid valves; I25.10 Atherosclerotic heart disease of native coronary artery without angina pectoris; I25.2 Old myocardial infarction; I27.21 Secondary pulmonary arterial hypertension; I87.8 Other specified disorders of veins; I95.81 Postprocedural hypotension; K21.9 Gastro-esophageal reflux disease without esophagitis; K44.9 Diaphragmatic hernia without obstruction or gangrene; K52.9 Noninfective gastroenteritis and colitis, unspecified; K64.8 Other hemorrhoids; M12.9 Arthropathy, unspecified; M17.0 Bilateral primary osteoarthritis of knee; M47.9 Spondylosis, unspecified; M89.9 Disorder of bone, unspecified; N28.1 Cyst of kidney, acquired; N28.89 Other specified disorders of kidney and ureter; Z68.38 Body mass index [BMI] 38.0-38.9, adult; Z79.82 Long term (current) use of aspirin; Z79.899 Other long term (current) drug therapy; Z87.11 Personal history of peptic ulcer disease; Z90.710 Acquired absence of both cervix and uterus; Z91.11 Patient's noncompliance with dietary regimen